=== PATIENT | male | born 1975 | race Caucasian/White ===

== ENCOUNTER 2021-03-01 10:25 | Inpatient (IN) | payer BC ==
--- NOTE | 2021-03-01 10:58 | ED ---
SOB HPI - General Chief Complaint: Shortness of Breath Stated Complaint: COVID +, SOB Time Seen by Provider: 03/01/21 10:36 Source: patient, EMS Mode of arrival: EMS Limitations: no limitations - History of Present Illness Initial Comments: Patient is a 45-year-old male presenting to the emergency department via EMS with complaints of shortness of breath. Patient has a positive for covid 3 days ago, symptoms started 6 days ago. He was having coughing, fevers, fatigue and some mild nausea. His shortness of breath has increased over the past 2 days. Denies history of asthma, no COPD, he is a nonsmoker. He takes no medications. He has no other pertinent past medical history. A chest pain at this time, no abdominal pain. Per EMS, patient was at 80% on room air. Upon arrival to our ER he was 70% on room air, quickly increased to 92% on nonrebreather. He is afebrile. - Related Data Home Medications Medication Instructions Recorded Confirmed Ibuprofen [Advil] 600 mg PO Q8HR PRN 03/01/21 03/01/21 Multivitamins, Thera [Multivitamin 1 tab PO DAILY 03/01/21 03/01/21 (formulary)] guaiFENesin [Mucinex] 1,200 mg PO Q12H PRN 03/01/21 03/01/21 Allergies Allergy/AdvReac Type Severity Reaction Status Date / Time No Known Allergies Allergy Unverified 03/01/21 11:58 Review of Systems ROS Statement: Those systems with pertinent positive or pertinent negative responses have been documented in the HPI. ROS Other: All systems not noted in ROS Statement are negative. Past Medical History Past Medical History: No Reported History History of Any Multi-Drug Resistant Organisms: None Reported Past Surgical History: No Surgical Hx Reported Past Psychological History: No Psychological Hx Reported Smoking Status: Never smoker Past Alcohol Use History: None Reported Past Drug Use History: None Reported General Exam - General Exam Comments Initial Comments: GENERAL: Patient is well-developed and well-nourished. Patient is nontoxic and in mild acute distress. HEAD: Atraumatic, normocephalic. EYES: Pupils equal round and reactive to light, extraocular movements intact, sclera anicteric, conjunctiva are normal. Eyelids were unremarkable. ENT: TMs normal, nares patent, oropharynx clear without exudates. Moist mucous membranes. NECK: Normal range of motion, supple without lymphadenopathy or JVD. LUNGS: Labored respirations. Diminished sounds bilaterally. No wheezes rales or rhonchi. HEART: Tachycardia rate and rhythm without murmurs, rubs or gallops. ABDOMEN: Soft, nontender, normoactive bowel sounds. No guarding, no rebound. No masses appreciated. : Deferred MUSCULOSKELETAL: Normal extremities with adequate strength and normal range of motion, no pitting or edema. No clubbing or cyanosis. NEUROLOGICAL: Patient is alert and oriented x 3. Motor and sensory are also intact. Cranial nerves II through XII grossly intact. Symmetrical smile. Normal speech, normal gait. PSYCH: Normal mood, normal affect. SKIN: Warm, Dry, normal turgor, no rashes or lesions noted. Limitations: no limitations Course Vital Signs 03/01/21 03/01/21 03/01/21 10:28 10:32 11:31 Temperature 98.4 F Pulse Rate 105 H 98 Respiratory 26 H 24 Rate Blood Pressure 150/83 125/65 O2 Sat by Pulse 70 L 92 L 95 Oximetry 03/01/21 12:31 Temperature Pulse Rate 98 Respiratory 24 Rate Blood Pressure 110/76 O2 Sat by Pulse 94 L Oximetry Medical Decision Making - Medical Decision Making Patient is a 45-year-old male with no pertinent past medical history, presenting via EMS with complaints of shortness of breath. Patient tested positive for Covid on Thursday, he is on day 6 of symptoms. He was at 70% on room air upon arrival to our ER, quickly increased to 92% with a nonrebreather. EKG is normal. He is afebrile. Slightly tachycardia. Labs are relatively stable, d- dimer slightly elevated at 0.69, LDH is 1100. Chest x-ray shows diffuse covid pneumonia. Patient will be admitted for covid pneumonia, hypoxia. Patient accepted by Dr. Galeano. Case discussed with Dr. Sifuentes. - Lab Data Result diagrams: 03/01/21 12:14 03/01/21 12:14 Lab Results 03/01/21 03/01/21 03/01/21 Range/Units 12:14 12:14 12:14 WBC 10.3 (3.8-10.6) k/uL RBC 5.05 (4.30-5.90) m/uL Hgb 16.3 (13.0-17.5) gm/dL Hct 45.3 (39.0-53.0) % MCV 89.7 (80.0-100.0) fL MCH 32.4 (25.0-35.0) pg MCHC 36.1 (31.0-37.0) g/dL RDW 12.8 (11.5-15.5) % Plt Count 234 (150-450) k/uL MPV 8.1 Neutrophils % 84 % Lymphocytes % 9 % Monocytes % 6 % Eosinophils % 0 % Basophils % 1 % Neutrophils # 8.7 H (1.3-7.7) k/uL Lymphocytes # 0.9 L (1.0-4.8) k/uL Monocytes # 0.6 (0-1.0) k/uL Eosinophils # 0.0 (0-0.7) k/uL Basophils # 0.1 (0-0.2) k/uL PT 10.2 (9.0-12.0) sec INR 0.9 (<1.2) APTT 22.7 (22.0-30.0) sec D-Dimer 0.69 H (<0.60) mg/L FEU Sodium 142 (137-145) mmol/L Potassium 3.8 (3.5-5.1) mmol/L Chloride 105 (98-107) mmol/L Carbon Dioxide 27 (22-30) mmol/L Anion Gap 10 mmol/L BUN 17 (9-20) mg/dL Creatinine 0.74 (0.66-1.25) mg/dL Est GFR (CKD-EPI)AfAm >90 (>60 ml/min/1.73 sqM) Est GFR (CKD-EPI)NonAf >90 (>60 ml/min/1.73 sqM) Glucose 121 H (74-99) mg/dL Plasma Lactic Acid Jimbo (0.7-2.0) mmol/L Calcium 8.6 (8.4-10.2) mg/dL Magnesium 1.9 (1.6-2.3) mg/dL Total Bilirubin 0.7 (0.2-1.3) mg/dL AST 57 (17-59) U/L ALT 47 (4-49) U/L Alkaline Phosphatase 83 (38-126) U/L Lactate Dehydrogenase 1156 H (313-618) U/L Total Protein 6.8 (6.3-8.2) g/dL Albumin 3.6 (3.5-5.0) g/dL 03/01/21 Range/Units 12:14 WBC (3.8-10.6) k/uL RBC (4.30-5.90) m/uL Hgb (13.0-17.5) gm/dL Hct (39.0-53.0) % MCV (80.0-100.0) fL MCH (25.0-35.0) pg MCHC (31.0-37.0) g/dL RDW (11.5-15.5) % Plt Count (150-450) k/uL MPV Neutrophils % % Lymphocytes % % Monocytes % % Eosinophils % % Basophils % % Neutrophils # (1.3-7.7) k/uL Lymphocytes # (1.0-4.8) k/uL Monocytes # (0-1.0) k/uL Eosinophils # (0-0.7) k/uL Basophils # (0-0.2) k/uL PT (9.0-12.0) sec INR (<1.2) APTT (22.0-30.0) sec D-Dimer (<0.60) mg/L FEU Sodium (137-145) mmol/L Potassium (3.5-5.1) mmol/L Chloride (98-107) mmol/L Carbon Dioxide (22-30) mmol/L Anion Gap mmol/L BUN (9-20) mg/dL Creatinine (0.66-1.25) mg/dL Est GFR (CKD-EPI)AfAm (>60 ml/min/1.73 sqM) Est GFR (CKD-EPI)NonAf (>60 ml/min/1.73 sqM) Glucose (74-99) mg/dL Plasma Lactic Acid Jimbo 1.1 (0.7-2.0) mmol/L Calcium (8.4-10.2) mg/dL Magnesium (1.6-2.3) mg/dL Total Bilirubin (0.2-1.3) mg/dL AST (17-59) U/L ALT (4-49) U/L Alkaline Phosphatase (38-126) U/L Lactate Dehydrogenase (313-618) U/L Total Protein (6.3-8.2) g/dL Albumin (3.5-5.0) g/dL - EKG Data EKG Comments: Normal sinus rhythm, normal ECG, no signs of acute ischemia. Ventricular rate 97, SC interval 148, QT 356. Critical Care Time Critical Care Time: Yes Total Critical Care Time: 35 (: Pneumonia, severe hypoxia, 70% in room air, currently 92% on nonrebreather. Admitted.) Disposition Clinical Impression: Pneumonia due to COVID-19 virus, Hypoxia Disposition: ADMITTED IP TO THIS HOSP Condition: Fair Decision Date: 03/01/21 Decision Time: 13:41
--- NOTE | 2021-03-01 11:52 | XR ---
EXAMINATION TYPE: XR chest 1V portable DATE OF EXAM: 03/01/2021 COMPARISON: NONE HISTORY: Shortness of breath TECHNIQUE: Single frontal view of the chest is obtained. FINDINGS: Diffuse bilateral infiltrates are seen with small bilateral effusion. Heart enlarged. No p neumothorax. Arthropathy of the shoulders. IMPRESSION: Diffuse bilateral infiltrates
[2021-03-01 12:49] LABS: ALT 47 U/L (4-49); AST 57 U/L (17-59); African American GFR (CKD) >90 (>60 ml/min/1.73 sqM); Albumin 3.6 g/dL (3.5-5.0); Alkaline Phosphatase 83 U/L (38-126); Anion Gap 10 mmol/L; Blood Urea Nitrogen 17 mg/dL (9-20); Calcium 8.6 mg/dL (8.4-10.2); Carbon Dioxide 27 mmol/L (22-30); Chloride 105 mmol/L (98-107); Glucose 121 mg/dL (74-99); LDH 1156 U/L (313-618); Magnesium 1.9 mg/dL (1.6-2.3); Non-African American GFR(CKD) >90 (>60 ml/min/1.73 sqM); Potassium 3.8 mmol/L (3.5-5.1); Sodium 142 mmol/L (137-145); Total Bilirubin 0.7 mg/dL (0.2-1.3); Total Protein 6.8 g/dL (6.3-8.2)
[2021-03-01] MEDS: DEXAMETHASONE SOD PHOSPHATE 10 MG/ML 1 ML VIAL IV SCH (12:49)
[2021-03-01 12:55] LABS: Basophils # (A) 0.1 k/uL (0-0.2); Basophils % (A) 1 %; Eosinophils % (A) 0 %; HCT 45.3 % (39.0-53.0); HGB 16.3 gm/dL (13.0-17.5); Lymphocytes # (A) 0.9 k/uL (1.0-4.8); Lymphocytes % (A) 9 %; MCH 32.4 pg (25.0-35.0); MCHC 36.1 g/dL (31.0-37.0); MCV 89.7 fL (80.0-100.0); Mean Platelet Volume 8.1; Monocytes # (A) 0.6 k/uL (0-1.0); Monocytes % (A) 6 %; Neutrophils # (A) 8.7 k/uL (1.3-7.7); Neutrophils % (A) 84 %; Platelet Count 234 k/uL (150-450); RBC 5.05 m/uL (4.30-5.90); RDW 12.8 % (11.5-15.5); WBC 10.3 k/uL (3.8-10.6)
[2021-03-01 12:58] LABS: INR 0.9 (<1.2); Partial Thromboplastin Time 22.7 sec (22.0-30.0); Prothrombin Time 10.2 sec (9.0-12.0)
[2021-03-01 13:20] LABS: D-Dimer 0.69 mg/L FEU (<0.60)
[2021-03-01] MEDS ORDERED: NALOXONE 0.4 MG/ML 1 ML VIAL IV PRN (13:41)
[2021-03-01] MEDS ORDERED: ONDANSETRON 4 MG/2 ML VIAL IVP PRN (13:41)
[2021-03-01] MEDS ORDERED: ZINC SULFATE 220 MG CAP PO SCH (16:45)
[2021-03-01] MEDS ORDERED: TOCILIZUMAB 800 MG in SODIUM CHLORIDE 0.9% 60 ML IV ONE (18:00)
--- NOTE | 2021-03-01 18:12 | P.CNPUL ---
History of Present Illness Consult date: 03/01/21 Reason for consult: dyspnea, hypoxemia History of present illness: 45-year-old male patient presenting to the emergency room because of shortness of breath. The patient has started having symptoms of less than a week ago, probably around 6 days ago and his symptoms were typical of COVID-19 related to pneumonia with fevers and fatigue and nausea and shortness of breath and cough and. He tested positive for COVID-19 around 3 days ago. He came in to the emergency for worsening shortness of breath. His comorbid conditions include obesity with a BMI 43.8. His current body weight is 138 kg. His initial pulse ox was 80% on room air oxygen. Upon arrival to our ER, his pulse ox was 70% and he was placed on 100% nonrebreather to bring his saturation at 92%. Chest x-ray shows small lung volumes and diffuse bilateral pulmonary infiltrates consistent with COVID-19 related pneumonia. He is afebrile. Hemodynamically stable. His blood work shows a white cell count of 10.3, he did have some lymphopenia, coagulation profile is normal, d-dimer is at 0.6, electrolytes are all within normal limits, LDH level is 1156, LFTs are normal. Lactic acid level is at 1.2. EKG showing a normal sinus rhythm. Review of Systems Constitutional: Reports fatigue, Reports fever, Reports poor appetite, Reports weakness Eyes: denies as per HPI, denies blurred vision, denies bulging eye, denies decreased vision, denies diplopia, denies discharge, denies dry eye, denies irritation, denies itching, denies pain, denies photophobia, denies loss of peripheral vision, denies loss of vision, denies tunnel vision/blind spots Ears: deny: decreased hearing, ear discharge, earache, tinnitus Ears, nose, mouth and throat: Reports as per HPI Breasts: absent: as per HPI, gynecomastia Cardiovascular: Reports decreased exercise tolerance, Reports dyspnea on exertion Respiratory: Reports dyspnea Gastrointestinal: Reports as per HPI Genitourinary: Reports as per HPI Musculoskeletal: Reports muscle weakness Musculoskeletal: absent: ankle pain, ankle stiffness, ankle swelling, as per HPI, elbow pain, elbow stiffness, elbow swelling, foot pain, foot stiffness, foot swelling, hand pain, hand stiffness, hand swelling, hip pain, hip stiffness, hip swelling, knee pain, knee stiffness, knee swelling, shoulder pain, shoulder stiffness, shoulder swelling, wrist pain, wrist stiffness, wrist swelling Integumentary: Reports as per HPI Neurological: Reports weakness Psychiatric: Reports as per HPI Endocrine: Reports as per HPI Hematologic/Lymphatic: Reports as per HPI Allergic/Immunologic: Reports as per HPI Past Medical History Past Medical History: No Reported History History of Any Multi-Drug Resistant Organisms: None Reported Past Surgical History: No Surgical Hx Reported Additional Past Surgical History / Comment(s): left arm ORIF for fracture and adenoidectomy Past Psychological History: No Psychological Hx Reported Smoking Status: Never smoker Past Alcohol Use History: None Reported Past Drug Use History: None Reported Medications and Allergies Home Medications Medication Instructions Recorded Confirmed Type Ibuprofen [Advil] 600 mg PO Q8HR PRN 03/01/21 03/01/21 History Multivitamins, Thera [Multivitamin 1 tab PO DAILY 03/01/21 03/01/21 History (formulary)] guaiFENesin [Mucinex] 1,200 mg PO Q12H PRN 03/01/21 03/01/21 History Allergies Allergy/AdvReac Type Severity Reaction Status Date / Time No Known Allergies Allergy Unverified 03/01/21 11:58 Physical Exam Vitals: Vital Signs Temp Pulse Resp BP Pulse Ox 03/01/21 15:30 99 24 131/69 92 L 03/01/21 14:30 95 24 127/74 92 L 03/01/21 13:30 91 24 118/65 93 L 03/01/21 12:31 98 24 110/76 94 L 03/01/21 11:31 98 24 125/65 95 03/01/21 10:32 92 L 03/01/21 10:28 98.4 F 105 H 26 H 150/83 70 L Intake and Output 03/01/21 03/01/21 03/01/21 06:59 14:59 22:59 Other: Weight 138.346 kg Morbidly obese, calm and comfortable and 100% nonrebreather facemask, BMI 43.8. Breathing is labored. He is in mild degree of respiratory distress. Head exam was generally normal. There was no scleral icterus or corneal arcus. Mucous membranes were moist. Neck was supple and without jugular venous distension, thyromegaly, or carotid bruits. Carotids were easily palpable bilaterally. There was no adenopathy. The patient is a Mallampati class IV Lungs sounds are diminished. No wheezes. Crackles in the lung bases bilaterally. Breathing is slightly labored. Cardiac exam revealed the PMI to be normally situated and sized. The rhythm was regular and no extrasystoles were noted during several minutes of auscultation. The first and second heart sounds were normal and physiologic splitting of the second heart sound was noted. There were no murmurs, rubs, clicks, or gallops. The patient is quite tachycardic at this point in time. Abdomen soft. Organs cannot be accurately palpated as the patient has morbid obesity. No direct tenderness. No rebound tenderness. No guarding. Examination of the extremities revealed easily palpable radial, femoral and pedal pulses. There was no cyanosis, clubbing or edema. Examination of the skin revealed no evidence of significant rashes, suspicious appearing nevi or other concerning lesions. Neurologically, the patient is awake and alert and the patient does not have any focal neurological deficit. Cranial nerves are essentially intact. Results - Laboratory Findings CBC and BMP: 03/01/21 12:14 03/01/21 12:14 PT/INR, D-dimer PT 10.2 sec (9.0-12.0) 03/01/21 12:14 INR 0.9 (<1.2) 03/01/21 12:14 D-Dimer 0.69 mg/L FEU (<0.60) H 03/01/21 12:14 Abnormal lab findings: Abnormal Labs 03/01/21 03/01/21 03/01/21 12:14 12:14 12:14 Neutrophils # 8.7 H Lymphocytes # 0.9 L D-Dimer 0.69 H Glucose 121 H Lactate Dehydrogenase 1156 H C-Reactive Protein 16.0 H - Diagnostic Findings Chest x-ray: image reviewed Assessment and Plan Plan: 1 acute COVID-19 related to pneumonia. The patient rapid progression of the past 6 days when he started having symptoms and currently is presenting with acute hypoxic respiratory failure and the patient developed bilateral pulmonary infiltrates consistent with COVID-19 related pneumonia. Blood work is consistent with COVID-19. LDH level is elevated. The patient has lymphopenia. D-dimer is mildly elevated at 0.69 2 acute hypoxic respiratory failure currently and 100% nonrebreather facemask 3 morbid obesity with a BMI 43.8 4 possible sleep breathing disorder/obstructive sleep apnea Plan IV fluids with normal saline at the rate of 75 mL an hour Oxygen supplementation titrate the flow to maintain saturation above 90% Decadron 6 mg IV every 24 hours Lovenox 40 mg subcu every 24 hours Not a candidate for Remdesivir as the patient has high oxygen requirements The patient could be ordered in the inflammatory phase of his COVID-19 in fection. He would benefit from Tocilizumab, he will likely benefit 800 mg IV We'll also give him the benefit of the doubt by transfusing him with a unit of convalescent plasma We'll continue to follow. Resume home medications. Monitor oxygenation. We'll continue to follow make further recommendations based on his progress
[2021-03-01] MEDS: CHOLECALCIFEROL 25 MCG (1000 IU) TABLET PO SCH (18:21)
[2021-03-01] MEDS: ENOXAPARIN 40 MG/0.4 ML SYRINGE SQ SCH (18:21)
[2021-03-01] MEDS: ASCORBIC ACID 500 MG TAB PO SCH (18:21)
[2021-03-01] MEDS: ZINC SULFATE 220 MG CAP PO SCH (18:29)
[2021-03-02 00:45] LABS: Ferritin 430.3 ng/mL (22.0-322.0)
[2021-03-02] MEDS: CHOLECALCIFEROL 25 MCG (1000 IU) TABLET PO SCH (09:00)
[2021-03-02] MEDS: ENOXAPARIN 40 MG/0.4 ML SYRINGE SQ SCH (09:00)
[2021-03-02] MEDS: ZINC SULFATE 220 MG CAP PO SCH (09:00)
[2021-03-02] MEDS: DEXAMETHASONE SOD PHOSPHATE 10 MG/ML 1 ML VIAL IV SCH (09:00)
[2021-03-02] MEDS: ASCORBIC ACID 500 MG TAB PO SCH ×2 (09:01→20:16)
[2021-03-02] MEDS: ACETAMINOPHEN TAB 325 MG TAB PO PRN (09:01)
--- NOTE | 2021-03-02 09:58 | P.PN ---
Subjective Progress Note Date: 03/02/21 45-year-old male patient presenting to the emergency room because of shortness of breath. The patient has started having symptoms of less than a week ago, probably around 6 days ago and his symptoms were typical of COVID-19 related to pneumonia with fevers and fatigue and nausea and shortness of breath and cough and. He tested positive for COVID-19 around 3 days ago. He came in to the emergency for worsening shortness of breath. His comorbid conditions include obesity with a BMI 43.8. His current body weight is 138 kg. His initial pulse ox was 80% on room air oxygen. Upon arrival to our ER, his pulse ox was 70% and he was placed on 100% nonrebreather to bring his saturation at 92%. Chest x-ray shows small lung volumes and diffuse bilateral pulmonary infiltrates consistent with COVID-19 related pneumonia. He is afebrile. Hemodynamically stable. His blood work shows a white cell count of 10.3, he did have some lymphopenia, coagulation profile is normal, d-dimer is at 0.6, electrolytes are all within normal limits, LDH level is 1156, LFTs are normal. Lactic acid level is at 1.2. EKG showing a normal sinus rhythm. On 09/03/2021, the patient is still in the emergency and the patient is being seen for a follow-up. He remains in the 100% nonrebreather facemask. He feels that his condition is still stable. His current pulse ox is 82% on 100% nonrebreather facemask, in addition to 15 L of oxygen by nasal cannula. He remains on Decadron 6 mg IV and he also received Tocilizumab 800 mg, IV. Rest of the labs are pending from today. He d-dimer at 0.69 and the patient was given Lovenox for DVT prophylaxis 40 mg subcu. He looks comfortable although his Zestoretic as high in the low 30s. He has crackles bilaterally on examination. He is afebrile. He denies having any significant worsening despite his ongoing hypoxemia. Objective - Vital Signs Vital signs: Vital Signs Temp 98.4 F 03/02/21 07:35 Pulse 75 03/02/21 09:00 Resp 24 03/02/21 09:00 BP 117/69 03/02/21 09:00 Pulse Ox 82 L 03/02/21 09:47 Intake & Output 03/01/21 03/02/21 03/02/21 18:59 06:59 18:59 Weight 138.346 kg - Exam Morbidly obese, calm and comfortable and 100% nonrebreather facemask, BMI 43.8. Breathing is labored. He is in mild degree of respiratory distress. Head exam was generally normal. There was no scleral icterus or corneal arcus. Mucous membranes were moist. Neck was supple and without jugular venous distension, thyromegaly, or carotid bruits. Carotids were easily palpable bilaterally. There was no adenopathy. The patient is a Mallampati class IV Lungs sounds are diminished. No wheezes. Crackles in the lung bases bilaterally. Breathing is slightly labored. Cardiac exam revealed the PMI to be normally situated and sized. The rhythm was regular and no extrasystoles were noted during several minutes of auscultation. The first and second heart sounds were normal and physiologic splitting of the second heart sound was noted. There were no murmurs, rubs, clicks, or gallops. The patient is quite tachycardic at this point in time. Abdomen soft. Organs cannot be accurately palpated as the patient has morbid obesity. No direct tenderness. No rebound tenderness. No guarding. Examination of the extremities revealed easily palpable radial, femoral and pedal pulses. There was no cyanosis, clubbing or edema. Examination of the skin revealed no evidence of significant rashes, suspicious appearing nevi or other concerning lesions. Neurologically, the patient is awake and alert and the patient does not have any focal neurological deficit. Cranial nerves are essentially intact. - Labs CBC & Chem 7: 03/01/21 12:14 03/01/21 12:14 Labs: Abnormal Lab Results - Last 24 Hours (Table) 03/01/21 03/01/21 03/01/21 Range/Units 12:14 12:14 12:14 Neutrophils # 8.7 H (1.3-7.7) k/uL Lymphocytes # 0.9 L (1.0-4.8) k/uL D-Dimer 0.69 H (<0.60) mg/L FEU Glucose 121 H (74-99) mg/dL Ferritin 430.3 H (22.0-322.0) ng/mL Lactate Dehydrogenase 1156 H (313-618) U/L C-Reactive Protein 16.0 H (<1.0) mg/dL Assessment and Plan Plan: 1 acute COVID-19 related to pneumonia. The patient rapid progression of the past 6 days when he started having symptoms and presented with acute hypoxic respiratory failure and the patient developed bilateral pulmonary infiltrates consistent with COVID-19 related pneumonia. Blood work is consistent with COVID-19. LDH level is elevated. The patient has lymphopenia. D-dimer is mildly elevated at 0.69 and the patient was started on Decadron and the patient was also given a dose of Tocilizumab 100 mg IV. Currently is on 100% nonrebrea ther along with 15 L nasal cannula. 2 acute hypoxic respiratory failure currently and 100% nonrebreather facemask 3 morbid obesity with a BMI 43.8 4 possible sleep breathing disorder/obstructive sleep apnea Plan IV fluids with normal saline at the rate of 75 mL an hour Oxygen supplementation titrate the flow to maintain saturation above 90% Utilize left-sided body positioning him home body positioning if possible. Decadron 6 mg IV every 24 hours Lovenox 40 mg subcu every 24 hours Not a candidate for Remdesivir as the patient has high oxygen requirements The patient could be ordered in the inflammatory phase of his COVID-19 infection. He did receive Tocilizumab, he will likely benefit 800 mg IV And he is waiting for a unit of convalescent plasma We'll continue to follow. Monitor oxygenation. We'll continue to follow make further recommendations based on his progress
[2021-03-02 11:26] LABS: ALT 51 U/L (4-49); AST 65 U/L (17-59); African American GFR (CKD) >90 (>60 ml/min/1.73 sqM); Albumin 3.7 g/dL (3.5-5.0); Alkaline Phosphatase 82 U/L (38-126); Anion Gap 10 mmol/L; Blood Urea Nitrogen 26 mg/dL (9-20); Calcium 9.2 mg/dL (8.4-10.2); Carbon Dioxide 28 mmol/L (22-30); Chloride 108 mmol/L (98-107); Glucose 124 mg/dL (74-99); LDH 1377 U/L (313-618); Non-African American GFR(CKD) >90 (>60 ml/min/1.73 sqM); Potassium 4.5 mmol/L (3.5-5.1); Sodium 146 mmol/L (137-145); Total Bilirubin 0.7 mg/dL (0.2-1.3); Total Protein 6.8 g/dL (6.3-8.2)
[2021-03-02 11:56] LABS: C Reactive Protein 14.6 mg/dL (<1.0)
--- NOTE | 2021-03-02 18:45 | P.HPIM ---
History of Present Illness H&P Date: 03/02/21 Chief Complaint: Shortness of breath History of presenting complaint: This is a pleasant 45-year-old patient of Dr. Dejesus. Patient was diagnosed with COVID 3 days ago. Symptoms started about 6 days ago. Patient had fever or chills some diarrhea. Some shortness of breath some cough. No loss of smell or taste. Decreased appetite tired rundown. Patient pulse ox on presentation was 70% and patient subsequently was put on 15 L high flow oxygen. 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 EYES: Pupils equal. Conjunctiva normal. HEENT: External appearance of nose and ears normal, oral cavity grossly normal. NECK: JVD not raised; masses not palpable. HEART: First and second heart sounds are normal; no edema. LUNGS: Respiratory rate increased, decreased breath sound coarse crackles at the bases, not able to speak in full sentences. ABDOMEN: Soft, nontender, liver spleen not palpable, no masses palpable. PSYCH: Alert and oriented x3; mood and affect anxiousl. NEUROLOGICAL: Cranial nerves grossly intact; no facial asymmetry, power and sensation grossly intact. LYMPHATICS: No lymph nodes palpable in the axilla and neck INVESTIGATIONS, reviewed in the clinical context: D-dimer 0.82 potassium 4.5 creatinine 0.79 AST 65 ALT 51 LDH 1377 CRP 14.6 Admission labs: WBC 10.3 hemoglobin 16.3 platelets 234 lymphocytes 0.9 d-dimer 0.69 potassium 3.8 creatinine 0.74 LDH 1156 CRP 16 EKG tracing personally reviewed by me-normal sinus rhythm Chest x-ray film personally reviewed by me-/portable: Bilateral infiltrates Assessment and plan: -Acute bilateral: 90 pneumonia. Symptoms started about 6 days ago. Being diagnosed 3 days ago. Patient is on vitamin C vitamin D zinc IV Decadron and subcu Lovenox. -Acute hypoxic respiratory failure secondary to COVID 19 pneumonia Currently on 15 L high flow oxygen -Morbid obesity BMI 43.8 Weight loss measures and follow with PCP for the same -Mild hepatitis likely due to COVID 19 Follow clinically Care was discussed with the patient. Have the patient sit up in a chair as possible. Incentive spirometry. Follow COVID 19 clinical markers Given the complexity and severity of patient's condition expect the patient to be in the hospital at least for 2 overnights Past Medical History Past Medical History: No Reported History History of Any Multi-Drug Resistant Organisms: None Reported Past Surgical History: No Surgical Hx Reported Additional Past Surgical History / Comment(s): left arm ORIF for fracture and adenoidectomy Past Psychological History: No Psychological Hx Reported Smoking Status: Never smoker Past Alcohol Use History: None Reported Past Drug Use History: None Reported Medications and Allergies Home Medications Medication Instructions Recorded Confirmed Type Ibuprofen [Advil] 600 mg PO Q8HR PRN 03/01/21 03/01/21 History Multivitamins, Thera [Multivitamin 1 tab PO DAILY 03/01/21 03/01/21 History (formulary)] guaiFENesin [Mucinex] 1,200 mg PO Q12H PRN 03/01/21 03/01/21 History Allergies Allergy/AdvReac Type Severity Reaction Status Date / Time No Known Allergies Allergy Unverified 03/01/21 11:58 Physical Exam Vitals: Vital Signs Temp Pulse Resp BP Pulse Ox 03/02/21 09:58 89 L 03/02/21 09:47 82 L 03/02/21 09:00 75 24 117/69 88 L 03/02/21 08:00 68 24 127/76 91 L 03/02/21 07:35 98.4 F 81 25 H 127/76 91 L 03/02/21 07:33 78 24 127/76 90 L 03/02/21 06:48 97.5 F L 82 20 120/74 88 L 03/02/21 03:16 78 26 H 127/74 89 L 03/02/21 00:03 76 22 115/79 91 L 03/01/21 22:00 98.9 F 83 28 H 131/84 90 L 03/01/21 20:00 98 26 H 124/77 92 L 03/01/21 19:00 90 24 123/76 92 L 04/16/21 18:00 95 24 133/76 93 L 03/01/21 17:00 87 24 120/73 93 L 03/01/21 16:00 89 22 126/73 90 L 03/01/21 15:30 99 24 131/69 92 L 03/01/21 14:30 95 24 127/74 92 L 03/01/21 13:30 91 24 118/65 93 L 03/01/21 12:31 98 24 110/76 94 L 03/01/21 11:31 98 24 125/65 95 03/01/21 10:32 92 L 03/01/21 10:28 98.4 F 105 H 26 H 150/83 70 L Results CBC & Chem 7: 03/01/21 12:14 03/02/21 10:30 Labs: Abnormal Lab Results - Last 24 Hours (Table) 03/01/21 03/01/21 03/01/21 Range/Units 12:14 12:14 12:14 Neutrophils # 8.7 H (1.3-7.7) k/uL Lymphocytes # 0.9 L (1.0-4.8) k/uL D-Dimer 0.69 H (<0.60) mg/L FEU Glucose 121 H (74-99) mg/dL Ferritin 430.3 H (22.0-322.0) ng/mL Lactate Dehydrogenase 1156 H (313-618) U/L C-Reactive Protein 16.0 H (<1.0) mg/dL
--- NOTE | 2021-03-03 06:40 | XR ---
EXAMINATION TYPE: XR chest 1V portable DATE OF EXAM: 03/03/2021 CLINICAL HISTORY: Difficulty breathing and covid progress study. TECHNIQUE: Single AP portable upright view of the chest is obtained. COMPARISON: Chest x-ray from 2 days earlier FINDINGS: Bilateral multifocal and confluent opacities redemonstrated. Stable mild cardiomegaly. Vis ualized osseous structures are intact. IMPRESSION: Bilateral multifocal and confluent opacities redemonstrated consistent with covid-19 infe ction, findings slightly progressed or worsened in the left upper lung otherwise no significant fuchs e from prior study.
[2021-03-03] MEDS: ENOXAPARIN 40 MG/0.4 ML SYRINGE SQ SCH (07:57)
[2021-03-03] MEDS: CHOLECALCIFEROL 25 MCG (1000 IU) TABLET PO SCH (07:57)
[2021-03-03] MEDS: ASCORBIC ACID 500 MG TAB PO SCH ×2 (07:57→21:32)
[2021-03-03] MEDS: DEXAMETHASONE SOD PHOSPHATE 10 MG/ML 1 ML VIAL IV SCH ×2 (07:57→21:32)
[2021-03-03] MEDS: ZINC SULFATE 220 MG CAP PO SCH (07:58)
[2021-03-03 09:28] LABS: ALT 67 U/L (4-49); AST 70 U/L (17-59); African American GFR (CKD) >90 (>60 ml/min/1.73 sqM); Albumin 3.9 g/dL (3.5-5.0); Alkaline Phosphatase 92 U/L (38-126); Anion Gap 12 mmol/L; Blood Urea Nitrogen 31 mg/dL (9-20); C Reactive Protein 5.2 mg/dL (<1.0); Calcium 9.4 mg/dL (8.4-10.2); Carbon Dioxide 28 mmol/L (22-30); Chloride 107 mmol/L (98-107); Glucose 113 mg/dL (74-99); LDH 1419 U/L (313-618); Non-African American GFR(CKD) >90 (>60 ml/min/1.73 sqM); Potassium 4.3 mmol/L (3.5-5.1); Sodium 147 mmol/L (137-145); Total Bilirubin 0.8 mg/dL (0.2-1.3); Total Protein 7.1 g/dL (6.3-8.2)
--- NOTE | 2021-03-03 09:50 | P.PN ---
Subjective Progress Note Date: 03/03/21 45-year-old male patient presenting to the emergency room because of shortness of breath. The patient has started having symptoms of less than a week ago, probably around 6 days ago and his symptoms were typical of COVID-19 related to pneumonia with fevers and fatigue and nausea and shortness of breath and cough and. He tested positive for COVID-19 around 3 days ago. He came in to the emergency for worsening shortness of breath. His comorbid conditions include obesity with a BMI 43.8. His current body weight is 138 kg. His initial pulse ox was 80% on room air oxygen. Upon arrival to our ER, his pulse ox was 70% and he was placed on 100% nonrebreather to bring his saturation at 92%. Chest x-ray shows small lung volumes and diffuse bilateral pulmonary infiltrates consistent with COVID-19 related pneumonia. He is afebrile. Hemodynamically stable. His blood work shows a white cell count of 10.3, he did have some lymphopenia, coagulation profile is normal, d-dimer is at 0.6, electrolytes are all within normal limits, LDH level is 1156, LFTs are normal. Lactic acid level is at 1.2. EKG showing a normal sinus rhythm. On , the patient is still in the emergency and the patient is being seen for a follow-up. He remains in the 100% nonrebreather facemask. He feels that his condition is still stable. His current pulse ox is 82% on 100% nonrebreather facemask, in addition to 15 L of oxygen by nasal cannula. He remains on Decadron 6 mg IV and he also received Tocilizumab 800 mg, IV. Rest of the labs are pending from today. He d-dimer at 0.69 and the patient was given Lovenox for DVT prophylaxis 40 mg subcu. He looks comfortable . He has crackles bilaterally on examination. He is afebrile. He denies having any significant worsening despite his ongoing hypoxemia. 03/03/2021, the patient is being seen for a follow-up. He is doing well on 15 L nasal cannula along with 100% on a beta facemasks. He does better on his left lateral side. Unable to go prone. He is afebrile. Pulse oxing between 86-90% on the above-mentioned oxygen flow. He d-dimer is at 2.06, LDH level is at 14 19 and the patient has a CRP of 5.2. He is still on Decadron 6 mg IV every 24 hours. He also received Tocilizumab milligrams IV 1 yesterday. He is still waiting on convalescent plasma.. He is, indicating previous tolerating diet. No significant worsening in his oxygenation since yesterday. No altered mentation. No chest pain. His cough is dry. Objective - Vital Signs Vital signs: Vital Signs Temp 96.5 F L 03/03/21 08:00 Pulse 79 03/03/21 08:00 Resp 20 03/03/21 08:00 BP 96/68 03/03/21 08:00 Pulse Ox 87 L 03/03/21 08:00 Intake & Output 03/02/21 03/03/21 03/03/21 18:59 06:59 18:59 Intake Total 120 720 Output Total 1425 Balance 120 -705 Weight 138.346 kg Intake: Oral 120 720 Output: Urine 1425 Other: # Voids 1 - Exam Morbidly obese, calm and comfortable and 100% nonrebreather facemask, BMI 43.8. Breathing is labored. He is in mild degree of respiratory distress. Head exam was generally normal. There was no scleral icterus or corneal arcus. Mucous membranes were moist. Neck was supple and without jugular venous distension, thyromegaly, or carotid bruits. Carotids were easily palpable bilaterally. There was no adenopathy. The patient is a Mallampati class IV Lungs sounds are diminished. No wheezes. Crackles in the lung bases bilaterally. Breathing is slightly labored. Cardiac exam revealed the PMI to be normally situated and sized. The rhythm was regular and no extrasystoles were noted during several minutes of auscultation. The first and second heart sounds were normal and physiologic splitting of the second heart sound was noted. There were no murmurs, rubs, clicks, or gallops. The patient is quite tachycardic at this point in time. Abdomen soft. Organs cannot be accurately palpated as the patient has morbid obesity. No direct tenderness. No rebound tenderness. No guarding. Examination of the extremities revealed easily palpable radial, femoral and pedal pulses. There was no cyanosis, clubbing or edema. Examination of the skin revealed no evidence of significant rashes, suspicious appearing nevi or other concerning lesions. Neurologically, the patient is awake and alert and the patient does not have any focal neurological deficit. Cranial nerves are essentially intact. - Labs CBC & Chem 7: 03/01/21 12:14 03/03/21 08:19 Labs: Abnormal Lab Results - Last 24 Hours (Table) 03/02/21 03/02/21 03/03/21 Range/Units 10:30 10:30 08:19 D-Dimer 0.82 H (<0.60) mg/L FEU Sodium 146 H 147 H (137-145) mmol/L Chloride 108 H (98-107) mmol/L BUN 26 H 31 H (9-20) mg/dL Glucose 124 H 113 H (74-99) mg/dL AST 65 H 70 H (17-59) U/L ALT 51 H 67 H (4-49) U/L Lactate Dehydrogenase 1377 H 1419 H (313-618) U/L C-Reactive Protein 14.6 H 5.2 H (<1.0) mg/dL 03/03/21 Range/Units 08:19 D-Dimer 2.06 H (<0.60) mg/L FEU Sodium (137-145) mmol/L Chloride (98-107) mmol/L BUN (9-20) mg/dL Glucose (74-99) mg/dL AST (17-59) U/L ALT (4-49) U/L Lactate Dehydrogenase (313-618) U/L C-Reactive Protein (<1.0) mg/dL Microbiology - Last 24 Hours (Table) 03/01/21 12:00 Blood Culture - Preliminary Blood No Growth after 24 hours 03/01/21 11:45 Blood Culture - Preliminary Blood No Growth after 24 hours Assessment and Plan Plan: 1 acute COVID-19 related to pneumonia. The patient rapid progression of the past 6 days when he started having symptoms and presented with acute hypoxic r espiratory failure and the patient developed bilateral pulmonary infiltrates consistent with COVID-19 related pneumonia. Blood work is consistent with COVID-19. He w as started on Decadron and the patient was also given a dose of Tocilizumab 800 mg IV 1 and he is awaiting on convalescent plasma.. Currently is on 100% nonrebreather along with 15 L nasal cannula. The inflammatory markers are being monitored. The patient's oxygenation is essentially the same and unchanged compared to yesterday. He is sleeping on his side especially on the left. He is able to maintain a pulse ox of 88% and above. 2 acute hypoxic respiratory failure currently and 100% nonrebreather facemask 3 morbid obesity with a BMI 43.8 4 possible sleep breathing disorder/obstructive sleep apnea Plan IV fluids with 1/2 normal saline at the rate of 50 mL an hour Oxygen supplementation titrate the flow to maintain saturation above 90% Utilize left-sided body positioning him home body positioning if possible. Decadron 6 mg IV and increase the dose to twice a day Lovenox 40 mg subcu every 24 hours Not a candidate for Remdesivir as the patient has high oxygen requirements The patient could be ordered in the inflammatory phase of his COVID-19 infection. He did receive Tocilizumab, he will likely benefit 800 mg IV and he is awaiting on convalescent plasma We'll continue to follow. Monitor oxygenation. Chest x-ray in inflammatory markers to be remeasured tomorrow We'll continue to follow make further recommendations based on his progress
[2021-03-03] MEDS ORDERED: SODIUM CHLORIDE 0.45% 1,000 ML IV SCH (10:00)
--- NOTE | 2021-03-03 20:25 | P.PN ---
Progress Note - Text Progress Note Date: 03/03/21 Chief Complaint: Shortness of breath History of presenting complaint: This is a pleasant 45-year-old patient of Dr. Dejesus. Patient was diagnosed with COVID 3 days ago. Symptoms started about 6 days ago. Patient had fever or chills some diarrhea. Some shortness of breath some cough. No loss of smell or taste. Decreased appetite tired rundown. Patient pulse ox on presentation was 70% and patient subsequently was put on 15 L high flow oxygen. Admitted with bilateral COVID 19 pneumonia. Acute hypoxic respiratory failure. Put on IV Decadron Lovenox, 50 L of high flow oxygen. Today: Laying in bed. Tired. Short of breath. Remains on 15 L Ventimask. Oral intake about 25% Review of systems: Was done for constitutional, cardiovascular, GI, pulmonary. relevant finding as above Active Medications Acetaminophen (Acetaminophen Tab 325 Mg Tab) 650 mg PO Q6HR PRN PRN Reason: Mild Pain or Fever > 100.5 Last Admin: 03/02/21 09:01 Dose: 650 mg Documented by: Ascorbic Acid (Ascorbic Acid 500 Mg Tab) 500 mg PO BID [facility] Last Admin: 03/03/21 07:57 Dose: 500 mg Documented by: Cholecalciferol (Cholecalciferol 25 Mcg (1000 Iu) Tablet) 125 mcg PO DAILY [facility] Last Admin: 03/03/21 07:57 Dose: 125 mcg Documented by: Dexamethasone Sodium Phosphate (Dexamethasone Sod Phosphate 10 Mg/Ml 1 Ml Vial) 6 mg IV BID [facility] Enoxaparin Sodium (Enoxaparin 40 Mg/0.4 Ml Syringe) 40 mg SQ DAILY [facility] Last Admin: 03/03/21 07:57 Dose: 40 mg Documented by: Sodium Chloride (Saline 0.45%) 1,000 mls @ 50 mls/hr IV .Q20H [facility] Last Admin: 03/03/21 15:09 Dose: 50 mls/hr Documented by: Naloxone HCl (Naloxone 0.4 Mg/Ml 1 Ml Vial) 0.2 mg IV Q2M PRN PRN Reason: Opioid Reversal Ondansetron HCl (Ondansetron 4 Mg/2 Ml Vial) 4 mg IVP Q8HR PRN PRN Reason: Nausea And Vomiting Zinc Sulfate (Zinc Sulfate 220 Mg Cap) 220 mg PO DAILY [facility] Last Admin: 04/18/21 07:58 Dose: 220 mg Documented by: Past medical history: 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 PSYCH: Alert and oriented x3; mood and affect anxious. NEUROLOGICAL: Cranial nerves grossly intact; no facial asymmetry, moving all 4 limbs Rest of the exam per pulmonary nursing INVESTIGATIONS, reviewed in the clinical context: March 03: D-dimer 2.06 potassium 4.3 creatinine 0.84 2147 LDH 1419 CRP 5.2 D-dimer 0.82 potassium 4.5 creatinine 0.79 AST 65 ALT 51 LDH 1377 CRP 14.6 Admission labs: WBC 10.3 hemoglobin 16.3 platelets 234 lymphocytes 0.9 d-dimer 0.69 potassium 3.8 creatinine 0.74 LDH 1156 CRP 16 EKG tracing personally reviewed by me-normal sinus rhythm Chest x-ray film personally reviewed by me-/portable: Bilateral infiltrates Assessment and plan: -Acute bilateral: 90 pneumonia. Symptoms started about 6 days ago. Being diagnosed 3 days ago.-Not improving Patient is on vitamin C vitamin D zinc IV Decadron and subcu Lovenox. -Acute hypoxic respiratory failure secondary to COVID 19 pneumonia-not improving Currently on 15 L high flow oxygen -Morbid obesity BMI 43.8 Weight loss measures and follow with PCP for the same -Mild hepatitis likely due to COVID 19 Follow clinically -Hypernatremia from free water deficit from decreased oral intake Add D5 saline at 75 mL an hour Discussed with the patient. Have the patient sit up in a chair. Follow with pulmonary
[2021-03-03] MEDS: DEXTROSE 5%-0.9% NACL 1,000 ML IV SCH (21:32)
[2021-03-04] MEDS ORDERED: LORazepam 2 MG/ML INJ IV STA (05:08)
--- NOTE | 2021-03-04 08:25 | XR ---
EXAMINATION TYPE: XR chest 1V portable DATE OF EXAM: 03/04/2021 COMPARISON: Chest x-ray 03/03/2021 HISTORY: Covid pneumonia, abnormal chest x-ray TECHNIQUE: Single frontal view of the chest is obtained. FINDINGS: Density in the upper lobe on the left is somewhat more confluent, bilateral airspace disea se persists. No evident pneumothorax or pleural effusion. Cardiomediastinal silhouette is stable. IMPRESSION: Findings consistent with patient's history Covid pneumonia.
[2021-03-04 08:26] LABS: ALT 74 U/L (4-49); AST 60 U/L (17-59); African American GFR (CKD) >90 (>60 ml/min/1.73 sqM); Albumin 3.4 g/dL (3.5-5.0); Alkaline Phosphatase 93 U/L (38-126); Anion Gap 7 mmol/L; Blood Urea Nitrogen 25 mg/dL (9-20); C Reactive Protein 2.6 mg/dL (<1.0); Calcium 8.9 mg/dL (8.4-10.2); Carbon Dioxide 29 mmol/L (22-30); Chloride 109 mmol/L (98-107); Glucose 112 mg/dL (74-99); LDH 1471 U/L (313-618); Non-African American GFR(CKD) >90 (>60 ml/min/1.73 sqM); Potassium 4.1 mmol/L (3.5-5.1); Sodium 145 mmol/L (137-145); Total Bilirubin 0.8 mg/dL (0.2-1.3); Total Protein 6.5 g/dL (6.3-8.2)
[2021-03-04] MEDS: ASCORBIC ACID 500 MG TAB PO SCH ×2 (08:51→20:00)
[2021-03-04] MEDS: CHOLECALCIFEROL 25 MCG (1000 IU) TABLET PO SCH (08:52)
[2021-03-04] MEDS: DEXAMETHASONE SOD PHOSPHATE 10 MG/ML 1 ML VIAL IV SCH ×2 (08:52→20:00)
[2021-03-04] MEDS: ZINC SULFATE 220 MG CAP PO SCH (08:52)
[2021-03-04] MEDS: ENOXAPARIN 40 MG/0.4 ML SYRINGE SQ SCH (08:52)
[2021-03-04] MEDS: DEXTROSE 5%-0.9% NACL 1,000 ML IV SCH ×2 (11:53→20:12)
--- NOTE | 2021-03-04 12:31 | P.PN ---
Subjective Progress Note Date: 03/04/21 Principal diagnosis: Acute hypoxemic respiratory failure. Progress note dated 03/04/2021. 45-year-old male who was admitted with a diagnosis of acute hypoxemic respiratory failure secondary to COVID 19 pneumonitis/pneumonia. When I saw the patient initially, he was on a nonrebreather, as well as 15 L high flow nasal O2. He was getting saline at 75 mL an hour. His d-dimer had increased, and so we increase his Lovenox up to 60 mg twice a day. He did receive TOCI on March 02. He got up to use the bedside commode, and his saturations dropped into the mid 70 range. I did ask respiratory to place him on BiPAP with settings of IPAP 15, EPAP 5, and 100% FiO2. We will evaluate him again in a few hours or so. Lab data today includes a d-dimer of greater than 34.10, sodium 145, potassium 4.1, chlorides 109, CO2 29, anion gap 7, BUN 25, and creatinine 0.69. LDH is 1471. C-reactive protein is 2.6. Chest x-ray from today, shows diffuse bilateral infiltrates. Objective - Vital Signs Vital signs: Vital Signs Temp 96.8 F L 03/04/21 08:45 Pulse 63 03/04/21 08:45 Resp 24 03/04/21 08:45 BP 118/66 03/04/21 08:45 Pulse Ox 85 L 03/04/21 08:45 Intake & Output 03/03/21 03/04/21 03/04/21 18:59 06:59 18:59 Intake Total 471 600 Output Total 1000 400 Balance -529 200 Intake: Intake, IV Titration 600 Amount Dextrose 5%-0.9% NaCl 1, 600 000 ml @ 75 mls/hr IV . [id number] [facility] Rx#:[id number] Oral 160 Blood Product 311 Ffp Convalescent Plasma 311 Cpd Unit [id number] Output: Urine 1000 400 Other: Voiding Method Urinal # Voids 1 - Exam Mild respiratory distress, oriented 3, currently on a nonrebreather, as well as 15 L high flow nasal O2. HEENT examination is grossly unremarkable. Neck supple. Full range of motion. No adenopathy thyromegaly or neck vein distention. Cardiovascular examination reveals regular rhythm rate. S1-S2 normal. No S3 or S4. No discernible murmur noted. Heart sounds are distant. Heart rate 63 bpm. Lungs reveal diffuse bilateral scattered rhonchi, as well as bibasilar crackles. No wheezes. Breath sounds equal bilaterally. Abdomen soft bowel sounds are heard. No masses or tenderness. Extremities are intact. No cyanosis clubbing or edema. Skin is without rash or lesion. Neurologic examination is brief but nonfocal. - Labs CBC & Chem 7: 03/01/21 12:14 03/04/21 07:37 Labs: Abnormal Lab Results - Last 24 Hours (Table) 03/04/21 03/04/21 Range/Units 07:37 07:37 D-Dimer >34.10 H (<0.60) mg/L FEU Chloride 109 H (98-107) mmol/L BUN 25 H (9-20) mg/dL Glucose 112 H (74-99) mg/dL AST 60 H (17-59) U/L ALT 74 H (4-49) U/L Lactate Dehydrogenase 1471 H (313-618) U/L C-Reactive Protein 2.6 H (<1.0) mg/dL Albumin 3.4 L (3.5-5.0) g/dL Microbiology - Last 24 Hours (Table) 03/01/21 11:45 Blood Culture - Preliminary Blood No Growth after 48 hours 03/01/21 12:00 Blood Culture - Preliminary Blood No Growth after 48 hours Assessment and Plan Assessment: Acute hypoxemic respiratory failure secondary to COVID 19 pneumonia/pneumonitis. Morbid obesity. Rule out obstructive sleep apnea syndrome. Plan: Plan dated 03/04/2021. The patient did receive TOCI on March 02. Because of the worsening oxygenation, the patient we placed on BiPAP with settings of IPAP 15, EPAP 5, and 100%. In addition, because of the increase acutely of the d-dimer, the Lovenox dose was increased to 60 mg subcu twice a day. Additional recommendations and suggestions are forthcoming. We'll have to watch the patient closely. He may need transfer to the intensive care unit if he does not improve. We will continue to follow closely. The patient will continue on the typical vitamins, Decadron, and Lovenox. Time with Patient: Less than 30
[2021-03-04] MEDS: ENOXAPARIN 60 MG/0.6 ML SYRINGE SQ SCH (20:01)
--- NOTE | 2021-03-04 21:09 | P.PN ---
Progress Note - Text Progress Note Date: 03/04/21 Chief Complaint: Shortness of breath History of presenting complaint: This is a pleasant 45-year-old patient of Dr. Dejesus. Patient was diagnosed with COVID 3 days ago. Symptoms started about 6 days ago. Patient had fever or chills some diarrhea. Some shortness of breath some cough. No loss of smell or taste. Decreased appetite tired rundown. Patient pulse ox on presentation was 70% and patient subsequently was put on 15 L high flow oxygen. Admitted with bilateral COVID 19 pneumonia. Acute hypoxic respiratory failure. Put on IV Decadron Lovenox, 15 L of high flow oxygen. Today: Laying in bed. Tired. Short of breath. 15 L Ventimask. Oral intake-25% Review of systems: Was done for constitutional, cardiovascular, GI, pulmonary. relevant finding as above Active Medications Acetaminophen (Acetaminophen Tab 325 Mg Tab) 650 mg PO Q6HR PRN PRN Reason: Mild Pain or Fever > 100.5 Last Admin: 03/02/21 09:01 Dose: 650 mg Documented by: Ascorbic Acid (Ascorbic Acid 500 Mg Tab) 500 mg PO BID [facility] Last Admin: 03/04/21 20:00 Dose: 500 mg Documented by: Cholecalciferol (Cholecalciferol 25 Mcg (1000 Iu) Tablet) 125 mcg PO DAILY [facility] Last Admin: 03/04/21 08:52 Dose: 125 mcg Documented by: Dexamethasone Sodium Phosphate (Dexamethasone Sod Phosphate 10 Mg/Ml 1 Ml Vial) 6 mg IV BID [facility] Last Admin: 03/04/21 20:00 Dose: 6 mg Documented by: Enoxaparin Sodium (Enoxaparin 60 Mg/0.6 Ml Syringe) 60 mg SQ Q12HR [facility] Last Admin: 03/04/21 20:01 Dose: 60 mg Documented by: Dextrose/Sodium Chloride (Dextrose 5%-Ns Iv Soln) 1,000 mls @ 75 mls/hr IV .[id number] [facility] Last Admin: 03/04/21 20:12 Dose: Not Given Documented by: Naloxone HCl (Naloxone 0.4 Mg/Ml 1 Ml Vial) 0.2 mg IV Q2M PRN PRN Reason: Opioid Reversal Ondansetron HCl (Ondansetron 4 Mg/2 Ml Vial) 4 mg IVP Q8HR PRN PRN Reason: Nausea And Vomiting Zinc Sulfate (Zinc Sulfate 220 Mg Cap) 220 mg PO DAILY [facility] Last Admin: 03/04/21 08:52 Dose: 220 mg Documented by: Past medical history: Unremarkable 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 No history of smoking or alcohol Family history: Reviewed, noncontributory to presentation Physical examination: VITAL SIGNS: 96.8, 63, 24, 118/66, 85% on 15 L high flow GENERAL: , laying in bed, tired short of breath., Ventimask LUNGS: Respiratory rate increased, not able to speak in full sentences. PSYCH: Alert and oriented x3; mood and affect anxious. NEUROLOGICAL: Cranial nerves grossly intact; no facial asymmetry, moving all 4 limbs Rest of the exam per pulmonary nursing INVESTIGATIONS, reviewed in the clinical context: March 04: D-dimer greater than 34 potassium 4.1 creatinine 0.69 LDH 1471 CRP 2.6 March 03: D-dimer 2.06 potassium 4.3 creatinine 0.84 2147 LDH 1419 CRP 5.2 D-dimer 0.82 potassium 4.5 creatinine 0.79 AST 65 ALT 51 LDH 1377 CRP 14.6 Admission labs: WBC 10.3 hemoglobin 16.3 platelets 234 lymphocytes 0.9 d-dimer 0.69 potassium 3.8 creatinine 0.74 LDH 1156 CRP 16 EKG tracing personally reviewed by me-normal sinus rhythm Chest x-ray film personally reviewed by me-/portable: Bilateral infiltrates Assessment and plan: -Acute bilateral: COVID 19 pneumonia. Symptoms started about 6 days ago. Being diagnosed 3 days ago.-Worsening vitamin C vitamin D zinc IV Decadron and subcu Lovenox. -Morbid obesity BMI 43.8 Weight loss measures and follow with PCP for the same -Mild hepatitis likely due to COVID 19 Follow clinically -Hypernatremia from free water deficit from decreased oral intake-corrected Add D5 saline at 75 mL an hour Discussed with the patient. Prognosis guarded. Follow with pulmonary
[2021-03-05] MEDS ORDERED: ENOXAPARIN 60 MG/0.6 ML SYRINGE SQ SCH (09:00)
[2021-03-05 09:03] LABS: African American GFR (CKD) >90 (>60 ml/min/1.73 sqM); Anion Gap 7 mmol/L; Blood Urea Nitrogen 25 mg/dL (9-20); C Reactive Protein 1.5 mg/dL (<1.0); Calcium 8.5 mg/dL (8.4-10.2); Carbon Dioxide 26 mmol/L (22-30); Chloride 112 mmol/L (98-107); Glucose 112 mg/dL (74-99); Non-African American GFR(CKD) >90 (>60 ml/min/1.73 sqM); Potassium 3.6 mmol/L (3.5-5.1); Sodium 145 mmol/L (137-145)
[2021-03-05] MEDS: DEXAMETHASONE SOD PHOSPHATE 10 MG/ML 1 ML VIAL IV SCH ×2 (09:13→19:48)
[2021-03-05] MEDS: ENOXAPARIN 60 MG/0.6 ML SYRINGE SQ SCH (09:14)
[2021-03-05] MEDS ORDERED: HEPARIN SODIUM 1,000 UN/ML (10ML VL) IV PRN (10:23)
[2021-03-05] MEDS: CHOLECALCIFEROL 25 MCG (1000 IU) TABLET PO SCH (10:46)
[2021-03-05] MEDS: ZINC SULFATE 220 MG CAP PO SCH (10:46)
[2021-03-05] MEDS: FAMOTIDINE 20 MG TAB PO SCH (10:46)
[2021-03-05] MEDS: ASCORBIC ACID 500 MG TAB PO SCH ×2 (10:46→19:48)
--- NOTE | 2021-03-05 10:57 | XR ---
EXAMINATION TYPE: XR chest 1V portable DATE OF EXAM: 03/05/2021 CLINICAL HISTORY: Difficulty breathing and covid progress study. TECHNIQUE: Single AP portable upright view of the chest is obtained. COMPARISON: Chest x-ray from one day earlier and older studies FINDINGS: Somewhat low lung volumes redemonstrated. Bilateral multifocal and confluent opacities rede monstrated worse in the left lung versus right lung. Stable mild cardiomegaly. Visualized osseous str uctures are intact. IMPRESSION: Bilateral multifocal and confluent opacities left greater than right redemonstrated consi stent with covid-19 infection, findings not significantly changed from most recent x-ray one day jarrod ier.
[2021-03-05 11:08] LABS: Basophils # (A) 0.1 k/uL (0-0.2); Basophils % (A) 0 %; Eosinophils # (A) 0.1 k/uL (0-0.7); Eosinophils % (A) 1 %; HCT 47.9 % (39.0-53.0); Lymphocytes % (A) 5 %; MCH 32.2 pg (25.0-35.0); MCHC 35.5 g/dL (31.0-37.0); MCV 90.7 fL (80.0-100.0); Mean Platelet Volume 7.6; Monocytes # (A) 0.8 k/uL (0-1.0); Monocytes % (A) 4 %; Neutrophils # (A) 16.5 k/uL (1.3-7.7); Neutrophils % (A) 89 %; Platelet Count 234 k/uL (150-450); RBC 5.28 m/uL (4.30-5.90); RDW 12.7 % (11.5-15.5); WBC 18.6 k/uL (3.8-10.6)
[2021-03-05] MEDS: HEPARIN SOD,PORK IN 0.45% NACL 25,000 UNIT in 0.45% NACL 1 250ML.BAG IV SCH ×2 (11:17→20:02)
[2021-03-05 11:29] LABS: INR 1.3 (<1.2); Prothrombin Time 13.2 sec (9.0-12.0)
[2021-03-05 11:36] LABS: Partial Thromboplastin Time 20.3 sec (22.0-30.0)
--- NOTE | 2021-03-05 12:37 | P.PN ---
Subjective From records: This is a pleasant 45-year-old patient of Dr. Dejesus. Patient was diagnosed with COVID 3 days ago. Symptoms started about 6 days ago. Patient had fever or chills some diarrhea. Some shortness of breath some cough. No loss of smell or taste. Decreased appetite tired rundown. Patient pulse ox on presentation was 70% and patient subsequently was put on 15 L high flow oxygen. Admitted with bilateral COVID 19 pneumonia. Acute hypoxic respiratory failure. Put on IV Decadron Lovenox, 15 L of high flow oxygen. Today: Laying in bed. Tired. Short of breath. 15 L Ventimask. Oral intake- 25% Subjective: 03/05/2021 Patient this morning was getting short of breath, he was saturating 84% on BiPAP with FiO2 of 100% and setting of 15/5. He felt suffocated patient has to be transferred to the ICU as expected yesterday. Also patient is not eating or drinking for more than 24 hours, we will keep monitoring now. His breathing rate is in 40s. Labs showing leukocytosis of 18.6 K. BMP is unremarkable. C-reactive protein actually coming down to 1.5 and lactate dehydrogenase increased to 2101 Chest x-ray: Bilateral Covid pneumonia, no change from recent chest x-ray Venous Doppler: Pending Patient remains on steroids, IV fluids, Lovenox 60 mg twice daily and multiple vitamins. Review of systems CONSTITUTIONAL: No fever, no malaise, no fatigue. HEENT: No recent visual problems or hearing problems. Denied any sore throat. CARDIOVASCULAR: No orthopnea, PND, no palpitations, no syncope. PULMONARY: No shortness of breath, no cough, no hemoptysis. GASTROINTESTINAL: No diarrhea, no nausea, no vomiting, no abdominal pain. Normoactive bowel sounds. NEUROLOGICAL: No headaches, no weakness, no numbness. Active Medications Generic Name Dose Route Start Last Admin Trade Name Freq PRN Reason Stop Dose Admin Acetaminophen 650 mg 03/01/21 13:41 03/02/21 09:01 Acetaminophen Tab 325 Mg Tab PO 650 mg Q6HR PRN Administration Mild Pain or Fever > 100.5 Ascorbic Acid 500 mg 03/01/21 21:00 03/05/21 10:46 Ascorbic Acid 500 Mg Tab PO Not Given BID [facility] Cholecalciferol 125 mcg 03/01/21 16:45 03/05/21 10:46 Cholecalciferol 25 Mcg (1000 Iu) Tablet PO Not Given DAILY [facility] Dexamethasone Sodium Phosphate 6 mg 03/03/21 21:00 03/05/21 09:13 Dexamethasone Sod Phosphate 10 Mg/Ml 1 Ml Vial IV 6 mg BID [facility] Administration Famotidine 40 mg 03/05/21 09:00 03/05/21 10:46 Famotidine 20 Mg Tab PO Not Given DAILY [facility] Heparin Sodium (Porcine) 0 unit 03/05/21 10:23 Heparin Sodium 1,000 Un/Ml (10ml Vl) IV PER PROTOCOL PRN Low PTT Protocol Dextrose/Sodium Chloride 1,000 mls @ 75 mls/hr 03/03/21 20:30 03/04/21 20:12 Dextrose 5%-Ns Iv Soln IV Not Given .[id number] [facility] Heparin Sodium/Sodium Chloride 250 mls @ 24.902 mls/hr 03/05/21 10:30 03/05/21 11:17 25,000 unit/ Sodium Chloride IV 18 units/kg/hr .[id number] [facility] 24.902 mls/hr Administration Protocol 18 UNITS/KG/HR Morphine Sulfate 4 mg 03/05/21 10:24 Morphine Sulfate 4 Mg/Ml Syringe IVP Q4HR PRN Pain Naloxone HCl 0.2 mg 03/01/21 13:41 Naloxone 0.4 Mg/Ml 1 Ml Vial IV Q2M PRN Opioid Reversal Ondansetron HCl 4 mg 03/01/21 13:41 Ondansetron 4 Mg/2 Ml Vial IVP Q8HR PRN Nausea And Vomiting Zinc Sulfate 220 mg 03/01/21 18:30 03/05/21 10:46 Zinc Sulfate 220 Mg Cap PO Not Given DAILY [facility] Objective - Vital Signs Vital signs: Vital Signs Temp 97.9 F 03/05/21 07:58 Pulse 68 03/05/21 11:00 Resp 42 H 03/05/21 11:00 BP 165/90 03/05/21 11:00 Pulse Ox 84 L 03/05/21 11:00 Intake & Output 03/04/21 03/05/21 03/05/21 18:59 06:59 18:59 Intake Total 1300 75 Output Total 600 400 Balance 700 -325 Intake: IV 75 Dextrose 5%-0.9% NaCl 1, 75 000 ml @ 75 mls/hr IV . [id number] [facility] Rx#:[id number] Intake, IV Titration 900 Amount Dextrose 5%-0.9% NaCl 1, 900 000 ml @ 75 mls/hr IV . [id number] [facility] Rx#:[id number] Oral 400 Output: Urine 600 400 Other: Voiding Method Urinal Urinal # Voids 2 # Bowel Movements 1 1 - Exam -GENERAL: The patient is alert and oriented x3, and respiratory distress. Obese HEENT: Pupils are round and equally reacting to light. EOMI. No scleral icterus. No conjunctival pallor. Normocephalic, atraumatic. No pharyngeal erythema. No thyromegaly. CARDIOVASCULAR: S1 and S2 present. No murmurs, rubs, or gallops. -PULMONARY: Chest is clear to auscultation, bilateral crepitation and wheezing ABDOMEN: Soft, nontender, nondistended, normoactive bowel sounds. No palpable organomegaly. MUSCULOSKELETAL: No joint swelling or deformity. EXTREMITIES: No cyanosis, clubbing, or pedal edema. NEUROLOGICAL: Gross neurological examination did not reveal any focal deficits. SKIN: No rashes. no petechiae. - Labs CBC & Chem 7: 03/05/21 10:47 03/05/21 08:29 Labs: Abnormal Lab Results - Last 24 Hours (Table) 03/05/21 03/05/21 03/05/21 Range/Units 08:29 08:29 08:29 WBC (3.8-10.6) k/uL Neutrophils # (1.3-7.7) k/uL PT (9.0-12.0) sec INR (<1.2) APTT (22.0-30.0) sec D-Dimer >34.10 H (<0.60) mg/L FEU Chloride 112 H (98-107) mmol/L BUN 25 H (9-20) mg/dL Glucose 112 H (74-99) mg/dL Lactate Dehydrogenase 2101 H (313-618) U/L C-Reactive Protein 1.5 H (<1.0) mg/dL 03/05/21 03/05/21 Range/Units 10:47 10:47 WBC 18.6 H (3.8-10.6) k/uL Neutrophils # 16.5 H (1.3-7.7) k/uL PT 13.2 H (9.0-12.0) sec INR 1.3 H (<1.2) APTT 20.3 L (22.0-30.0) sec D-Dimer (<0.60) mg/L FEU Chloride (98-107) mmol/L BUN (9-20) mg/dL Glucose (74-99) mg/dL Lactate Dehydrogenase (313-618) U/L C-Reactive Protein (<1.0) mg/dL Microbiology - Last 24 Hours (Table) 03/01/21 11:45 Blood Culture - Preliminary Blood No Growth after 72 hours 03/01/21 12:00 Blood Culture - Preliminary Blood No Growth after 72 hours Assessment and Plan Assessment: -Acute bilateral COVID 19 pneumonia. -Acute hypoxic respiratory failure, at risk of intubation and mechanical vent ilation -Morbid obesity BMI 43.8 -Mild hepatitis likely due to COVID 19 -Increased inflammatory markers Plan: This is a pleasant 45 years old male who presents with Covid pneumonia and hypoxia. Continue with steroids, IV fluids, continue with vitamin C, vitamin D and zinc. Continue with Lovenox and monitor d-dimer. Pulmonary/critical care team on the case and follow-up with a recommendation. The patient to the ICU with close monitoring, possible intubation Labs and medication were reviewed.. Continue same treatment. Continue with symptomatic treatment. Resume home medication. Monitor lytes and vitals. DVT and GI prophylaxis. Further recommendationsas per clinical course of the patient DVT prophylaxis: Subcutaneous Lovenox GI Prophylaxis: Pepcid Prognosis is guarded
--- NOTE | 2021-03-05 13:09 | P.PN ---
Subjective Progress Note Date: 03/05/21 Principal diagnosis: Acute hypoxic failure secondary to acute COVID-19 pneumonia 45-year-old male patient presenting to the emergency room because of shortness of breath. The patient has started having symptoms of less than a week ago, probably around 6 days ago and his symptoms were typical of COVID-19 related to pneumonia with fevers and fatigue and nausea and shortness of breath and cough and. He tested positive for COVID-19 around 3 days ago. He came in to the emergency for worsening shortness of breath. His comorbid conditions include obesity with a BMI 43.8. His current body weight is 138 kg. His initial pulse ox was 80% on room air oxygen. Upon arrival to our ER, his pulse ox was 70% and he was placed on 100% nonrebreather to bring his saturation at 92%. Chest x-ray shows small lung volumes and diffuse bilateral pulmonary infiltrates consistent with COVID-19 related pneumonia. He is afebrile. Hemodynamically stable. His blood work shows a white cell count of 10.3, he did have some lymphopenia, coagulation profile is normal, d-dimer is at 0.6, electrolytes are all within normal limits, LDH level is 1156, LFTs are normal. Lactic acid level is at 1.2. EKG showing a normal sinus rhythm. On , the patient is still in the emergency and the patient is being seen for a follow-up. He remains in the 100% nonrebreather facemask. He feels that his condition is still stable. His current pulse ox is 82% on 100% nonrebreather facemask, in addition to 15 L of oxygen by nasal cannula. He remains on Decadron 6 mg IV and he also received Tocilizumab 800 mg, IV. Rest of the labs are pending from today. He d-dimer at 0.69 and the patient was given Lovenox for DVT prophylaxis 40 mg subcu. He looks comfortable . He has crackles bilaterally on examination. He is afebrile. He denies having any significant worsening despite his ongoing hypoxemia. 03/03/2021, the patient is being seen for a follow-up. He is doing well on 15 L nasal cannula along with 100% on a beta facemasks. He does better on his left lateral side. Unable to go prone. He is afebrile. Pulse oxing between 86-90% on the above-mentioned oxygen flow. He d-dimer is at 2.06, LDH level is at 14 19 and the patient has a CRP of 5.2. He is still on Decadron 6 mg IV every 24 hours. He also received Tocilizumab milligrams IV 1 yesterday. He is still waiting on convalescent plasma.. He is, indicating previous tolerating diet. No significant worsening in his oxygenation since yesterday. No altered mentation. No chest pain. His cough is dry. 45-year-old male who was admitted with a diagnosis of acute hypoxemic respiratory failure secondary to COVID 19 pneumonitis/pneumonia. When I saw the patient initially, he was on a nonrebreather, as well as 15 L high flow nasal O2. He was getting saline at 75 mL an hour. His d-dimer had increased, and so we increase his Lovenox up to 60 mg twice a day. He did receive TOCI on March 02. He got up to use the bedside commode, and his saturations dropped into the mid 70 range. I did ask respiratory to place him on BiPAP with settings of IPAP 15, EPAP 5, and 100% FiO2. We will evaluate him again in a few hours or so. Lab data today includes a d-dimer of greater than 34.10, sodium 145, potassium 4.1, chlorides 109, CO2 29, anion gap 7, BUN 25, and creatinine 0.69. LDH is 1471. C-reactive protein is 2.6. Chest x-ray from today, shows diffuse bilateral infiltrates. Patient was reevaluated today on 03/05/2021, patient was transferred to the ICU this morning, apparently his pulmonary status has deteriorated, patient is developing more shortness of breath on BiPAP, he is developing worsening oxygen saturation is, hence arrangements were made for the patient be transferred to ICU. I placed him on IPAP of 16 and EPAP of 6, chest x-ray showed diffuse patchy infiltrates consistent with COVID-19 pneumonia. CBC count is 18.6 hemoglobin is 7 his d-dimer is over 34. Electrolytes are normal except for slightly elevated sodium of 145. Renal profile is normal. LDH is on the rise, it is up to 2100, C-reactive protein is better down to 1.5. Patient is marginal, and I have a strong feeling that if he deteriorates any further, patient will need to be intubated and placed on mechanical ventilation. But since the patient is tolerating the present BiPAP settings, and does not seem to be in severe respiratory distress, I would rather wait for the time being. In the meantime, patient received Decadron, and the vitamin cocktail, COVID-19 cocktail, and considering his d-dimer is elevated, I will start the patient on full dose of heparin, I will recommend a venous Doppler, may consider a CT angiogram of the chest. Patient did receive actemra on 03/01/2021. He remains on Decadron at 6 mg IV push twice a day. He was on Lovenox and today I transitioned Lovenox to full dose heparin mostly because of the concern about the significant increase in d-dimer, again will check for a venous Doppler, and consider CT angiogram of the chest. Objective - Vital Signs Vital signs: Vital Signs Temp 97.9 F 03/05/21 07:58 Pulse 68 03/05/21 11:00 Resp 42 H 03/05/21 11:00 BP 165/90 03/05/21 11:00 Pulse Ox 84 L 03/05/21 11:00 Intake & Output 03/04/21 03/05/21 03/05/21 18:59 06:59 18:59 Intake Total 1300 75 Output Total 600 400 Balance 700 -325 Intake: IV 75 Dextrose 5%-0.9% NaCl 1, 75 000 ml @ 75 mls/hr IV . [id number] [facility] Rx#:[id number] Intake, IV Titration 900 Amount Dextrose 5%-0.9% NaCl 1, 900 000 ml @ 75 mls/hr IV . [id number] [facility] Rx#:[id number] Oral 400 Output: Urine 600 400 Other: Voiding Method Urinal Urinal # Voids 2 # Bowel Movements 1 1 - Exam Physical Exam: Revealed 45-year-old white male, obese, on BiPAP, 01/05, 100% FiO2, in [id number] respiratory distress. Head: Atraumatic, normocephalic. HEENT:[Neck is supple.] [No neck masses.] [No thyromegaly.] [No JVD.]. , EOMI, nonicteric. Chest: [Symmetrical chest expansion, crackles at the bases, no rhonchi and no wheezes.] Cardiac Exam: [Normal S1 and S2, no S3 gallop, no murmur.] Abdomen: [Obese, Soft, nontender, no megaly, no rebound, no guarding, normal bowel sounds.] Extremities: [No clubbing, no edema, no cyanosis.] Neurological Exam: [No focal neurologic deficit.] Alert and oriented 3. Psychiatric: Normal mood, affect and normal mental status examination. Skin: No rashes. Lymphatics: No cervical adenopathy. Musculoskeletal: No limitation in range of motion, no deformities. - Labs CBC & Chem 7: 03/05/21 10:47 03/05/21 08:29 Labs: Abnormal Lab Results - Last 24 Hours (Table) 03/05/21 03/05/21 03/05/21 Range/Units 08:29 08:29 08:29 WBC (3.8-10.6) k/uL Neutrophils # (1.3-7.7) k/uL PT (9.0-12.0) sec INR (<1.2) APTT (22.0-30.0) sec D-Dimer >34.10 H (<0.60) mg/L FEU Chloride 112 H (98-107) mmol/L BUN 25 H (9-20) mg/dL Glucose 112 H (74-99) mg/dL Lactate Dehydrogenase 2101 H (313-618) U/L C-Reactive Protein 1.5 H (<1.0) mg/dL 03/05/21 03/05/21 Range/Units 10:47 10:47 WBC 18.6 H (3.8-10.6) k/uL Neutrophils # 16.5 H (1.3-7.7) k/uL PT 13.2 H (9.0-12.0) sec INR 1.3 H (<1.2) APTT 20.3 L (22.0-30.0) sec D-Dimer (<0.60) mg/L FEU Chloride (98-107) mmol/L BUN (9-20) mg/dL Glucose (74-99) mg/dL Lactate Dehydrogenase (313-618) U/L C-Reactive Protein (<1.0) mg/dL Microbiology - Last 24 Hours (Table) 03/01/21 11:45 Blood Culture - Preliminary Blood No Growth after 72 hours 03/01/21 12:00 Blood Culture - Preliminary Blood No Growth after 72 hours Assessment and Plan Assessment: Impression: Acute hypoxic respiratory failure secondary to COVID-19 pneumonia, patient received toci, out of window for REM. Morbid obesity BMI of 43.8. Possible obstructive sleep apnea syndrome. Elevated inflammatory markers secondary to above. Elevated d-dimer, possibility of DVT and pulmonary embolism is very likely hence will fully heparinized the patient until venous Doppler and may be CT angiogram of the chest could be performed. Recommendation: Continue BiPAP and titrate accordingly. Try different positions/pronating intermittently. Continue Decadron 6 mg IV push twice a day. Continue heparin. Continue the COVID-19 cocktail. Patient did receive toci,, R the window for REM. Patient received 1 unit of convalescent plasma Will monitor the patient closely in the ICU, if patient demonstrates further deterioration in his clinical status, may have to intubate and mechanically ventilated. Venous Doppler was ordered. May consider CT angiogram of the chest also. Critical care time is over 30 minutes Time with Patient: Greater than 30
--- NOTE | 2021-03-05 13:14 | US ---
EXAMINATION TYPE: US venous doppler duplex LE DATE OF EXAM: 03/05/2021 11:10 AM COMPARISON: NONE CLINICAL HISTORY: r/o dvt. SOB, Covid infection SIDE PERFORMED: Bilateral TECHNIQUE: The lower extremity deep venous system is examined utilizing real time linear array sonog aliyah with graded compression, doppler sonography and color-flow sonography. VESSELS IMAGED: Common Femoral Vein Deep Femoral Vein Greater Saphenous Vein * Femoral Vein Popliteal Vein Small Saphenous Vein * Proximal Calf Veins (* superficial vessels) There is normal flow, compressibility, vascular waveforms Right Leg: Negative for DVT Left Leg: Negative for DVT IMPRESSION: No evident deep venous thrombosis at or above the knees.
[2021-03-05] MEDS ORDERED: ARTIFICIAL TEARS-HYPROMELLOSE DROPS 15 ML BTL BOTH EYES PRN (15:12)
[2021-03-05] MEDS: DEXTROSE 5%-0.9% NACL 1,000 ML IV SCH ×2 (16:41→20:02)
[2021-03-05] MEDS: LORazepam 2 MG/ML INJ IV PRN (21:49)
[2021-03-06 04:05] LABS: Basophils # (A) 0.1 k/uL (0-0.2); Basophils % (A) 0 %; Eosinophils # (A) 0.2 k/uL (0-0.7); Eosinophils % (A) 1 %; HCT 45.6 % (39.0-53.0); HGB 15.7 gm/dL (13.0-17.5); Lymphocytes # (A) 1.1 k/uL (1.0-4.8); Lymphocytes % (A) 5 %; MCH 31.4 pg (25.0-35.0); MCHC 34.5 g/dL (31.0-37.0); Mean Platelet Volume 7.8; Monocytes # (A) 0.5 k/uL (0-1.0); Monocytes % (A) 2 %; Neutrophils # (A) 19.9 k/uL (1.3-7.7); Neutrophils % (A) 91 %; Platelet Count 227 k/uL (150-450); RBC 5.01 m/uL (4.30-5.90); RDW 12.8 % (11.5-15.5); WBC 21.8 k/uL (3.8-10.6)
[2021-03-06 04:28] LABS: D-Dimer 30.67 mg/L FEU (<0.60); Partial Thromboplastin Time 25.5 sec (22.0-30.0)
[2021-03-06 04:48] LABS: ALT 48 U/L (4-49); AST 56 U/L (17-59); African American GFR (CKD) >90 (>60 ml/min/1.73 sqM); Albumin 3.4 g/dL (3.5-5.0); Alkaline Phosphatase 156 U/L (38-126); Anion Gap 6 mmol/L; Blood Urea Nitrogen 20 mg/dL (9-20); C Reactive Protein 1.2 mg/dL (<1.0); Calcium 8.5 mg/dL (8.4-10.2); Carbon Dioxide 27 mmol/L (22-30); Chloride 112 mmol/L (98-107); Creatine Kinase 153 U/L (55-170); Glucose 129 mg/dL (74-99); Non-African American GFR(CKD) >90 (>60 ml/min/1.73 sqM); Potassium 3.7 mmol/L (3.5-5.1); Sodium 145 mmol/L (137-145); Total Bilirubin 0.8 mg/dL (0.2-1.3); Total Protein 6.5 g/dL (6.3-8.2)
[2021-03-06 04:59] LABS: LDH 2416 U/L (313-618)
[2021-03-06] MEDS: HEPARIN SOD,PORK IN 0.45% NACL 25,000 UNIT in 0.45% NACL 1 250ML.BAG IV SCH ×2 (06:19→15:41)
[2021-03-06] MEDS ORDERED: POTASSIUM CHLORIDE ER 20 MEQ TAB.ER PO SCH (07:00)
[2021-03-06] MEDS: CHOLECALCIFEROL 25 MCG (1000 IU) TABLET PO SCH ×2 (07:56→11:09)
[2021-03-06] MEDS: ZINC SULFATE 220 MG CAP PO SCH ×2 (07:57→11:10)
[2021-03-06] MEDS: FAMOTIDINE 20 MG TAB PO SCH ×2 (07:57→11:09)
[2021-03-06] MEDS: ASCORBIC ACID 500 MG TAB PO SCH ×3 (07:57→20:46)
[2021-03-06] MEDS: LORazepam 2 MG/ML INJ IV PRN ×2 (08:03→15:56)
[2021-03-06] MEDS: DEXAMETHASONE SOD PHOSPHATE 10 MG/ML 1 ML VIAL IV SCH ×2 (08:04→21:16)
--- NOTE | 2021-03-06 09:34 | XR ---
EXAMINATION TYPE: XR chest 1V portable DATE OF EXAM: 03/06/2021 COMPARISON: Chest x-ray 03/05/2021 HISTORY: Covid pneumonia TECHNIQUE: Single frontal view of the chest is obtained. FINDINGS: Bilateral airspace disease is again seen, there is some improvement in aeration in the lef t upper lobe. No evident pneumothorax or pleural effusion. Cardiac mediastinal silhouette is stable a ccounting for differences in technique. There are overlying leads. IMPRESSION: Findings consistent with patient's history of pneumonia, perhaps some slight improvement in aeration as described
[2021-03-06 10:07] LABS: Ferritin 679.1 ng/mL (22.0-322.0)
[2021-03-06] MEDS: MORPHINE SULFATE 4 MG/ML SYRINGE IVP PRN (12:08)
--- NOTE | 2021-03-06 12:24 | P.PN ---
Subjective Progress Note Date: 03/06/21 Principal diagnosis: Acute hypoxic failure secondary to acute COVID-19 pneumonia 45-year-old male patient presenting to the emergency room because of shortness of breath. The patient has started having symptoms of less than a week ago, probably around 6 days ago and his symptoms were typical of COVID-19 related to pneumonia with fevers and fatigue and nausea and shortness of breath and cough and. He tested positive for COVID-19 around 3 days ago. He came in to the emergency for worsening shortness of breath. His comorbid conditions include obesity with a BMI 43.8. His current body weight is 138 kg. His initial pulse ox was 80% on room air oxygen. Upon arrival to our ER, his pulse ox was 70% and he was placed on 100% nonrebreather to bring his saturation at 92%. Chest x-ray shows small lung volumes and diffuse bilateral pulmonary infiltrates consistent with COVID-19 related pneumonia. He is afebrile. Hemodynamically stable. His blood work shows a white cell count of 10.3, he did have some lymphopenia, coagulation profile is normal, d-dimer is at 0.6, electrolytes are all within normal limits, LDH level is 1156, LFTs are normal. Lactic acid level is at 1.2. EKG showing a normal sinus rhythm. On , the patient is still in the emergency and the patient is being seen for a follow-up. He remains in the 100% nonrebreather facemask. He feels that his condition is still stable. His current pulse ox is 82% on 100% nonrebreather facemask, in addition to 15 L of oxygen by nasal cannula. He remains on Decadron 6 mg IV and he also received Tocilizumab 800 mg, IV. Rest of the labs are pending from today. He d-dimer at 0.69 and the patient was given Lovenox for DVT prophylaxis 40 mg subcu. He looks comfortable . He has crackles bilaterally on examination. He is afebrile. He denies having any significant worsening despite his ongoing hypoxemia. 03/03/2021, the patient is being seen for a follow-up. He is doing well on 15 L nasal cannula along with 100% on a beta facemasks. He does better on his left lateral side. Unable to go prone. He is afebrile. Pulse oxing between 86-90% on the above-mentioned oxygen flow. He d-dimer is at 2.06, LDH level is at 14 19 and the patient has a CRP of 5.2. He is still on Decadron 6 mg IV every 24 hours. He also received Tocilizumab milligrams IV 1 yesterday. He is still waiting on convalescent plasma.. He is, indicating previous tolerating diet. No significant worsening in his oxygenation since yesterday. No altered mentation. No chest pain. His cough is dry. 45-year-old male who was admitted with a diagnosis of acute hypoxemic respiratory failure secondary to COVID 19 pneumonitis/pneumonia. When I saw the patient initially, he was on a nonrebreather, as well as 15 L high flow nasal O2. He was getting saline at 75 mL an hour. His d-dimer had increased, and so we increase his Lovenox up to 60 mg twice a day. He did receive TOCI on March 02. He got up to use the bedside commode, and his saturations dropped into the mid 70 range. I did ask respiratory to place him on BiPAP with settings of IPAP 15, EPAP 5, and 100% FiO2. We will evaluate him again in a few hours or so. Lab data today includes a d-dimer of greater than 34.10, sodium 145, potassium 4.1, chlorides 109, CO2 29, anion gap 7, BUN 25, and creatinine 0.69. LDH is 1471. C-reactive protein is 2.6. Chest x-ray from today, shows diffuse bilateral infiltrates. Patient was reevaluated today on 03/05/2021, patient was transferred to the ICU this morning, apparently his pulmonary status has deteriorated, patient is developing more shortness of breath on BiPAP, he is developing worsening oxygen saturation is, hence arrangements were made for the patient be transferred to ICU. I placed him on IPAP of 16 and EPAP of 6, chest x-ray showed diffuse patchy infiltrates consistent with COVID-19 pneumonia. CBC count is 18.6 hemoglobin is 7 his d-dimer is over 34. Electrolytes are normal except for slightly elevated sodium of 145. Renal profile is normal. LDH is on the rise, it is up to 2100, C-reactive protein is better down to 1.5. Patient is marginal, and I have a strong feeling that if he deteriorates any further, patient will need to be intubated and placed on mechanical ventilation. But since the patient is tolerating the present BiPAP settings, and does not seem to be in severe respiratory distress, I would rather wait for the time being. In the meantime, patient received Decadron, and the vitamin cocktail, COVID-19 cocktail, and considering his d-dimer is elevated, I will start the patient on full dose of heparin, I will recommend a venous Doppler, may consider a CT angiogram of the chest. Patient did receive actemra on 03/01/2021. He remains on Decadron at 6 mg IV push twice a day. He was on Lovenox and today I transitioned Lovenox to full dose heparin mostly because of the concern about the significant increase in d-dimer, again will check for a venous Doppler, and consider CT angiogram of the chest. Patient was reevaluated today on 03/06/2021, patient remains in the ICU, he is on BiPAP, and his overall pulmonary status is marginal at best. Remains short of breath, he is tolerating BiPAP quite well, and O2 saturation is in the high 80s. He is on IPAP of 16 EPAP of 6, 100% FiO2. Patient is on heparin, and we decided to place him on heparin because his d-dimer is significantly elevated, I am suspecting possible thromboembolic disease, and the patient is not stable enough to send him down for a CT angiogram of the chest. Venous Doppler was negative for DVT. Patient remains on the COVID-19 cocktail, he is also on bronchodilators including albuterol and Symbicort. Remains on Decadron 6 mg twice a day. And the patient didn't receive toci.WBC count is 21.8 hemoglobin is 15.7. D-dimer is 31.67. PTT ranging between 20 up to 49. Basic with a malignant profile is normal except for sodium of 145. Renal profile is normal. Chest x-ray continues to show bilateral patchy infiltrates, possible slight improvement in aeration compared to previous x-rays on admission. Objective - Vital Signs Vital signs: Vital Signs Temp 98.5 F 03/06/21 12:00 Pulse 106 H 03/06/21 12:00 Resp 24 03/06/21 12:00 BP 143/66 03/06/21 12:00 Pulse Ox 87 L 03/06/21 12:00 Intake & Output 03/05/21 03/06/21 03/06/21 18:59 06:59 18:59 Intake Total 600 1847.893 450 Output Total 1125 700 350 Balance -525 1147.893 100 Weight 133.1 kg Intake: IV 600 900 450 Dextrose 5%-0.9% NaCl 1, 600 900 450 000 ml @ 75 mls/hr IV . [id number] [facility] Rx#:[id number] Intake, IV Titration 467.893 Amount Heparin Sod,Pork in 0.45% 467.893 NaCl 25,000 unit In 0.45 % NaCl 1 250ml.bag @ 18 UNITS/KG/HR 24.902 mls/hr IV .Q10H3M [facility] Rx#: [id number] Oral 480 Output: Urine 1125 700 350 Other: Voiding Method Urinal Urinal - Exam Physical Exam: Revealed 45-year-old white male, obese, on BiPAP, 16/6, 100% FiO2, in [id number] respiratory distress. Head: Atraumatic, normocephalic. HEENT:[Neck is supple.] [No neck masses.] [No thyromegaly.] [No JVD.]. , EOMI, nonicteric. Chest: [Symmetrical chest expansion, crackles at the bases, no rhonchi and no wheezes.] Cardiac Exam: [Normal S1 and S2, no S3 gallop, no murmur.] Abdomen: [Obese, Soft, nontender, no megaly, no rebound, no guarding, normal bowel sounds.] Extremities: [No clubbing, no edema, no cyanosis.] Neurological Exam: [No focal neurologic deficit.] Alert and oriented 3. Psychiatric: Normal mood, affect and normal mental status examination. Skin: No rashes. Lymphatics: No cervical adenopathy. Musculoskeletal: No limitation in range of motion, no deformities. - Labs CBC & Chem 7: 03/06/21 03:42 03/06/21 03:42 Labs: Abnormal Lab Results - Last 24 Hours (Table) 03/05/21 03/06/21 03/06/21 Range/Units 16:58 03:42 03:42 WBC 21.8 H (3.8-10.6) k/uL Neutrophils # 19.9 H (1.3-7.7) k/uL APTT 49.4 H (22.0-30.0) sec D-Dimer (<0.60) mg/L FEU Chloride 112 H (98-107) mmol/L Creatinine 0.63 L (0.66-1.25) mg/dL Glucose 129 H (74-99) mg/dL Ferritin 679.1 H (22.0-322.0) ng/mL Alkaline Phosphatase 156 H (38-126) U/L Lactate Dehydrogenase 2416 H (313-618) U/L C-Reactive Protein 1.2 H (<1.0) mg/dL Albumin 3.4 L (3.5-5.0) g/dL 03/06/21 Range/Units 03:42 WBC (3.8-10.6) k/uL Neutrophils # (1.3-7.7) k/uL APTT (22.0-30.0) sec D-Dimer 30.67 H (<0.60) mg/L FEU Chloride (98-107) mmol/L Creatinine (0.66-1.25) mg/dL Glucose (74-99) mg/dL Ferritin (22.0-322.0) ng/mL Alkaline Phosphatase (38-126) U/L Lactate Dehydrogenase (313-618) U/L C-Reactive Protein (<1.0) mg/dL Albumin (3.5-5.0) g/dL Microbiology - Last 24 Hours (Table) 03/01/21 11:45 Blood Culture - Preliminary Blood No Growth after 96 hours 03/01/21 12:00 Blood Culture - Preliminary Blood No Growth after 96 hours Assessment and Plan Assessment: Impression: Acute hypoxic respiratory failure secondary to COVID-19 pneumonia, patient received toci, out of window for REM. Morbid obesity BMI of 43.8. Possible obstructive sleep apnea syndrome. Elevated inflammatory markers secondary to above. Elevated d-dimer, possibility of DVT and pulmonary embolism is very likely hence will fully heparinized the patient until venous Doppler and may be CT angiogram of the chest could be performed. Recommendation: Continue BiPAP and titrate accordingly. Try different positions/pronating intermittently. Continue Decadron 6 mg IV push twice a day. Continue heparin. Continue the COVID-19 cocktail. Patient did receive toci,, out of the window for REM. Patient received 1 unit of convalescent plasma Will monitor the patient closely in the ICU, may require intubation and mechanical ventilation, however he is clinically not ready for intubation yet. Venous Doppler was negative for DVT. May still consider CT angiogram of the chest and the patient stabilizes a bit more.. Patient is critically ill. Critical care time is over 30 minutes Time with Patient: Greater than 30
[2021-03-06] MEDS: ALBUTEROL HFA INHALER INHALATION SCH ×3 (13:24→21:15)
[2021-03-06] MEDS: DEXTROSE 5%-0.9% NACL 1,000 ML IV SCH (15:30)
[2021-03-06] MEDS: SYMBICORT 160-4.5 MCG INHALER INHALATION SCH (21:15)
[2021-03-06] MEDS ORDERED: DEXMEDETOMIDINE/0.9% NACL(PMX) 400 MCG in EMPTY BAG 1 BAG IV SCH (21:15)
--- NOTE | 2021-03-06 21:25 | P.PN ---
Subjective From records: This is a pleasant 45-year-old patient of Dr. Dejesus. Patient was diagnosed with COVID 3 days ago. Symptoms started about 6 days ago. Patient had fever or chills some diarrhea. Some shortness of breath some cough. No loss of smell or taste. Decreased appetite tired rundown. Patient pulse ox on presentation was 70% and patient subsequently was put on 15 L high flow oxygen. Admitted with bilateral COVID 19 pneumonia. Acute hypoxic respiratory failure. Put on IV Decadron Lovenox, 15 L of high flow oxygen. Today: Laying in bed. Tired. Short of breath. 15 L Ventimask. Oral intake- 25% Subjective: 03/05/2021 Patient this morning was getting short of breath, he was saturating 84% on BiPAP with FiO2 of 100% and setting of 15/5. He felt suffocated patient has to be transferred to the ICU as expected yesterday. Also patient is not eating or drinking for more than 24 hours, we will keep monitoring now. His breathing rate is in 40s. Labs showing leukocytosis of 18.6 K. BMP is unremarkable. C-reactive protein actually coming down to 1.5 and lactate dehydrogenase increased to 2101 Chest x-ray: Bilateral Covid pneumonia, no change from recent chest x-ray Venous Doppler: Pending Patient remains on steroids, IV fluids, Lovenox 60 mg twice daily and multiple vitamins. 03/06/2021 patient remains on BiPAP monitored closely in the ICU, his sitting is 16/6 and FiO2 of 100% with an oxygen saturation is 83-89. His breathing rate goes to 30s at times. With pulmonary/critical care team monitoring him closely. Afebrile, not showing leukocytosis of 20 1K, LDH and C-reactive protein are fluctuating up and down widely. Patient was on Lovenox 60 mg twice daily but switched yesterday to heparin drip because of significantly elevated d-dimer and worsening pulmonary condition. Chest x-ray showing bilateral infiltrate, correlate for pneumonia, edema, ARDS. Patient still on dexamethasone 6 mg twice daily, D5 normal saline at 75, heparin drip, and multiple vitamins Review of systems CONSTITUTIONAL: No fever, no malaise, no fatigue. HEENT: No recent visual problems or hearing problems. Denied any sore throat. CARDIOVASCULAR: No orthopnea, PND, no palpitations, no syncope. PULMONARY: No chest wall tenderness, no hemoptysis. GASTROINTESTINAL: No diarrhea, no nausea, no vomiting, no abdominal pain. Normoactive bowel sounds. NEUROLOGICAL: No headaches, no weakness, no numbness. Active Medications Generic Name Dose Route Start Last Admin Trade Name Freq PRN Reason Stop Dose Admin Acetaminophen 650 mg 03/01/21 13:41 03/02/21 09:01 Acetaminophen Tab 325 Mg Tab PO 650 mg Q6HR PRN Administration Mild Pain or Fever > 100.5 Albuterol Sulfate 2 puff 03/06/21 12:00 03/06/21 21:15 Albuterol Hfa Inhaler INHALATION 2 puff RT-QID [facility] Administration Artificial Tears 2 drops 03/05/21 15:12 03/05/21 16:29 Artificial Tears-Hypromellose Drops 15 Ml Btl BOTH EYES 2 drops QID PRN Administration Dry Eye(s) Ascorbic Acid 500 mg 03/01/21 21:00 03/06/21 20:46 Ascorbic Acid 500 Mg Tab PO Not Given BID [facility] Budesonide/Formoterol Fumarate 2 puff 03/06/21 20:00 03/06/21 21:15 Symbicort 160-4.5 Mcg Inhaler INHALATION 2 puff RT-BID [facility] Administration Cholecalciferol 125 mcg 03/01/21 16:45 03/06/21 11:09 Cholecalciferol 25 Mcg (1000 Iu) Tablet PO Not Given DAILY [facility] Dexamethasone Sodium Phosphate 6 mg 03/03/21 21:00 03/06/21 21:16 Dexamethasone Sod Phosphate 10 Mg/Ml 1 Ml Vial IV 6 mg BID [facility] Administration Famotidine 40 mg 03/05/21 09:00 03/06/21 11:09 Famotidine 20 Mg Tab PO Not Given DAILY [facility] Heparin Sodium (Porcine) 0 unit 03/05/21 10:23 03/06/21 06:18 Heparin Sodium 1,000 Un/Ml (10ml Vl) IV 4,000 unit PER PROTOCOL PRN Administration Low PTT Protocol Dextrose/Sodium Chloride 1,000 mls @ 75 mls/hr 03/03/21 20:30 03/06/21 15:30 Dextrose 5%-Ns Iv Soln IV 75 mls/hr .[id number] [facility] Administration Heparin Sodium/Sodium Chloride 250 mls @ 24.902 mls/hr 03/05/21 10:30 03/06/21 15:41 25,000 unit/ Sodium Chloride IV 20 units/kg/hr .Q10H3M [facility] 27.669 mls/hr Administration Protocol 18 UNITS/KG/HR Dexmedetomidine HCl 400 mcg/ 100 mls @ 0 mls/hr 03/06/21 21:15 IV Solution IV 03/07/21 21:02 .Q0M [facility] Protocol Titrate Lorazepam 0.5 mg 03/05/21 20:18 03/06/21 15:56 Lorazepam 2 Mg/Ml Inj IV 0.5 mg TID PRN Administration Anxiety Morphine Sulfate 4 mg 03/05/21 10:24 03/06/21 12:08 Morphine Sulfate 4 Mg/Ml Syringe IVP 4 mg Q4HR PRN Administration Pain Naloxone HCl 0.2 mg 03/01/21 13:41 Naloxone 0.4 Mg/Ml 1 Ml Vial IV Q2M PRN Opioid Reversal Ondansetron HCl 4 mg 03/01/21 13:41 Ondansetron 4 Mg/2 Ml Vial IVP Q8HR PRN Nausea And Vomiting Zinc Sulfate 220 mg 03/01/21 18:30 03/06/21 11:10 Zinc Sulfate 220 Mg Cap PO Not Given DAILY [facility] Objective - Vital Signs Vital signs: Vital Signs Temp 98.5 F 03/06/21 12:00 Pulse 106 H 03/06/21 12:00 Resp 24 03/06/21 12:00 BP 143/66 03/06/21 12:00 Pulse Ox 87 L 03/06/21 12:00 Intake & Output 03/05/21 03/06/21 03/06/21 18:59 06:59 18:59 Intake Total 600 1847.893 450 Output Total 1125 700 350 Balance -525 1147.893 100 Weight 133.1 kg Intake: IV 600 900 450 Dextrose 5%-0.9% NaCl 1, 600 900 450 000 ml @ 75 mls/hr IV . [id number] [facility] Rx#:[id number] Intake, IV Titration 467.893 Amount Heparin Sod,Pork in 0.45% 467.893 NaCl 25,000 unit In 0.45 % NaCl 1 250ml.bag @ 18 UNITS/KG/HR 24.902 mls/hr IV .Q10H3M [facility] Rx#: [id number] Oral 480 Output: Urine 1125 700 350 Other: Voiding Method Urinal Urinal - Labs CBC & Chem 7: 03/06/21 03:42 03/06/21 03:42 Labs: Abnormal Lab Results - Last 24 Hours (Table) 03/05/21 03/06/21 03/06/21 Range/Units 16:58 03:42 03:42 WBC 21.8 H (3.8-10.6) k/uL Neutrophils # 19.9 H (1.3-7.7) k/uL APTT 49.4 H (22.0-30.0) sec D-Dimer (<0.60) mg/L FEU Chloride 112 H (98-107) mmol/L Creatinine 0.63 L (0.66-1.25) mg/dL Glucose 129 H (74-99) mg/dL Ferritin 679.1 H (22.0-322.0) ng/mL Alkaline Phosphatase 156 H (38-126) U/L Lactate Dehydrogenase 2416 H (313-618) U/L C-Reactive Protein 1.2 H (<1.0) mg/dL Albumin 3.4 L (3.5-5.0) g/dL 03/06/21 03/06/21 Range/Units 03:42 12:06 WBC (3.8-10.6) k/uL Neutrophils # (1.3-7.7) k/uL APTT 87.0 H (22.0-30.0) sec D-Dimer 30.67 H (<0.60) mg/L FEU Chloride (98-107) mmol/L Creatinine (0.66-1.25) mg/dL Glucose (74-99) mg/dL Ferritin (22.0-322.0) ng/mL Alkaline Phosphatase (38-126) U/L Lactate Dehydrogenase (313-618) U/L C-Reactive Protein (<1.0) mg/dL Albumin (3.5-5.0) g/dL Microbiology - Last 24 Hours (Table) 03/01/21 11:45 Blood Culture - Preliminary Blood No Growth after 96 hours 03/01/21 12:00 Blood Culture - Preliminary Blood No Growth after 96 hours Assessment and Plan Assessment: -Acute bilateral COVID 19 pneumonia. -Acute hypoxic respiratory failure, at risk of intubation and mechanical ventilation -Increased inflammatory markers -Increased d-dimer with negative for DVT and patient is stable to undergo CTA of the chest to rule out PE -Morbid obesity BMI 43.8 -Mild hepatitis likely due to COVID 19 -Increased inflammatory markers Plan: This is a pleasant 45 years old male who presents with Covid pneumonia and hypoxia. Continue with steroids, IV fluids, continue with vitamin C, vitamin D and zinc. Continue with heparin drip and monitor d-dimer. Pulmonary/critical care team on the case and follow-up with a recommendation. The patient to the ICU with close monitoring, possible intubation if he got worse, currently on BiPAP Labs and medication were reviewed.. Continue same treatment. Continue with s ymptomatic treatment. Resume home medication. Monitor lytes and vitals. DVT and GI prophylaxis. Further recommendationsas per clinical course of the patient DVT prophylaxis: Heparin drip GI Prophylaxis: Pepcid Prognosis is guarded
[2021-03-06] MEDS ORDERED: propofoL 100 ML IV ONE (22:40)
[2021-03-06] MEDS ORDERED: CISATRACURIUM 2 MG/ML 5 ML VIAL IV ONE (22:58)
--- NOTE | 2021-03-06 23:27 | XR ---
EXAMINATION TYPE: XR chest 1V portable DATE OF EXAM: 03/06/2021 COMPARISON: 03/05/2021 HISTORY: Check tube placement TECHNIQUE: Single view FINDINGS: Endotracheal tube is 12 mm from the leidy. There is moderate pulmonary interstitial and ai rspace edema. There is nasogastric tube in the stomach. Heart size is fairly normal. IMPRESSION: Pulmonary edema is slightly worse than exam yesterday. More density seen on the right si de. Endotracheal tube is low and should BE pulled back 2 cm.
[2021-03-06] MEDS: CISATRACURIUM 200 MG in SODIUM CHLORIDE 0.9% 180 ML IV SCH (23:50)
[2021-03-07 00:12] LABS: ABG Base Excess 1.6 mmol/L; ABG HCO3 30 mmol/L (21-25); ABG Oxygen Saturation 72.9 % (94-97); ABG TCO2 33 mmol/L (19-24); Allen Test Performed? Yes
[2021-03-07 00:17] LABS: ABG PCO2 81 mmHg (35-45); ABG PH 7.18 (7.35-7.45); ABG PO2 49 mmHg (83-108)
[2021-03-07] MEDS: fentaNYL (PF). 1,000 MCG in SODIUM CHLORIDE 0.9% 80 ML IV SCH ×2 (00:21→11:45)
[2021-03-07] MEDS: HEPARIN SOD,PORK IN 0.45% NACL 25,000 UNIT in 0.45% NACL 1 250ML.BAG IV SCH ×2 (00:55→11:41)
[2021-03-07] MEDS: DEXTROSE 5%-0.9% NACL 1,000 ML IV SCH (00:55)
[2021-03-07] MEDS: DEXTROSE 5% IN WATER 1,000 ML with SODIUM BICARB (1 MEQ/ML) 150 ML IV SCH ×3 (01:43→18:47)
[2021-03-07 04:07] LABS: HGB 16.3 gm/dL (13.0-17.5); MCHC 33.2 g/dL (31.0-37.0); MCV 93.3 fL (80.0-100.0); Mean Platelet Volume 7.7; Platelet Count 244 k/uL (150-450); RBC 5.25 m/uL (4.30-5.90); RDW 13.2 % (11.5-15.5); WBC 35.9 k/uL (3.8-10.6)
[2021-03-07 04:29] LABS: D-Dimer 22.71 mg/L FEU (<0.60); Partial Thromboplastin Time 83.3 sec (22.0-30.0)
[2021-03-07 04:48] LABS: ALT 44 U/L (4-49); AST 57 U/L (17-59); African American GFR (CKD) >90 (>60 ml/min/1.73 sqM); Albumin 3.5 g/dL (3.5-5.0); Alkaline Phosphatase 206 U/L (38-126); Anion Gap 5 mmol/L; Blood Urea Nitrogen 24 mg/dL (9-20); C Reactive Protein 1.7 mg/dL (<1.0); Calcium 8.4 mg/dL (8.4-10.2); Carbon Dioxide 32 mmol/L (22-30); Chloride 108 mmol/L (98-107); Glucose 233 mg/dL (74-99); Non-African American GFR(CKD) >90 (>60 ml/min/1.73 sqM); Potassium 3.9 mmol/L (3.5-5.1); Sodium 145 mmol/L (137-145); Total Bilirubin 0.8 mg/dL (0.2-1.3); Total Protein 6.5 g/dL (6.3-8.2)
[2021-03-07 05:17] LABS: LDH 2994 U/L (313-618)
[2021-03-07] MEDS ORDERED: Potassium Replacement Protocol 1 EACH MISC MISCELLANE PRN (05:25)
[2021-03-07] MEDS ORDERED: POTASSIUM BICARBONATE/CIT AC 20 MEQ TABLET.EFF NG-TUBE SCH (06:00)
[2021-03-07 06:14] LABS: ABG Base Excess 2.9 mmol/L; ABG HCO3 30 mmol/L (21-25); ABG Oxygen Saturation 90.9 % (94-97); ABG PCO2 69 mmHg (35-45); ABG PH 7.25 (7.35-7.45); ABG PO2 66 mmHg (83-108); ABG TCO2 32 mmol/L (19-24); Allen Test Performed? Yes
[2021-03-07] MEDS: ALBUTEROL HFA INHALER INHALATION SCH ×4 (07:41→19:19)
[2021-03-07] MEDS: SYMBICORT 160-4.5 MCG INHALER INHALATION SCH ×2 (07:42→19:19)
[2021-03-07] MEDS: NOREPINEPHRINE 4 MG in SODIUM CHLORIDE 0.9% 250 ML IV SCH ×2 (08:13→18:20)
--- NOTE | 2021-03-07 08:17 | XR ---
EXAMINATION TYPE: XR chest 1V portable DATE OF EXAM: 03/07/2021 COMPARISON: Chest x-ray 03/06/2021 HISTORY: Intubated TECHNIQUE: Single frontal view of the chest is obtained. FINDINGS: Endotracheal tube, orogastric tube, bilateral airspace disease is similar to prior exam, e ndotracheal tube has withdrawn slightly but is overlying the tracheal air column. No evident pneumoth orax or pleural effusion. Cardiac mediastinal silhouette shows a similar appearance. IMPRESSION: Correlate for pneumonia, edema, ARDS
[2021-03-07] MEDS ORDERED: SODIUM CHLORIDE 0.9% 1,000 ML IV ONE ×2 (08:34→11:57)
[2021-03-07] MEDS: FAMOTIDINE 20 MG TAB PO SCH (08:40)
[2021-03-07] MEDS: CHOLECALCIFEROL 25 MCG (1000 IU) TABLET PO SCH (08:40)
[2021-03-07] MEDS: ASCORBIC ACID 500 MG TAB PO SCH ×2 (08:40→21:06)
[2021-03-07] MEDS: ZINC SULFATE 220 MG CAP PO SCH (08:41)
[2021-03-07] MEDS: CHLORHEXIDINE GLUCONATE 15 ML CUP MUCOUS MEM SCH ×2 (08:41→21:05)
[2021-03-07] MEDS: DEXAMETHASONE SOD PHOSPHATE 10 MG/ML 1 ML VIAL IV SCH ×2 (08:42→21:06)
[2021-03-07] MEDS: PIPERACILLIN-TAZOBACTAM 3.375 GM in SODIUM CHLORIDE 0.9% 100 ML IVPB SCH ×3 (10:03→23:38)
[2021-03-07] MEDS ORDERED: LIDOCAINE 1% INJ 10MG/ML (20 ML MDV) SQ ONE (10:49)
[2021-03-07 11:47] LABS: Glucose,Whole Blood 152 mg/dL (75-99)
[2021-03-07] MEDS: INSULIN ASPART (NovoLOG) 100 UNIT/ML VIAL SQ SCH ×3 (11:56→23:38)
[2021-03-07] MEDS: SODIUM CHLORIDE 0.9% 1,000 ML IV SCH ×2 (12:00→23:38)
--- NOTE | 2021-03-07 12:11 | P.PN ---
Subjective Progress Note Date: 03/07/21 Principal diagnosis: Acute hypoxic failure secondary to acute COVID-19 pneumonia 45-year-old male patient presenting to the emergency room because of shortness of breath. The patient has started having symptoms of less than a week ago, probably around 6 days ago and his symptoms were typical of COVID-19 related to pneumonia with fevers and fatigue and nausea and shortness of breath and cough and. He tested positive for COVID-19 around 3 days ago. He came in to the emergency for worsening shortness of breath. His comorbid conditions include obesity with a BMI 43.8. His current body weight is 138 kg. His initial pulse ox was 80% on room air oxygen. Upon arrival to our ER, his pulse ox was 70% and he was placed on 100% nonrebreather to bring his saturation at 92%. Chest x-ray shows small lung volumes and diffuse bilateral pulmonary infiltrates consistent with COVID-19 related pneumonia. He is afebrile. Hemodynamically stable. His blood work shows a white cell count of 10.3, he did have some lymphopenia, coagulation profile is normal, d-dimer is at 0.6, electrolytes are all within normal limits, LDH level is 1156, LFTs are normal. Lactic acid level is at 1.2. EKG showing a normal sinus rhythm. On , the patient is still in the emergency and the patient is being seen for a follow-up. He remains in the 100% nonrebreather facemask. He feels that his condition is still stable. His current pulse ox is 82% on 100% nonrebreather facemask, in addition to 15 L of oxygen by nasal cannula. He remains on Decadron 6 mg IV and he also received Tocilizumab 800 mg, IV. Rest of the labs are pending from today. He d-dimer at 0.69 and the patient was given Lovenox for DVT prophylaxis 40 mg subcu. He looks comfortable . He has crackles bilaterally on examination. He is afebrile. He denies having any significant worsening despite his ongoing hypoxemia. 03/03/2021, the patient is being seen for a follow-up. He is doing well on 15 L nasal cannula along with 100% on a beta facemasks. He does better on his left lateral side. Unable to go prone. He is afebrile. Pulse oxing between 86-90% on the above-mentioned oxygen flow. He d-dimer is at 2.06, LDH level is at 14 19 and the patient has a CRP of 5.2. He is still on Decadron 6 mg IV every 24 hours. He also received Tocilizumab milligrams IV 1 yesterday. He is still waiting on convalescent plasma.. He is, indicating previous tolerating diet. No significant worsening in his oxygenation since yesterday. No altered mentation. No chest pain. His cough is dry. 45-year-old male who was admitted with a diagnosis of acute hypoxemic respiratory failure secondary to COVID 19 pneumonitis/pneumonia. When I saw the patient initially, he was on a nonrebreather, as well as 15 L high flow nasal O2. He was getting saline at 75 mL an hour. His d-dimer had increased, and so we increase his Lovenox up to 60 mg twice a day. He did receive TOCI on March 02. He got up to use the bedside commode, and his saturations dropped into the mid 70 range. I did ask respiratory to place him on BiPAP with settings of IPAP 15, EPAP 5, and 100% FiO2. We will evaluate him again in a few hours or so. Lab data today includes a d-dimer of greater than 34.10, sodium 145, potassium 4.1, chlorides 109, CO2 29, anion gap 7, BUN 25, and creatinine 0.69. LDH is 1471. C-reactive protein is 2.6. Chest x-ray from today, shows diffuse bilateral infiltrates. Patient was reevaluated today on 03/05/2021, patient was transferred to the ICU this morning, apparently his pulmonary status has deteriorated, patient is developing more shortness of breath on BiPAP, he is developing worsening oxygen saturation is, hence arrangements were made for the patient be transferred to ICU. I placed him on IPAP of 16 and EPAP of 6, chest x-ray showed diffuse patchy infiltrates consistent with COVID-19 pneumonia. CBC count is 18.6 hemoglobin is 7 his d-dimer is over 34. Electrolytes are normal except for slightly elevated sodium of 145. Renal profile is normal. LDH is on the rise, it is up to 2100, C-reactive protein is better down to 1.5. Patient is marginal, and I have a strong feeling that if he deteriorates any further, patient will need to be intubated and placed on mechanical ventilation. But since the patient is tolerating the present BiPAP settings, and does not seem to be in severe respiratory distress, I would rather wait for the time being. In the meantime, patient received Decadron, and the vitamin cocktail, COVID-19 cocktail, and considering his d-dimer is elevated, I will start the patient on full dose of heparin, I will recommend a venous Doppler, may consider a CT angiogram of the chest. Patient did receive actemra on 03/01/2021. He remains on Decadron at 6 mg IV push twice a day. He was on Lovenox and today I transitioned Lovenox to full dose heparin mostly because of the concern about the significant increase in d-dimer, again will check for a venous Doppler, and consider CT angiogram of the chest. Patient was reevaluated today on 03/06/2021, patient remains in the ICU, he is on BiPAP, and his overall pulmonary status is marginal at best. Remains short of breath, he is tolerating BiPAP quite well, and O2 saturation is in the high 80s. He is on IPAP of 16 EPAP of 6, 100% FiO2. Patient is on heparin, and we decided to place him on heparin because his d-dimer is significantly elevated, I am suspecting possible thromboembolic disease, and the patient is not stable enough to send him down for a CT angiogram of the chest. Venous Doppler was negative for DVT. Patient remains on the COVID-19 cocktail, he is also on bronchodilators including albuterol and Symbicort. Remains on Decadron 6 mg twice a day. And the patient did receive toci.WBC count is 21.8 hemoglobin is 15.7. D-dimer is 31.67. PTT ranging between 20 up to 49. Basic with a malignant profile is normal except for sodium of 145. Renal profile is normal. Chest x-ray continues to show bilateral patchy infiltrates, possible slight improvement in aeration compared to previous x-rays on admission. Patient was reevaluated today on 03/07/2021, yesterday, the patient's clinical status deteriorated, he didn't require intubation and mechanical ventilation. He is now on assist control rate of 38, FiO2 is 100%, tidal volume is 450, and PEEP of 18. ABG showed a pO2 of 66 pCO2 of 69 pH of 7.25. Patient is on D5 0.9 at 75 mL/h, is also on bicarb drip at 100 mL/h, propofol at 30 mcg/kg/m, Nimbex, fentanyl at 0.5, and norepinephrine at 0.05. D-dimer is down to 22, there is sudden increase in his WBC count up to 30,000. Patient will be started on tube feeds today, and he will need to have rivero cultures. He will also need a PICC line placement. Chest x-ray continues to show bilateral interstitial infiltrates, consistent with COVID-19 pneumonitis. And ARDS. Inflammatory markers are on the rise, LDH is 2994, C-reactive protein is 1.7. Patient remains on heparin for elevated d-dimer, he had a negative Doppler, but I felt the patient should be fully anticoagulated because he is unstable to go down for CT angiogram of the chest. Considering the sudden increase in his WBC count, I went ahead and empirically started the patient on Zosyn, will recommend cultures and Procrit started level on this patient. Objective - Vital Signs Vital signs: Vital Signs Temp 98.1 F 03/07/21 08:00 Pulse 98 03/07/21 10:00 Resp 38 H 03/07/21 10:00 BP 99/65 03/07/21 10:00 Pulse Ox 91 L 03/07/21 10:00 Intake & Output 03/06/21 03/07/21 03/07/21 18:59 06:59 18:59 Intake Total 7372.955 2449.120 2201.869 Output Total 750 845 110 Balance 467.513 7652.120 2091.869 Weight 129.4 kg 129.4 kg Intake: IV 900 1415 1712 Dextrose 5% in Water 1, 500 400 000 ml @ 100 mls/hr IV . [id number] MOISES with Sodium Bicarb (1 Meq/ml) 150 ml Rx#:[id number] Dextrose 5%-0.9% NaCl 1, 900 900 300 000 ml @ 75 mls/hr IV . [id number] MOISES Rx#:[id number] Sodium Chloride 0.9% 1, 1000 000 ml @ 999 mls/hr IV . Q1H1M ONE Rx#:[id number] pressure bag 15 12 Intake, IV Titration 250.000 552.120 289.869 Amount Cisatracurium 200 mg In 43.124 Sodium Chloride 0.9% 180 ml @ 1 MCG/KG/MIN 7.986 mls/hr IV .Q24H MOISES Rx#: [id number] Heparin Sod,Pork in 0.45% 250.000 349.608 124.095 NaCl 25,000 unit In 0.45 % NaCl 1 250ml.bag @ 18 UNITS/KG/HR 24.902 mls/hr IV .Q10H3M MOISES Rx#: [id number] fentaNYL (PF). 1,000 mcg 16.305 65.774 In Sodium Chloride 0.9% 80 ml @ Per Protocol IV . Q0M MOISES Rx#:[id number] propofoL 1,000 mg In 143.083 100 Empty Bag 1 bag @ Titrate IV .Q0M MOISES Rx#: [id number] Oral 200 Output: Gastric Drainage 250 Urine 750 595 110 Other: Voiding Method Indwelling Catheter Indwelling Catheter ABP, PAP, CO, CI - Last Documented Arterial Blood Pressure 121/67 - Exam Physical Exam: Revealed 45-year-old white male, obese, intubated and mechanically ventilated. Sedated and paralyzed. Head: Atraumatic, normocephalic. Orogastric tube and endotracheal tube are intact. HEENT:[Neck is supple.] [No neck masses.] [No thyromegaly.] [No JVD.]. , EOMI, nonicteric. Chest: [Symmetrical chest expansion, crackles at the bases, no wheezes. Cardiac Exam: [Normal S1 and S2, no S3 gallop, no murmur.] Abdomen: [Obese, Soft, nontender, no megaly, no rebound, no guarding, normal bowel sounds.] Extremities: [No clubbing, no edema, no cyanosis.] Neurological Exam: [Could not assess, paralyzed and sedated. Psychiatric: Not assessed, sedated and paralyzed. Skin: No rashes. Lymphatics: No cervical adenopathy. Musculoskeletal: No deformities. - Labs CBC & Chem 7: 03/07/21 03:50 03/07/21 03:50 Labs: Abnormal Lab Results - Last 24 Hours (Table) 03/05/21 03/06/21 03/06/21 Range/Units 23:55 12:06 19:55 WBC (3.8-10.6) k/uL APTT 87.0 H 65.5 H (22.0-30.0) sec D-Dimer (<0.60) mg/L FEU ABG pH 7.18 L* (7.35-7.45) ABG pCO2 81 H* (35-45) mmHg ABG pO2 49 L* (83-108) mmHg ABG HCO3 30 H (21-25) mmol/L ABG Total CO2 33 H (19-24) mmol/L ABG O2 Saturation 72.9 L (94-97) % Chloride (98-107) mmol/L Carbon Dioxide (22-30) mmol/L BUN (9-20) mg/dL Glucose (74-99) mg/dL POC Glucose (mg/dL) (75-99) mg/dL Alkaline Phosphatase (38-126) U/L Lactate Dehydrogenase (313-618) U/L C-Reactive Protein (<1.0) mg/dL 03/07/21 03/07/21 03/07/21 Range/Units 03:50 03:50 03:50 WBC 35.9 H (3.8-10.6) k/uL APTT 83.3 H (22.0-30.0) sec D-Dimer 22.71 H (<0.60) mg/L FEU ABG pH (7.35-7.45) ABG pCO2 (35-45) mmHg ABG pO2 (83-108) mmHg ABG HCO3 (21-25) mmol/L ABG Total CO2 (19-24) mmol/L ABG O2 Saturation (94-97) % Chloride 108 H (98-107) mmol/L Carbon Dioxide 32 H (22-30) mmol/L BUN 24 H (9-20) mg/dL Glucose 233 H (74-99) mg/dL POC Glucose (mg/dL) (75-99) mg/dL Alkaline Phosphatase 206 H (38-126) U/L Lactate Dehydrogenase 2994 H (313-618) U/L C-Reactive Protein 1.7 H (<1.0) mg/dL 03/07/21 03/07/21 Range/Units 06:05 11:45 WBC (3.8-10.6) k/uL APTT (22.0-30.0) sec D-Dimer (<0.60) mg/L FEU ABG pH 7.25 L (7.35-7.45) ABG pCO2 69 H (35-45) mmHg ABG pO2 66 L (83-108) mmHg ABG HCO3 30 H (21-25) mmol/L ABG Total CO2 32 H (19-24) mmol/L ABG O2 Saturation 90.9 L (94-97) % Chloride (98-107) mmol/L Carbon Dioxide (22-30) mmol/L BUN (9-20) mg/dL Glucose (74-99) mg/dL POC Glucose (mg/dL) 152 H (75-99) mg/dL Alkaline Phosphatase (38-126) U/L Lactate Dehydrogenase (313-618) U/L C-Reactive Protein (<1.0) mg/dL Microbiology - Last 24 Hours (Table) 03/06/21 23:40 Sputum Culture - Preliminary Sputum 03/01/21 12:00 Blood Culture - Preliminary Blood No Growth after 120 hours 03/01/21 11:45 Blood Culture - Preliminary Blood No Growth after 120 hours Assessment and Plan Assessment: Impression: Acute hypoxic respiratory failure secondary to COVID-19 pneumonia, patient received toci, out of window for REM. Required intubation and mechanical ventilation late last night on 03/06/2021 Morbid obesity BMI of 43.8. Possible obstructive sleep apnea syndrome. Elevated inflammatory markers secondary to above. Elevated d-dimer, possible pulmonary embolism hence we'll continue the patient on full heparin course, fully anticoagulated. Not stable enough to go down for CT angiogram of the chest. Leukocytosis, hence will empirically cover with antibiotics, and panculture. Recommendation: Continue ventilatory support. Nutritional support. Continue Decadron. Continue heparin. Continue Zosyn empirically. Continue the COVID-19 cocktail. Patient did receive TOCI he was out of the window for REM. Consider pronating. Continue Decadron 6 mg IV push twice a day. We will arrange for a PICC line for this patient. Will also recommended an arterial line to be placed. Prognosis is extremely guarded. Patient is critically ill, and critical care time is over 30 minutes Time with Patient: Greater than 30
--- NOTE | 2021-03-07 12:12 | IR ---
EXAMINATION TYPE: IR cvc insert >=5 years DATE OF EXAM: 03/07/2021 COMPARISON: NONE HISTORY: Covid pneumonia, needs long-term intravenous access for therapy FINDINGS: Maximal barrier technique was utilized. Hand hygiene obtained with soap and water and alco hol-based hand rub. The skin overlying the left basilic vein was localized with ultrasound and noted to be compressible and patent by ultrasound. An ultrasound image was obtained [facility]. Sterile technique utilized with the ultrasound machine. The skin overlying was prepped an d draped and Lidocaine used for local anesthesia. A skin aliya was made with a scalpel. Access was g ained to the vein under direct ultrasound guidance with a 21-gauge needle and a 0.018 inch wire was a dvanced. Access site was dilated with a peel-away sheath and the catheter tailored to length. Karina ter advanced centrally and a post procedure chest x-ray verified placement with the tip in the left j ugular vein, repositioning was performed with an 0. Inch wire and a post procedure chest x-ray verifi ed with tip at the superior vena cava. Catheter was fixed to the skin and a sterile dressing placed. Hemostasis achieved and the catheter was aspirated and flushed with sterile saline. The patient re mained in stable condition. IMPRESSION: STATUS POST ULTRASOUND GUIDED PICC LINE PLACEMENT, READY FOR USE. THIS PROCEDURE WAS PER FORMED BY THE UNDERSIGNED.
--- NOTE | 2021-03-07 13:10 | XR ---
EXAMINATION TYPE: XR chest 1V confirm line [facility] DATE OF EXAM: 03/07/2021 COMPARISON: Same dated earlier time HISTORY: PICC line placement TECHNIQUE: Single frontal view of the chest is obtained. FINDINGS: PICC line from the left shows the distal tip coursing into the region of the neck IMPRESSION: PICC line as described
--- NOTE | 2021-03-07 13:12 | XR ---
EXAMINATION TYPE: XR chest 1V confirm line [facility] DATE OF EXAM: 03/07/2021 COMPARISON: Previous chest x-rays and same dated earlier time HISTORY: Status post PICC line reposition TECHNIQUE: Single frontal view of the chest is obtained. FINDINGS: There is been interval repositioning of the PICC line, distal tip is overlying superior ve na cava, no other interval change IMPRESSION: PICC line positioning as described, PICC line ready for use. No evident complication sta tus post PICC line placement
[2021-03-07 14:21] LABS: Amorphous Sediment,Urine Occasional /hpf; Appearance,Urine Turbid (Clear); Bilirubin,Urine Negative (Negative); Blood,Urine Moderate (Negative); Color,Urine Light Orange; Glucose,Urine (UA) Negative (Negative); Ketones,Urine Negative (Negative); Leukocyte Esterase,Urine Negative (Negative); Mucus,Urine Few /hpf; Nitrite,Urine Negative (Negative); Protein,Urine 1+ (Negative); RBC,Urine 21 /hpf (0-5); Squamous Epithelial Cell,Urine 4 /hpf (0-4)
[2021-03-07 17:02] LABS: Glucose,Whole Blood 140 mg/dL (75-99)
[2021-03-07 19:14] LABS: Basophils # (A) 0.1 k/uL (0-0.2); Basophils % (A) 0 %; Eosinophils # (A) 0.1 k/uL (0-0.7); Eosinophils % (A) 0 %; HCT 47.7 % (39.0-53.0); Lymphocytes # (A) 0.8 k/uL (1.0-4.8); Lymphocytes % (A) 3 %; MCH 30.3 pg (25.0-35.0); MCHC 31.5 g/dL (31.0-37.0); MCV 96.2 fL (80.0-100.0); Mean Platelet Volume 8.9; Monocytes # (A) 0.6 k/uL (0-1.0); Monocytes % (A) 2 %; Neutrophils # (A) 27.3 k/uL (1.3-7.7); Neutrophils % (A) 94 %; Platelet Count 276 k/uL (150-450); RBC 4.95 m/uL (4.30-5.90); RDW 14.1 % (11.5-15.5); WBC 29.1 k/uL (3.8-10.6)
[2021-03-07 19:32] LABS: Calcium 7.9 mg/dL (8.4-10.2); Potassium 3.9 mmol/L (3.5-5.1)
--- NOTE | 2021-03-07 21:48 | P.PN ---
Subjective From records: This is a pleasant 45-year-old patient of Dr. Dejesus. Patient was diagnosed with COVID 3 days ago. Symptoms started about 6 days ago. Patient had fever or chills some diarrhea. Some shortness of breath some cough. No loss of smell or taste. Decreased appetite tired rundown. Patient pulse ox on presentation was 70% and patient subsequently was put on 15 L high flow oxygen. Admitted with bilateral COVID 19 pneumonia. Acute hypoxic respiratory failure. Put on IV Decadron Lovenox, 15 L of high flow oxygen. Today: Laying in bed. Tired. Short of breath. 15 L Ventimask. Oral intake- 25% Subjective: 03/05/2021 Patient this morning was getting short of breath, he was saturating 84% on BiPAP with FiO2 of 100% and setting of 15/5. He felt suffocated patient has to be transferred to the ICU as expected yesterday. Also patient is not eating or drinking for more than 24 hours, we will keep monitoring now. His breathing rate is in 40s. Labs showing leukocytosis of 18.6 K. BMP is unremarkable. C-reactive protein actually coming down to 1.5 and lactate dehydrogenase increased to 2101 Chest x-ray: Bilateral Covid pneumonia, no change from recent chest x-ray Venous Doppler: Pending Patient remains on steroids, IV fluids, Lovenox 60 mg twice daily and multiple vitamins. 03/06/2021 patient remains on BiPAP monitored closely in the ICU, his sitting is 16/6 and FiO2 of 100% with an oxygen saturation is 83-89. His breathing rate goes to 30s at times. With pulmonary/critical care team monitoring him closely. Afebrile, not showing leukocytosis of 20 1K, LDH and C-reactive protein are fluctuating up and down widely. Patient was on Lovenox 60 mg twice daily but switched yesterday to heparin drip because of significantly elevated d-dimer and worsening pulmonary condition. Chest x-ray showing bilateral infiltrate, correlate for pneumonia, edema, ARDS. Patient still on dexamethasone 6 mg twice daily, D5 normal saline at 75, heparin drip, and multiple vitamins 03/07/2021 Patient today remains in the ICU. His clinical congenital condition deteriorated significantly, he got intubated because of respiratory failure and he has to be placed on a well fitted for hemodynamic support. His systolic blood pressure was in the80s. Also his urine output was low about 10-30 mL/h. His PEEP is 18, FiO2 of 100%, his breathing rate of 38. Labs showing significant troponin WBC count to 30 5K, d-dimer is significantly elevated at 99 although he is on heparin drip. Inflammatory markers LDH is slightly up from 2400 up to 2900, C-reactive protein still mildly elevated at 1.7. Creatinine increased to 1.4 and patient developed renal failure. Discharge dexamethasone and multiple vitamins patient of fluid was switched to bicarbonate drip, heparin drip, started on Zosyn besides the levophed as above Review of systems:n/a Active Medications Generic Name Dose Route Start Last Admin Trade Name Freq PRN Reason Stop Dose Admin Acetaminophen 650 mg 03/01/21 13:41 03/02/21 09:01 Acetaminophen Tab 325 Mg Tab PO 650 mg Q6HR PRN Administration Mild Pain or Fever > 100.5 Albuterol Sulfate 2 puff 03/06/21 12:00 03/07/21 19:19 Albuterol Hfa Inhaler INHALATION 2 puff RT-QID MOISES Administration Artificial Tears 2 drops 03/05/21 15:12 03/05/21 16:29 Artificial Tears-Hypromellose Drops 15 Ml Btl BOTH EYES 2 drops QID PRN Administration Dry Eye(s) Ascorbic Acid 500 mg 03/01/21 21:00 03/07/21 21:06 Ascorbic Acid 500 Mg Tab PO 500 mg BID MOISES Administration Budesonide/Formoterol Fumarate 2 puff 03/06/21 20:00 03/07/21 19:19 Symbicort 160-4.5 Mcg Inhaler INHALATION 2 puff RT-BID MOISES Administration Chlorhexidine Gluconate 15 ml 03/07/21 09:00 03/07/21 21:05 Chlorhexidine Gluconate 15 Ml Cup MUCOUS MEM 15 ml BID MOISES Administration Cholecalciferol 125 mcg 03/01/21 16:45 03/07/21 08:40 Cholecalciferol 25 Mcg (1000 Iu) Tablet PO 125 mcg DAILY MOISES Administration Dexamethasone Sodium Phosphate 6 mg 03/03/21 21:00 03/07/21 21:06 Dexamethasone Sod Phosphate 10 Mg/Ml 1 Ml Vial IV 6 mg BID MOISES Administration Famotidine 40 mg 03/05/21 09:00 03/07/21 08:40 Famotidine 20 Mg Tab PO 40 mg DAILY MOISES Administration Heparin Sodium (Porcine) 0 unit 03/05/21 10:23 03/06/21 06:18 Heparin Sodium 1,000 Un/Ml (10ml Vl) IV 4,000 unit PER PROTOCOL PRN Administration Low PTT Protocol Heparin Sodium/Sodium Chloride 250 mls @ 24.902 mls/hr 03/05/21 10:30 03/07/21 18:24 25,000 unit/ Sodium Chloride IV 15 units/kg/hr .Q10H3M MOISES 20.752 mls/hr Titration Protocol 18 UNITS/KG/HR Cisatracurium Besylate 200 mg/ 200 mls @ 7.986 mls/hr 03/06/21 23:15 03/07/21 17:31 Sodium Chloride IV 1.25 mcg/kg/min .Q24H MOISES 9.983 mls/hr Titration Protocol 1 MCG/KG/MIN Propofol 1,000 mg/ IV Solution 100 mls @ 0 mls/hr 03/06/21 23:45 03/07/21 18:24 IV 30 mcg/kg/min .Q0M MOISES 23.292 mls/hr Administration Protocol Titrate Fentanyl Citrate 1,000 mcg/ 100 mls @ 0 mls/hr 03/07/21 00:15 03/07/21 21:37 Sodium Chloride IV 1 mcg/kg/hr .Q0M MOISES 13.31 mls/hr Titration Protocol Per Protocol Sodium Bicarbonate 150 ml/ 1,150 mls @ 100 mls/hr 03/07/21 01:15 03/07/21 18:47 Dextrose/Water IV 100 mls/hr .[id number] MOISES Administration Norepinephrine Bitartrate 4 mg 254 mls @ 24.651 mls/hr 03/07/21 08:00 03/07/21 18:20 / Sodium Chloride IV 0.05 mcg/kg/min .[id number] MOISES 24.651 mls/hr Administration Protocol 0.05 MCG/KG/MIN Piperacillin Sod/Tazobactam 100 mls @ 25 mls/hr 03/07/21 09:30 03/07/21 16:43 Sod 3.375 gm/ Sodium Chloride IVPB 25 mls/hr Q8HR MOISES Administration Sodium Chloride 1,000 mls @ 75 mls/hr 03/07/21 10:30 03/07/21 12:00 Saline 0.9% IV 75 mls/hr .[id number] MOISES Administration Insulin Aspart 0 unit 03/07/21 12:00 03/07/21 17:32 Insulin Aspart (Novolog) 100 Unit/Ml Vial SQ 1 unit Q6HR MOISES Administration Protocol Miscellaneous Information 1 each 03/07/21 05:25 Potassium Replacement Protocol 1 Each Misc MISCELLANE DAILY PRN Per Protocol Protocol Morphine Sulfate 4 mg 03/05/21 10:24 03/06/21 12:08 Morphine Sulfate 4 Mg/Ml Syringe IVP 4 mg Q4HR PRN Administration Pain Naloxone HCl 0.2 mg 03/01/21 13:41 Naloxone 0.4 Mg/Ml 1 Ml Vial IV Q2M PRN Opioid Reversal Ondansetron HCl 4 mg 03/01/21 13:41 Ondansetron 4 Mg/2 Ml Vial IVP Q8HR PRN Nausea And Vomiting Sodium Chloride 10 ml 03/07/21 11:53 Sodium Chloride 0.9% Flush 10 Ml Syringe IV Q4HR PRN PICC Line Sodium Chloride 10 ml 03/14/21 09:00 Sodium Chloride 0.9% Flush 10 Ml Syringe IV WEEKLY MOISES Sodium Chloride 20 ml 03/07/21 11:53 Sodium Chloride 0.9% Flush 10 Ml Syringe IV Q4HR PRN PICC Line Zinc Sulfate 220 mg 03/01/21 18:30 03/07/21 08:41 Zinc Sulfate 220 Mg Cap PO 220 mg DAILY MOISES Administration Objective - Vital Signs Vital signs: Vital Signs Temp 98.1 F 03/07/21 08:00 Pulse 98 03/07/21 10:00 Resp 38 H 03/07/21 10:00 BP 99/65 03/07/21 10:00 Pulse Ox 91 L 03/07/21 10:00 Intake & Output 03/06/21 03/07/21 03/07/21 18:59 06:59 18:59 Intake Total 9189.132 4847.120 2201.869 Output Total 750 845 110 Balance 231.134 6591.120 2091.869 Weight 129.4 kg 129.4 kg Intake: IV 900 1415 1712 Dextrose 5% in Water 1, 500 400 000 ml @ 100 mls/hr IV . [id number] MOISES with Sodium Bicarb (1 Meq/ml) 150 ml Rx#:[id number] Dextrose 5%-0.9% NaCl 1, 900 900 300 000 ml @ 75 mls/hr IV . [id number] [facility] Rx#:[id number] Sodium Chloride 0.9% 1, 1000 000 ml @ 999 mls/hr IV . Q1H1M [facility] Rx#:[id number] pressure bag 15 12 Intake, IV Titration 250.000 552.120 289.869 Amount Cisatracurium 200 mg In 43.124 Sodium Chloride 0.9% 180 ml @ 1 MCG/KG/MIN 7.986 mls/hr IV .Q24H [facility] Rx#: [id number] Heparin Sod,Pork in 0.45% 250.000 349.608 124.095 NaCl 25,000 unit In 0.45 % NaCl 1 250ml.bag @ 18 UNITS/KG/HR 24.902 mls/hr IV .Q10H3M [facility] Rx#: [id number] fentaNYL (PF). 1,000 mcg 16.305 65.774 In Sodium Chloride 0.9% 80 ml @ Per Protocol IV . Q0M [facility] Rx#:[id number] propofoL 1,000 mg In 143.083 100 Empty Bag 1 bag @ Titrate IV .Q0M [facility] Rx#: [id number] Oral 200 Output: Gastric Drainage 250 Urine 750 595 110 Other: Voiding Method Indwelling Catheter Indwelling Catheter ABP, PAP, CO, CI - Last Documented Arterial Blood Pressure 121/67 - Exam -GENERAL: The patient is intubated and sedated HEENT: Pupils are round and equally reacting to light. EOMI. No scleral icterus. No conjunctival pallor. Normocephalic, atraumatic. No pharyngeal erythema. No thyromegaly. CARDIOVASCULAR: S1 and S2 present. No murmurs, rubs, or gallops. -PULMONARY: Chest is clear to auscultation, bilateral crepitation and wheezing ABDOMEN: Soft, nontender, nondistended, normoactive bowel sounds. No palpable organomegaly. MUSCULOSKELETAL: No joint swelling or deformity. EXTREMITIES: No cyanosis, clubbing, or pedal edema. NEUROLOGICAL: Gross neurological examination did not reveal any focal deficits. SKIN: No rashes. no petechiae. - Labs CBC & Chem 7: 03/07/21 16:30 03/07/21 16:30 Labs: Abnormal Lab Results - Last 24 Hours (Table) 03/05/21 03/06/21 03/06/21 Range/Units 23:55 12:06 19:55 WBC (3.8-10.6) k/uL APTT 87.0 H 65.5 H (22.0-30.0) sec D-Dimer (<0.60) mg/L FEU ABG pH 7.18 L* (7.35-7.45) ABG pCO2 81 H* (35-45) mmHg ABG pO2 49 L* (83-108) mmHg ABG HCO3 30 H (21-25) mmol/L ABG Total CO2 33 H (19-24) mmol/L ABG O2 Saturation 72.9 L (94-97) % Chloride (98-107) mmol/L Carbon Dioxide (22-30) mmol/L BUN (9-20) mg/dL Glucose (74-99) mg/dL POC Glucose (mg/dL) (75-99) mg/dL Alkaline Phosphatase (38-126) U/L Lactate Dehydrogenase (313-618) U/L C-Reactive Protein (<1.0) mg/dL 03/07/21 03/07/21 03/07/21 Range/Units 03:50 03:50 03:50 WBC 35.9 H (3.8-10.6) k/uL APTT 83.3 H (22.0-30.0) sec D-Dimer 22.71 H (<0.60) mg/L FEU ABG pH (7.35-7.45) ABG pCO2 (35-45) mmHg ABG pO2 (83-108) mmHg ABG HCO3 (21-25) mmol/L ABG Total CO2 (19-24) mmol/L ABG O2 Saturation (94-97) % Chloride 108 H (98-107) mmol/L Carbon Dioxide 32 H (22-30) mmol/L BUN 24 H (9-20) mg/dL Glucose 233 H (74-99) mg/dL POC Glucose (mg/dL) (75-99) mg/dL Alkaline Phosphatase 206 H (38-126) U/L Lactate Dehydrogenase 2994 H (313-618) U/L C-Reactive Protein 1.7 H (<1.0) mg/dL 03/07/21 03/07/21 Range/Units 06:05 11:45 WBC (3.8-10.6) k/uL APTT (22.0-30.0) sec D-Dimer (<0.60) mg/L FEU ABG pH 7.25 L (7.35-7.45) ABG pCO2 69 H (35-45) mmHg ABG pO2 66 L (83-108) mmHg ABG HCO3 30 H (21-25) mmol/L ABG Total CO2 32 H (19-24) mmol/L ABG O2 Saturation 90.9 L (94-97) % Chloride (98-107) mmol/L Carbon Dioxide (22-30) mmol/L BUN (9-20) mg/dL Glucose (74-99) mg/dL POC Glucose (mg/dL) 152 H (75-99) mg/dL Alkaline Phosphatase (38-126) U/L Lactate Dehydrogenase (313-618) U/L C-Reactive Protein (<1.0) mg/dL Microbiology - Last 24 Hours (Table) 03/06/21 23:40 Sputum Culture - Preliminary Sputum 03/01/21 12:00 Blood Culture - Preliminary Blood No Growth after 120 hours 03/01/21 11:45 Blood Culture - Preliminary Blood No Growth after 120 hours Assessment and Plan Assessment: -Acute bilateral COVID 19 pneumonia. -Septic shock -Acute hypoxic respiratory failure needing mechanical ventilation -Acute renal failure with anuria -Increased inflammatory markers -Increased d-dimer with negative legs DVT and patient is unstable to undergo CTA of the chest to rule out PE -Morbid obesity BMI 43.8 -Mild hepatitis likely due to COVID 19 -Increased inflammatory markers Plan: This is a pleasant 45 years old male who presents with Covid pneumonia and hypoxia. Continue with steroids, IV fluids, continue with vitamin C, vitamin D and zinc. Continue with heparin drip and monitor d-dimer. Pulmonary/critical care team on the case and follow-up with a recommendation, vent management as per critical care team Continue with bipolar drip, follow-up urine output and creatinine level. Continue with Zosyn Continue with levophed as needed as per ICU team Labs and medication were reviewed.. Continue same treatment. Continue with symptomatic treatment. Resume home medication. Monitor lytes and vitals. DVT and GI prophylaxis. Further recommendationsas per clinical course of the chantal dao DVT prophylaxis: Heparin drip GI Prophylaxis: Pepcid Prognosis is extremely guarded with multiorgan failure
[2021-03-07 23:33] LABS: Glucose,Whole Blood 162 mg/dL (75-99)
[2021-03-07] MEDS: CISATRACURIUM 200 MG in SODIUM CHLORIDE 0.9% 180 ML IV SCH (23:37)
[2021-03-08] MEDS: HEPARIN SOD,PORK IN 0.45% NACL 25,000 UNIT in 0.45% NACL 1 250ML.BAG IV SCH ×2 (00:31→10:00)
[2021-03-08] MEDS: fentaNYL (PF). 1,000 MCG in SODIUM CHLORIDE 0.9% 80 ML IV SCH ×3 (01:30→18:42)
[2021-03-08] MEDS: NOREPINEPHRINE 4 MG in SODIUM CHLORIDE 0.9% 250 ML IV SCH ×2 (04:38→18:33)
[2021-03-08 05:22] LABS: Glucose,Whole Blood 166 mg/dL (75-99)
[2021-03-08] MEDS: INSULIN ASPART (NovoLOG) 100 UNIT/ML VIAL SQ SCH ×3 (05:30→18:51)
[2021-03-08 05:35] LABS: ABG HCO3 33 mmol/L (21-25); ABG Oxygen Saturation 94.9 % (94-97); ABG PCO2 57 mmHg (35-45); ABG PH 7.37 (7.35-7.45); ABG PO2 70 mmHg (83-108); ABG TCO2 35 mmol/L (19-24); Allen Test Performed? Yes
[2021-03-08 05:40] LABS: HCT 38.8 % (39.0-53.0); HGB 13.4 gm/dL (13.0-17.5); MCH 32.5 pg (25.0-35.0); MCHC 34.7 g/dL (31.0-37.0); MCV 93.7 fL (80.0-100.0); Mean Platelet Volume 8.2; Platelet Count 239 k/uL (150-450); RBC 4.14 m/uL (4.30-5.90); RDW 13.7 % (11.5-15.5); WBC 20.1 k/uL (3.8-10.6)
[2021-03-08 05:51] LABS: Albumin 2.8 g/dL (3.5-5.0); C Reactive Protein 1.7 mg/dL (<1.0); Potassium 3.7 mmol/L (3.5-5.1); Total Bilirubin 0.6 mg/dL (0.2-1.3); Total Protein 5.4 g/dL (6.3-8.2)
[2021-03-08 06:02] LABS: D-Dimer 4.08 mg/L FEU (<0.60); Partial Thromboplastin Time 63.9 sec (22.0-30.0)
[2021-03-08] MEDS ORDERED: POTASSIUM BICARBONATE/CIT AC 20 MEQ TABLET.EFF NG-TUBE SCH (07:00)
[2021-03-08] MEDS: ALBUTEROL HFA INHALER INHALATION SCH ×4 (08:06→19:11)
[2021-03-08] MEDS: SYMBICORT 160-4.5 MCG INHALER INHALATION SCH ×2 (08:06→19:12)
[2021-03-08] MEDS: CHLORHEXIDINE GLUCONATE 15 ML CUP MUCOUS MEM SCH ×2 (08:09→20:17)
[2021-03-08] MEDS: FAMOTIDINE 20 MG TAB PO SCH (08:10)
[2021-03-08] MEDS: DEXAMETHASONE SOD PHOSPHATE 10 MG/ML 1 ML VIAL IV SCH ×2 (08:10→20:17)
[2021-03-08] MEDS: ASCORBIC ACID 500 MG TAB PO SCH ×2 (08:10→20:17)
[2021-03-08] MEDS: ZINC SULFATE 220 MG CAP PO SCH (08:10)
[2021-03-08] MEDS: CHOLECALCIFEROL 25 MCG (1000 IU) TABLET PO SCH (08:10)
[2021-03-08] MEDS: PIPERACILLIN-TAZOBACTAM 3.375 GM in SODIUM CHLORIDE 0.9% 100 ML IVPB SCH ×2 (08:10→18:51)
--- NOTE | 2021-03-08 09:06 | XR ---
EXAMINATION TYPE: XR chest 1V portable DATE OF EXAM: 03/08/2021 COMPARISON: Chest x-ray 03/07/2021 HISTORY: Intubated TECHNIQUE: Single frontal view of the chest is obtained. FINDINGS: Endotracheal tube, orogastric tube, left-sided PICC line are overlying appropriate positio ns. Bilateral airspace disease is similar to prior exam. There is no evident pneumothorax or pleural effusion. Cardiac mediastinal silhouette is unchanged. IMPRESSION: Correlate for pneumonia, edema, ARDS
[2021-03-08 12:21] LABS: Glucose,Whole Blood 154 mg/dL (75-99)
[2021-03-08] MEDS: DEXTROSE 5% IN WATER 1,000 ML with SODIUM BICARB (1 MEQ/ML) 150 ML IV SCH (13:06)
--- NOTE | 2021-03-08 13:15 | P.PN ---
Subjective Progress Note Date: 03/08/21 Principal diagnosis: Acute hypoxic failure secondary to acute COVID-19 pneumonia 45-year-old male patient presenting to the emergency room because of shortness of breath. The patient has started having symptoms of less than a week ago, probably around 6 days ago and his symptoms were typical of COVID-19 related to pneumonia with fevers and fatigue and nausea and shortness of breath and cough and. He tested positive for COVID-19 around 3 days ago. He came in to the emergency for worsening shortness of breath. His comorbid conditions include obesity with a BMI 43.8. His current body weight is 138 kg. His initial pulse ox was 80% on room air oxygen. Upon arrival to our ER, his pulse ox was 70% and he was placed on 100% nonrebreather to bring his saturation at 92%. Chest x-ray shows small lung volumes and diffuse bilateral pulmonary infiltrates consistent with COVID-19 related pneumonia. He is afebrile. Hemodynamically stable. His blood work shows a white cell count of 10.3, he did have some lymphopenia, coagulation profile is normal, d-dimer is at 0.6, electrolytes are all within normal limits, LDH level is 1156, LFTs are normal. Lactic acid level is at 1.2. EKG showing a normal sinus rhythm. On , the patient is still in the emergency and the patient is being seen for a follow-up. He remains in the 100% nonrebreather facemask. He feels that his condition is still stable. His current pulse ox is 82% on 100% nonrebreather facemask, in addition to 15 L of oxygen by nasal cannula. He remains on Decadron 6 mg IV and he also received Tocilizumab 800 mg, IV. Rest of the labs are pending from today. He d-dimer at 0.69 and the patient was given Lovenox for DVT prophylaxis 40 mg subcu. He looks comfortable . He has crackles bilaterally on examination. He is afebrile. He denies having any significant worsening despite his ongoing hypoxemia. 03/03/2021, the patient is being seen for a follow-up. He is doing well on 15 L nasal cannula along with 100% on a beta facemasks. He does better on his left lateral side. Unable to go prone. He is afebrile. Pulse oxing between 86-90% on the above-mentioned oxygen flow. He d-dimer is at 2.06, LDH level is at 14 19 and the patient has a CRP of 5.2. He is still on Decadron 6 mg IV every 24 hours. He also received Tocilizumab milligrams IV 1 yesterday. He is still waiting on convalescent plasma.. He is, indicating previous tolerating diet. No significant worsening in his oxygenation since yesterday. No altered mentation. No chest pain. His cough is dry. 45-year-old male who was admitted with a diagnosis of acute hypoxemic respiratory failure secondary to COVID 19 pneumonitis/pneumonia. When I saw the patient initially, he was on a nonrebreather, as well as 15 L high flow nasal O2. He was getting saline at 75 mL an hour. His d-dimer had increased, and so we increase his Lovenox up to 60 mg twice a day. He did receive TOCI on March 02. He got up to use the bedside commode, and his saturations dropped into the mid 70 range. I did ask respiratory to place him on BiPAP with settings of IPAP 15, EPAP 5, and 100% FiO2. We will evaluate him again in a few hours or so. Lab data today includes a d-dimer of greater than 34.10, sodium 145, potassium 4.1, chlorides 109, CO2 29, anion gap 7, BUN 25, and creatinine 0.69. LDH is 1471. C-reactive protein is 2.6. Chest x-ray from today, shows diffuse bilateral infiltrates. Patient was reevaluated today on 03/05/2021, patient was transferred to the ICU this morning, apparently his pulmonary status has deteriorated, patient is developing more shortness of breath on BiPAP, he is developing worsening oxygen saturation is, hence arrangements were made for the patient be transferred to ICU. I placed him on IPAP of 16 and EPAP of 6, chest x-ray showed diffuse patchy infiltrates consistent with COVID-19 pneumonia. CBC count is 18.6 hemoglobin is 7 his d-dimer is over 34. Electrolytes are normal except for slightly elevated sodium of 145. Renal profile is normal. LDH is on the rise, it is up to 2100, C-reactive protein is better down to 1.5. Patient is marginal, and I have a strong feeling that if he deteriorates any further, patient will need to be intubated and placed on mechanical ventilation. But since the patient is tolerating the present BiPAP settings, and does not seem to be in severe respiratory distress, I would rather wait for the time being. In the meantime, patient received Decadron, and the vitamin cocktail, COVID-19 cocktail, and considering his d-dimer is elevated, I will start the patient on full dose of heparin, I will recommend a venous Doppler, may consider a CT angiogram of the chest. Patient did receive actemra on 03/01/2021. He remains on Decadron at 6 mg IV push twice a day. He was on Lovenox and today I transitioned Lovenox to full dose heparin mostly because of the concern about the significant increase in d-dimer, again will check for a venous Doppler, and consider CT angiogram of the chest. Patient was reevaluated today on 03/06/2021, patient remains in the ICU, he is on BiPAP, and his overall pulmonary status is marginal at best. Remains short of breath, he is tolerating BiPAP quite well, and O2 saturation is in the high 80s. He is on IPAP of 16 EPAP of 6, 100% FiO2. Patient is on heparin, and we decided to place him on heparin because his d-dimer is significantly elevated, I am suspecting possible thromboembolic disease, and the patient is not stable enough to send him down for a CT angiogram of the chest. Venous Doppler was negative for DVT. Patient remains on the COVID-19 cocktail, he is also on bronchodilators including albuterol and Symbicort. Remains on Decadron 6 mg twice a day. And the patient did receive toci.WBC count is 21.8 hemoglobin is 15.7. D-dimer is 31.67. PTT ranging between 20 up to 49. Basic with a malignant profile is normal except for sodium of 145. Renal profile is normal. Chest x-ray continues to show bilateral patchy infiltrates, possible slight improvement in aeration compared to previous x-rays on admission. Patient was reevaluated today on 03/07/2021, yesterday, the patient's clinical status deteriorated, he didn't require intubation and mechanical ventilation. He is now on assist control rate of 38, FiO2 is 100%, tidal volume is 450, and PEEP of 18. ABG showed a pO2 of 66 pCO2 of 69 pH of 7.25. Patient is on D5 0.9 at 75 mL/h, is also on bicarb drip at 100 mL/h, propofol at 30 mcg/kg/m, Nimbex, fentanyl at 0.5, and norepinephrine at 0.05. D-dimer is down to 22, there is sudden increase in his WBC count up to 30,000. Patient will be started on tube feeds today, and he will need to have rivero cultures. He will also need a PICC line placement. Chest x-ray continues to show bilateral interstitial infiltrates, consistent with COVID-19 pneumonitis. And ARDS. Inflammatory markers are on the rise, LDH is 2994, C-reactive protein is 1.7. Patient remains on heparin for elevated d-dimer, he had a negative Doppler, but I felt the patient should be fully anticoagulated because he is unstable to go down for CT angiogram of the chest. Considering the sudden increase in his WBC count, I went ahead and empirically started the patient on Zosyn, will recommend cultures and Procrit started level on this patient. Patient was reevaluated today on 03/08/2021, patient remains intubated and mechanically ventilated. He is on assist control rate of 38 tidal volume 450 FiO2 85% and PEEP of 18. ABG showed a pO2 of 70 pCO2 of 57 pH of 7.37. FiO2 was decreased down to 70%. Patient developed some nasal bleeding yesterday, hence his heparin was discontinued, and he is now on Lovenox 30 mg subcu daily. Patient remains on propofol at 30 norepinephrine and 0.06 mcg/kg/m, he is on sodium bicarb at 100 mL/h, Nimbex, fentanyl at 1 mcg/kg/h. Propofol at 50 mcg/kg/m. His d-dimer is down to 4, hence his Lovenox is now at 30 mg subcu daily, and he is again off heparin. FiO2 was decreased today to 70%. Chest x- ray continues to show bilateral patchy infiltrates consistent with COVID-19 pneumonia. WBC count is 20.1 hemoglobin is 13.4. Electrolytes are normal b icarb is 35. BUN is 38 creatinine 1.70. Hence more fluids will be given for his worsening renal failure, and the dose of Lovenox will be lower. LDH is 1716. C-reactive protein is 1.7. Objective - Vital Signs Vital signs: Vital Signs Temp 98.8 F 03/08/21 12:00 Pulse 69 03/08/21 12:00 Resp 37 H 03/08/21 12:00 BP 117/62 03/08/21 06:00 Pulse Ox 92 L 03/08/21 12:00 Intake & Output 03/07/21 03/08/21 03/08/21 18:59 06:59 18:59 Intake Total 4910.206 3113.427 989 Output Total 295 310 75 Balance 4615.206 2803.427 914 Weight 129.4 kg 133.2 kg 133.2 kg Intake: IV 3436 2061 968 Dextrose 5% in Water 1, 1100 1200 500 000 ml @ 100 mls/hr IV . [id number] [facility] with Sodium Bicarb (1 Meq/ml) 150 ml Rx#:[id number] Dextrose 5%-0.9% NaCl 1, 300 000 ml @ 75 mls/hr IV . [id number] [facility] Rx#:[id number] Sodium Chloride 0.9% 1, 825 450 000 ml @ 75 mls/hr IV . [id number] [facility] Rx#:[id number] Sodium Chloride 0.9% 1, 2000 000 ml @ 999 mls/hr IV . Q1H1M [facility] Rx#:[id number] pressure bag 36 36 18 Intake, IV Titration 1274.206 731.427 Amount Cisatracurium 200 mg In 115.531 Sodium Chloride 0.9% 180 ml @ 1 MCG/KG/MIN 7.986 mls/hr IV .Q24H [facility] Rx#: [id number] Heparin Sod,Pork in 0.45% 268.515 105.58 NaCl 25,000 unit In 0.45 % NaCl 1 250ml.bag @ 18 UNITS/KG/HR 24.902 mls/hr IV .Q10H3M [facility] Rx#: [id number] Norepinephrine 4 mg In 249.386 157.679 Sodium Chloride 0.9% 250 ml @ 0.05 MCG/KG/MIN 24. 651 mls/hr IV .[id number] [facility] Rx#:[id number] Piperacillin-Tazobactam 3 100 .375 gm In Sodium Chloride 0.9% 100 ml @ 25 mls/hr IVPB Q8HR [facility] Rx# :[id number] Sodium Chloride 0.9% 1, 375 75 000 ml @ 75 mls/hr IV . [id number] [facility] Rx#:[id number] fentaNYL (PF). 1,000 mcg 65.774 100.000 In Sodium Chloride 0.9% 80 ml @ Per Protocol IV . Q0M [facility] Rx#:[id number] propofoL 1,000 mg In 200 193.168 Empty Bag 1 bag @ Titrate IV .Q0M [facility] Rx#: [id number] Oral 200 Tube Feeding 231 21 Other 90 Output: Urine 295 310 75 Other: Voiding Method Indwelling Catheter Indwelling Catheter Indwelling Catheter ABP, PAP, CO, CI - Last Documented Arterial Blood Pressure 139/67 - Exam Physical Exam: Revealed 45-year-old white male, obese, intubated and mechanically ventilated. Sedated and paralyzed. Head: Atraumatic, normocephalic. Orogastric tube and endotracheal tube are intact. HEENT:[Neck is supple.] [No neck masses.] [No thyromegaly.] [No JVD.]. , EOMI, nonicteric. clotted blood noted in the nasal mucosa. Chest: [Symmetrical chest expansion, crackles at the bases, no wheezes. Cardiac Exam: [Normal S1 and S2, no S3 gallop, no murmur.] Abdomen: [Obese, Soft, nontender, no megaly, no rebound, no guarding, normal bowel sounds.] Extremities: [No clubbing, no edema, no cyanosis.] Neurological Exam: [Could not assess, paralyzed and sedated. Psychiatric: Not assessed, sedated and paralyzed. Skin: No rashes. Lymphatics: No cervical adenopathy. Musculoskeletal: No deformities. - Labs CBC & Chem 7: 03/08/21 05:00 03/08/21 05:00 Labs: Abnormal Lab Results - Last 24 Hours (Table) 03/07/21 03/07/21 03/07/21 Range/Units 03:50 13:53 16:14 WBC (3.8-10.6) k/uL RBC (4.30-5.90) m/uL Hct (39.0-53.0) % Neutrophils # (1.3-7.7) k/uL Lymphocytes # (1.0-4.8) k/uL APTT 99.2 H (22.0-30.0) sec D-Dimer (<0.60) mg/L FEU ABG pCO2 (35-45) mmHg ABG pO2 (83-108) mmHg ABG HCO3 (21-25) mmol/L ABG Total CO2 (19-24) mmol/L Sodium (137-145) mmol/L Chloride (98-107) mmol/L Carbon Dioxide (22-30) mmol/L BUN (9-20) mg/dL Creatinine (0.66-1.25) mg/dL Glucose (74-99) mg/dL POC Glucose (mg/dL) (75-99) mg/dL Calcium (8.4-10.2) mg/dL AST (17-59) U/L Lactate Dehydrogenase (313-618) U/L C-Reactive Protein (<1.0) mg/dL Total Protein (6.3-8.2) g/dL Albumin (3.5-5.0) g/dL Procalcitonin 0.32 H (0.02-0.09) ng/mL Urine Protein 1+ H (Negative) Urine Blood Moderate H (Negative) Urine RBC 21 H (0-5) /hpf Amorphous Sediment Occasional H (None) /hpf Urine Mucus Few H (None) /hpf 03/07/21 03/07/21 03/07/21 Range/Units 16:30 16:30 17:00 WBC 29.1 H (3.8-10.6) k/uL RBC (4.30-5.90) m/uL Hct (39.0-53.0) % Neutrophils # 27.3 H (1.3-7.7) k/uL Lymphocytes # 0.8 L (1.0-4.8) k/uL APTT (22.0-30.0) sec D-Dimer (<0.60) mg/L FEU ABG pCO2 (35-45) mmHg ABG pO2 (83-108) mmHg ABG HCO3 (21-25) mmol/L ABG Total CO2 (19-24) mmol/L Sodium 147 H (137-145) mmol/L Chloride 109 H (98-107) mmol/L Carbon Dioxide 31 H (22-30) mmol/L BUN 30 H (9-20) mg/dL Creatinine 1.44 H (0.66-1.25) mg/dL Glucose 154 H (74-99) mg/dL POC Glucose (mg/dL) 140 H (75-99) mg/dL Calcium 7.9 L (8.4-10.2) mg/dL AST (17-59) U/L Lactate Dehydrogenase (313-618) U/L C-Reactive Protein (<1.0) mg/dL Total Protein (6.3-8.2) g/dL Albumin (3.5-5.0) g/dL Procalcitonin (0.02-0.09) ng/mL Urine Protein (Negative) Urine Blood (Negative) Urine RBC (0-5) /hpf Amorphous Sediment (None) /hpf Urine Mucus (None) /hpf 03/07/21 03/07/21 03/08/21 Range/Units 23:30 23:30 05:00 WBC (3.8-10.6) k/uL RBC (4.30-5.90) m/uL Hct (39.0-53.0) % Neutrophils # (1.3-7.7) k/uL Lymphocytes # (1.0-4.8) k/uL APTT 61.4 H (22.0-30.0) sec D-Dimer (<0.60) mg/L FEU ABG pCO2 (35-45) mmHg ABG pO2 (83-108) mmHg ABG HCO3 (21-25) mmol/L ABG Total CO2 (19-24) mmol/L Sodium (137-145) mmol/L Chloride 108 H (98-107) mmol/L Carbon Dioxide 35 H (22-30) mmol/L BUN 38 H (9-20) mg/dL Creatinine 1.70 H (0.66-1.25) mg/dL Glucose 171 H (74-99) mg/dL POC Glucose (mg/dL) 162 H (75-99) mg/dL Calcium 8.0 L (8.4-10.2) mg/dL AST 61 H (17-59) U/L Lactate Dehydrogenase 1716 H (313-618) U/L C-Reactive Protein 1.7 H (<1.0) mg/dL Total Protein 5.4 L (6.3-8.2) g/dL Albumin 2.8 L (3.5-5.0) g/dL Procalcitonin (0.02-0.09) ng/mL Urine Protein (Negative) Urine Blood (Negative) Urine RBC (0-5) /hpf Amorphous Sediment (None) /hpf Urine Mucus (None) /hpf 03/08/21 03/08/21 03/08/21 Range/Units 05:00 05:00 05:20 WBC 20.1 H (3.8-10.6) k/uL RBC 4.14 L (4.30-5.90) m/uL Hct 38.8 L (39.0-53.0) % Neutrophils # (1.3-7.7) k/uL Lymphocytes # (1.0-4.8) k/uL APTT 63.9 H (22.0-30.0) sec D-Dimer 4.08 H (<0.60) mg/L FEU ABG pCO2 (35-45) mmHg ABG pO2 (83-108) mmHg ABG HCO3 (21-25) mmol/L ABG Total CO2 (19-24) mmol/L Sodium (137-145) mmol/L Chloride (98-107) mmol/L Carbon Dioxide (22-30) mmol/L BUN (9-20) mg/dL Creatinine (0.66-1.25) mg/dL Glucose (74-99) mg/dL POC Glucose (mg/dL) 166 H (75-99) mg/dL Calcium (8.4-10.2) mg/dL AST (17-59) U/L Lactate Dehydrogenase (313-618) U/L C-Reactive Protein (<1.0) mg/dL Total Protein (6.3-8.2) g/dL Albumin (3.5-5.0) g/dL Procalcitonin (0.02-0.09) ng/mL Urine Protein (Negative) Urine Blood (Negative) Urine RBC (0-5) /hpf Amorphous Sediment (None) /hpf Urine Mucus (None) /hpf 03/08/21 03/08/21 Range/Units 05:31 12:10 WBC (3.8-10.6) k/uL RBC (4.30-5.90) m/uL Hct (39.0-53.0) % Neutrophils # (1.3-7.7) k/uL Lymphocytes # (1.0-4.8) k/uL APTT (22.0-30.0) sec D-Dimer (<0.60) mg/L FEU ABG pCO2 57 H (35-45) mmHg ABG pO2 70 L (83-108) mmHg ABG HCO3 33 H (21-25) mmol/L ABG Total CO2 35 H (19-24) mmol/L Sodium (137-145) mmol/L Chloride (98-107) mmol/L Carbon Dioxide (22-30) mmol/L BUN (9-20) mg/dL Creatinine (0.66-1.25) mg/dL Glucose (74-99) mg/dL POC Glucose (mg/dL) 154 H (75-99) mg/dL Calcium (8.4-10.2) mg/dL AST (17-59) U/L Lactate Dehydrogenase (313-618) U/L C-Reactive Protein (<1.0) mg/dL Total Protein (6.3-8.2) g/dL Albumin (3.5-5.0) g/dL Procalcitonin (0.02-0.09) ng/mL Urine Protein (Negative) Urine Blood (Negative) Urine RBC (0-5) /hpf Amorphous Sediment (None) /hpf Urine Mucus (None) /hpf Microbiology - Last 24 Hours (Table) 03/07/21 09:54 Blood Culture - Preliminary Blood No Growth after 24 hours 03/07/21 10:00 Blood Culture - Preliminary Blood No Growth after 24 hours 03/06/21 23:40 Gram Stain - Preliminary Sputum Sputum Culture - Preliminary 03/01/21 12:00 Blood Culture - Final Blood No Growth after 144 hours 03/01/21 11:45 Blood Culture - Final Blood No Growth after 144 hours Assessment and Plan Assessment: Impression: Acute hypoxic respiratory failure secondary to COVID-19 pneumonia, patient received toci, out of window for REM. Required intubation and mechanical ventilation on 03/06/2021 Morbid obesity BMI of 43.8. Possible obstructive sleep apnea syndrome. Elevated inflammatory markers secondary to above. Elevated d-dimer, initially treated empirically with heparin, however considering his nasal bleeding heparin was discontinued and he is now on Lovenox 30 mg subcu daily. Leukocytosis, negative sputum and blood cultures noted. Recommendation: Continue ventilatory support. Continue enteral/Nutritional support. Continue Decadron. Continue Lovenox at 30 mg subcu daily. Continue Zosyn empirically. Continue the COVID-19 cocktail. Patient did receive TOCI he was out of the window for REM. Continue Decadron 6 mg IV push twice a day. Patient is not ready for any weaning however I was able to cut down his FiO2 and bit, down to 70%. PEEP remained the same. Prognosis is extremely guarded. Patient is critically ill, and critical care time is over 30 minutes Time with Patient: Greater than 30
[2021-03-08] MEDS: SODIUM CHLORIDE 0.9% 1,000 ML IV SCH ×2 (16:29→21:51)
[2021-03-08 16:33] LABS: Basophils # (A) 0.1 k/uL (0-0.2); Basophils % (A) 0 %; Eosinophils # (A) 0.3 k/uL (0-0.7); Eosinophils % (A) 1 %; HCT 41.1 % (39.0-53.0); Lymphocytes # (A) 0.7 k/uL (1.0-4.8); Lymphocytes % (A) 3 %; MCH 31.8 pg (25.0-35.0); MCV 93.6 fL (80.0-100.0); Mean Platelet Volume 8.4; Monocytes # (A) 0.5 k/uL (0-1.0); Monocytes % (A) 2 %; Neutrophils # (A) 18.7 k/uL (1.3-7.7); Neutrophils % (A) 92 %; Platelet Count 257 k/uL (150-450); RBC 4.39 m/uL (4.30-5.90); RDW 13.7 % (11.5-15.5); WBC 20.3 k/uL (3.8-10.6)
[2021-03-08 18:39] LABS: Glucose,Whole Blood 148 mg/dL (75-99)
[2021-03-08] MEDS: CISATRACURIUM 200 MG in SODIUM CHLORIDE 0.9% 180 ML IV SCH (19:45)
[2021-03-09 00:08] LABS: Glucose,Whole Blood 159 mg/dL (75-99)
[2021-03-09] MEDS: DEXTROSE 5% IN WATER 1,000 ML with SODIUM BICARB (1 MEQ/ML) 150 ML IV SCH ×3 (00:11→21:22)
[2021-03-09] MEDS: PIPERACILLIN-TAZOBACTAM 3.375 GM in SODIUM CHLORIDE 0.9% 100 ML IVPB SCH ×4 (00:18→23:43)
[2021-03-09] MEDS: INSULIN ASPART (NovoLOG) 100 UNIT/ML VIAL SQ SCH ×5 (00:18→23:42)
[2021-03-09] MEDS: NOREPINEPHRINE 4 MG in SODIUM CHLORIDE 0.9% 250 ML IV SCH ×3 (00:35→21:22)
[2021-03-09] MEDS: fentaNYL (PF). 1,000 MCG in SODIUM CHLORIDE 0.9% 80 ML IV SCH ×2 (04:18→21:21)
[2021-03-09 04:27] LABS: HGB 13.8 gm/dL (13.0-17.5); MCH 32.1 pg (25.0-35.0); MCHC 33.7 g/dL (31.0-37.0); Mean Platelet Volume 8.7; Platelet Count 178 k/uL (150-450); RBC 4.31 m/uL (4.30-5.90); RDW 13.7 % (11.5-15.5); WBC 18.5 k/uL (3.8-10.6)
[2021-03-09 04:41] LABS: Albumin 3.1 g/dL (3.5-5.0); C Reactive Protein 1.6 mg/dL (<1.0); Calcium 8.5 mg/dL (8.4-10.2); Potassium 4.4 mmol/L (3.5-5.1); Total Bilirubin 0.8 mg/dL (0.2-1.3); Total Protein 5.7 g/dL (6.3-8.2)
[2021-03-09 05:53] LABS: ABG Base Excess 6.9 mmol/L; ABG HCO3 33 mmol/L (21-25); ABG Oxygen Saturation 93.5 % (94-97); ABG PCO2 67 mmHg (35-45); ABG PO2 71 mmHg (83-108); ABG TCO2 35 mmol/L (19-24); Allen Test Performed? Yes
[2021-03-09 06:02] LABS: Glucose,Whole Blood 159 mg/dL (75-99)
--- NOTE | 2021-03-09 07:10 | XR ---
EXAMINATION TYPE: XR chest 1V portable DATE OF EXAM: 03/09/2021 COMPARISON: Chest x-ray 03/08/2021 HISTORY: Intubated TECHNIQUE: Single frontal view of the chest is obtained. FINDINGS: Endotracheal tube, orogastric tube, left-sided PICC line are overlying appropriate positio ns. Bilateral airspace disease persists. There is no evident pneumothorax or pleural effusion. Cardia c mediastinal silhouette is stable. IMPRESSION: Correlate for pneumonia, edema, ARDS, findings similar to prior exam.
[2021-03-09] MEDS: ALBUTEROL HFA INHALER INHALATION SCH ×4 (07:45→20:12)
[2021-03-09] MEDS: SYMBICORT 160-4.5 MCG INHALER INHALATION SCH ×2 (07:45→20:13)
[2021-03-09] MEDS: DEXAMETHASONE SOD PHOSPHATE 10 MG/ML 1 ML VIAL IV SCH ×2 (08:39→21:21)
[2021-03-09] MEDS: ASCORBIC ACID 500 MG TAB PO SCH ×2 (08:39→21:20)
[2021-03-09] MEDS: CHOLECALCIFEROL 25 MCG (1000 IU) TABLET PO SCH (08:39)
[2021-03-09] MEDS: ZINC SULFATE 220 MG CAP PO SCH (08:39)
[2021-03-09] MEDS: FAMOTIDINE 20 MG TAB PO SCH (08:39)
[2021-03-09] MEDS: CHLORHEXIDINE GLUCONATE 15 ML CUP MUCOUS MEM SCH ×2 (08:39→21:20)
[2021-03-09] MEDS ORDERED: ENOXAPARIN 30 MG/0.3 ML SYRINGE SQ SCH (09:00)
[2021-03-09] MEDS ORDERED: ENOXAPARIN 40 MG/0.4 ML SYRINGE SQ ONE (10:00)
[2021-03-09] MEDS ORDERED: VANCOMYCIN IV PER PHARMACY 1 EACH MISC MISCELLANE PRN (10:41)
--- NOTE | 2021-03-09 10:41 | P.PN ---
Subjective Progress Note Date: 03/09/21 Principal diagnosis: Acute hypoxic failure secondary to acute COVID-19 pneumonia 45-year-old male patient presenting to the emergency room because of shortness of breath. The patient has started having symptoms of less than a week ago, probably around 6 days ago and his symptoms were typical of COVID-19 related to pneumonia with fevers and fatigue and nausea and shortness of breath and cough and. He tested positive for COVID-19 around 3 days ago. He came in to the emergency for worsening shortness of breath. His comorbid conditions include obesity with a BMI 43.8. His current body weight is 138 kg. His initial pulse ox was 80% on room air oxygen. Upon arrival to our ER, his pulse ox was 70% and he was placed on 100% nonrebreather to bring his saturation at 92%. Chest x-ray shows small lung volumes and diffuse bilateral pulmonary infiltrates consistent with COVID-19 related pneumonia. He is afebrile. Hemodynamically stable. His blood work shows a white cell count of 10.3, he did have some lymphopenia, coagulation profile is normal, d-dimer is at 0.6, electrolytes are all within normal limits, LDH level is 1156, LFTs are normal. Lactic acid level is at 1.2. EKG showing a normal sinus rhythm. On , the patient is still in the emergency and the patient is being seen for a follow-up. He remains in the 100% nonrebreather facemask. He feels that his condition is still stable. His current pulse ox is 82% on 100% nonrebreather facemask, in addition to 15 L of oxygen by nasal cannula. He remains on Decadron 6 mg IV and he also received Tocilizumab 800 mg, IV. Rest of the labs are pending from today. He d-dimer at 0.69 and the patient was given Lovenox for DVT prophylaxis 40 mg subcu. He looks comfortable . He has crackles bilaterally on examination. He is afebrile. He denies having any significant worsening despite his ongoing hypoxemia. 03/03/2021, the patient is being seen for a follow-up. He is doing well on 15 L nasal cannula along with 100% on a beta facemasks. He does better on his left lateral side. Unable to go prone. He is afebrile. Pulse oxing between 86-90% on the above-mentioned oxygen flow. He d-dimer is at 2.06, LDH level is at 14 19 and the patient has a CRP of 5.2. He is still on Decadron 6 mg IV every 24 hours. He also received Tocilizumab milligrams IV 1 yesterday. He is still waiting on convalescent plasma.. He is, indicating previous tolerating diet. No significant worsening in his oxygenation since yesterday. No altered mentation. No chest pain. His cough is dry. 45-year-old male who was admitted with a diagnosis of acute hypoxemic respiratory failure secondary to COVID 19 pneumonitis/pneumonia. When I saw the patient initially, he was on a nonrebreather, as well as 15 L high flow nasal O2. He was getting saline at 75 mL an hour. His d-dimer had increased, and so we increase his Lovenox up to 60 mg twice a day. He did receive TOCI on March 02. He got up to use the bedside commode, and his saturations dropped into the mid 70 range. I did ask respiratory to place him on BiPAP with settings of IPAP 15, EPAP 5, and 100% FiO2. We will evaluate him again in a few hours or so. Lab data today includes a d-dimer of greater than 34.10, sodium 145, potassium 4.1, chlorides 109, CO2 29, anion gap 7, BUN 25, and creatinine 0.69. LDH is 1471. C-reactive protein is 2.6. Chest x-ray from today, shows diffuse bilateral infiltrates. Patient was reevaluated today on 03/05/2021, patient was transferred to the ICU this morning, apparently his pulmonary status has deteriorated, patient is developing more shortness of breath on BiPAP, he is developing worsening oxygen saturation is, hence arrangements were made for the patient be transferred to ICU. I placed him on IPAP of 16 and EPAP of 6, chest x-ray showed diffuse patchy infiltrates consistent with COVID-19 pneumonia. CBC count is 18.6 hemoglobin is 7 his d-dimer is over 34. Electrolytes are normal except for slightly elevated sodium of 145. Renal profile is normal. LDH is on the rise, it is up to 2100, C-reactive protein is better down to 1.5. Patient is marginal, and I have a strong feeling that if he deteriorates any further, patient will need to be intubated and placed on mechanical ventilation. But since the patient is tolerating the present BiPAP settings, and does not seem to be in severe respiratory distress, I would rather wait for the time being. In the meantime, patient received Decadron, and the vitamin cocktail, COVID-19 cocktail, and considering his d-dimer is elevated, I will start the patient on full dose of heparin, I will recommend a venous Doppler, may consider a CT angiogram of the chest. Patient did receive actemra on 03/01/2021. He remains on Decadron at 6 mg IV push twice a day. He was on Lovenox and today I transitioned Lovenox to full dose heparin mostly because of the concern about the significant increase in d-dimer, again will check for a venous Doppler, and consider CT angiogram of the chest. Patient was reevaluated today on 03/06/2021, patient remains in the ICU, he is on BiPAP, and his overall pulmonary status is marginal at best. Remains short of breath, he is tolerating BiPAP quite well, and O2 saturation is in the high 80s. He is on IPAP of 16 EPAP of 6, 100% FiO2. Patient is on heparin, and we decided to place him on heparin because his d-dimer is significantly elevated, I am suspecting possible thromboembolic disease, and the patient is not stable enough to send him down for a CT angiogram of the chest. Venous Doppler was negative for DVT. Patient remains on the COVID-19 cocktail, he is also on bronchodilators including albuterol and Symbicort. Remains on Decadron 6 mg twice a day. And the patient did receive toci.WBC count is 21.8 hemoglobin is 15.7. D-dimer is 31.67. PTT ranging between 20 up to 49. Basic with a malignant profile is normal except for sodium of 145. Renal profile is normal. Chest x-ray continues to show bilateral patchy infiltrates, possible slight improvement in aeration compared to previous x-rays on admission. Patient was reevaluated today on 03/07/2021, yesterday, the patient's clinical status deteriorated, he didn't require intubation and mechanical ventilation. He is now on assist control rate of 38, FiO2 is 100%, tidal volume is 450, and PEEP of 18. ABG showed a pO2 of 66 pCO2 of 69 pH of 7.25. Patient is on D5 0.9 at 75 mL/h, is also on bicarb drip at 100 mL/h, propofol at 30 mcg/kg/m, Nimbex, fentanyl at 0.5, and norepinephrine at 0.05. D-dimer is down to 22, there is sudden increase in his WBC count up to 30,000. Patient will be started on tube feeds today, and he will need to have rivero cultures. He will also need a PICC line placement. Chest x-ray continues to show bilateral interstitial infiltrates, consistent with COVID-19 pneumonitis. And ARDS. Inflammatory markers are on the rise, LDH is 2994, C-reactive protein is 1.7. Patient remains on heparin for elevated d-dimer, he had a negative Doppler, but I felt the patient should be fully anticoagulated because he is unstable to go down for CT angiogram of the chest. Considering the sudden increase in his WBC count, I went ahead and empirically started the patient on Zosyn, will recommend cultures and Procrit started level on this patient. Patient was reevaluated today on 03/08/2021, patient remains intubated and mechanically ventilated. He is on assist control rate of 38 tidal volume 450 FiO2 85% and PEEP of 18. ABG showed a pO2 of 70 pCO2 of 57 pH of 7.37. FiO2 was decreased down to 70%. Patient developed some nasal bleeding yesterday, hence his heparin was discontinued, and he is now on Lovenox 30 mg subcu daily. Patient remains on propofol at 30 norepinephrine and 0.06 mcg/kg/m, he is on sodium bicarb at 100 mL/h, Nimbex, fentanyl at 1 mcg/kg/h. Propofol at 50 mcg/kg/m. His d-dimer is down to 4, hence his Lovenox is now at 30 mg subcu daily, and he is again off heparin. FiO2 was decreased today to 70%. Chest x- ray continues to show bilateral patchy infiltrates consistent with COVID-19 pneumonia. WBC count is 20.1 hemoglobin is 13.4. Electrolytes are normal b icarb is 35. BUN is 38 creatinine 1.70. Hence more fluids will be given for his worsening renal failure, and the dose of Lovenox will be lower. LDH is 1716. C-reactive protein is 1.7. Reevaluated today on 03/09/2021, patient remains in the ICU, intubated and mechanically ventilated. He is on assist control rate of 38 tidal volume 450 FiO2 80% and PEEP of 18. I did cut down the FiO2 to 70%. ABG showed a pO2 of 71 pCO2 67 pH of 7.30. Patient remains on Nimbex at 1.25 bicarb at 50 ML per ho ur 0.9 normal saline at 1 25/h propofol at 30 fentanyl 1. I switched his 0.9 today to D5W since his sodium was noted to be elevated. We increased his Lovenox to 70 mg subcu twice a day since the patient is having significantly elevated d-dimer. Patient remains on tube feeding vital HP at 41. Mild per hour. Remains on free water flushes for his elevated sodium overall the patient is about the same, chest x-ray showed persistent bilateral infiltrates. Consistent with COVID-19 pneumonia. A d-dimer today was noted above 34. Sodium is 147. Bicarb is 34. Liver enzymes are borderline elevated. LDH is down to 1985 and C-reactive protein is 4.6. Objective - Vital Signs Vital signs: Vital Signs Temp 97.9 F 03/09/21 08:00 Pulse 92 03/09/21 10:00 Resp 38 H 03/09/21 10:00 BP 142/78 03/09/21 10:00 Pulse Ox 89 L 03/09/21 10:00 Intake & Output 03/08/21 03/09/21 03/09/21 18:59 06:59 18:59 Intake Total 2102.832 3061.522 575 Output Total 290 420 75 Balance 5003.869 4202.522 500 Weight 133.2 kg 135.2 kg Intake: IV 1786 2186 487 Dextrose 5% in Water 1, 850 600 100 000 ml @ 50 mls/hr IV . Q23H [facility] with Sodium Bicarb (1 Meq/ml) 150 ml Rx#:[id number] Piperacillin-Tazobactam 3 100 .375 gm In Sodium Chloride 0.9% 100 ml @ 25 mls/hr IVPB Q8HR [facility] Rx# :[id number] Sodium Chloride 0.9% 1, 900 1450 375 000 ml @ 75 mls/hr IV . [id number] [facility] Rx#:[id number] pressure bag 36 36 12 Intake, IV Titration 295.832 381.522 Amount fentaNYL (PF). 1,000 mcg 195.832 100 In Sodium Chloride 0.9% 80 ml @ Per Protocol IV . Q0M [facility] Rx#:[id number] propofoL 1,000 mg In 100 281.522 Empty Bag 1 bag @ Titrate IV .Q0M [facility] Rx#: [id number] Tube Feeding 21 404 88 Other 90 Output: Urine 290 420 75 Other: Voiding Method Indwelling Catheter Indwelling Catheter Indwelling Catheter ABP, PAP, CO, CI - Last Documented Arterial Blood Pressure 143/62 - Exam Physical Exam: Revealed 45-year-old white male, obese, intubated and mechanically ventilated. Sedated and paralyzed. Head: Atraumatic, normocephalic. Orogastric tube and endotracheal tube are intact. HEENT:[Neck is supple.] [No neck masses.] [No thyromegaly.] [No JVD.]. , EOMI, nonicteric. clotted blood noted in the nasal mucosa. Chest: [Symmetrical chest expansion, crackles at the bases, no wheezes. Cardiac Exam: [Normal S1 and S2, no S3 gallop, no murmur.] Abdomen: [Obese, Soft, nontender, no megaly, no rebound, no guarding, normal bowel sounds.] Extremities: [No clubbing, no edema, no cyanosis.] Neurological Exam: [Could not assess, paralyzed and sedated. Psychiatric: Not assessed, sedated and paralyzed. Skin: No rashes. Lymphatics: No cervical adenopathy. Musculoskeletal: No deformities. - Labs CBC & Chem 7: 03/09/21 04:17 03/09/21 04:17 Labs: Abnormal Lab Results - Last 24 Hours (Table) 03/08/21 03/08/21 03/08/21 Range/Units 12:10 16:29 18:37 WBC 20.3 H (3.8-10.6) k/uL Neutrophils # 18.7 H (1.3-7.7) k/uL Lymphocytes # 0.7 L (1.0-4.8) k/uL D-Dimer (<0.60) mg/L FEU ABG pH (7.35-7.45) ABG pCO2 (35-45) mmHg ABG pO2 (83-108) mmHg ABG HCO3 (21-25) mmol/L ABG Total CO2 (19-24) mmol/L ABG O2 Saturation (94-97) % Sodium (137-145) mmol/L Chloride (98-107) mmol/L Carbon Dioxide (22-30) mmol/L BUN (9-20) mg/dL Creatinine (0.66-1.25) mg/dL Glucose (74-99) mg/dL POC Glucose (mg/dL) 154 H 148 H (75-99) mg/dL AST (17-59) U/L ALT (4-49) U/L Lactate Dehydrogenase (313-618) U/L C-Reactive Protein (<1.0) mg/dL Total Protein (6.3-8.2) g/dL Albumin (3.5-5.0) g/dL 03/09/21 03/09/21 03/09/21 Range/Units 00:07 04:17 04:17 WBC 18.5 H (3.8-10.6) k/uL Neutrophils # (1.3-7.7) k/uL Lymphocytes # (1.0-4.8) k/uL D-Dimer >34.10 H (<0.60) mg/L FEU ABG pH (7.35-7.45) ABG pCO2 (35-45) mmHg ABG pO2 (83-108) mmHg ABG HCO3 (21-25) mmol/L ABG Total CO2 (19-24) mmol/L ABG O2 Saturation (94-97) % Sodium (137-145) mmol/L Chloride (98-107) mmol/L Carbon Dioxide (22-30) mmol/L BUN (9-20) mg/dL Creatinine (0.66-1.25) mg/dL Glucose (74-99) mg/dL POC Glucose (mg/dL) 159 H (75-99) mg/dL AST (17-59) U/L ALT (4-49) U/L Lactate Dehydrogenase (313-618) U/L C-Reactive Protein (<1.0) mg/dL Total Protein (6.3-8.2) g/dL Albumin (3.5-5.0) g/dL 03/09/21 03/09/21 03/09/21 Range/Units 04:17 05:45 06:00 WBC (3.8-10.6) k/uL Neutrophils # (1.3-7.7) k/uL Lymphocytes # (1.0-4.8) k/uL D-Dimer (<0.60) mg/L FEU ABG pH 7.30 L (7.35-7.45) ABG pCO2 67 H (35-45) mmHg ABG pO2 71 L (83-108) mmHg ABG HCO3 33 H (21-25) mmol/L ABG Total CO2 35 H (19-24) mmol/L ABG O2 Saturation 93.5 L (94-97) % Sodium 147 H (137-145) mmol/L Chloride 108 H (98-107) mmol/L Carbon Dioxide 34 H (22-30) mmol/L BUN 50 H (9-20) mg/dL Creatinine 1.73 H (0.66-1.25) mg/dL Glucose 173 H (74-99) mg/dL POC Glucose (mg/dL) 159 H (75-99) mg/dL AST 86 H (17-59) U/L ALT 52 H (4-49) U/L Lactate Dehydrogenase 1985 H (313-618) U/L C-Reactive Protein 1.6 H (<1.0) mg/dL Total Protein 5.7 L (6.3-8.2) g/dL Albumin 3.1 L (3.5-5.0) g/dL Microbiology - Last 24 Hours (Table) 03/06/21 23:40 Gram Stain - Preliminary Sputum Sputum Culture - Preliminary Presumptive Staph aureus 03/07/21 09:54 Blood Culture - Preliminary Blood No Growth after 24 hours 03/07/21 10:00 Blood Culture - Preliminary Blood No Growth after 24 hours Assessment and Plan Assessment: Impression: Acute hypoxic respiratory failure secondary to COVID-19 pneumonia, patient received toci, out of window for REM. Required intubation and mechanical ventilation on 03/06/2021 Morbid obesity BMI of 43.8. Possible obstructive sleep apnea syndrome. Elevated inflammatory markers secondary to above. Elevated d-dimer, initially treated empirically with heparin, however considering his nasal bleeding heparin was discontinued patient is now on Lovenox 70 mg subcu twice a day. Leukocytosis, negative sputum and blood cultures noted. Recommendation: Continue ventilatory support. Continue enteral/Nutritional support. Continue Decadron. Continue Lovenox 70 mg twice a day. Continue Zosyn empirically. However the sputum is showing presumptive staph, may start the patient on vancomycin empirically for now. Continue the COVID-19 cocktail. Patient did receive TOCI he was out of the window for REM. Continue Decadron 6 mg IV push twice a day. Patient is not ready for any weaning especially since he is on high PEEP and high FiO2. Prognosis is extremely guarded. Patient is critically ill, and critical care time is over 30 minutes Time with Patient: Greater than 30
[2021-03-09] MEDS ORDERED: VANCOMYCIN 2,500 MG in SODIUM CHLORIDE 0.9% 500 ML 500 ML IVPB ONE (12:00)
[2021-03-09] MEDS: DEXTROSE 5% IN WATER 1,000 ML IV SCH ×2 (12:14→20:28)
[2021-03-09 12:31] LABS: Glucose,Whole Blood 208 mg/dL (75-99)
[2021-03-09 17:52] LABS: Glucose,Whole Blood 166 mg/dL (75-99)
[2021-03-09] MEDS: ENOXAPARIN 80 MG/0.8 ML SYRINGE SQ SCH (22:00)
--- NOTE | 2021-03-09 22:13 | P.PN ---
Subjective Progress Note Date: 03/09/21 Principal diagnosis: Acute hypoxic failure secondary to acute COVID-19 pneumonia Mr. Mcclure is a 45 year old male with the PMH of M obesity admitted for COVDI Pneumonia. Intiallly, patient was on nonrebreather he had around continue to desaturate. Patient was eventually intubated on 03/07/2021. On 03/09/2021 -patient was seen and examined at the bedside. He is in the ICU intubated and mechanically ventilated. No acute events reported by nursing staff overnight. He is sedated on propofol and fentanyl. Also on Nimbex and bicarb drips. He had a chest x-ray done this morning which showed persistent bilateral infiltrates, consistent with COVID-19 pneumonia. His inflammatory markers continue to be high. ABG done this morning showed pH of 7.3, PO2 of 71 and PCO2 of 67. Labs from this morning white count of 18.5, hemoglobin 13.8, p latelets 178. Sodium 147, potassium 4.4, chloride 108, bicarb 34, BUN 50, creatinine 1.73, albumin 3.1. Active Medications Acetaminophen (Acetaminophen Tab 325 Mg Tab) 650 mg PO Q6HR PRN PRN Reason: Mild Pain or Fever > 100.5 Last Admin: 03/02/21 09:01 Dose: 650 mg Documented by: Albuterol Sulfate (Albuterol Hfa Inhaler) 2 puff INHALATION RT-QID [facility] Last Admin: 03/09/21 20:12 Dose: 2 puff Documented by: Artificial Tears (Artificial Tears-Hypromellose Drops 15 Ml Btl) 2 drops BOTH EYES QID PRN PRN Reason: Dry Eye(s) Last Admin: 03/05/21 16:29 Dose: 2 drops Documented by: Ascorbic Acid (Ascorbic Acid 500 Mg Tab) 500 mg PO BID [facility] Last Admin: 03/09/21 21:20 Dose: 500 mg Documented by: Budesonide/Formoterol Fumarate (Symbicort 160-4.5 Mcg Inhaler) 2 puff INHALATION RT-BID [facility] Last Admin: 03/09/21 20:13 Dose: 2 puff Documented by: Chlorhexidine Gluconate (Chlorhexidine Gluconate 15 Ml Cup) 15 ml MUCOUS MEM BID [facility] Last Admin: 03/09/21 21:20 Dose: 15 ml Documented by: Cholecalciferol (Cholecalciferol 25 Mcg (1000 Iu) Tablet) 125 mcg PO DAILY [facility] Last Admin: 03/09/21 08:39 Dose: 125 mcg Documented by: Dexamethasone Sodium Phosphate (Dexamethasone Sod Phosphate 10 Mg/Ml 1 Ml Vial) 6 mg IV BID [facility] Last Admin: 03/09/21 21:21 Dose: 6 mg Documented by: Enoxaparin Sodium (Enoxaparin 80 Mg/0.8 Ml Syringe) 70 mg SQ Q12HR [facility] Last Admin: 03/09/21 22:00 Dose: 70 mg Documented by: Famotidine (Famotidine 20 Mg Tab) 40 mg PO DAILY [facility] Last Admin: 03/09/21 08:39 Dose: 40 mg Documented by: Cisatracurium Besylate 200 mg/ (Sodium Chloride) 200 mls @ 7.986 mls/hr IV .Q24H [facility]; Protocol Last Admin: 03/08/21 19:45 Dose: 1.25 mcg/kg/min, 9.983 mls/hr Documented by: Propofol 1,000 mg/ IV Solution 100 mls @ 0 mls/hr IV .Q0M [facility]; Protocol Last Admin: 03/09/21 21:21 Dose: 30 mcg/kg/min, 23.292 mls/hr Documented by: Fentanyl Citrate 1,000 mcg/ (Sodium Chloride) 100 mls @ 0 mls/hr IV .Q0M [facility]; Protocol Last Admin: 03/09/21 21:21 Dose: 1 mcg/kg/hr, 13.31 mls/hr Documented by: Sodium Bicarbonate 150 ml/ (Dextrose/Water) 1,150 mls @ 50 mls/hr IV .Q23H [facility] Last Admin: 03/09/21 21:22 Dose: 50 mls/hr Documented by: Norepinephrine Bitartrate 4 mg (/ Sodium Chloride) 254 mls @ 24.651 mls/hr IV .[id number] [facility]; Protocol Last Admin: 03/09/21 21:22 Dose: Not Given Documented by: Piperacillin Sod/Tazobactam (Sod 3.375 gm/ Sodium Chloride) 100 mls @ 25 mls/hr IVPB Q8HR [facility] Last Admin: 03/09/21 16:45 Dose: 25 mls/hr Documented by: Dextrose/Water (Dextrose 5%-Water Iv Soln) 1,000 mls @ 100 mls/hr IV .Q10H [facility] Last Admin: 03/09/21 20:28 Dose: 100 mls/hr Documented by: Vancomycin HCl 2,500 mg/ (Sodium Chloride) 500 mls @ 167 mls/hr IVPB Q24HR [facility] Insulin Aspart (Insulin Aspart (Novolog) 100 Unit/Ml Vial) 0 unit SQ Q6HR [facility]; Protocol Last Admin: 03/09/21 20:11 Dose: Not Given Documented by: Miscellaneous Information (Potassium Replacement Protocol 1 Each Misc) 1 each M ISCELLANE DAILY PRN; Protocol PRN Reason: Per Protocol Morphine Sulfate (Morphine Sulfate 4 Mg/Ml Syringe) 4 mg IVP Q4HR PRN PRN Reason: Pain Last Admin: 03/06/21 12:08 Dose: 4 mg Documented by: Naloxone HCl (Naloxone 0.4 Mg/Ml 1 Ml Vial) 0.2 mg IV Q2M PRN PRN Reason: Opioid Reversal Ondansetron HCl (Ondansetron 4 Mg/2 Ml Vial) 4 mg IVP Q8HR PRN PRN Reason: Nausea And Vomiting Sodium Chloride (Sodium Chloride 0.9% Flush 10 Ml Syringe) 10 ml IV Q4HR PRN PRN Reason: PICC Line Sodium Chloride (Sodium Chloride 0.9% Flush 10 Ml Syringe) 10 ml IV WEEKLY [facility] Sodium Chloride (Sodium Chloride 0.9% Flush 10 Ml Syringe) 20 ml IV Q4HR PRN PRN Reason: PICC Line Zinc Sulfate (Zinc Sulfate 220 Mg Cap) 220 mg PO DAILY [facility] Last Admin: 03/09/21 08:39 Dose: 220 mg Documented by: Objective - Vital Signs Vital signs: Vital Signs Temp 97.9 F 03/09/21 08:00 Pulse 92 03/09/21 10:00 Resp 38 H 03/09/21 10:00 BP 142/78 03/09/21 10:00 Pulse Ox 89 L 03/09/21 10:00 Intake & Output 03/08/21 03/09/21 03/09/21 18:59 06:59 18:59 Intake Total 2102.832 3061.522 575 Output Total 290 420 75 Balance 2318.732 0348.522 500 Weight 133.2 kg 135.2 kg Intake: IV 1786 2186 487 Dextrose 5% in Water 1, 850 600 100 000 ml @ 50 mls/hr IV . Q23H [facility] with Sodium Bicarb (1 Meq/ml) 150 ml Rx#:[id number] Piperacillin-Tazobactam 3 100 .375 gm In Sodium Chloride 0.9% 100 ml @ 25 mls/hr IVPB Q8HR [facility] Rx# :[id number] Sodium Chloride 0.9% 1, 900 1450 375 000 ml @ 75 mls/hr IV . [id number] [facility] Rx#:[id number] pressure bag 36 36 12 Intake, IV Titration 295.832 381.522 Amount fentaNYL (PF). 1,000 mcg 195.832 100 In Sodium Chloride 0.9% 80 ml @ Per Protocol IV . Q0M [facility] Rx#:[id number] propofoL 1,000 mg In 100 281.522 Empty Bag 1 bag @ Titrate IV .Q0M [facility] Rx#: [id number] Tube Feeding 21 404 88 Other 90 Output: Urine 290 420 75 Other: Voiding Method Indwelling Catheter Indwelling Catheter Indwelling Catheter ABP, PAP, CO, CI - Last Documented Arterial Blood Pressure 143/62 - Exam -GENERAL: The patient is intubated and sedated HEENT: Pupils are round and equally reacting to light. EOMI. No scleral icterus. No conjunctival pallor. Orogastric tube in place. CARDIOVASCULAR: S1 and S2 present. No murmurs, rubs, or gallops. -PULMONARY: Chest is clear to auscultation, bilateral crepitation and wheezing ABDOMEN: Soft, nontender, nondistended, normoactive bowel sounds. MUSCULOSKELETAL: No joint swelling or deformity. EXTREMITIES: No cyanosis, clubbing, or pedal edema. NEUROLOGICAL: intubated and sedated. SKIN: No rashes. no petechiae. - Labs CBC & Chem 7: 03/10/21 04:00 03/10/21 04:00 Labs: Abnormal Lab Results - Last 24 Hours (Table) 03/08/21 03/08/21 03/09/21 Range/Units 16:29 18:37 00:07 WBC 20.3 H (3.8-10.6) k/uL Neutrophils # 18.7 H (1.3-7.7) k/uL Lymphocytes # 0.7 L (1.0-4.8) k/uL D-Dimer (<0.60) mg/L FEU ABG pH (7.35-7.45) ABG pCO2 (35-45) mmHg ABG pO2 (83-108) mmHg ABG HCO3 (21-25) mmol/L ABG Total CO2 (19-24) mmol/L ABG O2 Saturation (94-97) % Sodium (137-145) mmol/L Chloride (98-107) mmol/L Carbon Dioxide (22-30) mmol/L BUN (9-20) mg/dL Creatinine (0.66-1.25) mg/dL Glucose (74-99) mg/dL POC Glucose (mg/dL) 148 H 159 H (75-99) mg/dL AST (17-59) U/L ALT (4-49) U/L Lactate Dehydrogenase (313-618) U/L C-Reactive Protein (<1.0) mg/dL Total Protein (6.3-8.2) g/dL Albumin (3.5-5.0) g/dL 03/09/21 03/09/21 03/09/21 Range/Units 04:17 04:17 04:17 WBC 18.5 H (3.8-10.6) k/uL Neutrophils # (1.3-7.7) k/uL Lymphocytes # (1.0-4.8) k/uL D-Dimer >34.10 H (<0.60) mg/L FEU ABG pH (7.35-7.45) ABG pCO2 (35-45) mmHg ABG pO2 (83-108) mmHg ABG HCO3 (21-25) mmol/L ABG Total CO2 (19-24) mmol/L ABG O2 Saturation (94-97) % Sodium 147 H (137-145) mmol/L Chloride 108 H (98-107) mmol/L Carbon Dioxide 34 H (22-30) mmol/L BUN 50 H (9-20) mg/dL Creatinine 1.73 H (0.66-1.25) mg/dL Glucose 173 H (74-99) mg/dL POC Glucose (mg/dL) (75-99) mg/dL AST 86 H (17-59) U/L ALT 52 H (4-49) U/L Lactate Dehydrogenase 1985 H (313-618) U/L C-Reactive Protein 1.6 H (<1.0) mg/dL Total Protein 5.7 L (6.3-8.2) g/dL Albumin 3.1 L (3.5-5.0) g/dL 03/09/21 03/09/21 03/09/21 Range/Units 05:45 06:00 12:29 WBC (3.8-10.6) k/uL Neutrophils # (1.3-7.7) k/uL Lymphocytes # (1.0-4.8) k/uL D-Dimer (<0.60) mg/L FEU ABG pH 7.30 L (7.35-7.45) ABG pCO2 67 H (35-45) mmHg ABG pO2 71 L (83-108) mmHg ABG HCO3 33 H (21-25) mmol/L ABG Total CO2 35 H (19-24) mmol/L ABG O2 Saturation 93.5 L (94-97) % Sodium (137-145) mmol/L Chloride (98-107) mmol/L Carbon Dioxide (22-30) mmol/L BUN (9-20) mg/dL Creatinine (0.66-1.25) mg/dL Glucose (74-99) mg/dL POC Glucose (mg/dL) 159 H 208 H (75-99) mg/dL AST (17-59) U/L ALT (4-49) U/L Lactate Dehydrogenase (313-618) U/L C-Reactive Protein (<1.0) mg/dL Total Protein (6.3-8.2) g/dL Albumin (3.5-5.0) g/dL Microbiology - Last 24 Hours (Table) 03/07/21 09:54 Blood Culture - Preliminary Blood No Growth after 48 hours 03/07/21 10:00 Blood Culture - Preliminary Blood No Growth after 48 hours 03/06/21 23:40 Gram Stain - Preliminary Sputum Sputum Culture - Preliminary Presumptive Staph aureus Assessment and Plan Assessment: ASSESSMENT -Acute hypoxic respiratory failure needing mechanical ventilation -Acute bilateral COVID 19 pneumonia. -Septic shock -Acute renal failure -Increased inflammatory markers -Increased d-dimer with negative legs DVT and patient is unstable to undergo CTA of the chest to rule out PE -Morbid obesity BMI 43.8 -Mild hepatitis likely due to COVID 19 -Increased inflammatory markers Plan: This is a pleasant 45 years old male who presents with Covid pneumonia and hypoxia. Continue with steroids, IV fluids, continue with vitamin C, vitamin D and zinc. Pulmonary/critical care team on the case and follow-up with a recommendation, vent management as per critical care team. Continue with bicarb chris drip, follow-up urine output and creatinine level.Continue with Zosyn and Vancomycin was added today. Continue Lovenox 70 mg twice a day. Labs and medication were reviewed.Continue same treatment. Monitor lytes and vitals. DVT and GI prophylaxis. Further recommendationsas per clinical course of the patient. Prognosis is extremely guarded with multiorgan failure
[2021-03-09 23:37] LABS: Glucose,Whole Blood 164 mg/dL (75-99)
[2021-03-09] MEDS: CISATRACURIUM 200 MG in SODIUM CHLORIDE 0.9% 180 ML IV SCH (23:45)
[2021-03-10 04:38] LABS: Albumin 2.9 g/dL (3.5-5.0); C Reactive Protein 1.1 mg/dL (<1.0); Calcium 8.3 mg/dL (8.4-10.2); Potassium 4.3 mmol/L (3.5-5.1); Total Bilirubin 0.6 mg/dL (0.2-1.3); Total Protein 5.4 g/dL (6.3-8.2)
[2021-03-10 04:44] LABS: HCT 38.4 % (39.0-53.0); HGB 12.2 gm/dL (13.0-17.5); MCH 30.6 pg (25.0-35.0); MCHC 31.8 g/dL (31.0-37.0); Mean Platelet Volume 9.4; Platelet Count 150 k/uL (150-450); RDW 14.2 % (11.5-15.5); WBC 18.5 k/uL (3.8-10.6)
[2021-03-10 05:52] LABS: ABG Base Excess 8.8 mmol/L; ABG HCO3 35 mmol/L (21-25); ABG Oxygen Saturation 93.5 % (94-97); ABG PCO2 63 mmHg (35-45); ABG PH 7.35 (7.35-7.45); ABG PO2 69 mmHg (83-108); ABG TCO2 36 mmol/L (19-24); Allen Test Performed? Yes
[2021-03-10 06:02] LABS: Glucose,Whole Blood 173 mg/dL (75-99)
[2021-03-10] MEDS: fentaNYL (PF). 1,000 MCG in SODIUM CHLORIDE 0.9% 80 ML IV SCH ×2 (06:04→18:37)
[2021-03-10] MEDS: INSULIN ASPART (NovoLOG) 100 UNIT/ML VIAL SQ SCH ×4 (06:04→23:24)
[2021-03-10] MEDS: DEXTROSE 5% IN WATER 1,000 ML IV SCH ×3 (06:06→23:27)
--- NOTE | 2021-03-10 07:26 | XR ---
EXAMINATION TYPE: XR chest 1V portable DATE OF EXAM: 03/10/2021 COMPARISON: Chest x-ray 03/09/2021 HISTORY: Intubated TECHNIQUE: Single frontal view of the chest is obtained. FINDINGS: Endotracheal tube, orogastric tube, left-sided PICC line are overlying appropriate positio ns. Bilateral airspace disease is again seen. No sizable effusion or evident pneumothorax. Cardiac me diastinal silhouette is stable. IMPRESSION: Correlate for pneumonia, congestive heart failure, ARDS
[2021-03-10] MEDS: ALBUTEROL HFA INHALER INHALATION SCH ×4 (07:40→20:47)
[2021-03-10] MEDS: SYMBICORT 160-4.5 MCG INHALER INHALATION SCH ×2 (07:40→20:47)
[2021-03-10] MEDS ORDERED: VANCOMYCIN 2,500 MG in SODIUM CHLORIDE 0.9% 500 ML 500 ML IVPB SCH (09:00)
[2021-03-10] MEDS: ASCORBIC ACID 500 MG TAB PO SCH ×2 (09:52→20:16)
[2021-03-10] MEDS: FAMOTIDINE 20 MG TAB PO SCH (09:52)
[2021-03-10] MEDS: PIPERACILLIN-TAZOBACTAM 3.375 GM in SODIUM CHLORIDE 0.9% 100 ML IVPB SCH ×3 (09:52→23:13)
[2021-03-10] MEDS: CHOLECALCIFEROL 25 MCG (1000 IU) TABLET PO SCH (09:52)
[2021-03-10] MEDS: CHLORHEXIDINE GLUCONATE 15 ML CUP MUCOUS MEM SCH ×2 (09:52→20:15)
[2021-03-10] MEDS: ZINC SULFATE 220 MG CAP PO SCH (09:52)
[2021-03-10] MEDS: DEXAMETHASONE SOD PHOSPHATE 10 MG/ML 1 ML VIAL IV SCH ×2 (09:53→20:15)
[2021-03-10] MEDS: ENOXAPARIN 80 MG/0.8 ML SYRINGE SQ SCH ×2 (10:03→20:15)
[2021-03-10] MEDS: NOREPINEPHRINE 4 MG in SODIUM CHLORIDE 0.9% 250 ML IV SCH ×2 (10:04→18:31)
[2021-03-10 11:52] LABS: Glucose,Whole Blood 167 mg/dL (75-99)
--- NOTE | 2021-03-10 12:12 | P.PN ---
Subjective Progress Note Date: 03/10/21 Principal diagnosis: Acute hypoxic failure secondary to acute COVID-19 pneumonia 45-year-old male patient presenting to the emergency room because of shortness of breath. The patient has started having symptoms of less than a week ago, probably around 6 days ago and his symptoms were typical of COVID-19 related to pneumonia with fevers and fatigue and nausea and shortness of breath and cough and. He tested positive for COVID-19 around 3 days ago. He came in to the emergency for worsening shortness of breath. His comorbid conditions include obesity with a BMI 43.8. His current body weight is 138 kg. His initial pulse ox was 80% on room air oxygen. Upon arrival to our ER, his pulse ox was 70% and he was placed on 100% nonrebreather to bring his saturation at 92%. Chest x-ray shows small lung volumes and diffuse bilateral pulmonary infiltrates consistent with COVID-19 related pneumonia. He is afebrile. Hemodynamically stable. His blood work shows a white cell count of 10.3, he did have some lymphopenia, coagulation profile is normal, d-dimer is at 0.6, electrolytes are all within normal limits, LDH level is 1156, LFTs are normal. Lactic acid level is at 1.2. EKG showing a normal sinus rhythm. On , the patient is still in the emergency and the patient is being seen for a follow-up. He remains in the 100% nonrebreather facemask. He feels that his condition is still stable. His current pulse ox is 82% on 100% nonrebreather facemask, in addition to 15 L of oxygen by nasal cannula. He remains on Decadron 6 mg IV and he also received Tocilizumab 800 mg, IV. Rest of the labs are pending from today. He d-dimer at 0.69 and the patient was given Lovenox for DVT prophylaxis 40 mg subcu. He looks comfortable . He has crackles bilaterally on examination. He is afebrile. He denies having any significant worsening despite his ongoing hypoxemia. 03/03/2021, the patient is being seen for a follow-up. He is doing well on 15 L nasal cannula along with 100% on a beta facemasks. He does better on his left lateral side. Unable to go prone. He is afebrile. Pulse oxing between 86-90% on the above-mentioned oxygen flow. He d-dimer is at 2.06, LDH level is at 14 19 and the patient has a CRP of 5.2. He is still on Decadron 6 mg IV every 24 hours. He also received Tocilizumab milligrams IV 1 yesterday. He is still waiting on convalescent plasma.. He is, indicating previous tolerating diet. No significant worsening in his oxygenation since yesterday. No altered mentation. No chest pain. His cough is dry. 45-year-old male who was admitted with a diagnosis of acute hypoxemic respiratory failure secondary to COVID 19 pneumonitis/pneumonia. When I saw the patient initially, he was on a nonrebreather, as well as 15 L high flow nasal O2. He was getting saline at 75 mL an hour. His d-dimer had increased, and so we increase his Lovenox up to 60 mg twice a day. He did receive TOCI on March 02. He got up to use the bedside commode, and his saturations dropped into the mid 70 range. I did ask respiratory to place him on BiPAP with settings of IPAP 15, EPAP 5, and 100% FiO2. We will evaluate him again in a few hours or so. Lab data today includes a d-dimer of greater than 34.10, sodium 145, potassium 4.1, chlorides 109, CO2 29, anion gap 7, BUN 25, and creatinine 0.69. LDH is 1471. C-reactive protein is 2.6. Chest x-ray from today, shows diffuse bilateral infiltrates. Patient was reevaluated today on 03/05/2021, patient was transferred to the ICU this morning, apparently his pulmonary status has deteriorated, patient is developing more shortness of breath on BiPAP, he is developing worsening oxygen saturation is, hence arrangements were made for the patient be transferred to ICU. I placed him on IPAP of 16 and EPAP of 6, chest x-ray showed diffuse patchy infiltrates consistent with COVID-19 pneumonia. CBC count is 18.6 hemoglobin is 7 his d-dimer is over 34. Electrolytes are normal except for slightly elevated sodium of 145. Renal profile is normal. LDH is on the rise, it is up to 2100, C-reactive protein is better down to 1.5. Patient is marginal, and I have a strong feeling that if he deteriorates any further, patient will need to be intubated and placed on mechanical ventilation. But since the patient is tolerating the present BiPAP settings, and does not seem to be in severe respiratory distress, I would rather wait for the time being. In the meantime, patient received Decadron, and the vitamin cocktail, COVID-19 cocktail, and considering his d-dimer is elevated, I will start the patient on full dose of heparin, I will recommend a venous Doppler, may consider a CT angiogram of the chest. Patient did receive actemra on 03/01/2021. He remains on Decadron at 6 mg IV push twice a day. He was on Lovenox and today I transitioned Lovenox to full dose heparin mostly because of the concern about the significant increase in d-dimer, again will check for a venous Doppler, and consider CT angiogram of the chest. Patient was reevaluated today on 03/06/2021, patient remains in the ICU, he is on BiPAP, and his overall pulmonary status is marginal at best. Remains short of breath, he is tolerating BiPAP quite well, and O2 saturation is in the high 80s. He is on IPAP of 16 EPAP of 6, 100% FiO2. Patient is on heparin, and we decided to place him on heparin because his d-dimer is significantly elevated, I am suspecting possible thromboembolic disease, and the patient is not stable enough to send him down for a CT angiogram of the chest. Venous Doppler was negative for DVT. Patient remains on the COVID-19 cocktail, he is also on bronchodilators including albuterol and Symbicort. Remains on Decadron 6 mg twice a day. And the patient did receive toci.WBC count is 21.8 hemoglobin is 15.7. D-dimer is 31.67. PTT ranging between 20 up to 49. Basic with a malignant profile is normal except for sodium of 145. Renal profile is normal. Chest x-ray continues to show bilateral patchy infiltrates, possible slight improvement in aeration compared to previous x-rays on admission. Patient was reevaluated today on 03/07/2021, yesterday, the patient's clinical status deteriorated, he didn't require intubation and mechanical ventilation. He is now on assist control rate of 38, FiO2 is 100%, tidal volume is 450, and PEEP of 18. ABG showed a pO2 of 66 pCO2 of 69 pH of 7.25. Patient is on D5 0.9 at 75 mL/h, is also on bicarb drip at 100 mL/h, propofol at 30 mcg/kg/m, Nimbex, fentanyl at 0.5, and norepinephrine at 0.05. D-dimer is down to 22, there is sudden increase in his WBC count up to 30,000. Patient will be started on tube feeds today, and he will need to have rivero cultures. He will also need a PICC line placement. Chest x-ray continues to show bilateral interstitial infiltrates, consistent with COVID-19 pneumonitis. And ARDS. Inflammatory markers are on the rise, LDH is 2994, C-reactive protein is 1.7. Patient remains on heparin for elevated d-dimer, he had a negative Doppler, but I felt the patient should be fully anticoagulated because he is unstable to go down for CT angiogram of the chest. Considering the sudden increase in his WBC count, I went ahead and empirically started the patient on Zosyn, will recommend cultures and Procrit started level on this patient. Patient was reevaluated today on 03/08/2021, patient remains intubated and mechanically ventilated. He is on assist control rate of 38 tidal volume 450 FiO2 85% and PEEP of 18. ABG showed a pO2 of 70 pCO2 of 57 pH of 7.37. FiO2 was decreased down to 70%. Patient developed some nasal bleeding yesterday, hence his heparin was discontinued, and he is now on Lovenox 30 mg subcu daily. Patient remains on propofol at 30 norepinephrine and 0.06 mcg/kg/m, he is on sodium bicarb at 100 mL/h, Nimbex, fentanyl at 1 mcg/kg/h. Propofol at 50 mcg/kg/m. His d-dimer is down to 4, hence his Lovenox is now at 30 mg subcu daily, and he is again off heparin. FiO2 was decreased today to 70%. Chest x- ray continues to show bilateral patchy infiltrates consistent with COVID-19 pneumonia. WBC count is 20.1 hemoglobin is 13.4. Electrolytes are normal b icarb is 35. BUN is 38 creatinine 1.70. Hence more fluids will be given for his worsening renal failure, and the dose of Lovenox will be lower. LDH is 1716. C-reactive protein is 1.7. Reevaluated today on 03/09/2021, patient remains in the ICU, intubated and mechanically ventilated. He is on assist control rate of 38 tidal volume 450 FiO2 80% and PEEP of 18. I did cut down the FiO2 to 70%. ABG showed a pO2 of 71 pCO2 67 pH of 7.30. Patient remains on Nimbex at 1.25 bicarb at 50 ML per ho ur 0.9 normal saline at 1 25/h propofol at 30 fentanyl 1. I switched his 0.9 today to D5W since his sodium was noted to be elevated. We increased his Lovenox to 70 mg subcu twice a day since the patient is having significantly elevated d-dimer. Patient remains on tube feeding vital HP at 41. Mild per hour. Remains on free water flushes for his elevated sodium overall the patient is about the same, chest x-ray showed persistent bilateral infiltrates. Consistent with COVID-19 pneumonia. A d-dimer today was noted above 34. Sodium is 147. Bicarb is 34. Liver enzymes are borderline elevated. LDH is down to 1985 and C-reactive protein is 4.6. Patient was reevaluated today on 03/10/2021, remains in the ICU, intubated and mechanically ventilated. Patient is sedated and paralyzed. He is on assist control rate of 38 tidal volume is 450 FiO2 is 70% and I cut it down to 65% PEEP is 18. Patient remains on fentanyl at 1 mcg/kg/h he is also on Nimbex 1.25 mcg/kg/m, bicarb drip at 50 mL per hour and propofol at 30 mcg/kg/m. Peak airway pressure is 38 plateau pressure is 34. Patient remains on vital HP 53 mL per hour. ABG today showed a pO2 of 69 pCO2 of 63 pH of 7.35. Chest x-ray continues to show stable bilateral infiltrates, right side seems to be improving. In comparison to his initial chest x-ray upon his initial presentation just before he was intubated. D-dimer remains elevated at 29.3. Patient remains on relatively high dose of Lovenox. His electrolytes are normal BUN is 61 creatinine 1.68. LDH is 1795. Liver enzymes are borderline elevated. WBC count is 18.5 hemoglobin is 12.2. Objective - Vital Signs Vital signs: Vital Signs Temp 99.1 F 04/25/21 04:00 Pulse 84 03/10/21 07:00 Resp 34 H 03/10/21 07:00 BP 142/78 03/10/21 07:00 Pulse Ox 91 L 03/10/21 07:00 Intake & Output 03/09/21 03/10/21 03/10/21 18:59 06:59 18:59 Intake Total 2668 3291 206 Output Total 425 445 35 Balance 2243 2846 171 Weight 141.77 kg Intake: IV 2136 1861 153 Dextrose 5% in Water 1, 1100 100 000 ml @ 100 mls/hr IV . Q10H [facility] Rx#:[id number] Dextrose 5% in Water 1, 600 600 50 000 ml @ 50 mls/hr IV . Q23H [facility] with Sodium Bicarb (1 Meq/ml) 150 ml Rx#:[id number] Sodium Chloride 0.9% 1, 1500 125 000 ml @ 75 mls/hr IV . [id number] [facility] [place] Rx#:[id number] pressure bag 36 36 3 Intake, IV Titration 400 300 Amount Cisatracurium 200 mg In 200 Sodium Chloride 0.9% 180 ml @ 1 MCG/KG/MIN 7.986 mls/hr IV .Q24H [facility] Rx#: [id number] fentaNYL (PF). 1,000 mcg 100 100 In Sodium Chloride 0.9% 80 ml @ Per Protocol IV . Q0M [facility] Rx#:[id number] propofoL 1,000 mg In 100 200 Empty Bag 1 bag @ Titrate IV .Q0M [facility] [place] Rx#: [id number] Tube Feeding 132 530 53 Other 600 Output: Urine 425 445 35 Other: Voiding Method Indwelling Catheter Indwelling Catheter ABP, PAP, CO, CI - Last Documented Arterial Blood Pressure 150/62 - Exam Physical Exam: Revealed 45-year-old white male, obese, intubated and mechanically ventilated. Sedated and paralyzed. Head: Atraumatic, normocephalic. Orogastric tube and endotracheal tube are intact. HEENT:[Neck is supple.] [No neck masses.] [No thyromegaly.] [No JVD.]. , EOMI, nonicteric. clotted blood noted in the nasal mucosa. Chest: [Symmetrical chest expansion, crackles at the bases, no wheezes. Cardiac Exam: [Normal S1 and S2, no S3 gallop, no murmur.] Abdomen: [Obese, Soft, nontender, no megaly, no rebound, no guarding, normal bowel sounds.] Extremities: [No clubbing, no edema, no cyanosis.] Neurological Exam: [Could not assess, paralyzed and sedated. Psychiatric: Not assessed, sedated and paralyzed. Skin: No rashes. Lymphatics: No cervical adenopathy. Musculoskeletal: No deformities. - Labs CBC & Chem 7: 03/10/21 04:00 03/10/21 04:00 Labs: Abnormal Lab Results - Last 24 Hours (Table) 03/09/21 03/09/21 03/09/21 Range/Units 12:29 17:50 23:34 WBC (3.8-10.6) k/uL RBC (4.30-5.90) m/uL Hgb (13.0-17.5) gm/dL Hct (39.0-53.0) % D-Dimer (<0.60) mg/L FEU ABG pCO2 (35-45) mmHg ABG pO2 (83-108) mmHg ABG HCO3 (21-25) mmol/L ABG Total CO2 (19-24) mmol/L ABG O2 Saturation (94-97) % Carbon Dioxide (22-30) mmol/L BUN (9-20) mg/dL Creatinine (0.66-1.25) mg/dL Glucose (74-99) mg/dL POC Glucose (mg/dL) 208 H 166 H 164 H (75-99) mg/dL Calcium (8.4-10.2) mg/dL AST (17-59) U/L Lactate Dehydrogenase (313-618) U/L C-Reactive Protein (<1.0) mg/dL Total Protein (6.3-8.2) g/dL Albumin (3.5-5.0) g/dL 03/10/21 03/10/21 03/10/21 Range/Units 04:00 04:00 04:00 WBC 18.5 H (3.8-10.6) k/uL RBC 4.00 L (4.30-5.90) m/uL Hgb 12.2 L (13.0-17.5) gm/dL Hct 38.4 L (39.0-53.0) % D-Dimer 29.31 H (<0.60) mg/L FEU ABG pCO2 (35-45) mmHg ABG pO2 (83-108) mmHg ABG HCO3 (21-25) mmol/L ABG Total CO2 (19-24) mmol/L ABG O2 Saturation (94-97) % Carbon Dioxide 35 H (22-30) mmol/L BUN 61 H (9-20) mg/dL Creatinine 1.68 H (0.66-1.25) mg/dL Glucose 190 H (74-99) mg/dL POC Glucose (mg/dL) (75-99) mg/dL Calcium 8.3 L (8.4-10.2) mg/dL AST 66 H (17-59) U/L Lactate Dehydrogenase 1795 H (313-618) U/L C-Reactive Protein 1.1 H (<1.0) mg/dL Total Protein 5.4 L (6.3-8.2) g/dL Albumin 2.9 L (3.5-5.0) g/dL 03/10/21 03/10/21 03/10/21 Range/Units 05:46 06:00 11:51 WBC (3.8-10.6) k/uL RBC (4.30-5.90) m/uL Hgb (13.0-17.5) gm/dL Hct (39.0-53.0) % D-Dimer (<0.60) mg/L FEU ABG pCO2 63 H (35-45) mmHg ABG pO2 69 L (83-108) mmHg ABG HCO3 35 H (21-25) mmol/L ABG Total CO2 36 H (19-24) mmol/L ABG O2 Saturation 93.5 L (94-97) % Carbon Dioxide (22-30) mmol/L BUN (9-20) mg/dL Creatinine (0.66-1.25) mg/dL Glucose (74-99) mg/dL POC Glucose (mg/dL) 173 H 167 H (75-99) mg/dL Calcium (8.4-10.2) mg/dL AST (17-59) U/L Lactate Dehydrogenase (313-618) U/L C-Reactive Protein (<1.0) mg/dL Total Protein (6.3-8.2) g/dL Albumin (3.5-5.0) g/dL Microbiology - Last 24 Hours (Table) 03/06/21 23:40 Gram Stain - Final Sputum Sputum Culture - Final Staphylococcus aureus 03/07/21 09:54 Blood Culture - Preliminary Blood No Growth after 48 hours 03/07/21 10:00 Blood Culture - Preliminary Blood No Growth after 48 hours Assessment and Plan Assessment: Impression: Acute hypoxic respiratory failure secondary to COVID-19 pneumonia, patient received toci, out of window for REM. Required intubation and mechanical ventilation on 03/06/2021 Morbid obesity BMI of 43.8. Possible obstructive sleep apnea syndrome. Elevated inflammatory markers secondary to above. Elevated d-dimer, initially treated empirically with heparin, however considering his nasal bleeding heparin was discontinued patient is now on Lovenox 70 mg subcu twice a day. Leukocytosis, sputum is showing MSSA. Being covered. Recommendation: Continue ventilatory support. No changes were made in his vent settings today. Except cutting down her FiO2 from 70% to 65%, PEEP remains at 18. Continue enteral/Nutritional support. Continue Decadron. Continue Lovenox 70 mg twice a day. Patient continues to have significantly elevated d-dimer. He is not stable enough for a CT angiogram of the chest. Continue Zosyn , discontinue vancomycin. Continue the COVID-19 cocktail. Patient did receive TOCI he was out of the window for REM. Continue Decadron 6 mg IV push twice a day. Patient is not ready for any weaning especially since he is on high PEEP and high FiO2. Prognosis is extremely guarded. Patient is critically ill, and critical care time is over 30 minutes Time with Patient: Greater than 30
[2021-03-10 17:14] LABS: Glucose,Whole Blood 185 mg/dL (75-99)
[2021-03-10 22:11] LABS: ABG Base Excess 9.6 mmol/L; ABG HCO3 35 mmol/L (21-25); ABG Oxygen Saturation 86.5 % (94-97); ABG PCO2 62 mmHg (35-45); ABG PH 7.36 (7.35-7.45); ABG TCO2 37 mmol/L (19-24); Allen Test Performed? Yes
[2021-03-10 22:13] LABS: ABG PO2 52 mmHg (83-108)
[2021-03-10] MEDS ORDERED: FUROSEMIDE 10 MG/ML 4 ML VIAL IV STA (22:18)
--- NOTE | 2021-03-10 22:18 | XR ---
EXAMINATION TYPE: XR chest 1V portable DATE OF EXAM: 03/10/2021 COMPARISON: Today HISTORY: Respiratory failure TECHNIQUE: Single view FINDINGS: There is pulmonary interstitial and airspace edema. There is nasogastric tube in the stomac h. Endotracheal tube is 5.5 cm from the leidy. There is left central venous catheter with tip in the superior vena cava. There is blunting of costophrenic angles. IMPRESSION: There is pulmonary edema without change compared to exam this morning. Pleural effusions unchanged.
--- NOTE | 2021-03-10 22:46 | P.PN ---
Subjective Progress Note Date: 03/10/21 Principal diagnosis: Acute hypoxic failure secondary to acute COVID-19 pneumonia Mr. Mcclure is a 45 year old male with the PMH of M obesity admitted for COVDI Pneumonia. Intiallly, patient was on nonrebreather he had around continue to desaturate. Patient was eventually intubated on 03/07/2021. On 03/09/2021 -patient was seen and examined at the bedside. He is in the ICU intubated and mechanically ventilated. No acute events reported by nursing staff overnight. He is sedated on propofol and fentanyl. Also on Nimbex and bicarb drips. He had a chest x-ray done this morning which showed persistent bilateral infiltrates, consistent with COVID-19 pneumonia. His inflammatory markers continue to be high. ABG done this morning showed pH of 7.3, PO2 of 71 and PCO2 of 67. Labs from this morning white count of 18.5, hemoglobin 13.8, p latelets 178. Sodium 147, potassium 4.4, chloride 108, bicarb 34, BUN 50, creatinine 1.73, albumin 3.1. On 03/10/2021 patient was seen and examined in the ICU. He is intubated and mechanically ventilated. He is on fentanyl and Nimbex and bicarb drips. ABGs done this morning showing pH 7.36, PO2 62, P CO2 52. Patient had a chest x-ray done this morning showing pneumonia, CHF versus ARDS. On reviewing his vitals temperature 97.7 heart rate 80, blood pressure 144 x 81. On reviewing the labs white count of 18.5, hemoglobin 12 point sodium 141, potassium 4.3, chloride 1 03, bicarb 35, BUN 16, creatinine 1.68. Active Medications Acetaminophen (Acetaminophen Tab 325 Mg Tab) 650 mg PO Q6HR PRN PRN Reason: Mild Pain or Fever > 100.5 Last Admin: 03/02/21 09:01 Dose: 650 mg Documented by: Albuterol Sulfate (Albuterol Hfa Inhaler) 2 puff INHALATION RT-QID [facility] Last Admin: 03/10/21 20:47 Dose: 2 puff Documented by: Artificial Tears (Artificial Tears-Hypromellose Drops 15 Ml Btl) 2 drops BOTH EYES QID PRN PRN Reason: Dry Eye(s) Last Admin: 03/05/21 16:29 Dose: 2 drops Documented by: Ascorbic Acid (Ascorbic Acid 500 Mg Tab) 500 mg PO BID [facility] Last Admin: 03/10/21 20:16 Dose: 500 mg Documented by: Budesonide/Formoterol Fumarate (Symbicort 160-4.5 Mcg Inhaler) 2 puff INHALATION RT-BID [facility] Last Admin: 03/10/21 20:47 Dose: 2 puff Documented by: Chlorhexidine Gluconate (Chlorhexidine Gluconate 15 Ml Cup) 15 ml MUCOUS MEM BID [facility] Last Admin: 03/10/21 20:15 Dose: 15 ml Documented by: Cholecalciferol (Cholecalciferol 25 Mcg (1000 Iu) Tablet) 125 mcg PO DAILY [facility] Last Admin: 03/10/21 09:52 Dose: 125 mcg Documented by: Dexamethasone Sodium Phosphate (Dexamethasone Sod Phosphate 10 Mg/Ml 1 Ml Vial) 6 mg IV BID [facility] Last Admin: 03/10/21 20:15 Dose: 6 mg Documented by: Enoxaparin Sodium (Enoxaparin 80 Mg/0.8 Ml Syringe) 70 mg SQ Q12HR [facility] Last Admin: 03/10/21 20:15 Dose: 70 mg Documented by: Famotidine (Famotidine 20 Mg Tab) 40 mg PO DAILY [facility] Last Admin: 03/10/21 09:52 Dose: 40 mg Documented by: Cisatracurium Besylate 200 mg/ (Sodium Chloride) 200 mls @ 7.986 mls/hr IV .Q24 H [facility]; Protocol Last Titration: 03/10/21 21:53 Dose: Infused Documented by: Propofol 1,000 mg/ IV Solution 100 mls @ 0 mls/hr IV .Q0M [facility]; Protocol Last Admin: 03/10/21 12:27 Dose: 30 mcg/kg/min, 23.292 mls/hr Documented by: Fentanyl Citrate 1,000 mcg/ (Sodium Chloride) 100 mls @ 0 mls/hr IV .Q0M [facility]; Protocol Last Admin: 03/10/21 18:37 Dose: 1 mcg/kg/hr, 13.31 mls/hr Documented by: Sodium Bicarbonate 150 ml/ (Dextrose/Water) 1,150 mls @ 50 mls/hr IV .Q23H [facility] Last Admin: 03/09/21 21:22 Dose: 50 mls/hr Documented by: Norepinephrine Bitartrate 4 mg (/ Sodium Chloride) 254 mls @ 24.651 mls/hr IV .[id number] [facility]; Protocol Last Admin: 03/10/21 18:31 Dose: Not Given Documented by: Piperacillin Sod/Tazobactam (Sod 3.375 gm/ Sodium Chloride) 100 mls @ 25 mls/hr IVPB Q8HR [facility] Last Admin: 03/10/21 18:30 Dose: 25 mls/hr Documented by: Dextrose/Water (Dextrose 5%-Water Iv Soln) 1,000 mls @ 100 mls/hr IV .Q10H [facility] Last Admin: 03/10/21 18:30 Dose: 100 mls/hr Documented by: Insulin Aspart (Insulin Aspart (Novolog) 100 Unit/Ml Vial) 0 unit SQ Q6HR [facility]; Protocol Last Admin: 03/10/21 18:30 Dose: 4 unit Documented by: Miscellaneous Information (Potassium Replacement Protocol 1 Each Misc) 1 each MISCELLANE DAILY PRN; Protocol PRN Reason: Per Protocol Morphine Sulfate (Morphine Sulfate 4 Mg/Ml Syringe) 4 mg IVP Q4HR PRN PRN Reason: Pain Last Admin: 03/06/21 12:08 Dose: 4 mg Documented by: Naloxone HCl (Naloxone 0.4 Mg/Ml 1 Ml Vial) 0.2 mg IV Q2M PRN PRN Reason: Opioid Reversal Ondansetron HCl (Ondansetron 4 Mg/2 Ml Vial) 4 mg IVP Q8HR PRN PRN Reason: Nausea And Vomiting Sodium Chloride (Sodium Chloride 0.9% Flush 10 Ml Syringe) 10 ml IV Q4HR PRN PRN Reason: PICC Line Sodium Chloride (Sodium Chloride 0.9% Flush 10 Ml Syringe) 10 ml IV WEEKLY [facility] Sodium Chloride (Sodium Chloride 0.9% Flush 10 Ml Syringe) 20 ml IV Q4HR PRN PRN Reason: PICC Line Zinc Sulfate (Zinc Sulfate 220 Mg Cap) 220 mg PO DAILY [facility] Last Admin: 03/10/21 09:52 Dose: 220 mg Documented by: Objective - Vital Signs Vital signs: Vital Signs Temp 97.6 F 03/10/21 12:00 Pulse 81 03/10/21 13:00 Resp 38 H 03/10/21 13:00 BP 130/75 03/10/21 12:00 Pulse Ox 88 L 03/10/21 13:00 Intake & Output 03/09/21 03/10/21 03/10/21 18:59 06:59 18:59 Intake Total 2668 3291 306 Output Total 425 445 35 Balance 2243 2846 271 Weight 141.77 kg Intake: IV 2136 1861 153 Dextrose 5% in Water 1, 1100 100 000 ml @ 100 mls/hr IV . Q10H [facility] Rx#:[id number] Dextrose 5% in Water 1, 600 600 50 000 ml @ 50 mls/hr IV . Q23H [facility] with Sodium Bicarb (1 Meq/ml) 150 ml Rx#:[id number] Sodium Chloride 0.9% 1, 1500 125 000 ml @ 75 mls/hr IV . [id number] [facility] Rx#:[id number] pressure bag 36 36 3 Intake, IV Titration 400 300 100 Amount Cisatracurium 200 mg In 200 Sodium Chloride 0.9% 180 ml @ 1 MCG/KG/MIN 7.986 mls/hr IV .Q24H [facility] Rx#: [id number] fentaNYL (PF). 1,000 mcg 100 100 In Sodium Chloride 0.9% 80 ml @ Per Protocol IV . Q0M [facility] Rx#:[id number] propofoL 1,000 mg In 100 200 100 Empty Bag 1 bag @ Titrate IV .Q0M [facility] Rx#: [id number] Tube Feeding 132 530 53 Other 600 Output: Urine 425 445 35 Other: Voiding Method Indwelling Catheter Indwelling Catheter ABP, PAP, CO, CI - Last Documented Arterial Blood Pressure 160/83 - Exam -GENERAL: The patient is intubated and sedated and mechanically ventilated HEENT: Pupils are round and equally reacting to light. EOMI. No scleral icterus. No conjunctival pallor. Orogastric tube in place. CARDIOVASCULAR: S1 and S2 present. No murmurs, rubs, or gallops. -PULMONARY: bilateral ronchi and crepitation at the bases ABDOMEN: Soft, nontender, nondistended, normoactive bowel sounds. MUSCULOSKELETAL: No joint swelling or deformity. EXTREMITIES: No cyanosis, clubbing, mild pedal edema. NEUROLOGICAL: intubated and sedated. SKIN: No rashes. no petechiae. - Labs CBC & Chem 7: 03/11/21 05:00 03/11/21 05:00 Labs: Abnormal Lab Results - Last 24 Hours (Table) 03/09/21 03/09/21 03/10/21 Range/Units 17:50 23:34 04:00 WBC 18.5 H (3.8-10.6) k/uL RBC 4.00 L (4.30-5.90) m/uL Hgb 12.2 L (13.0-17.5) gm/dL Hct 38.4 L (39.0-53.0) % D-Dimer (<0.60) mg/L FEU ABG pCO2 (35-45) mmHg ABG pO2 (83-108) mmHg ABG HCO3 (21-25) mmol/L ABG Total CO2 (19-24) mmol/L ABG O2 Saturation (94-97) % Carbon Dioxide (22-30) mmol/L BUN (9-20) mg/dL Creatinine (0.66-1.25) mg/dL Glucose (74-99) mg/dL POC Glucose (mg/dL) 166 H 164 H (75-99) mg/dL Calcium (8.4-10.2) mg/dL AST (17-59) U/L Lactate Dehydrogenase (313-618) U/L C-Reactive Protein (<1.0) mg/dL Total Protein (6.3-8.2) g/dL Albumin (3.5-5.0) g/dL 03/10/21 03/10/21 03/10/21 Range/Units 04:00 04:00 05:46 WBC (3.8-10.6) k/uL RBC (4.30-5.90) m/uL Hgb (13.0-17.5) gm/dL Hct (39.0-53.0) % D-Dimer 29.31 H (<0.60) mg/L FEU ABG pCO2 63 H (35-45) mmHg ABG pO2 69 L (83-108) mmHg ABG HCO3 35 H (21-25) mmol/L ABG Total CO2 36 H (19-24) mmol/L ABG O2 Saturation 93.5 L (94-97) % Carbon Dioxide 35 H (22-30) mmol/L BUN 61 H (9-20) mg/dL Creatinine 1.68 H (0.66-1.25) mg/dL Glucose 190 H (74-99) mg/dL POC Glucose (mg/dL) (75-99) mg/dL Calcium 8.3 L (8.4-10.2) mg/dL AST 66 H (17-59) U/L Lactate Dehydrogenase 1795 H (313-618) U/L C-Reactive Protein 1.1 H (<1.0) mg/dL Total Protein 5.4 L (6.3-8.2) g/dL Albumin 2.9 L (3.5-5.0) g/dL 03/10/21 03/10/21 Range/Units 06:00 11:51 WBC (3.8-10.6) k/uL RBC (4.30-5.90) m/uL Hgb (13.0-17.5) gm/dL Hct (39.0-53.0) % D-Dimer (<0.60) mg/L FEU ABG pCO2 (35-45) mmHg ABG pO2 (83-108) mmHg ABG HCO3 (21-25) mmol/L ABG Total CO2 (19-24) mmol/L ABG O2 Saturation (94-97) % Carbon Dioxide (22-30) mmol/L BUN (9-20) mg/dL Creatinine (0.66-1.25) mg/dL Glucose (74-99) mg/dL POC Glucose (mg/dL) 173 H 167 H (75-99) mg/dL Calcium (8.4-10.2) mg/dL AST (17-59) U/L Lactate Dehydrogenase (313-618) U/L C-Reactive Protein (<1.0) mg/dL Total Protein (6.3-8.2) g/dL Albumin (3.5-5.0) g/dL Microbiology - Last 24 Hours (Table) 03/07/21 09:54 Blood Culture - Preliminary Blood No Growth after 72 hours 03/07/21 10:00 Blood Culture - Preliminary Blood No Growth after 72 hours 03/06/21 23:40 Gram Stain - Final Sputum Sputum Culture - Final Staphylococcus aureus Assessment and Plan Assessment: ASSESSMENT -Acute hypoxic respiratory failure needing mechanical ventilation -Acute bilateral COVID 19 pneumonia. -Septic shock -Acute renal failure -Increased inflammatory markers -Increased d-dimer with negative legs DVT and patient is unstable to undergo CTA of the chest to rule out PE -Morbid obesity BMI 43.8 -Mild hepatitis likely due to COVID 19 -Increased inflammatory markers Plan: This is a pleasant 45 years old male who presents with Covid pneumonia and hypoxia. Continue with steroids, IV fluids, continue with vitamin C, vitamin D and zinc. Patient was having nasal bleeding so his heparin drip was discontinued and he is put on Lovenox 70 mg twice daily. Pulmonary/critical care team on the case and follow-up with a recommendation, vent management as per critical care team. Continue with bicarbonate drip, follow-up urine output and creatinine level. Patient sputum grew staph aureus, MSSA, vancomycin has been discontinued and he is just on Zosyn. Labs and medication were reviewed.Continue same treatment. Monitor lytes and vitals. DVT and GI prophylaxis. Further recommendationsas per clinical course of the patient. Prognosis is extremely guarded with multiorgan failure.
[2021-03-10] MEDS: DEXTROSE 5% IN WATER 1,000 ML with SODIUM BICARB (1 MEQ/ML) 150 ML IV SCH (22:50)
[2021-03-10] MEDS: CISATRACURIUM 200 MG in SODIUM CHLORIDE 0.9% 180 ML IV SCH (22:50)
[2021-03-10 23:34] LABS: Glucose,Whole Blood 179 mg/dL (75-99)
[2021-03-11] MEDS: NOREPINEPHRINE 4 MG in SODIUM CHLORIDE 0.9% 250 ML IV SCH ×2 (01:38→10:39)
[2021-03-11] MEDS: fentaNYL (PF). 1,000 MCG in SODIUM CHLORIDE 0.9% 80 ML IV SCH ×3 (03:16→16:26)
[2021-03-11] MEDS ORDERED: VANCOMYCIN 2,500 MG in SODIUM CHLORIDE 0.9% 500 ML 500 ML IVPB SCH (04:00)
[2021-03-11 05:14] LABS: Glucose,Whole Blood 186 mg/dL (75-99)
[2021-03-11 05:14] LABS: Basophils # (A) 0.1 k/uL (0-0.2); Basophils % (A) 1 %; Eosinophils # (A) 0.2 k/uL (0-0.7); Eosinophils % (A) 1 %; HCT 37.5 % (39.0-53.0); HGB 12.4 gm/dL (13.0-17.5); Lymphocytes # (A) 0.6 k/uL (1.0-4.8); Lymphocytes % (A) 3 %; MCH 31.5 pg (25.0-35.0); MCHC 33.1 g/dL (31.0-37.0); Mean Platelet Volume 9.6; Monocytes # (A) 0.8 k/uL (0-1.0); Monocytes % (A) 4 %; Neutrophils # (A) 18.6 k/uL (1.3-7.7); Neutrophils % (A) 91 %; Platelet Count 174 k/uL (150-450); RBC 3.95 m/uL (4.30-5.90); RDW 13.5 % (11.5-15.5); WBC 20.5 k/uL (3.8-10.6)
[2021-03-11] MEDS: INSULIN ASPART (NovoLOG) 100 UNIT/ML VIAL SQ SCH ×4 (05:28→23:58)
[2021-03-11 05:36] LABS: ABG Base Excess 9.8 mmol/L; ABG HCO3 36 mmol/L (21-25); ABG Oxygen Saturation 93.8 % (94-97); ABG PCO2 66 mmHg (35-45); ABG PH 7.34 (7.35-7.45); ABG PO2 70 mmHg (83-108); ABG TCO2 38 mmol/L (19-24); Allen Test Performed? Yes
[2021-03-11 05:48] LABS: Albumin 2.9 g/dL (3.5-5.0); C Reactive Protein 0.8 mg/dL (<1.0); Calcium 8.3 mg/dL (8.4-10.2); Potassium 4.1 mmol/L (3.5-5.1); Total Bilirubin 0.6 mg/dL (0.2-1.3); Total Protein 5.4 g/dL (6.3-8.2)
[2021-03-11] MEDS: SYMBICORT 160-4.5 MCG INHALER INHALATION SCH ×2 (07:29→19:24)
[2021-03-11] MEDS: ALBUTEROL HFA INHALER INHALATION SCH ×4 (07:29→19:23)
[2021-03-11] MEDS: ASCORBIC ACID 500 MG TAB PO SCH ×2 (08:16→20:02)
[2021-03-11] MEDS: CHLORHEXIDINE GLUCONATE 15 ML CUP MUCOUS MEM SCH ×2 (08:16→20:01)
[2021-03-11] MEDS: PIPERACILLIN-TAZOBACTAM 3.375 GM in SODIUM CHLORIDE 0.9% 100 ML IVPB SCH ×3 (08:16→23:58)
[2021-03-11] MEDS: CHOLECALCIFEROL 25 MCG (1000 IU) TABLET PO SCH (08:16)
[2021-03-11] MEDS: ZINC SULFATE 220 MG CAP PO SCH (08:17)
[2021-03-11] MEDS: DEXAMETHASONE SOD PHOSPHATE 10 MG/ML 1 ML VIAL IV SCH ×2 (08:17→20:02)
[2021-03-11] MEDS: FAMOTIDINE 20 MG TAB PO SCH (08:17)
[2021-03-11] MEDS: ENOXAPARIN 80 MG/0.8 ML SYRINGE SQ SCH ×2 (08:17→20:01)
[2021-03-11] MEDS: CISATRACURIUM 200 MG in SODIUM CHLORIDE 0.9% 180 ML IV SCH (08:18)
[2021-03-11] MEDS: DEXTROSE 5% IN WATER 1,000 ML IV SCH (09:01)
--- NOTE | 2021-03-11 09:05 | XR ---
EXAMINATION TYPE: XR chest 1V portable DATE OF EXAM: 03/11/2021 COMPARISON: Prior chest x-ray 03/10/2021 HISTORY: Intubated TECHNIQUE: Single frontal view of the chest is obtained. FINDINGS: Endotracheal tube, orogastric tube, left-sided PICC line are overlying appropriate positio ns. Bilateral airspace disease persists, the left and right hemidiaphragm are obscured. There is no e vident pneumothorax. Patient is rotated. Cardiac mediastinal silhouette is stable. IMPRESSION: Findings are essentially stable. Correlate for pneumonia, congestive heart failure, ARDS
--- NOTE | 2021-03-11 11:34 | P.PN ---
Subjective Progress Note Date: 03/11/21 Principal diagnosis: Acute hypoxemic respiratory failure. Progress note dated 03/04/2021. 45-year-old male who was admitted with a diagnosis of acute hypoxemic respiratory failure secondary to COVID 19 pneumonitis/pneumonia. When I saw the patient initially, he was on a nonrebreather, as well as 15 L high flow nasal O2. He was getting saline at 75 mL an hour. His d-dimer had increased, and so we increase his Lovenox up to 60 mg twice a day. He did receive TOCI on March 02. He got up to use the bedside commode, and his saturations dropped into the mid 70 range. I did ask respiratory to place him on BiPAP with settings of IPAP 15, EPAP 5, and 100% FiO2. We will evaluate him again in a few hours or so. Lab data today includes a d-dimer of greater than 34.10, sodium 145, potassium 4.1, chlorides 109, CO2 29, anion gap 7, BUN 25, and creatinine 0.69. LDH is 1471. C-reactive protein is 2.6. Chest x-ray from today, shows diffuse bilateral infiltrates. Progress note dated 03/11/2021. 45-year-old male, that I saw last on March 04. We see the note above. Unfortunately, the patient developed worsening respiratory failure, requiring intubation on March 06, secondary to worsening hypoxemia and COVID 19 pneumonia. The patient was initially admitted on March 01. The patient is seen in the intensive care unit today in room 256. He remains on the ventilator, volume assist control mode, rate 38, tidal volume 450, FiO2 85%, PEEP of 18. Blood gases show a PaO2 of 70, PaCO2 of 66, and a pH is 7.34. The patient's currently on Nimbex at 2 mcg/kg/m, fall at 30 mcg/kg/m, fentanyl at 1 mcg/kg/h, and D5 W, with 3 A of sodium bicarbonate 50 mL an hour. The patient's also getting vital high protein at 53 mL an hour, which is goal. Finally, the patient's also on D5W at 100 mL an hour. White count 20.5, hemoglobin 12.4, hematocrit 37.5, and platelet count 174,000. D-dimer is 14.81. Sodium 142, potassium 4.1, chlorides 100, CO2 37, anion gap 5, BUN 64, and creatinine 1.51. LDH is 1732 and C- reactive protein is 0.8. Chest x-ray is essentially unchanged, and consistent with acute respiratory distress syndrome, and diffuse bilateral infiltrates. Objective - Vital Signs Vital signs: Vital Signs Temp 98.2 F 03/11/21 04:00 Pulse 75 03/11/21 07:00 Resp 38 H 03/11/21 07:00 BP 137/72 03/11/21 07:00 Pulse Ox 91 L 03/11/21 07:00 Intake & Output 03/10/21 03/11/21 03/11/21 18:59 06:59 18:59 Intake Total 1621 3358.603 556.450 Output Total 795 1160 60 Balance 826 2198.603 496.450 Weight 146.1 kg Intake: IV 1268 1830 153 Dextrose 5% in Water 1, 1200 1200 100 000 ml @ 100 mls/hr IV . Q10H [facility] Rx#:[id number] Dextrose 5% in Water 1, 50 500 50 000 ml @ 50 mls/hr IV . Q23H [facility] with Sodium Bicarb (1 Meq/ml) 150 ml Rx#:[id number] Piperacillin-Tazobactam 3 100 .375 gm In Sodium Chloride 0.9% 100 ml @ 25 mls/hr IVPB Q8HR [facility] Rx# :[id number] pressure bag 18 30 3 Intake, IV Titration 300 398.603 350.450 Amount Cisatracurium 200 mg In 200 155.727 Sodium Chloride 0.9% 180 ml @ 1 MCG/KG/MIN 7.986 mls/hr IV .Q24H [facility] Rx#: [id number] fentaNYL (PF). 1,000 mcg 100 100 76.533 In Sodium Chloride 0.9% 80 ml @ Per Protocol IV . Q0M [facility] Rx#:[id number] propofoL 1,000 mg In 200 98.603 118.190 Empty Bag 1 bag @ Titrate IV .Q0M [facility] Rx#: [id number] Tube Feeding 53 530 53 Other 600 Output: Urine 795 1160 60 Other: Voiding Method Indwelling Catheter Indwelling Catheter ABP, PAP, CO, CI - Last Documented Arterial Blood Pressure 107/61 - Exam Currently sedated and paralyzed, with an orally placed endotracheal tube and NG tube. Saturations are 91%. HEENT examination is grossly unremarkable. Neck supple. Full range of motion. No adenopathy thyromegaly or neck vein distention. Cardiovascular examination reveals regular rhythm rate. S1-S2 normal. No S3 or S4. No discernible murmur noted. Heart sounds are distant. Heart rate 75 bpm. Lungs reveal diffuse bilateral coarse rhonchi and bilateral crackles. No wheezes. Breath sounds equal bilaterally. Abdomen soft bowel sounds are heard. No masses or tenderness. Extremities are intact. No cyanosis clubbing or edema. Skin is without rash or lesion. Neurologic examination cannot be properly assessed, as the patient is sedated and paralyzed. - Labs CBC & Chem 7: 03/11/21 05:00 03/11/21 05:00 Labs: Abnormal Lab Results - Last 24 Hours (Table) 03/10/21 03/10/21 03/10/21 Range/Units 11:51 17:13 22:05 WBC (3.8-10.6) k/uL RBC (4.30-5.90) m/uL Hgb (13.0-17.5) gm/dL Hct (39.0-53.0) % Neutrophils # (1.3-7.7) k/uL Lymphocytes # (1.0-4.8) k/uL D-Dimer (<0.60) mg/L FEU ABG pH (7.35-7.45) ABG pCO2 62 H (35-45) mmHg ABG pO2 52 L* (83-108) mmHg ABG HCO3 35 H (21-25) mmol/L ABG Total CO2 37 H (19-24) mmol/L ABG O2 Saturation 86.5 L (94-97) % Carbon Dioxide (22-30) mmol/L BUN (9-20) mg/dL Creatinine (0.66-1.25) mg/dL Glucose (74-99) mg/dL POC Glucose (mg/dL) 167 H 185 H (75-99) mg/dL Calcium (8.4-10.2) mg/dL ALT (4-49) U/L Lactate Dehydrogenase (313-618) U/L Total Protein (6.3-8.2) g/dL Albumin (3.5-5.0) g/dL 03/10/21 03/11/21 03/11/21 Range/Units 23:22 05:00 05:00 WBC 20.5 H (3.8-10.6) k/uL RBC 3.95 L (4.30-5.90) m/uL Hgb 12.4 L (13.0-17.5) gm/dL Hct 37.5 L (39.0-53.0) % Neutrophils # 18.6 H (1.3-7.7) k/uL Lymphocytes # 0.6 L (1.0-4.8) k/uL D-Dimer (<0.60) mg/L FEU ABG pH (7.35-7.45) ABG pCO2 (35-45) mmHg ABG pO2 (83-108) mmHg ABG HCO3 (21-25) mmol/L ABG Total CO2 (19-24) mmol/L ABG O2 Saturation (94-97) % Carbon Dioxide 37 H (22-30) mmol/L BUN 64 H (9-20) mg/dL Creatinine 1.51 H (0.66-1.25) mg/dL Glucose 190 H (74-99) mg/dL POC Glucose (mg/dL) 179 H (75-99) mg/dL Calcium 8.3 L (8.4-10.2) mg/dL ALT 70 H (4-49) U/L Lactate Dehydrogenase 1732 H (313-618) U/L Total Protein 5.4 L (6.3-8.2) g/dL Albumin 2.9 L (3.5-5.0) g/dL 03/11/21 03/11/21 03/11/21 Range/Units 05:00 05:02 05:30 WBC (3.8-10.6) k/uL RBC (4.30-5.90) m/uL Hgb (13.0-17.5) gm/dL Hct (39.0-53.0) % Neutrophils # (1.3-7.7) k/uL Lymphocytes # (1.0-4.8) k/uL D-Dimer 14.81 H (<0.60) mg/L FEU ABG pH 7.34 L (7.35-7.45) ABG pCO2 66 H (35-45) mmHg ABG pO2 70 L (83-108) mmHg ABG HCO3 36 H (21-25) mmol/L ABG Total CO2 38 H (19-24) mmol/L ABG O2 Saturation 93.8 L (94-97) % Carbon Dioxide (22-30) mmol/L BUN (9-20) mg/dL Creatinine (0.66-1.25) mg/dL Glucose (74-99) mg/dL POC Glucose (mg/dL) 186 H (75-99) mg/dL Calcium (8.4-10.2) mg/dL ALT (4-49) U/L Lactate Dehydrogenase (313-618) U/L Total Protein (6.3-8.2) g/dL Albumin (3.5-5.0) g/dL Microbiology - Last 24 Hours (Table) 03/07/21 09:54 Blood Culture - Preliminary Blood No Growth after 72 hours 03/07/21 10:00 Blood Culture - Preliminary Blood No Growth after 72 hours 03/06/21 23:40 Gram Stain - Final Sputum Sputum Culture - Final Staphylococcus aureus Assessment and Plan Assessment: Acute hypoxemic respiratory failure secondary to COVID 19 pneumonia/pneumonitis, with worsening oxygenation, which required intubation and mechanical ventilation on March 06. Morbid obesity, with a BMI of 43.8. Rule out obstructive sleep apnea syndrome. Elevated inflammatory markers secondary to coronavirus infection. Methicillin sensitive staph aureus tracheobronchitis as bronchopneumonia, currently on Zosyn. Prerenal azotemia. Plan: Plan dated 03/04/2021. The patient did receive TOCI on March 02. Because of the worsening oxygenation, the patient we placed on BiPAP with settings of IPAP 15, EPAP 5, and 100%. In addition, because of the increase acutely of the d-dimer, the Lovenox dose was increased to 60 mg subcu twice a day. Additional recommendations and suggestions are forthcoming. We'll have to watch the patient closely. He may need transfer to the intensive care unit if he does not improve. We will continue to follow closely. The patient will continue on the typical vitamins, Decadron, and Lovenox. Plan dated 03/11/2021. Currently, the patient is not making much progress. He remains on FiO2 of 85% PEEP of 18. We will attempt a daily interruption of sedation although, he will not be able to tolerate a spontaneous breathing trial at this point. Additional recommendations and suggestions are forthcoming. The patient did receive TOCI on March 02. Additional recommendations and suggestions are forthcoming. Prognosis is guarded. We'll continue to follow make recommendations where appropriate. Time with Patient: Greater than 30
[2021-03-11 11:46] LABS: Glucose,Whole Blood 171 mg/dL (75-99)
[2021-03-11 18:03] LABS: Glucose,Whole Blood 189 mg/dL (75-99)
[2021-03-11] MEDS ORDERED: LABETALOL 100 MG TAB PO ONE (21:00)
[2021-03-11 21:10] LABS: ABG Base Excess 9.6 mmol/L; ABG HCO3 36 mmol/L (21-25); ABG Oxygen Saturation 83.5 % (94-97); ABG PH 7.31 (7.35-7.45); ABG TCO2 38 mmol/L (19-24); Allen Test Performed? Yes
[2021-03-11 21:12] LABS: ABG PCO2 72 mmHg (35-45); ABG PO2 51 mmHg (83-108)
[2021-03-11] MEDS: DEXTROSE 5% IN WATER 1,000 ML with SODIUM BICARB (1 MEQ/ML) 150 ML IV SCH (22:41)
[2021-03-11 23:52] LABS: Glucose,Whole Blood 176 mg/dL (75-99)
--- NOTE | 2021-03-11 23:55 | P.PN ---
Subjective Progress Note Date: 03/11/21 Principal diagnosis: Acute hypoxic failure secondary to acute COVID-19 pneumonia Mr. Mcclure is a 45 year old male with the PMH of M obesity admitted for COVDI Pneumonia. Intiallly, patient was on nonrebreather he had around continue to desaturate. Patient was eventually intubated on 03/07/2021. On 03/09/2021 -patient was seen and examined at the bedside. He is in the ICU intubated and mechanically ventilated. No acute events reported by nursing staff overnight. He is sedated on propofol and fentanyl. Also on Nimbex and bicarb drips. He had a chest x-ray done this morning which showed persistent bilateral infiltrates, consistent with COVID-19 pneumonia. His inflammatory markers continue to be high. ABG done this morning showed pH of 7.3, PO2 of 71 and PCO2 of 67. Labs from this morning white count of 18.5, hemoglobin 13.8, p latelets 178. Sodium 147, potassium 4.4, chloride 108, bicarb 34, BUN 50, creatinine 1.73, albumin 3.1. On 03/10/2021 patient was seen and examined in the ICU. He is intubated and mechanically ventilated. He is on fentanyl and Nimbex and bicarb drips. ABGs done this morning showing pH 7.36, PO2 62, P CO2 52. Patient had a chest x-ray done this morning showing pneumonia, CHF versus ARDS. On reviewing his vitals temperature 97.7 heart rate 80, blood pressure 144 x 81. On reviewing the labs white count of 18.5, hemoglobin 12 point sodium 141, potassium 4.3, chloride 1 03, bicarb 35, BUN 16, creatinine 1.68. On 03/11/2021 patient was seen and examined at the ICU. He is intubated and mechanically ventilated. No acute events reported by nursing staff. Patient had ABG done this morning showing pH of 7.31, PCO2 72, PO2 51 on 85% FiO2 on mechanical ventilation. Reviewing the vitals temperature of 97.8, heart rate 92, blood pressure 173 x 87. Reviewing the labs white count of 20.5, hemoglobin 12.4 platelets 174. Sodium 142, potassium 4.1, chloride 100, bicarb 37, BUN 64, creatinine 1.51. Patient medications have been reviewed he is on Tylenol, Ventolin, artificial tears, vitamin C, Symbicort, Peridex, vitamin D3, dexamethasone, Lovenox, Pepcid, morphine, aspart, Zofran, Zosyn, propofol, zinc. Objective - Vital Signs Vital signs: Vital Signs Temp 98.2 F 03/11/21 04:00 Pulse 75 03/11/21 07:00 Resp 38 H 03/11/21 07:00 BP 137/72 03/11/21 07:00 Pulse Ox 91 L 03/11/21 07:00 Intake & Output 03/10/21 03/11/21 03/11/21 18:59 06:59 18:59 Intake Total 1621 3358.603 556.450 Output Total 795 1160 60 Balance 826 2198.603 496.450 Weight 146.1 kg Intake: IV 1268 1830 153 Dextrose 5% in Water 1, 1200 1200 100 000 ml @ 100 mls/hr IV . Q10H [facility] Rx#:[id number] Dextrose 5% in Water 1, 50 500 50 000 ml @ 50 mls/hr IV . Q23H [facility] with Sodium Bicarb (1 Meq/ml) 150 ml Rx#:[id number] Piperacillin-Tazobactam 3 100 .375 gm In Sodium Chloride 0.9% 100 ml @ 25 mls/hr IVPB Q8HR [facility] Rx# :[id number] pressure bag 18 30 3 Intake, IV Titration 300 398.603 350.450 Amount Cisatracurium 200 mg In 200 155.727 Sodium Chloride 0.9% 180 ml @ 1 MCG/KG/MIN 7.986 mls/hr IV .Q24H [facility] Rx#: [id number] fentaNYL (PF). 1,000 mcg 100 100 76.533 In Sodium Chloride 0.9% 80 ml @ Per Protocol IV . Q0M [facility] Rx#:[id number] propofoL 1,000 mg In 200 98.603 118.190 Empty Bag 1 bag @ Titrate IV .Q0M [facility] Rx#: [id number] Tube Feeding 53 530 53 Other 600 Output: Urine 795 1160 60 Other: Voiding Method Indwelling Catheter Indwelling Catheter ABP, PAP, CO, CI - Last Documented Arterial Blood Pressure 107/61 - Exam -GENERAL: The patient is intubated and sedated and mechanically ventilated HEENT: Pupils are round and equally reacting to light. EOMI. No scleral icterus. No conjunctival pallor. Orogastric tube in place. CARDIOVASCULAR: S1 and S2 present. -PULMONARY: bilateral ronchi and crepitation at the bases ABDOMEN: Soft, nontender, nondistended, normoactive bowel sounds. MUSCULOSKELETAL: No joint swelling or deformity. EXTREMITIES: No cyanosis, clubbing, mild pedal edema. NEUROLOGICAL: intubated and sedated. SKIN: No rashes. no petechiae. - Labs CBC & Chem 7: 03/11/21 05:00 03/11/21 05:00 Labs: Abnormal Lab Results - Last 24 Hours (Table) 03/10/21 03/10/21 03/10/21 Range/Units 11:51 17:13 22:05 WBC (3.8-10.6) k/uL RBC (4.30-5.90) m/uL Hgb (13.0-17.5) gm/dL Hct (39.0-53.0) % Neutrophils # (1.3-7.7) k/uL Lymphocytes # (1.0-4.8) k/uL D-Dimer (<0.60) mg/L FEU ABG pH (7.35-7.45) ABG pCO2 62 H (35-45) mmHg ABG pO2 52 L* (83-108) mmHg ABG HCO3 35 H (21-25) mmol/L ABG Total CO2 37 H (19-24) mmol/L ABG O2 Saturation 86.5 L (94-97) % Carbon Dioxide (22-30) mmol/L BUN (9-20) mg/dL Creatinine (0.66-1.25) mg/dL Glucose (74-99) mg/dL POC Glucose (mg/dL) 167 H 185 H (75-99) mg/dL Calcium (8.4-10.2) mg/dL ALT (4-49) U/L Lactate Dehydrogenase (313-618) U/L Total Protein (6.3-8.2) g/dL Albumin (3.5-5.0) g/dL 03/10/21 03/11/21 03/11/21 Range/Units 23:22 05:00 05:00 WBC 20.5 H (3.8-10.6) k/uL RBC 3.95 L (4.30-5.90) m/uL Hgb 12.4 L (13.0-17.5) gm/dL Hct 37.5 L (39.0-53.0) % Neutrophils # 18.6 H (1.3-7.7) k/uL Lymphocytes # 0.6 L (1.0-4.8) k/uL D-Dimer (<0.60) mg/L FEU ABG pH (7.35-7.45) ABG pCO2 (35-45) mmHg ABG pO2 (83-108) mmHg ABG HCO3 (21-25) mmol/L ABG Total CO2 (19-24) mmol/L ABG O2 Saturation (94-97) % Carbon Dioxide 37 H (22-30) mmol/L BUN 64 H (9-20) mg/dL Creatinine 1.51 H (0.66-1.25) mg/dL Glucose 190 H (74-99) mg/dL POC Glucose (mg/dL) 179 H (75-99) mg/dL Calcium 8.3 L (8.4-10.2) mg/dL ALT 70 H (4-49) U/L Lactate Dehydrogenase 1732 H (313-618) U/L Total Protein 5.4 L (6.3-8.2) g/dL Albumin 2.9 L (3.5-5.0) g/dL 03/11/21 03/11/21 03/11/21 Range/Units 05:00 05:02 05:30 WBC (3.8-10.6) k/uL RBC (4.30-5.90) m/uL Hgb (13.0-17.5) gm/dL Hct (39.0-53.0) % Neutrophils # (1.3-7.7) k/uL Lymphocytes # (1.0-4.8) k/uL D-Dimer 14.81 H (<0.60) mg/L FEU ABG pH 7.34 L (7.35-7.45) ABG pCO2 66 H (35-45) mmHg ABG pO2 70 L (83-108) mmHg ABG HCO3 36 H (21-25) mmol/L ABG Total CO2 38 H (19-24) mmol/L ABG O2 Saturation 93.8 L (94-97) % Carbon Dioxide (22-30) mmol/L BUN (9-20) mg/dL Creatinine (0.66-1.25) mg/dL Glucose (74-99) mg/dL POC Glucose (mg/dL) 186 H (75-99) mg/dL Calcium (8.4-10.2) mg/dL ALT (4-49) U/L Lactate Dehydrogenase (313-618) U/L Total Protein (6.3-8.2) g/dL Albumin (3.5-5.0) g/dL 03/11/21 Range/Units 11:43 WBC (3.8-10.6) k/uL RBC (4.30-5.90) m/uL Hgb (13.0-17.5) gm/dL Hct (39.0-53.0) % Neutrophils # (1.3-7.7) k/uL Lymphocytes # (1.0-4.8) k/uL D-Dimer (<0.60) mg/L FEU ABG pH (7.35-7.45) ABG pCO2 (35-45) mmHg ABG pO2 (83-108) mmHg ABG HCO3 (21-25) mmol/L ABG Total CO2 (19-24) mmol/L ABG O2 Saturation (94-97) % Carbon Dioxide (22-30) mmol/L BUN (9-20) mg/dL Creatinine (0.66-1.25) mg/dL Glucose (74-99) mg/dL POC Glucose (mg/dL) 171 H (75-99) mg/dL Calcium (8.4-10.2) mg/dL ALT (4-49) U/L Lactate Dehydrogenase (313-618) U/L Total Protein (6.3-8.2) g/dL Albumin (3.5-5.0) g/dL Microbiology - Last 24 Hours (Table) 03/07/21 09:54 Blood Culture - Preliminary Blood No Growth after 72 hours 03/07/21 10:00 Blood Culture - Preliminary Blood No Growth after 72 hours 03/06/21 23:40 Gram Stain - Final Sputum Sputum Culture - Final Staphylococcus aureus Assessment and Plan Assessment: ASSESSMENT -Acute hypoxic respiratory failure needing mechanical ventilation -Acute bilateral COVID 19 pneumonia. -Septic shock -Acute renal failure -Increased inflammatory markers -Increased d-dimer with negative legs DVT and patient is unstable to undergo CTA of the chest to rule out PE -Morbid obesity BMI 43.8 -Mild hepatitis likely due to COVID 19 -Increased inflammatory markers Plan: This is a pleasant 45 years old male who presents with Covid pneumonia and hypoxia. Continue with steroids, IV fluids, continue with vitamin C, vitamin D and zinc. Patient was having nasal bleeding so his heparin drip was discontinued and he is put on Lovenox 70 mg twice daily. Pulmonary/critical care team on the case and follow-up with a recommendation, vent management - sedation holiday and daily weaning trails as per critical care team. Continue with bicarbonate drip, follow-up urine output and creatinine level. Patient sputum grew staph aureus, MSSA, vancomycin has been discontinued and he is just on Zosyn. Labs and medication were reviewed.Continue same treatment. Monitor lytes and vitals. DVT and GI prophylaxis. Further recommendationsas per clinical course of the patient. Prognosis is extremely guarded with multiorgan failure.
[2021-03-12] MEDS: CISATRACURIUM 200 MG in SODIUM CHLORIDE 0.9% 180 ML IV SCH ×2 (00:16→16:47)
[2021-03-12] MEDS: DEXTROSE 5% IN WATER 1,000 ML IV SCH ×2 (00:21→08:12)
[2021-03-12] MEDS: NOREPINEPHRINE 4 MG in SODIUM CHLORIDE 0.9% 250 ML IV SCH (00:53)
[2021-03-12] MEDS: fentaNYL (PF). 1,000 MCG in SODIUM CHLORIDE 0.9% 80 ML IV SCH ×3 (01:18→16:46)
[2021-03-12 05:13] LABS: Basophils # (A) 0.1 k/uL (0-0.2); Basophils % (A) 0 %; Eosinophils # (A) 0.1 k/uL (0-0.7); Eosinophils % (A) 0 %; HCT 39.7 % (39.0-53.0); HGB 13.3 gm/dL (13.0-17.5); Lymphocytes # (A) 0.6 k/uL (1.0-4.8); Lymphocytes % (A) 3 %; MCH 31.9 pg (25.0-35.0); MCHC 33.5 g/dL (31.0-37.0); MCV 95.2 fL (80.0-100.0); Mean Platelet Volume 9.1; Monocytes % (A) 5 %; Neutrophils % (A) 91 %; Platelet Count 195 k/uL (150-450); RBC 4.17 m/uL (4.30-5.90); RDW 13.6 % (11.5-15.5)
[2021-03-12 05:27] LABS: Allen Test Performed? Yes
[2021-03-12 05:29] LABS: ABG HCO3 37 mmol/L (21-25); ABG PCO2 71 mmHg (35-45); ABG PH 7.33 (7.35-7.45); ABG PO2 71 mmHg (83-108); ABG TCO2 39 mmol/L (19-24)
[2021-03-12 05:40] LABS: C Reactive Protein 0.8 mg/dL (<1.0); Calcium 8.4 mg/dL (8.4-10.2); Potassium 4.5 mmol/L (3.5-5.1)
[2021-03-12] MEDS: INSULIN ASPART (NovoLOG) 100 UNIT/ML VIAL SQ SCH ×3 (05:50→17:57)
--- NOTE | 2021-03-12 06:55 | XR ---
EXAMINATION TYPE: XR chest 1V portable DATE OF EXAM: 03/12/2021 COMPARISON: 03/11/2021 HISTORY: Shortness of breath TECHNIQUE: Single frontal view of the chest is obtained. FINDINGS: ET and NG tube stable. Diffuse pleural-parenchymal changes are stable. PICC line noted. He art is enlarged. No pneumothorax. IMPRESSION: Bilateral diffuse pleural-parenchymal changes are stable correlate for diffuse pneumonia versus pulmonary edema.
[2021-03-12] MEDS: ALBUTEROL HFA INHALER INHALATION SCH ×4 (07:43→20:44)
[2021-03-12] MEDS: SYMBICORT 160-4.5 MCG INHALER INHALATION SCH ×2 (07:44→20:44)
[2021-03-12 08:17] LABS: Glucose,Whole Blood 180 mg/dL (75-99)
[2021-03-12] MEDS: PIPERACILLIN-TAZOBACTAM 3.375 GM in SODIUM CHLORIDE 0.9% 100 ML IVPB SCH ×3 (08:17→23:48)
[2021-03-12] MEDS: FUROSEMIDE 10 MG/ML 4 ML VIAL IV SCH ×2 (08:17→16:22)
[2021-03-12] MEDS: FAMOTIDINE 20 MG TAB PO SCH (08:18)
[2021-03-12] MEDS: ZINC SULFATE 220 MG CAP PO SCH (08:18)
[2021-03-12] MEDS: DEXAMETHASONE SOD PHOSPHATE 10 MG/ML 1 ML VIAL IV SCH ×2 (08:18→20:10)
[2021-03-12] MEDS: ASCORBIC ACID 500 MG TAB PO SCH ×2 (08:18→20:10)
[2021-03-12] MEDS: CHOLECALCIFEROL 25 MCG (1000 IU) TABLET PO SCH (08:18)
[2021-03-12] MEDS: CHLORHEXIDINE GLUCONATE 15 ML CUP MUCOUS MEM SCH ×2 (08:18→20:10)
[2021-03-12] MEDS: ENOXAPARIN 80 MG/0.8 ML SYRINGE SQ SCH ×2 (08:19→20:12)
--- NOTE | 2021-03-12 10:33 | P.PN ---
Subjective Progress Note Date: 03/12/21 Principal diagnosis: Acute hypoxemic respiratory failure. Progress note dated 03/04/2021. 45-year-old male who was admitted with a diagnosis of acute hypoxemic respiratory failure secondary to COVID 19 pneumonitis/pneumonia. When I saw the patient initially, he was on a nonrebreather, as well as 15 L high flow nasal O2. He was getting saline at 75 mL an hour. His d-dimer had increased, and so we increase his Lovenox up to 60 mg twice a day. He did receive TOCI on March 02. He got up to use the bedside commode, and his saturations dropped into the mid 70 range. I did ask respiratory to place him on BiPAP with settings of IPAP 15, EPAP 5, and 100% FiO2. We will evaluate him again in a few hours or so. Lab data today includes a d-dimer of greater than 34.10, sodium 145, potassium 4.1, chlorides 109, CO2 29, anion gap 7, BUN 25, and creatinine 0.69. LDH is 1471. C-reactive protein is 2.6. Chest x-ray from today, shows diffuse bilateral infiltrates. Progress note dated 03/11/2021. 45-year-old male, that I saw last on March 04. We see the note above. Unfortunately, the patient developed worsening respiratory failure, requiring intubation on March 06, secondary to worsening hypoxemia and COVID 19 pneumonia. The patient was initially admitted on March 01. The patient is seen in the intensive care unit today in room 256. He remains on the ventilator, volume assist control mode, rate 38, tidal volume 450, FiO2 85%, PEEP of 18. Blood gases show a PaO2 of 70, PaCO2 of 66, and a pH is 7.34. The patient's currently on Nimbex at 2 mcg/kg/m, fall at 30 mcg/kg/m, fentanyl at 1 mcg/kg/h, and D5 W, with 3 A of sodium bicarbonate 50 mL an hour. The patient's also getting vital high protein at 53 mL an hour, which is goal. Finally, the patient's also on D5W at 100 mL an hour. White count 20.5, hemoglobin 12.4, hematocrit 37.5, and platelet count 174,000. D-dimer is 14.81. Sodium 142, potassium 4.1, chlorides 100, CO2 37, anion gap 5, BUN 64, and creatinine 1.51. LDH is 1732 and C- reactive protein is 0.8. Chest x-ray is essentially unchanged, and consistent with acute respiratory distress syndrome, and diffuse bilateral infiltrates. Progress note dated 03/12/2021. 45-year-old male, who is again seen, in room 256. The patient required intubation for acute respiratory failure on March 06. The patient was admitted with a diagnosis of acute hypoxemic respiratory failure secondary to COVID 19 pneumonia. Currently, the patient remains on the volume assist control mode, rate 38, tidal volume 450, FiO2 100%, and PEEP of 20. The patients blood gas shows a PaO2 of 71, pCO2 of 71, and pH is 7.32. The patient's currently on Nimb ex at 1.25 mcg/kg/m, propofol at 40 mics per kilogram per minute, and fentanyl 1 mcg/kg/h. He is on D5W with 3 ampules of sodium bicarbonate at 50 mL an hour, and D5 W1 100 mL an hour. The patient's also getting vital high protein at 53 mL an hour, which is goal. The patient's weight ahead on fluids, and will get Lasix 40 mg IVP, every 8 hours. White count 22, hemoglobin 13.3, hematocrit 39.7, platelet count 195,000. D-dimer is 8.03. Sodium 135, potassium 4.5, chlorides 98, CO2 34, anion gap 3, BUN 68, creatinine 1.42. LDH is 2169. C- reactive protein is 0.8. Chest x-ray shows stable diffuse bilateral infiltrates. Objective - Vital Signs Vital signs: Vital Signs Temp 97.7 F 03/12/21 08:00 Pulse 77 03/12/21 09:00 Resp 38 H 03/12/21 09:00 BP 209/103 03/12/21 09:00 Pulse Ox 93 L 03/12/21 09:00 Intake & Output 03/11/21 03/12/21 03/12/21 18:59 06:59 18:59 Intake Total 3395.015 3429.889 751.948 Output Total 830 910 205 Balance 2565.015 2519.889 546.948 Weight 146.1 kg 147.644 kg Intake: IV 2032 1800 400 Dextrose 5% in Water 1, 1200 1200 200 000 ml @ 100 mls/hr IV . Q10H [facility] Rx#:[id number] Dextrose 5% in Water 1, 600 600 100 000 ml @ 50 mls/hr IV . Q23H [facility] with Sodium Bicarb (1 Meq/ml) 150 ml Rx#:[id number] Piperacillin-Tazobactam 3 200 100 .375 gm In Sodium Chloride 0.9% 100 ml @ 25 mls/hr IVPB Q8HR [facility] Rx# :[id number] pressure bag 33 Intake, IV Titration 626.015 563.889 92.948 Amount Cisatracurium 200 mg In 155.727 263.889 Sodium Chloride 0.9% 180 ml @ 1 MCG/KG/MIN 7.986 mls/hr IV .Q24H [facility] Rx#: [id number] fentaNYL (PF). 1,000 mcg 175.249 100 92.948 In Sodium Chloride 0.9% 80 ml @ Per Protocol IV . Q0M [facility] Rx#:[id number] propofoL 1,000 mg In 295.039 200.000 Empty Bag 1 bag @ Titrate IV .Q0M [facility] Rx#: [id number] Oral 100 100 Tube Feeding 636 636 159 Other 430 Output: Urine 830 910 205 Other: Voiding Method Indwelling Catheter Indwelling Catheter Indwelling Catheter ABP, PAP, CO, CI - Last Documented Arterial Blood Pressure 147/74 - Exam Currently sedated and paralyzed, with an orally placed endotracheal tube and NG tube. Saturations are 93%. HEENT examination is grossly unremarkable. Neck supple. Full range of motion. No adenopathy thyromegaly or neck vein distention. Cardiovascular examination reveals regular rhythm rate. S1-S2 normal. No S3 or S4. No discernible murmur noted. Heart sounds are distant. Heart rate 77 bpm. Lungs reveal diffuse bilateral coarse rhonchi and bilateral crackles. No wheezes. Breath sounds equal bilaterally. Breath sounds are unchanged. Abdomen soft bowel sounds are heard. No masses or tenderness. Extremities are intact. No cyanosis clubbing or edema. Skin is without rash or lesion. Neurologic examination cannot be properly assessed, as the patient is sedated and paralyzed. - Labs CBC & Chem 7: 03/12/21 03:30 03/12/21 03:30 Labs: Abnormal Lab Results - Last 24 Hours (Table) 03/11/21 03/11/21 03/11/21 Range/Units 04:08 11:43 18:02 WBC (3.8-10.6) k/uL RBC (4.30-5.90) m/uL Neutrophils # (1.3-7.7) k/uL Lymphocytes # (1.0-4.8) k/uL D-Dimer (<0.60) mg/L FEU ABG pH 7.31 L (7.35-7.45) ABG pCO2 72 H* (35-45) mmHg ABG pO2 51 L* (83-108) mmHg ABG HCO3 36 H (21-25) mmol/L ABG Total CO2 38 H (19-24) mmol/L ABG O2 Saturation 83.5 L (94-97) % Sodium (137-145) mmol/L Carbon Dioxide (22-30) mmol/L BUN (9-20) mg/dL Creatinine (0.66-1.25) mg/dL Glucose (74-99) mg/dL POC Glucose (mg/dL) 171 H 189 H (75-99) mg/dL Lactate Dehydrogenase (313-618) U/L 03/11/21 03/12/21 03/12/21 Range/Units 23:50 03:30 03:30 WBC 22.0 H (3.8-10.6) k/uL RBC 4.17 L (4.30-5.90) m/uL Neutrophils # 20.0 H (1.3-7.7) k/uL Lymphocytes # 0.6 L (1.0-4.8) k/uL D-Dimer 8.03 H (<0.60) mg/L FEU ABG pH (7.35-7.45) ABG pCO2 (35-45) mmHg ABG pO2 (83-108) mmHg ABG HCO3 (21-25) mmol/L ABG Total CO2 (19-24) mmol/L ABG O2 Saturation (94-97) % Sodium (137-145) mmol/L Carbon Dioxide (22-30) mmol/L BUN (9-20) mg/dL Creatinine (0.66-1.25) mg/dL Glucose (74-99) mg/dL POC Glucose (mg/dL) 176 H (75-99) mg/dL Lactate Dehydrogenase (313-618) U/L 03/12/21 03/12/21 03/12/21 Range/Units 03:30 04:30 05:30 WBC (3.8-10.6) k/uL RBC (4.30-5.90) m/uL Neutrophils # (1.3-7.7) k/uL Lymphocytes # (1.0-4.8) k/uL D-Dimer (<0.60) mg/L FEU ABG pH 7.33 L (7.35-7.45) ABG pCO2 71 H* (35-45) mmHg ABG pO2 71 L (83-108) mmHg ABG HCO3 37 H (21-25) mmol/L ABG Total CO2 39 H (19-24) mmol/L ABG O2 Saturation (94-97) % Sodium 135 L (137-145) mmol/L Carbon Dioxide 34 H (22-30) mmol/L BUN 68 H (9-20) mg/dL Creatinine 1.42 H (0.66-1.25) mg/dL Glucose 189 H (74-99) mg/dL POC Glucose (mg/dL) 180 H (75-99) mg/dL Lactate Dehydrogenase 2169 H (313-618) U/L Microbiology - Last 24 Hours (Table) 03/07/21 09:54 Blood Culture - Preliminary Blood No Growth after 96 hours 03/07/21 10:00 Blood Culture - Preliminary Blood No Growth after 96 hours Assessment and Plan Assessment: Acute hypoxemic respiratory failure secondary to COVID 19 pneumonia/pneumonitis, with worsening oxygenation, which required intubation and mechanical ventilation on March 06, 2021. Morbid obesity, with a BMI of 43.8. Rule out obstructive sleep apnea syndrome. Elevated inflammatory markers secondary to coronavirus infection. Methicillin sensitive staph aureus tracheobronchitis/bronchopneumonia, currently on Zosyn. Prerenal azotemia. Plan: Plan dated 03/04/2021. The patient did receive TOCI on March 02. Because of the worsening oxygenation, the patient we placed on BiPAP with settings of IPAP 15, EPAP 5, and 100%. In addition, because of the increase acutely of the d-dimer, the Lovenox dose was increased to 60 mg subcu twice a day. Additional recommendations and suggestions are forthcoming. We'll have to watch the patient closely. He may need transfer to the intensive care unit if he does not improve. We will continue to follow closely. The patient will continue on the typical vitamins, Decadron, and Lovenox. Plan dated 03/11/2021. Currently, the patient is not making much progress. He remains on FiO2 of 85% PEEP of 18. We will attempt a daily interruption of sedation although, he will not be able to tolerate a spontaneous breathing trial at this point. Additional recommendations and suggestions are forthcoming. The patient did receive TOCI on March 02. Additional recommendations and suggestions are forthcoming. Prognosis is guarded. We'll continue to follow make recommendations where appropriate. Plan dated 03/12/2021. The patient's D5 W IV with 3 ampules of sodium bicarbonate, running at 50 mL an hour, will be discontinued. In addition, the patient's D5W IV, running at 100 mL an hour will also be discontinued. The patient will remain on Nimbex, propofol, and fentanyl. Looking at the patient's I's and O's, the patient is way ahead on fluids, and we will initiate Lasix at 40 mg IV push every 8 hours. Additional recommendations and suggestions are forthcoming. Prognosis is guarded. It appears that he's up by about 14-15 kg in weight. We will continue to follow and make recommendations where necessary. Time with Patient: Greater than 30
[2021-03-12 11:40] LABS: Glucose,Whole Blood 160 mg/dL (75-99)
--- NOTE | 2021-03-12 16:23 | P.PN ---
Subjective Acute hypoxic failure secondary to acute COVID-19 pneumonia Mr. Mcclure is a 45 year old male with the PMH of M obesity admitted for COVDI Pneumonia. Intiallly, patient was on nonrebreather he had around continue to desaturate. Patient was eventually intubated on 03/07/2021. On 03/09/2021 -patient was seen and examined at the bedside. He is in the ICU intubated and mechanically ventilated. No acute events reported by nursing staff overnight. He is sedated on propofol and fentanyl. Also on Nimbex and bicarb drips. He had a chest x-ray done this morning which showed persistent bilateral infiltrates, consistent with COVID-19 pneumonia. His inflammatory markers continue to be high. ABG done this morning showed pH of 7.3, PO2 of 71 and PCO2 of 67. Labs from this morning white count of 18.5, hemoglobin 13.8, platelets 178. Sodium 147, potassium 4.4, chloride 108, bicarb 34, BUN 50, creatinine 1.73, albumin 3.1. On 03/10/2021 patient was seen and examined in the ICU. He is intubated and mechanically ventilated. He is on fentanyl and Nimbex and bicarb drips. ABGs done this morning showing pH 7.36, PO2 62, P CO2 52. Patient had a chest x-ray done this morning showing pneumonia, CHF versus ARDS. On reviewing his vitals temperature 97.7 heart rate 80, blood pressure 144 x 81. On reviewing the labs white count of 18.5, hemoglobin 12 point sodium 141, potassium 4.3, chloride 103, bicarb 35, BUN 16, creatinine 1.68. On 03/11/2021 patient was seen and examined at the ICU. He is intubated and mechanically ventilated. No acute events reported by nursing staff. Patient had ABG done this morning showing pH of 7.31, PCO2 72, PO2 51 on 85% FiO2 on mechanical ventilation. Reviewing the vitals temperature of 97.8, heart rate 92, blood pressure 173 x 87. Reviewing the labs white count of 20.5, hemoglobin 12.4 platelets 174. Sodium 142, potassium 4.1, chloride 100, bicarb 37, BUN 64, creatinine 1.51. 03/12/2021 Patient remains on ventilatory support on the volume control/assist-control ventilation set up respiratory 38 at a volume of 450 FiO2 for 100% PEEP of 20 blood gases are fairly doing well. Patient is presently on propofol as well as Nimbex along with fentanyl. Patient's IV fluids were discontinued. Review of systems: Unable to obtain due to his clinical condition All inpatient medications were reviewed and appropriate changes in these medications as dictated in the interval history and assessment and plan. Objective - Vital Signs Vital signs: Vital Signs Temp 97.7 F 03/12/21 08:00 Pulse 77 03/12/21 13:00 Resp 38 H 03/12/21 13:00 BP 148/79 03/12/21 13:00 Pulse Ox 92 L 03/12/21 13:00 Intake & Output 03/11/21 03/12/21 03/12/21 18:59 06:59 18:59 Intake Total 3395.015 3429.889 1183.948 Output Total 133 094 9986 Balance 2565.015 2519.889 -121.052 Weight 146.1 kg 147.644 kg 147.644 kg Intake: IV 2033 1800 420 .9 KVO 20 Dextrose 5% in Water 1, 1200 1200 200 000 ml @ 100 mls/hr IV . Q10H [facility] Rx#:[id number] Dextrose 5% in Water 1, 600 600 100 000 ml @ 50 mls/hr IV . Q23H [facility] with Sodium Bicarb (1 Meq/ml) 150 ml Rx#:[id number] Piperacillin-Tazobactam 3 200 100 .375 gm In Sodium Chloride 0.9% 100 ml @ 25 mls/hr IVPB Q8HR [facility] Rx# :[id number] pressure bag 33 Intake, IV Titration 626.015 563.889 292.948 Amount Cisatracurium 200 mg In 155.727 263.889 Sodium Chloride 0.9% 180 ml @ 1 MCG/KG/MIN 7.986 mls/hr IV .Q24H [facility] Rx#: [id number] fentaNYL (PF). 1,000 mcg 175.249 100 92.948 In Sodium Chloride 0.9% 80 ml @ Per Protocol IV . Q0M [facility] Rx#:[id number] propofoL 1,000 mg In 295.039 200.000 200 Empty Bag 1 bag @ Titrate IV .Q0M [facility] Rx#: [id number] Oral 100 100 Tube Feeding 636 636 371 Other 430 Output: Urine 339 653 6695 Other: Voiding Method Indwelling Catheter Indwelling Catheter Indwelling Catheter ABP, PAP, CO, CI - Last Documented Arterial Blood Pressure 147/74 - Exam GENERAL: The patient is intubated and sedated and mechanically ventilated HEENT: Pupils are round and equally reacting to light. EOMI. No scleral icterus. No conjunctival pallor. Orogastric tube in place. CARDIOVASCULAR: S1 and S2 present. -PULMONARY: bilateral ronchi and crepitation at the bases ABDOMEN: Soft, nontender, nondistended, normoactive bowel sounds. MUSCULOSKELETAL: No joint swelling or deformity. EXTREMITIES: No cyanosis, clubbing, mild pedal edema. NEUROLOGICAL: intubated and sedated. SKIN: No rashes. no petechiae. Note: Because of [place] [address] isolation, some of the history and physical exam findings are indirect and obtained from nursing staff, and other physician examinations to avoid unnecessary contact with the patient. - Labs CBC & Chem 7: 03/12/21 03:30 03/12/21 03:30 Labs: Abnormal Lab Results - Last 24 Hours (Table) 03/11/21 03/11/21 03/11/21 Range/Units 04:08 18:02 23:50 WBC (3.8-10.6) k/uL RBC (4.30-5.90) m/uL Neutrophils # (1.3-7.7) k/uL Lymphocytes # (1.0-4.8) k/uL D-Dimer (<0.60) mg/L FEU ABG pH 7.31 L (7.35-7.45) ABG pCO2 72 H* (35-45) mmHg ABG pO2 51 L* (83-108) mmHg ABG HCO3 36 H (21-25) mmol/L ABG Total CO2 38 H (19-24) mmol/L ABG O2 Saturation 83.5 L (94-97) % Sodium (137-145) mmol/L Carbon Dioxide (22-30) mmol/L BUN (9-20) mg/dL Creatinine (0.66-1.25) mg/dL Glucose (74-99) mg/dL POC Glucose (mg/dL) 189 H 176 H (75-99) mg/dL Lactate Dehydrogenase (313-618) U/L 03/12/21 03/12/21 03/12/21 Range/Units 03:30 03:30 03:30 WBC 22.0 H (3.8-10.6) k/uL RBC 4.17 L (4.30-5.90) m/uL Neutrophils # 20.0 H (1.3-7.7) k/uL Lymphocytes # 0.6 L (1.0-4.8) k/uL D-Dimer 8.03 H (<0.60) mg/L FEU ABG pH (7.35-7.45) ABG pCO2 (35-45) mmHg ABG pO2 (83-108) mmHg ABG HCO3 (21-25) mmol/L ABG Total CO2 (19-24) mmol/L ABG O2 Saturation (94-97) % Sodium 135 L (137-145) mmol/L Carbon Dioxide 34 H (22-30) mmol/L BUN 68 H (9-20) mg/dL Creatinine 1.42 H (0.66-1.25) mg/dL Glucose 189 H (74-99) mg/dL POC Glucose (mg/dL) (75-99) mg/dL Lactate Dehydrogenase 2169 H (313-618) U/L 03/12/21 03/12/21 03/12/21 Range/Units 04:30 05:30 11:38 WBC (3.8-10.6) k/uL RBC (4.30-5.90) m/uL Neutrophils # (1.3-7.7) k/uL Lymphocytes # (1.0-4.8) k/uL D-Dimer (<0.60) mg/L FEU ABG pH 7.33 L (7.35-7.45) ABG pCO2 71 H* (35-45) mmHg ABG pO2 71 L (83-108) mmHg ABG HCO3 37 H (21-25) mmol/L ABG Total CO2 39 H (19-24) mmol/L ABG O2 Saturation (94-97) % Sodium (137-145) mmol/L Carbon Dioxide (22-30) mmol/L BUN (9-20) mg/dL Creatinine (0.66-1.25) mg/dL Glucose (74-99) mg/dL POC Glucose (mg/dL) 180 H 160 H (75-99) mg/dL Lactate Dehydrogenase (313-618) U/L Microbiology - Last 24 Hours (Table) 03/07/21 09:54 Blood Culture - Preliminary Blood No Growth after 120 hours 03/07/21 10:00 Blood Culture - Preliminary Blood No Growth after 120 hours Assessment and Plan Plan: ASSESSMENT -Acute hypoxic respiratory failure needing mechanical ventilation -Acute bilateral COVID 19 pneumonia. -Possible secondary bacterial pneumonia secondary to MSSA -Septic shock: Patient is presently not on pressors -Shock liver -Acute renal failure -Increased inflammatory markers -Increased d-dimer with negative legs DVT and patient is unstable to undergo CTA of the chest to rule out PE -Morbid obesity BMI 43.8 -Mild hepatitis likely due to COVID 19 -Increased inflammatory markers Plan: This is a 45 years old male who presents with Covid pneumonia and hypoxia. Continue with steroids, IV fluids, continue with vitamin C, vitamin D and zinc. Patient is presently on on Lovenox 70 mg twice daily because of highly elevated d-dimer. Patient sputum grew staph aureus, MSSA, and is presently on Zosyn. Labs and medication were reviewed.Monitor lytes and vitals. DVT and GI prophylaxis. Further recommendationsas per clinical course of the patient. Prognosis is extremely guarded with multiorgan dysfunction.
[2021-03-12 17:55] LABS: Glucose,Whole Blood 152 mg/dL (75-99)
[2021-03-13] MEDS: INSULIN ASPART (NovoLOG) 100 UNIT/ML VIAL SQ SCH ×4 (00:23→18:20)
[2021-03-13] MEDS: FUROSEMIDE 10 MG/ML 4 ML VIAL IV SCH ×3 (00:23→16:06)
[2021-03-13 00:33] LABS: Glucose,Whole Blood 143 mg/dL (75-99)
[2021-03-13] MEDS: fentaNYL (PF). 1,000 MCG in SODIUM CHLORIDE 0.9% 80 ML IV SCH ×4 (01:18→18:18)
[2021-03-13 04:33] LABS: HCT 34.8 % (39.0-53.0); HGB 11.8 gm/dL (13.0-17.5); MCH 32.1 pg (25.0-35.0); MCV 94.6 fL (80.0-100.0); Mean Platelet Volume 9.3; Platelet Count 198 k/uL (150-450); RBC 3.68 m/uL (4.30-5.90); RDW 13.7 % (11.5-15.5); WBC 20.9 k/uL (3.8-10.6)
[2021-03-13 04:51] LABS: C Reactive Protein 1.1 mg/dL (<1.0); Calcium 8.2 mg/dL (8.4-10.2); Potassium 4.5 mmol/L (3.5-5.1)
[2021-03-13 05:40] LABS: ABG Base Excess 13.5 mmol/L; ABG HCO3 39 mmol/L (21-25); ABG Oxygen Saturation 97.4 % (94-97); ABG PCO2 66 mmHg (35-45); ABG PH 7.38 (7.35-7.45); ABG PO2 98 mmHg (83-108); ABG TCO2 41 mmol/L (19-24)
[2021-03-13 05:42] LABS: Allen Test Performed? YES
[2021-03-13 06:07] LABS: Glucose,Whole Blood 150 mg/dL (75-99)
[2021-03-13] MEDS: CISATRACURIUM 200 MG in SODIUM CHLORIDE 0.9% 180 ML IV SCH ×2 (06:14→20:20)
[2021-03-13] MEDS: PIPERACILLIN-TAZOBACTAM 3.375 GM in SODIUM CHLORIDE 0.9% 100 ML IVPB SCH ×2 (08:04→16:05)
[2021-03-13] MEDS: ZINC SULFATE 220 MG CAP PO SCH (08:05)
[2021-03-13] MEDS: CHOLECALCIFEROL 25 MCG (1000 IU) TABLET PO SCH (08:05)
[2021-03-13] MEDS: FAMOTIDINE 20 MG TAB PO SCH (08:05)
[2021-03-13] MEDS: DEXAMETHASONE SOD PHOSPHATE 10 MG/ML 1 ML VIAL IV SCH ×2 (08:05→21:15)
[2021-03-13] MEDS: ASCORBIC ACID 500 MG TAB PO SCH ×2 (08:06→21:14)
[2021-03-13] MEDS: ENOXAPARIN 80 MG/0.8 ML SYRINGE SQ SCH ×2 (08:06→21:15)
[2021-03-13] MEDS: CHLORHEXIDINE GLUCONATE 15 ML CUP MUCOUS MEM SCH ×2 (08:06→21:15)
--- NOTE | 2021-03-13 08:48 | XR ---
EXAMINATION TYPE: XR chest 1V portable DATE OF EXAM: 03/13/2021 COMPARISON: 03/12/2021 HISTORY: Tube placement TECHNIQUE: Single frontal view of the chest is obtained. FINDINGS: ET and NG tube noted is a left-sided PICC line. Diffuse interstitial pattern with bilatera l infiltrate and small interval reduction in amount of pleural effusion. Heart is stable in size. IMPRESSION: 1. Diffuse interstitial pattern is stable numerous bilateral infiltrate and small effusion with mild improvement on the right.
[2021-03-13] MEDS: ALBUTEROL HFA INHALER INHALATION SCH ×4 (09:33→20:00)
[2021-03-13] MEDS: SYMBICORT 160-4.5 MCG INHALER INHALATION SCH ×2 (09:33→20:00)
--- NOTE | 2021-03-13 09:52 | P.PN ---
Subjective Progress Note Date: 03/13/21 Principal diagnosis: Acute hypoxemic respiratory failure. Progress note dated 03/04/2021. 45-year-old male who was admitted with a diagnosis of acute hypoxemic respiratory failure secondary to COVID 19 pneumonitis/pneumonia. When I saw the patient initially, he was on a nonrebreather, as well as 15 L high flow nasal O2. He was getting saline at 75 mL an hour. His d-dimer had increased, and so we increase his Lovenox up to 60 mg twice a day. He did receive TOCI on March 02. He got up to use the bedside commode, and his saturations dropped into the mid 70 range. I did ask respiratory to place him on BiPAP with settings of IPAP 15, EPAP 5, and 100% FiO2. We will evaluate him again in a few hours or so. Lab data today includes a d-dimer of greater than 34.10, sodium 145, potassium 4.1, chlorides 109, CO2 29, anion gap 7, BUN 25, and creatinine 0.69. LDH is 1471. C-reactive protein is 2.6. Chest x-ray from today, shows diffuse bilateral infiltrates. Progress note dated 03/11/2021. 45-year-old male, that I saw last on March 04. We see the note above. Unfortunately, the patient developed worsening respiratory failure, requiring intubation on March 06, secondary to worsening hypoxemia and COVID 19 pneumonia. The patient was initially admitted on March 01. The patient is seen in the intensive care unit today in room 256. He remains on the ventilator, volume assist control mode, rate 38, tidal volume 450, FiO2 85%, PEEP of 18. Blood gases show a PaO2 of 70, PaCO2 of 66, and a pH is 7.34. The patient's currently on Nimbex at 2 mcg/kg/m, fall at 30 mcg/kg/m, fentanyl at 1 mcg/kg/h, and D5 W, with 3 A of sodium bicarbonate 50 mL an hour. The patient's also getting vital high protein at 53 mL an hour, which is goal. Finally, the patient's also on D5W at 100 mL an hour. White count 20.5, hemoglobin 12.4, hematocrit 37.5, and platelet count 174,000. D-dimer is 14.81. Sodium 142, potassium 4.1, chlorides 100, CO2 37, anion gap 5, BUN 64, and creatinine 1.51. LDH is 1732 and C- reactive protein is 0.8. Chest x-ray is essentially unchanged, and consistent with acute respiratory distress syndrome, and diffuse bilateral infiltrates. Progress note dated 03/12/2021. 45-year-old male, who is again seen, in room 256. The patient required intubation for acute respiratory failure on March 06. The patient was admitted with a diagnosis of acute hypoxemic respiratory failure secondary to COVID 19 pneumonia. Currently, the patient remains on the volume assist control mode, rate 38, tidal volume 450, FiO2 100%, and PEEP of 20. The patients blood gas shows a PaO2 of 71, pCO2 of 71, and pH is 7.32. The patient's currently on Nimb ex at 1.25 mcg/kg/m, propofol at 40 mics per kilogram per minute, and fentanyl 1 mcg/kg/h. He is on D5W with 3 ampules of sodium bicarbonate at 50 mL an hour, and D5 W1 100 mL an hour. The patient's also getting vital high protein at 53 mL an hour, which is goal. The patient's weight ahead on fluids, and will get Lasix 40 mg IVP, every 8 hours. White count 22, hemoglobin 13.3, hematocrit 39.7, platelet count 195,000. D-dimer is 8.03. Sodium 135, potassium 4.5, chlorides 98, CO2 34, anion gap 3, BUN 68, creatinine 1.42. LDH is 2169. C- reactive protein is 0.8. Chest x-ray shows stable diffuse bilateral infiltrates. Progress note dated 03/13/2021. 45-year-old male, again seen in room 256. The patient was intubated for acute respiratory failure on March 06. He really has made no significant headway towards weaning and extubation. Currently, he's on the volume assist control mode, rate 38, tidal volume 450, FiO2 100%, and PEEP of 20. The patient's blood gases show pO2 of 98, pCO2 66, pH 7.38. We will drop the FiO2 from 100-90%. Currently, the patient's on Nimbex at 2 mcg/kg/m, we'll follow at 40 mcg/kg/m, fentanyl at 1.5 mcg/kg/h, and vital high protein at 47 mL an hour, which is goal. Chest x-ray continues to show extensive bilateral infiltrates. White count 20.9, hemoglobin 11.8, hematocrit 34.8, platelet count 191,000. D-dimer is 5.15. Sodium 137, potassium 4.5, chlorides 96, CO2 36, anion gap 5, BUN 75, and creatinine 1.53. LDH is 1660. C-reactive protein 1.1. Objective - Vital Signs Vital signs: Vital Signs Temp 97.7 F 03/13/21 04:00 Pulse 82 03/13/21 07:00 Resp 38 H 03/13/21 07:00 BP 103/62 03/13/21 07:00 Pulse Ox 95 03/13/21 07:00 Intake & Output 03/12/21 03/13/21 03/13/21 18:59 06:59 18:59 Intake Total 3759.871 7009.000 Output Total 2040 1465 Balance -146.244 519.000 Weight 147.644 kg 149.3 kg Intake: IV 570 120 .9 KVO 70 120 Dextrose 5% in Water 1, 200 000 ml @ 100 mls/hr IV . Q10H [facility] Rx#:[id number] Dextrose 5% in Water 1, 100 000 ml @ 50 mls/hr IV . Q23H [facility] with Sodium Bicarb (1 Meq/ml) 150 ml Rx#:[id number] Piperacillin-Tazobactam 3 200 .375 gm In Sodium Chloride 0.9% 100 ml @ 25 mls/hr IVPB Q8HR [facility] Rx# :[id number] Intake, IV Titration 605.756 700.000 Amount Cisatracurium 200 mg In 112.808 200.000 Sodium Chloride 0.9% 180 ml @ 1 MCG/KG/MIN 7.986 mls/hr IV .Q24H [facility] Rx#: [id number] fentaNYL (PF). 1,000 mcg 192.948 200 In Sodium Chloride 0.9% 80 ml @ Per Protocol IV . Q0M [facility] Rx#:[id number] propofoL 1,000 mg In 300 300 Empty Bag 1 bag @ Titrate IV .Q0M [facility] Rx#: [id number] Oral 100 Tube Feeding 618 564 Other 600 Output: Urine 2040 1465 Other: Voiding Method Indwelling Catheter Indwelling Catheter ABP, PAP, CO, CI - Last Documented Arterial Blood Pressure 147/74 - Exam Currently sedated and paralyzed, with an orally placed endotracheal tube and NG tube. Saturations are 95%. HEENT examination is grossly unremarkable. Neck supple. Full range of motion. No adenopathy thyromegaly or neck vein distention. Cardiovascular examination reveals regular rhythm rate. S1-S2 normal. No S3 or S4. No discernible murmur noted. Heart sounds are distant. Heart rate 82 bpm. Lungs reveal bilateral coarse rhonchi and crackles. Breath sounds equal bilaterally but diminished throughout. No wheezes. Abdomen soft bowel sounds are heard. No masses or tenderness. Extremities are intact. No cyanosis clubbing or edema. Skin is without rash or lesion. Neurologic examination cannot be properly assessed, as the patient is sedated and paralyzed. - Labs CBC & Chem 7: 03/13/21 03:58 03/13/21 03:58 Labs: Abnormal Lab Results - Last 24 Hours (Table) 03/12/21 03/12/21 03/13/21 Range/Units 11:38 17:43 00:20 WBC (3.8-10.6) k/uL RBC (4.30-5.90) m/uL Hgb (13.0-17.5) gm/dL Hct (39.0-53.0) % D-Dimer (<0.60) mg/L FEU ABG pCO2 (35-45) mmHg ABG HCO3 (21-25) mmol/L ABG Total CO2 (19-24) mmol/L ABG O2 Saturation (94-97) % Chloride (98-107) mmol/L Carbon Dioxide (22-30) mmol/L BUN (9-20) mg/dL Creatinine (0.66-1.25) mg/dL Glucose (74-99) mg/dL POC Glucose (mg/dL) 160 H 152 H 143 H (75-99) mg/dL Calcium (8.4-10.2) mg/dL Lactate Dehydrogenase (313-618) U/L C-Reactive Protein (<1.0) mg/dL 03/13/21 03/13/21 03/13/21 Range/Units 03:58 03:58 03:58 WBC 20.9 H (3.8-10.6) k/uL RBC 3.68 L (4.30-5.90) m/uL Hgb 11.8 L (13.0-17.5) gm/dL Hct 34.8 L (39.0-53.0) % D-Dimer 5.15 H (<0.60) mg/L FEU ABG pCO2 (35-45) mmHg ABG HCO3 (21-25) mmol/L ABG Total CO2 (19-24) mmol/L ABG O2 Saturation (94-97) % Chloride 96 L (98-107) mmol/L Carbon Dioxide 36 H (22-30) mmol/L BUN 75 H (9-20) mg/dL Creatinine 1.53 H (0.66-1.25) mg/dL Glucose 155 H (74-99) mg/dL POC Glucose (mg/dL) (75-99) mg/dL Calcium 8.2 L (8.4-10.2) mg/dL Lactate Dehydrogenase 1660 H (313-618) U/L C-Reactive Protein 1.1 H (<1.0) mg/dL 03/13/21 03/13/21 Range/Units 05:28 05:55 WBC (3.8-10.6) k/uL RBC (4.30-5.90) m/uL Hgb (13.0-17.5) gm/dL Hct (39.0-53.0) % D-Dimer (<0.60) mg/L FEU ABG pCO2 66 H (35-45) mmHg ABG HCO3 39 H (21-25) mmol/L ABG Total CO2 41 H (19-24) mmol/L ABG O2 Saturation 97.4 H (94-97) % Chloride (98-107) mmol/L Carbon Dioxide (22-30) mmol/L BUN (9-20) mg/dL Creatinine (0.66-1.25) mg/dL Glucose (74-99) mg/dL POC Glucose (mg/dL) 150 H (75-99) mg/dL Calcium (8.4-10.2) mg/dL Lactate Dehydrogenase (313-618) U/L C-Reactive Protein (<1.0) mg/dL Microbiology - Last 24 Hours (Table) 03/07/21 09:54 Blood Culture - Preliminary Blood No Growth after 120 hours 03/07/21 10:00 Blood Culture - Preliminary Blood No Growth after 120 hours Assessment and Plan Assessment: Acute hypoxemic respiratory failure secondary to COVID 19 pneumonia/pneumonitis, with worsening oxygenation, which required intubation and mechanical ventilation on March 06, 2021. Failure to progress on mechanical ventilation, with anticipation of tracheostomy/PEG tube placement. Morbid obesity, with a BMI of 43.8. Rule out obstructive sleep apnea syndrome. Elevated inflammatory markers secondary to coronavirus infection. Methicillin sensitive staph aureus tracheobronchitis/bronchopneumonia, currently on Zosyn. Prerenal azotemia. Plan: Plan dated 03/04/2021. The patient did receive TOCI on March 02. Because of the worsening oxygenation, the patient we placed on BiPAP with settings of IPAP 15, EPAP 5, and 100%. In addition, because of the increase acutely of the d-dimer, the Lovenox dose was increased to 60 mg subcu twice a day. Additional recommendations and suggestions are forthcoming. We'll have to watch the patient closely. He may need transfer to the intensive care unit if he does not improve. We will continue to follow closely. The patient will continue on the typical vitamins, Decadron, and Lovenox. Plan dated 03/11/2021. Currently, the patient is not making much progress. He remains on FiO2 of 85% PEEP of 18. We will attempt a daily interruption of sedation although, he will not be able to tolerate a spontaneous breathing trial at this point. Additional recommendations and suggestions are forthcoming. The patient did receive TOCI on March 02. Additional recommendations and suggestions are forthcoming. Prognosis is guarded. We'll continue to follow make recommendations where appropriate. Plan dated 03/12/2021. The patient's D5 W IV with 3 ampules of sodium bicarbonate, running at 50 mL an hour, will be discontinued. In addition, the patient's D5W IV, running at 100 mL an hour will also be discontinued. The patient will remain on Nimbex, propofol, and fentanyl. Looking at the patient's I's and O's, the patient is way ahead on fluids, and we will initiate Lasix at 40 mg IV push every 8 hours. Additional recommendations and suggestions are forthcoming. Prognosis is guarded. It appears that he's up by about 14-15 kg in weight. We will continue to follow and make recommendations where necessary. Plan dated 03/13/2021. Currently, the patient's doing about the same as he was yesterday. We might be able to add to the FiO2 down a bit. I forcefully, and my opinion, the patient will end up requiring tracheostomy tube insertion and PEG tube placement. The patient remains on Nimbex, propofol, fentanyl. He is receiving nutrition at goal. Blood gases show a PaO2 of 98, pCO2 66, and a pH of 7.38. Additional recommendations and suggestions are forthcoming. All medications are reviewed. Time with Patient: Greater than 30
--- NOTE | 2021-03-13 11:47 | P.GSCN ---
History of Present Illness Consult date: 03/13/21 History of present illness: CHIEF COMPLAINT: COVID-19 pneumonia HISTORY OF PRESENT ILLNESS: This is a 45-year-old male with no significant past medical history. He had fever shortness of breath and cough. He was diagnosed with COVID-19. He was admitted to the hospital on 03/02/2021. His oxygen saturation continued to decline and he required to be intubated on 03/06/2021. Patient is currently in the ICU and on mechanical ventilation and sedated. He is requiring a high-level PEEP at 20. Surgical service has been consulted for tracheostomy and PEG tube placement. PAST MEDICAL HISTORY: See list. PAST SURGICAL HISTORY: See list. MEDICATIONS: See list. ALLERGIES: See list. SOCIAL HISTORY: No illicit drug use. REVIEW OF SYSTEMS: Unable to obtain patient is intubated and sedated PHYSICAL EXAM: VITAL SIGNS: Reviewed GENERAL: Well-developed in no acute distress. HEENT: No sclera icterus. Extraocular movements grossly intact. Moist buccal mucosa. Head is atraumatic, normocephalic. No nasal drainage. ABDOMEN: Soft. Nondistended. Nontender NEUROLOGIC: Intubated and sedated LABORATORY DATA: WBC 20.9 hemoglobin 11.8 platelets 198 creatinine 1.53 IMAGING: ASSESSMENT: 1. Acute hypoxic respiratory failure secondary to COVID-19 pneumonia with prolonged mechanical ventilation 2. Moderate protein calorie malnutrition PLAN: -Patient scheduled for tracheostomy and PEG tube placement today, 03/13/[address] Rico -Placed to feedings on hold Thank you for this consultation Physician Outreach Assistant note has been reviewed by physician. Signing provider agrees with the documented findings, assessment, and plan of care. Past Medical History Past Medical History: No Reported History History of Any Multi-Drug Resistant Organisms: None Reported Past Surgical History: No Surgical Hx Reported Additional Past Surgical History / Comment(s): left arm ORIF for fracture and adenoidectomy Past Psychological History: No Psychological Hx Reported Smoking Status: Never smoker Past Alcohol Use History: None Reported Past Drug Use History: None Reported Medications and Allergies Home Medications Medication Instructions Recorded Confirmed Type Ibuprofen [Advil] 600 mg PO Q8HR PRN 03/01/21 03/01/21 History Multivitamins, Thera [Multivitamin 1 tab PO DAILY 03/01/21 03/01/21 History (formulary)] guaiFENesin [Mucinex] 1,200 mg PO Q12H PRN 03/01/21 03/01/21 History Allergies Allergy/AdvReac Type Severity Reaction Status Date / Time No Known Allergies Allergy Unverified 03/01/21 11:58 Surgical - Exam Vital Signs Temp Pulse Resp BP Pulse Ox 98.4 F 105 H 26 H 150/83 70 L 03/01/21 10:28 03/01/21 10:28 03/01/21 10:28 03/01/21 10:28 03/01/21 10:28 Results - Labs 03/13/21 03:58 03/13/21 03:58 Abnormal Lab Results - Last 24 Hours (Table) 03/12/21 03/13/21 03/13/21 Range/Units 17:43 00:20 03:58 WBC 20.9 H (3.8-10.6) k/uL RBC 3.68 L (4.30-5.90) m/uL Hgb 11.8 L (13.0-17.5) gm/dL Hct 34.8 L (39.0-53.0) % D-Dimer (<0.60) mg/L FEU ABG pCO2 (35-45) mmHg ABG HCO3 (21-25) mmol/L ABG Total CO2 (19-24) mmol/L ABG O2 Saturation (94-97) % Chloride (98-107) mmol/L Carbon Dioxide (22-30) mmol/L BUN (9-20) mg/dL Creatinine (0.66-1.25) mg/dL Glucose (74-99) mg/dL POC Glucose (mg/dL) 152 H 143 H (75-99) mg/dL Calcium (8.4-10.2) mg/dL Lactate Dehydrogenase (313-618) U/L C-Reactive Protein (<1.0) mg/dL 03/13/21 03/13/21 03/13/21 Range/Units 03:58 03:58 05:28 WBC (3.8-10.6) k/uL RBC (4.30-5.90) m/uL Hgb (13.0-17.5) gm/dL Hct (39.0-53.0) % D-Dimer 5.15 H (<0.60) mg/L FEU ABG pCO2 66 H (35-45) mmHg ABG HCO3 39 H (21-25) mmol/L ABG Total CO2 41 H (19-24) mmol/L ABG O2 Saturation 97.4 H (94-97) % Chloride 96 L (98-107) mmol/L Carbon Dioxide 36 H (22-30) mmol/L BUN 75 H (9-20) mg/dL Creatinine 1.53 H (0.66-1.25) mg/dL Glucose 155 H (74-99) mg/dL POC Glucose (mg/dL) (75-99) mg/dL Calcium 8.2 L (8.4-10.2) mg/dL Lactate Dehydrogenase 1660 H (313-618) U/L C-Reactive Protein 1.1 H (<1.0) mg/dL 03/13/21 Range/Units 05:55 WBC (3.8-10.6) k/uL RBC (4.30-5.90) m/uL Hgb (13.0-17.5) gm/dL Hct (39.0-53.0) % D-Dimer (<0.60) mg/L FEU ABG pCO2 (35-45) mmHg ABG HCO3 (21-25) mmol/L ABG Total CO2 (19-24) mmol/L ABG O2 Saturation (94-97) % Chloride (98-107) mmol/L Carbon Dioxide (22-30) mmol/L BUN (9-20) mg/dL Creatinine (0.66-1.25) mg/dL Glucose (74-99) mg/dL POC Glucose (mg/dL) 150 H (75-99) mg/dL Calcium (8.4-10.2) mg/dL Lactate Dehydrogenase (313-618) U/L C-Reactive Protein (<1.0) mg/dL Microbiology - Last 24 Hours (Table) 03/07/21 09:54 Blood Culture - Preliminary Blood No Growth after 120 hours 03/07/21 10:00 Blood Culture - Preliminary Blood No Growth after 120 hours Diabetes panel 03/13/21 Range/Units 03:58 Sodium 137 (137-145) mmol/L Potassium 4.5 (3.5-5.1) mmol/L Chloride 96 L (98-107) mmol/L Carbon Dioxide 36 H (22-30) mmol/L BUN 75 H (9-20) mg/dL Creatinine 1.53 H (0.66-1.25) mg/dL Glucose 155 H (74-99) mg/dL Calcium 8.2 L (8.4-10.2) mg/dL Calcium panel 03/13/21 Range/Units 03:58 Calcium 8.2 L (8.4-10.2) mg/dL Pituitary panel 03/13/21 Range/Units 03:58 Sodium 137 (137-145) mmol/L Potassium 4.5 (3.5-5.1) mmol/L Chloride 96 L (98-107) mmol/L Carbon Dioxide 36 H (22-30) mmol/L BUN 75 H (9-20) mg/dL Creatinine 1.53 H (0.66-1.25) mg/dL Glucose 155 H (74-99) mg/dL Calcium 8.2 L (8.4-10.2) mg/dL Adrenal panel 03/13/21 Range/Units 03:58 Sodium 137 (137-145) mmol/L Potassium 4.5 (3.5-5.1) mmol/L Chloride 96 L (98-107) mmol/L Carbon Dioxide 36 H (22-30) mmol/L BUN 75 H (9-20) mg/dL Creatinine 1.53 H (0.66-1.25) mg/dL Glucose 155 H (74-99) mg/dL Calcium 8.2 L (8.4-10.2) mg/dL
[2021-03-13 12:04] LABS: Glucose,Whole Blood 178 mg/dL (75-99)
[2021-03-13] MEDS ORDERED: MIDAZOLAM 2 MG/2 ML VIAL ONE (15:02)
--- NOTE | 2021-03-13 16:03 | P.OP ---
Date of Procedure: 03/13/21 Anesthesia: GETA Pathology: none sent Condition: stable Disposition: ICU Description of Procedure: The patient's placed on the operative table in the supine position. He received general anesthesia. His neck was prepped and draped in sterile fashion. A standard [place] incision was made. And then using ultrasound and subcu tissues were divided. The strap muscles were divided in the midline. The Freire traction placed a wound. The thyroid gland was visualized. The trachea was then visualized. The OPTIONS ADVISOR placed the endotracheal tube into the right mainstem bronchus. The tracheotomy performed and second tracheal rings. The endotracheal tube was brought back under direct vision the #7 Prolene adjustable cough tracheotomy tube was placed into the trachea. The balloon was inflated. End tidal CO2 was confirmed. The patient developed. The retraction withdrawn. The skin was closed interrupted 3-0 nylon suture. Next the gastroscope oropharynx is esophagus and stomach. The stomach was insu fflated air. Suitable light reflux was seen. The stay sutures were then placed under direct visualization into the stomach. 4 stay sutures were placed. Next a skin incision was made 11 blade. The needles placed and stomach under direct visualization. And then the wire was placed into the stomach. The dilator sheath placed over top the wire. And then the AMNA tube was placed through the dilator sheath into the stomach. The dilator sheath was removed. And then the wound was inspected for the AMNA tube with 5 mL of saline. The bolster was positioned appropriately position. Patient top she will was sent to ICU in stable condition.
[2021-03-13 18:17] LABS: Glucose,Whole Blood 132 mg/dL (75-99)
--- NOTE | 2021-03-13 18:54 | P.PN ---
Progress Note - Text Progress Note Date: 03/13/21 Chief Complaint: Shortness of breath History of presenting complaint: This is a pleasant 45-year-old patient of Dr. Dejesus. Patient was diagnosed with COVID 3 days ago. Symptoms started about 6 days ago. Patient had fever or chills some diarrhea. Some shortness of breath some cough. No loss of smell or taste. Decreased appetite tired rundown. Patient pulse ox on presentation was 70% and patient subsequently was put on 15 L high flow oxygen. Admitted with bilateral COVID 19 pneumonia. Acute hypoxic respiratory failure. Put on IV Decadron Lovenox, 15 L of high flow oxygen. Pulmonary status deteriorated. Transferred to the ICU. Intubated March 07. Today: ICU: On the ventilator with FiO2 100 and a PEEP of 20. Drips include Nimbex, propofol, fentanyl. 2 feeding has been held. Pending tracheostomy and a PEG tube placement later this afternoon Review of systems: Patient intubated Active Medications Acetaminophen (Acetaminophen Tab 325 Mg Tab) 650 mg PO Q6HR PRN PRN Reason: Mild Pain or Fever > 100.5 Last Admin: 03/02/21 09:01 Dose: 650 mg Documented by: Albuterol Sulfate (Albuterol Hfa Inhaler) 2 puff INHALATION RT-QID [facility] Last Admin: 03/13/21 16:36 Dose: 2 puff Documented by: Artificial Tears (Artificial Tears-Hypromellose Drops 15 Ml Btl) 2 drops BOTH EYES QID PRN PRN Reason: Dry Eye(s) Last Admin: 03/05/21 16:29 Dose: 2 drops Documented by: Ascorbic Acid (Ascorbic Acid 500 Mg Tab) 500 mg PO BID [facility] Last Admin: 03/13/21 08:06 Dose: 500 mg Documented by: Budesonide/Formoterol Fumarate (Symbicort 160-4.5 Mcg Inhaler) 2 puff INHALATION RT-BID [facility] Last Admin: 03/13/21 09:33 Dose: 2 puff Documented by: Chlorhexidine Gluconate (Chlorhexidine Gluconate 15 Ml Cup) 15 ml MUCOUS MEM BID [facility] Last Admin: 03/13/21 08:06 Dose: 15 ml Documented by: Cholecalciferol (Cholecalciferol 25 Mcg (1000 Iu) Tablet) 125 mcg PO DAILY [facility] Last Admin: 03/13/21 08:05 Dose: 125 mcg Documented by: Dexamethasone Sodium Phosphate (Dexamethasone Sod Phosphate 10 Mg/Ml 1 Ml Vial) 6 mg IV BID [facility] Last Admin: 03/13/21 08:05 Dose: 6 mg Documented by: Enoxaparin Sodium (Enoxaparin 80 Mg/0.8 Ml Syringe) 70 mg SQ Q12HR [facility] Last Admin: 03/13/21 08:06 Dose: 70 mg Documented by: Famotidine (Famotidine 20 Mg Tab) 40 mg PO DAILY [facility] Last Admin: 03/13/21 08:05 Dose: 40 mg Documented by: Furosemide (Furosemide 10 Mg/Ml 4 Ml Vial) 40 mg IV Q8HR [facility] Last Admin: 03/13/21 16:06 Dose: 40 mg Documented by: Cisatracurium Besylate 200 mg/ (Sodium Chloride) 200 mls @ 7.986 mls/hr IV .Q24H [facility]; Protocol Last Admin: 03/13/21 06:14 Dose: 2 mcg/kg/min, 15.972 mls/hr Documented by: Propofol 1,000 mg/ IV Solution 100 mls @ 0 mls/hr IV .Q0M [facility]; Protocol Last Admin: 03/13/21 18:19 Dose: 40 mcg/kg/min, 79.008 mls/hr Documented by: Fentanyl Citrate 1,000 mcg/ (Sodium Chloride) 100 mls @ 0 mls/hr IV .Q0M [facility]; Protocol Last Admin: 03/13/21 18:18 Dose: 1.5 mcg/kg/hr, 19.965 mls/hr Documented by: Piperacillin Sod/Tazobactam (Sod 3.375 gm/ Sodium Chloride) 100 mls @ 25 mls/hr IVPB Q8HR [facility] Last Admin: 03/13/21 16:05 Dose: 25 mls/hr Documented by: Insulin Aspart (Insulin Aspart (Novolog) 100 Unit/Ml Vial) 0 unit SQ Q6HR [facility]; Protocol Last Admin: 03/13/21 18:20 Dose: Not Given Documented by: Miscellaneous Information (Potassium Replacement Protocol 1 Each Misc) 1 each MISCELLANE DAILY PRN; Protocol PRN Reason: Per Protocol Morphine Sulfate (Morphine Sulfate 4 Mg/Ml Syringe) 4 mg IVP Q4HR PRN PRN Reason: Pain Last Admin: 03/06/21 12:08 Dose: 4 mg Documented by: Naloxone HCl (Naloxone 0.4 Mg/Ml 1 Ml Vial) 0.2 mg IV Q2M PRN PRN Reason: Opioid Reversal Ondansetron HCl (Ondansetron 4 Mg/2 Ml Vial) 4 mg IVP Q8HR PRN PRN Reason: Nausea And Vomiting Sodium Chloride (Sodium Chloride 0.9% Flush 10 Ml Syringe) 10 ml IV Q4HR PRN PRN Reason: PICC Line Sodium Chloride (Sodium Chloride 0.9% Flush 10 Ml Syringe) 10 ml IV WEEKLY [facility] Sodium Chloride (Sodium Chloride 0.9% Flush 10 Ml Syringe) 20 ml IV Q4HR PRN PRN Reason: PICC Line Zinc Sulfate (Zinc Sulfate 220 Mg Cap) 220 mg PO DAILY [facility] Last Admin: 03/13/21 08:05 Dose: 220 mg Documented by: Past medical history: Unremarkable 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 No history of smoking or alcohol Family history: Reviewed, noncontributory to presentation Physical examination: VITAL SIGNS: 97.8, 70, 38, 149 with 76, 90% on the ventilator GENERAL: , laying in bed, intubated LUNGS: Respiratory rate increased, PSYCH: Patient sedated NEUROLOGICAL: Cranial nerves grossly intact; no facial asymmetry, Rest of the exam per pulmonary nursing INVESTIGATIONS, reviewed in the clinical context: March 13: WBC 20.9 hemoglobin 11.8 platelets 198 potassium 4.5 creatinine 1.53 CRP 1.1 LDH 1660 d-dimer 5.15 March 04: D-dimer greater than 34 potassium 4.1 creatinine 0.69 LDH 1471 CRP 2.6 March 03: D-dimer 2.06 potassium 4.3 creatinine 0.84 2147 LDH 1419 CRP 5.2 D-dimer 0.82 potassium 4.5 creatinine 0.79 AST 65 ALT 51 LDH 1377 CRP 14.6 Admission labs: WBC 10.3 hemoglobin 16.3 platelets 234 lymphocytes 0.9 d-dimer 0.69 potassium 3.8 creatinine 0.74 LDH 1156 CRP 16 EKG tracing personally reviewed by me-normal sinus rhythm Chest x-ray film personally reviewed by me-/portable: Bilateral infiltrates Assessment and plan: -Acute bilateral: COVID 19 pneumonia. Symptoms started about 6 days prior to admission.-Not improving vitamin C vitamin D zinc IV Decadron and subcu Lovenox. -MSSA tracheal bronchitis/bronchopneumonia On Zosyn -Acute hypoxic respiratory failure from COVID 19 pneumonia-slow to respond Initially on high flow oxygen. Intubated March 07 -Morbid obesity BMI 43.8 Weight loss measures and follow with PCP for the same -Mild hepatitis likely due to COVID 19 Follow clinically -Hypernatremia from free water deficit from decreased oral intake-corrected IV fluids Pending tracheostomy and PEG tube placement by Dr. Rico this afternoon. Continue other medications. I did try to reach patient's but went into her voicemail
[2021-03-13 23:58] LABS: Glucose,Whole Blood 142 mg/dL (75-99)
[2021-03-14] MEDS: fentaNYL (PF). 1,000 MCG in SODIUM CHLORIDE 0.9% 80 ML IV SCH ×8 (00:06→23:41)
[2021-03-14] MEDS: INSULIN ASPART (NovoLOG) 100 UNIT/ML VIAL SQ SCH ×4 (00:23→18:24)
[2021-03-14] MEDS: FUROSEMIDE 10 MG/ML 4 ML VIAL IV SCH ×2 (00:23→09:11)
[2021-03-14] MEDS: PIPERACILLIN-TAZOBACTAM 3.375 GM in SODIUM CHLORIDE 0.9% 100 ML IVPB SCH ×2 (00:23→09:11)
[2021-03-14 05:24] LABS: ABG HCO3 39 mmol/L (21-25); ABG Oxygen Saturation 92.9 % (94-97); ABG PCO2 65 mmHg (35-45); ABG PH 7.39 (7.35-7.45); ABG PO2 68 mmHg (83-108); ABG TCO2 41 mmol/L (19-24); Allen Test Performed? Yes
[2021-03-14 05:53] LABS: Basophils % (A) 0 %; Eosinophils % (A) 0 %; HCT 36.9 % (39.0-53.0); HGB 11.9 gm/dL (13.0-17.5); Lymphocytes # (A) 0.5 k/uL (1.0-4.8); Lymphocytes % (A) 2 %; MCH 30.6 pg (25.0-35.0); MCHC 32.2 g/dL (31.0-37.0); MCV 95.1 fL (80.0-100.0); Mean Platelet Volume 9.3; Monocytes # (A) 0.9 k/uL (0-1.0); Monocytes % (A) 4 %; Neutrophils # (A) 21.2 k/uL (1.3-7.7); Neutrophils % (A) 93 %; Platelet Count 255 k/uL (150-450); RBC 3.89 m/uL (4.30-5.90); RDW 14.3 % (11.5-15.5); WBC 22.8 k/uL (3.8-10.6)
[2021-03-14 06:17] LABS: D-Dimer 5.09 mg/L FEU (<0.60)
[2021-03-14 06:20] LABS: Glucose,Whole Blood 132 mg/dL (75-99)
[2021-03-14 06:23] LABS: Potassium 4.4 mmol/L (3.5-5.1)
[2021-03-14 06:26] LABS: Albumin 2.9 g/dL (3.5-5.0); C Reactive Protein 2.7 mg/dL (<1.0); Calcium 8.6 mg/dL (8.4-10.2); Total Bilirubin 0.6 mg/dL (0.2-1.3); Total Protein 5.4 g/dL (6.3-8.2)
[2021-03-14] MEDS: SYMBICORT 160-4.5 MCG INHALER INHALATION SCH ×2 (07:50→19:41)
[2021-03-14] MEDS: ALBUTEROL HFA INHALER INHALATION SCH ×4 (07:50→19:41)
--- NOTE | 2021-03-14 08:51 | XR ---
EXAMINATION TYPE: XR chest 1V portable DATE OF EXAM: 03/14/2021 COMPARISON: Chest x-ray 03/13/2021 HISTORY: Tracheostomy tube placement TECHNIQUE: Single frontal view of the chest is obtained. FINDINGS: There is been interval removal of endotracheal tube, orogastric tube, placement of a trach eostomy tube with the tube overlying the tracheal air column. Left-sided PICC line is again noted, di stal tip over the superior vena cava. There is no evident pneumothorax or pleural effusion. Bilateral airspace disease persists. IMPRESSION: Interval tracheostomy tube placement. Correlate for pneumonia, edema, ARDS.
[2021-03-14] MEDS: ASCORBIC ACID 500 MG TAB PO SCH ×2 (09:03→21:09)
[2021-03-14] MEDS: DEXAMETHASONE SOD PHOSPHATE 10 MG/ML 1 ML VIAL IV SCH ×2 (09:10→21:09)
[2021-03-14] MEDS: CHLORHEXIDINE GLUCONATE 15 ML CUP MUCOUS MEM SCH ×2 (09:11→21:09)
[2021-03-14] MEDS: ENOXAPARIN 80 MG/0.8 ML SYRINGE SQ SCH ×2 (09:13→21:10)
[2021-03-14 09:30] LABS: Ferritin 563.3 ng/mL (22.0-322.0)
[2021-03-14] MEDS: CISATRACURIUM 200 MG in SODIUM CHLORIDE 0.9% 180 ML IV SCH ×2 (10:02→22:03)
--- NOTE | 2021-03-14 10:53 | P.PN ---
Subjective Progress Note Date: 03/14/21 Principal diagnosis: Acute hypoxemic respiratory failure. Progress note dated 03/04/2021. 45-year-old male who was admitted with a diagnosis of acute hypoxemic respiratory failure secondary to COVID 19 pneumonitis/pneumonia. When I saw the patient initially, he was on a nonrebreather, as well as 15 L high flow nasal O2. He was getting saline at 75 mL an hour. His d-dimer had increased, and so we increase his Lovenox up to 60 mg twice a day. He did receive TOCI on March 02. He got up to use the bedside commode, and his saturations dropped into the mid 70 range. I did ask respiratory to place him on BiPAP with settings of IPAP 15, EPAP 5, and 100% FiO2. We will evaluate him again in a few hours or so. Lab data today includes a d-dimer of greater than 34.10, sodium 145, potassium 4.1, chlorides 109, CO2 29, anion gap 7, BUN 25, and creatinine 0.69. LDH is 1471. C-reactive protein is 2.6. Chest x-ray from today, shows diffuse bilateral infiltrates. Progress note dated 03/11/2021. 45-year-old male, that I saw last on March 04. We see the note above. Unfortunately, the patient developed worsening respiratory failure, requiring intubation on March 06, secondary to worsening hypoxemia and COVID 19 pneumonia. The patient was initially admitted on March 01. The patient is seen in the intensive care unit today in room 256. He remains on the ventilator, volume assist control mode, rate 38, tidal volume 450, FiO2 85%, PEEP of 18. Blood gases show a PaO2 of 70, PaCO2 of 66, and a pH is 7.34. The patient's currently on Nimbex at 2 mcg/kg/m, fall at 30 mcg/kg/m, fentanyl at 1 mcg/kg/h, and D5 W, with 3 A of sodium bicarbonate 50 mL an hour. The patient's also getting vital high protein at 53 mL an hour, which is goal. Finally, the patient's also on D5W at 100 mL an hour. White count 20.5, hemoglobin 12.4, hematocrit 37.5, and platelet count 174,000. D-dimer is 14.81. Sodium 142, potassium 4.1, chlorides 100, CO2 37, anion gap 5, BUN 64, and creatinine 1.51. LDH is 1732 and C- reactive protein is 0.8. Chest x-ray is essentially unchanged, and consistent with acute respiratory distress syndrome, and diffuse bilateral infiltrates. Progress note dated 03/12/2021. 45-year-old male, who is again seen, in room 256. The patient required intubation for acute respiratory failure on March 06. The patient was admitted with a diagnosis of acute hypoxemic respiratory failure secondary to COVID 19 pneumonia. Currently, the patient remains on the volume assist control mode, rate 38, tidal volume 450, FiO2 100%, and PEEP of 20. The patients blood gas shows a PaO2 of 71, pCO2 of 71, and pH is 7.32. The patient's currently on Nimb ex at 1.25 mcg/kg/m, propofol at 40 mics per kilogram per minute, and fentanyl 1 mcg/kg/h. He is on D5W with 3 ampules of sodium bicarbonate at 50 mL an hour, and D5 W1 100 mL an hour. The patient's also getting vital high protein at 53 mL an hour, which is goal. The patient's weight ahead on fluids, and will get Lasix 40 mg IVP, every 8 hours. White count 22, hemoglobin 13.3, hematocrit 39.7, platelet count 195,000. D-dimer is 8.03. Sodium 135, potassium 4.5, chlorides 98, CO2 34, anion gap 3, BUN 68, creatinine 1.42. LDH is 2169. C- reactive protein is 0.8. Chest x-ray shows stable diffuse bilateral infiltrates. Progress note dated 03/13/2021. 45-year-old male, again seen in room 256. The patient was intubated for acute respiratory failure on March 06. He really has made no significant headway towards weaning and extubation. Currently, he's on the volume assist control mode, rate 38, tidal volume 450, FiO2 100%, and PEEP of 20. The patient's blood gases show pO2 of 98, pCO2 66, pH 7.38. We will drop the FiO2 from 100-90%. Currently, the patient's on Nimbex at 2 mcg/kg/m, we'll follow at 40 mcg/kg/m, fentanyl at 1.5 mcg/kg/h, and vital high protein at 47 mL an hour, which is goal. Chest x-ray continues to show extensive bilateral infiltrates. White count 20.9, hemoglobin 11.8, hematocrit 34.8, platelet count 191,000. D-dimer is 5.15. Sodium 137, potassium 4.5, chlorides 96, CO2 36, anion gap 5, BUN 75, and creatinine 1.53. LDH is 1660. C-reactive protein 1.1. Progress note dated 03/14/2021. 45-year-old male, seen again in room 256. The patient was intubated for respiratory failure on March 06. The patient has been in the hospital now for 13 days. The patient underwent a tracheostomy and PEG tube placement on March 13. Currently, he is on the volume assist control mode, rate 38, tidal volume 450, FiO2 90%, and PEEP of 20. Blood gases show a PaO2 of 68, P CO2 of 65, and pH is 7.39. The patient remains on propofol at 50 g kilogram per minute, fentanyl at 2.5 mcg/kg/h, and Nimbex at 2 mcg/kg/m. The patient's also getting saline at 10 mL an hour. At the 24-hour ruthann, the patient will resume tube feeds. Chest x-ray shows bilateral infiltrates, which are stable, and removal of the endotracheal tube, and insertion of a tracheostomy tube. White count 22.8, hemoglobin 11.9, hematocrit 36.9, platelet count 255,000. D-dimer 5.09. Sodium 141, potassium 4.4, chlorides 97, CO2 37, anion gap 7, BUN 83, creatinine 1.73. C-reactive protein 2.7. Microbiology is positive for methicillin sensitive staph aureus, from a sputum, on March 06. Objective - Vital Signs Vital signs: Vital Signs Temp 98.6 F 03/14/21 08:00 Pulse 77 03/14/21 10:00 Resp 38 H 03/14/21 10:00 BP 112/70 03/14/21 10:00 Pulse Ox 93 L 03/14/21 10:00 Intake & Output 03/13/21 03/14/21 03/14/21 18:59 06:59 18:59 Intake Total 1308 870.000 370 Output Total 1974 2039 375 Balance -667 -1170.000 -5 Weight 146.2 kg Intake: IV 120 270 70 .9 KVO 120 70 20 Piperacillin-Tazobactam 3 200 50 .375 gm In Sodium Chloride 0.9% 100 ml @ 25 mls/hr IVPB Q8HR [facility] Rx# :[id number] Intake, IV Titration 800 600.000 300 Amount Cisatracurium 200 mg In 200 200 Sodium Chloride 0.9% 180 ml @ 1 MCG/KG/MIN 7.986 mls/hr IV .Q24H [facility] Rx#: [id number] Piperacillin-Tazobactam 3 100 .375 gm In Sodium Chloride 0.9% 100 ml @ 25 mls/hr IVPB Q8HR [facility] Rx# :[id number] fentaNYL (PF). 1,000 mcg 200 200.000 100 In Sodium Chloride 0.9% 80 ml @ Per Protocol IV . Q0M [facility] Rx#:[id number] propofoL 1,000 mg In 300 400 Empty Bag 1 bag @ Titrate IV .Q0M [facility] Rx#: [id number] Tube Feeding 188 Other 200 Output: Urine 1975 0 375 Other: Voiding Method Indwelling Catheter Indwelling Catheter ABP, PAP, CO, CI - Last Documented Arterial Blood Pressure 147/74 - Exam Currently sedated and paralyzed, with a midline tracheostomy tube. Saturations are 93%. HEENT examination is grossly unremarkable. Neck supple. Full range of motion. No adenopathy thyromegaly or neck vein distention. Cardiovascular examination reveals regular rhythm rate. S1-S2 normal. No S3 or S4. No discernible murmur noted. Heart sounds are distant. Heart rate 77 bpm. Lungs reveal bilateral coarse rhonchi and crackles. Breath sounds equal bilaterally but diminished throughout. No wheezes. Abdomen soft bowel sounds are heard. No masses or tenderness. PEG tube noted. Extremities are intact. No cyanosis clubbing or edema. Skin is without rash or lesion. Neurologic examination cannot be properly assessed, as the patient is sedated and paralyzed. - Labs CBC & Chem 7: 03/14/21 05:02 03/14/21 05:02 Labs: Abnormal Lab Results - Last 24 Hours (Table) 03/13/21 03/13/21 03/13/21 Range/Units 12:02 18:16 23:56 WBC (3.8-10.6) k/uL RBC (4.30-5.90) m/uL Hgb (13.0-17.5) gm/dL Hct (39.0-53.0) % Neutrophils # (1.3-7.7) k/uL Lymphocytes # (1.0-4.8) k/uL D-Dimer (<0.60) mg/L FEU ABG pCO2 (35-45) mmHg ABG pO2 (83-108) mmHg ABG HCO3 (21-25) mmol/L ABG Total CO2 (19-24) mmol/L ABG O2 Saturation (94-97) % Chloride (98-107) mmol/L Carbon Dioxide (22-30) mmol/L BUN (9-20) mg/dL Creatinine (0.66-1.25) mg/dL Glucose (74-99) mg/dL POC Glucose (mg/dL) 178 H 132 H 142 H (75-99) mg/dL Ferritin (22.0-322.0) ng/mL ALT (4-49) U/L C-Reactive Protein (<1.0) mg/dL Total Protein (6.3-8.2) g/dL Albumin (3.5-5.0) g/dL 03/14/21 03/14/21 03/14/21 Range/Units 05:02 05:02 05:02 WBC 22.8 H (3.8-10.6) k/uL RBC 3.89 L (4.30-5.90) m/uL Hgb 11.9 L (13.0-17.5) gm/dL Hct 36.9 L (39.0-53.0) % Neutrophils # 21.2 H (1.3-7.7) k/uL Lymphocytes # 0.5 L (1.0-4.8) k/uL D-Dimer 5.09 H (<0.60) mg/L FEU ABG pCO2 (35-45) mmHg ABG pO2 (83-108) mmHg ABG HCO3 (21-25) mmol/L ABG Total CO2 (19-24) mmol/L ABG O2 Saturation (94-97) % Chloride 97 L (98-107) mmol/L Carbon Dioxide 37 H (22-30) mmol/L BUN 83 H (9-20) mg/dL Creatinine 1.73 H (0.66-1.25) mg/dL Glucose 143 H (74-99) mg/dL POC Glucose (mg/dL) (75-99) mg/dL Ferritin 563.3 H (22.0-322.0) ng/mL ALT 101 H (4-49) U/L C-Reactive Protein 2.7 H (<1.0) mg/dL Total Protein 5.4 L (6.3-8.2) g/dL Albumin 2.9 L (3.5-5.0) g/dL 03/14/21 03/14/21 Range/Units 05:21 06:19 WBC (3.8-10.6) k/uL RBC (4.30-5.90) m/uL Hgb (13.0-17.5) gm/dL Hct (39.0-53.0) % Neutrophils # (1.3-7.7) k/uL Lymphocytes # (1.0-4.8) k/uL D-Dimer (<0.60) mg/L FEU ABG pCO2 65 H (35-45) mmHg ABG pO2 68 L (83-108) mmHg ABG HCO3 39 H (21-25) mmol/L ABG Total CO2 41 H (19-24) mmol/L ABG O2 Saturation 92.9 L (94-97) % Chloride (98-107) mmol/L Carbon Dioxide (22-30) mmol/L BUN (9-20) mg/dL Creatinine (0.66-1.25) mg/dL Glucose (74-99) mg/dL POC Glucose (mg/dL) 132 H (75-99) mg/dL Ferritin (22.0-322.0) ng/mL ALT (4-49) U/L C-Reactive Protein (<1.0) mg/dL Total Protein (6.3-8.2) g/dL Albumin (3.5-5.0) g/dL Microbiology - Last 24 Hours (Table) 03/07/21 09:54 Blood Culture - Final Blood No Growth after 144 hours 03/07/21 10:00 Blood Culture - Final Blood No Growth after 144 hours Assessment and Plan Assessment: Acute hypoxemic respiratory failure secondary to COVID 19 pneumonia/pneumonitis, with worsening oxygenation, which required intubation and mechanical ventilation on March 06, 2021. Status post tracheostomy, and PEG tube insertion, on March 13, for failure to wean from mechanical ventilation. Morbid obesity, with a BMI of 43.8. Rule out obstructive sleep apnea syndrome. Elevated inflammatory markers secondary to coronavirus infection. Methicillin sensitive staph aureus tracheobronchitis/bronchopneumonia, treated with Zosyn, and discontinued on March 14. Prerenal azotemia. Plan: Plan dated 03/04/2021. The patient did receive TOCI on March 02. Because of the worsening oxygenation, the patient we placed on BiPAP with settings of IPAP 15, EPAP 5, and 100%. In addition, because of the increase acutely of the d-dimer, the Lovenox dose was increased to 60 mg subcu twice a day. Additional recommendations and suggestions are forthcoming. We'll have to watch the patient closely. He may need transfer to the intensive care unit if he does not improve. We will continue to follow closely. The patient will continue on the typical vitamins, Decadron, and Lovenox. Plan dated 03/11/2021. Currently, the patient is not making much progress. He remains on FiO2 of 85% PEEP of 18. We will attempt a daily interruption of sedation although, he will not be able to tolerate a spontaneous breathing trial at this point. Additional recommendations and suggestions are forthcoming. The patient did receive TOCI on March 02. Additional recommendations and suggestions are forthcoming. Prognosis is guarded. We'll continue to follow make recommendations where appropriate. Plan dated 03/12/2021. The patient's D5 W IV with 3 ampules of sodium bicarbonate, running at 50 mL an hour, will be discontinued. In addition, the patient's D5W IV, running at 100 mL an hour will also be discontinued. The patient will remain on Nimbex, propofol, and fentanyl. Looking at the patient's I's and O's, the patient is way ahead on fluids, and we will initiate Lasix at 40 mg IV push every 8 hours. Additional recommendations and suggestions are forthcoming. Prognosis is guarded. It appears that he's up by about 14-15 kg in weight. We will continue to follow and make recommendations where necessary. Plan dated 03/13/2021. Currently, the patient's doing about the same as he was yesterday. We might be able to add to the FiO2 down a bit. I forcefully, and my opinion, the patient will end up requiring tracheostomy tube insertion and PEG tube placement. The patient remains on Nimbex, propofol, fentanyl. He is receiving nutrition at goal. Blood gases show a PaO2 of 98, pCO2 66, and a pH of 7.38. Additional recommendations and suggestions are forthcoming. All medications are reviewed. Plan dated 03/14/2021. The patient underwent tracheostomy, PEG tube placement on March 13. The patient remains on propofol, fentanyl, and Nimbex. Tube feedings will be resumed today. The patient was treated for 9 days with Zosyn for oxacillin sensitive staph aureus. That will be discontinued today. Additional recommendations and suggestions are forthcoming. Prognosis is guarded. Follow the patient and make recommendations where appropriate. The patient remains on all appropriate medications. Diagnosis is guarded. Time with Patient: Greater than 30
[2021-03-14] MEDS: CHOLECALCIFEROL 25 MCG (1000 IU) TABLET PO SCH (11:34)
[2021-03-14] MEDS: FAMOTIDINE 20 MG TAB PO SCH (11:34)
[2021-03-14] MEDS: ZINC SULFATE 220 MG CAP PO SCH (11:34)
[2021-03-14 12:00] LABS: Glucose,Whole Blood 140 mg/dL (75-99)
--- NOTE | 2021-03-14 14:49 | P.PN ---
Subjective Progress Note Date: 03/14/21 CHIEF COMPLAINT: COVID-19 pneumonia HISTORY OF PRESENT ILLNESS: Patient is in the ICU intubated and sedated. Patient is status post tracheostomy and PEG tube placement. Patient will be started on tube feeds today. There is a tiny leak noted from patient's trach. Afebrile. WBC 22.8 PHYSICAL EXAM: VITAL SIGNS: Reviewed. GENERAL: Well-developed in no acute distress. HEENT: Head is atraumatic, normocephalic. Trach site clean dry and intact ABDOMEN: Soft. Nondistended. Nontender. PEG tube site clean dry and intact NEUROLOGIC: Alert and oriented. Cranial nerves II through XII grossly intact. ASSESSMENT: 1. Acute hypoxic respiratory failure secondary to COVID-19 pneumonia with prolonged mechanical ventilation status post tracheostomy placement 2. Moderate protein calorie malnutrition status post PEG tube placement PLAN: -Consult dietitian to start tube feedings -Continue to monitor small leak from tracheostomy -Continue ICU management -Continue supportive care Physician Supervisor [employer] note has been reviewed by physician. Signing provider agrees with the documented findings, assessment, and plan of care. Objective - Vital Signs Vital signs: Vital Signs Temp 98.2 F 03/14/21 12:00 Pulse 72 03/14/21 13:00 Resp 38 H 03/14/21 13:00 BP 125/73 03/14/21 13:00 Pulse Ox 91 L 03/14/21 13:00 Intake & Output 03/13/21 03/14/21 03/14/21 18:59 06:59 18:59 Intake Total 1308 870.000 828.161 Output Total 1974 2039 1120 Balance -667 -1170.000 -291.839 Weight 146.2 kg Intake: IV 120 270 130 .9 KVO 120 70 30 Piperacillin-Tazobactam 3 200 100 .375 gm In Sodium Chloride 0.9% 100 ml @ 25 mls/hr IVPB Q8HR [facility] Rx# :[id number] Intake, IV Titration 800 600.000 698.161 Amount Cisatracurium 200 mg In 200 200 Sodium Chloride 0.9% 180 ml @ 1 MCG/KG/MIN 7.986 mls/hr IV .Q24H [facility] Rx#: [id number] Piperacillin-Tazobactam 3 100 .375 gm In Sodium Chloride 0.9% 100 ml @ 25 mls/hr IVPB Q8HR [facility] Rx# :[id number] fentaNYL (PF). 1,000 mcg 200 200.000 298.161 In Sodium Chloride 0.9% 80 ml @ Per Protocol IV . Q0M [facility] Rx#:[id number] propofoL 1,000 mg In 300 400 200 Empty Bag 1 bag @ Titrate IV .Q0M [facility] Rx#: [id number] Tube Feeding 188 Other 200 Output: Urine 1975 2040 1120 Other: Voiding Method Indwelling Catheter Indwelling Catheter Indwelling Catheter ABP, PAP, CO, CI - Last Documented Arterial Blood Pressure 147/74 - Labs CBC & Chem 7: 03/14/21 05:02 03/14/21 05:02 Labs: Abnormal Lab Results - Last 24 Hours (Table) 03/13/21 03/13/21 03/14/21 Range/Units 18:16 23:56 05:02 WBC 22.8 H (3.8-10.6) k/uL RBC 3.89 L (4.30-5.90) m/uL Hgb 11.9 L (13.0-17.5) gm/dL Hct 36.9 L (39.0-53.0) % Neutrophils # 21.2 H (1.3-7.7) k/uL Lymphocytes # 0.5 L (1.0-4.8) k/uL D-Dimer (<0.60) mg/L FEU ABG pCO2 (35-45) mmHg ABG pO2 (83-108) mmHg ABG HCO3 (21-25) mmol/L ABG Total CO2 (19-24) mmol/L ABG O2 Saturation (94-97) % Chloride (98-107) mmol/L Carbon Dioxide (22-30) mmol/L BUN (9-20) mg/dL Creatinine (0.66-1.25) mg/dL Glucose (74-99) mg/dL POC Glucose (mg/dL) 132 H 142 H (75-99) mg/dL Ferritin (22.0-322.0) ng/mL ALT (4-49) U/L C-Reactive Protein (<1.0) mg/dL Total Protein (6.3-8.2) g/dL Albumin (3.5-5.0) g/dL 03/14/21 03/14/21 03/14/21 Range/Units 05:02 05:02 05:21 WBC (3.8-10.6) k/uL RBC (4.30-5.90) m/uL Hgb (13.0-17.5) gm/dL Hct (39.0-53.0) % Neutrophils # (1.3-7.7) k/uL Lymphocytes # (1.0-4.8) k/uL D-Dimer 5.09 H (<0.60) mg/L FEU ABG pCO2 65 H (35-45) mmHg ABG pO2 68 L (83-108) mmHg ABG HCO3 39 H (21-25) mmol/L ABG Total CO2 41 H (19-24) mmol/L ABG O2 Saturation 92.9 L (94-97) % Chloride 97 L (98-107) mmol/L Carbon Dioxide 37 H (22-30) mmol/L BUN 83 H (9-20) mg/dL Creatinine 1.73 H (0.66-1.25) mg/dL Glucose 143 H (74-99) mg/dL POC Glucose (mg/dL) (75-99) mg/dL Ferritin 563.3 H (22.0-322.0) ng/mL ALT 101 H (4-49) U/L C-Reactive Protein 2.7 H (<1.0) mg/dL Total Protein 5.4 L (6.3-8.2) g/dL Albumin 2.9 L (3.5-5.0) g/dL 03/14/21 03/14/21 Range/Units 06:19 11:58 WBC (3.8-10.6) k/uL RBC (4.30-5.90) m/uL Hgb (13.0-17.5) gm/dL Hct (39.0-53.0) % Neutrophils # (1.3-7.7) k/uL Lymphocytes # (1.0-4.8) k/uL D-Dimer (<0.60) mg/L FEU ABG pCO2 (35-45) mmHg ABG pO2 (83-108) mmHg ABG HCO3 (21-25) mmol/L ABG Total CO2 (19-24) mmol/L ABG O2 Saturation (94-97) % Chloride (98-107) mmol/L Carbon Dioxide (22-30) mmol/L BUN (9-20) mg/dL Creatinine (0.66-1.25) mg/dL Glucose (74-99) mg/dL POC Glucose (mg/dL) 132 H 140 H (75-99) mg/dL Ferritin (22.0-322.0) ng/mL ALT (4-49) U/L C-Reactive Protein (<1.0) mg/dL Total Protein (6.3-8.2) g/dL Albumin (3.5-5.0) g/dL Microbiology - Last 24 Hours (Table) 03/07/21 09:54 Blood Culture - Final Blood No Growth after 144 hours 03/07/21 10:00 Blood Culture - Final Blood No Growth after 144 hours
[2021-03-14 18:03] LABS: Glucose,Whole Blood 136 mg/dL (75-99)
--- NOTE | 2021-03-14 18:50 | P.PN ---
Progress Note - Text Progress Note Date: 03/14/21 Chief Complaint: Shortness of breath History of presenting complaint: This is a pleasant 45-year-old patient of Dr. Dejesus. Patient was diagnosed with COVID 3 days ago. Symptoms started about 6 days ago. Patient had fever or chills some diarrhea. Some shortness of breath some cough. No loss of smell or taste. Decreased appetite tired rundown. Patient pulse ox on presentation was 70% and patient subsequently was put on 15 L high flow oxygen. Admitted with bilateral COVID 19 pneumonia. Acute hypoxic respiratory failure. Put on IV Decadron Lovenox, 15 L of high flow oxygen. Pulmonary status deteriorated. Transferred to the ICU. Intubated March 07. Tracheostomy and PEG tube placed on March 13. Today: ICU: Ventilator: FiO2 of 90% and a PEEP of 20. Drips include Nimbex, propofol, fentanyl. 2 feeding at 47 mL an hour. Review of systems: Patient intubated Active Medications Acetaminophen (Acetaminophen Tab 325 Mg Tab) 650 mg PO Q6HR PRN PRN Reason: Mild Pain or Fever > 100.5 Last Admin: 03/02/21 09:01 Dose: 650 mg Documented by: Albuterol Sulfate (Albuterol Hfa Inhaler) 2 puff INHALATION RT-QID [facility] Last Admin: 03/14/21 15:42 Dose: 2 puff Documented by: Artificial Tears (Artificial Tears-Hypromellose Drops 15 Ml Btl) 2 drops BOTH EYES QID PRN PRN Reason: Dry Eye(s) Last Admin: 03/05/21 16:29 Dose: 2 drops Documented by: Ascorbic Acid (Ascorbic Acid 500 Mg Tab) 500 mg PO BID [facility] Last Admin: 03/14/21 09:03 Dose: Not Given Documented by: Budesonide/Formoterol Fumarate (Symbicort 160-4.5 Mcg Inhaler) 2 puff INHALATION RT-BID [facility] Last Admin: 03/14/21 07:50 Dose: 2 puff Documented by: Chlorhexidine Gluconate (Chlorhexidine Gluconate 15 Ml Cup) 15 ml MUCOUS MEM BID [facility] Last Admin: 03/14/21 09:11 Dose: 15 ml Documented by: Cholecalciferol (Cholecalciferol 25 Mcg (1000 Iu) Tablet) 125 mcg PO DAILY [facility] Last Admin: 03/14/21 11:34 Dose: 125 mcg Documented by: Dexamethasone Sodium Phosphate (Dexamethasone Sod Phosphate 10 Mg/Ml 1 Ml Vial) 6 mg IV BID [facility] Last Admin: 03/14/21 09:10 Dose: 6 mg Documented by: Enoxaparin Sodium (Enoxaparin 80 Mg/0.8 Ml Syringe) 70 mg SQ Q12HR [facility] Last Admin: 03/14/21 09:13 Dose: 70 mg Documented by: Famotidine (Famotidine 20 Mg Tab) 40 mg PO DAILY [facility] Last Admin: 03/14/21 11:34 Dose: 40 mg Documented by: Furosemide (Furosemide 10 Mg/Ml 4 Ml Vial) 40 mg IV DAILY [facility] Last Admin: 03/14/21 09:11 Dose: 40 mg Documented by: Cisatracurium Besylate 200 mg/ (Sodium Chloride) 200 mls @ 7.986 mls/hr IV .Q24H [facility]; Protocol Last Admin: 03/14/21 10:02 Dose: 2 mcg/kg/min, 15.972 mls/hr Documented by: Propofol 1,000 mg/ IV Solution 100 mls @ 0 mls/hr IV .Q0M [facility]; Protocol Last Admin: 03/14/21 17:34 Dose: 50 mcg/kg/min, 44.79 mls/hr Documented by: Fentanyl Citrate 1,000 mcg/ (Sodium Chloride) 100 mls @ 0 mls/hr IV .Q0M [facility]; Protocol Last Admin: 03/14/21 17:58 Dose: 2.5 mcg/kg/hr, 33.275 mls/hr Documented by: Insulin Aspart (Insulin Aspart (Novolog) 100 Unit/Ml Vial) 0 unit SQ Q6HR [facility]; Protocol Last Admin: 03/14/21 18:24 Dose: 1 unit Documented by: Miscellaneous Information (Potassium Replacement Protocol 1 Each Misc) 1 each MISCELLANE DAILY PRN; Protocol PRN Reason: Per Protocol Morphine Sulfate (Morphine Sulfate 4 Mg/Ml Syringe) 4 mg IVP Q4HR PRN PRN Reason: Pain Last Admin: 03/06/21 12:08 Dose: 4 mg Documented by: Naloxone HCl (Naloxone 0.4 Mg/Ml 1 Ml Vial) 0.2 mg IV Q2M PRN PRN Reason: Opioid Reversal Ondansetron HCl (Ondansetron 4 Mg/2 Ml Vial) 4 mg IVP Q8HR PRN PRN Reason: Nausea And Vomiting Sodium Chloride (Sodium Chloride 0.9% Flush 10 Ml Syringe) 10 ml IV Q4HR PRN PRN Reason: PICC Line Sodium Chloride (Sodium Chloride 0.9% Flush 10 Ml Syringe) 10 ml IV WEEKLY [facility] Last Admin: 03/14/21 09:12 Dose: 10 ml Documented by: Sodium Chloride (Sodium Chloride 0.9% Flush 10 Ml Syringe) 20 ml IV Q4HR PRN PRN Reason: PICC Line Zinc Sulfate (Zinc Sulfate 220 Mg Cap) 220 mg PO DAILY [facility] Last Admin: 03/14/21 11:34 Dose: 220 mg Documented by: Past medical history: Unremarkable 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 No history of smoking or alcohol Family history: Reviewed, noncontributory to presentation Physical examination: VITAL SIGNS: 98.4, 75, 38, 119/70, 93% on the ventilator GENERAL: , laying in bed, intubated LUNGS: Respiratory rate increased, PSYCH: Patient sedated NEUROLOGICAL: Cranial nerves grossly intact; no facial asymmetry, Rest of the exam per pulmonary nursing INVESTIGATIONS, reviewed in the clinical context: March 14: WBC 22.8 hemoglobin 11.9 platelets 255 d-dimer 5.09 potassium 4.4 creatinine 1.73 CRP 2.7 March 13: WBC 20.9 hemoglobin 11.8 platelets 198 potassium 4.5 creatinine 1.53 CRP 1.1 LDH 1660 d-dimer 5.15 March 04: D-dimer greater than 34 potassium 4.1 creatinine 0.69 LDH 1471 CRP 2.6 March 03: D-dimer 2.06 potassium 4.3 creatinine 0.84 2147 LDH 1419 CRP 5.2 D-dimer 0.82 potassium 4.5 creatinine 0.79 AST 65 ALT 51 LDH 1377 CRP 14.6 Admission labs: WBC 10.3 hemoglobin 16.3 platelets 234 lymphocytes 0.9 d-dimer 0.69 potassium 3.8 creatinine 0.74 LDH 1156 CRP 16 EKG tracing personally reviewed by me-normal sinus rhythm Chest x-ray film personally reviewed by me-/portable: Bilateral infiltrates Assessment and plan: -Acute bilateral: COVID 19 pneumonia. Symptoms started about 6 days prior to admission.-Not improving vitamin C vitamin D zinc IV Decadron and subcu Lovenox. -MSSA tracheal bronchitis/bronchopneumonia On Zosyn-discontinued March 14 -Acute hypoxic respiratory failure from COVID 19 pneumonia-slow to respond Initially on high flow oxygen. Intubated March 07. On 90% FiO2 -Morbid obesity BMI 43.8 Weight loss measures and follow with PCP for the same -Mild hepatitis likely due to COVID 19 Follow clinically -Hypernatremia from free water deficit from decreased oral intake-corrected IV fluids I did call patient's earlier today and then managed to reach him later this afternoon. Given an update of patient's clinical status. Did emphasize the patient remains critically ill. She does understand the prognosis guarded.
[2021-03-14 23:53] LABS: Glucose,Whole Blood 168 mg/dL (75-99)
[2021-03-15] MEDS: INSULIN ASPART (NovoLOG) 100 UNIT/ML VIAL SQ SCH ×5 (00:12→23:28)
[2021-03-15] MEDS: fentaNYL (PF). 1,000 MCG in SODIUM CHLORIDE 0.9% 80 ML IV SCH ×7 (02:57→23:30)
[2021-03-15 05:44] LABS: Basophils # (A) 0.1 k/uL (0-0.2); Basophils % (A) 0 %; Eosinophils # (A) 0.1 k/uL (0-0.7); Eosinophils % (A) 0 %; HCT 36.2 % (39.0-53.0); HGB 11.9 gm/dL (13.0-17.5); Lymphocytes # (A) 0.4 k/uL (1.0-4.8); Lymphocytes % (A) 2 %; MCH 31.5 pg (25.0-35.0); MCHC 32.9 g/dL (31.0-37.0); MCV 95.7 fL (80.0-100.0); Mean Platelet Volume 9.2; Monocytes # (A) 0.9 k/uL (0-1.0); Monocytes % (A) 4 %; Neutrophils # (A) 19.1 k/uL (1.3-7.7); Neutrophils % (A) 93 %; Platelet Count 263 k/uL (150-450); RBC 3.78 m/uL (4.30-5.90); WBC 20.6 k/uL (3.8-10.6)
[2021-03-15 05:54] LABS: ABG Base Excess 13.3 mmol/L; ABG HCO3 39 mmol/L (21-25); ABG Oxygen Saturation 93.9 % (94-97); ABG PH 7.34 (7.35-7.45); ABG PO2 75 mmHg (83-108); ABG TCO2 41 mmol/L (19-24); Allen Test Performed? Yes
[2021-03-15 05:58] LABS: ABG PCO2 74 mmHg (35-45)
[2021-03-15 06:00] LABS: Glucose,Whole Blood 149 mg/dL (75-99)
[2021-03-15 06:05] LABS: Albumin 3.2 g/dL (3.5-5.0); C Reactive Protein 6.2 mg/dL (<1.0); Calcium 8.9 mg/dL (8.4-10.2); Potassium 4.2 mmol/L (3.5-5.1); Total Bilirubin 0.7 mg/dL (0.2-1.3); Total Protein 5.8 g/dL (6.3-8.2)
[2021-03-15 06:19] LABS: D-Dimer 3.55 mg/L FEU (<0.60)
[2021-03-15] MEDS: ALBUTEROL HFA INHALER INHALATION SCH ×4 (07:47→23:32)
[2021-03-15] MEDS: SYMBICORT 160-4.5 MCG INHALER INHALATION SCH ×2 (07:52→23:32)
[2021-03-15] MEDS: FAMOTIDINE 20 MG TAB PO SCH (08:40)
[2021-03-15] MEDS: CHOLECALCIFEROL 25 MCG (1000 IU) TABLET PO SCH (08:40)
[2021-03-15] MEDS: ASCORBIC ACID 500 MG TAB PO SCH ×2 (08:40→20:42)
[2021-03-15] MEDS: ZINC SULFATE 220 MG CAP PO SCH (08:40)
[2021-03-15] MEDS: DEXAMETHASONE SOD PHOSPHATE 10 MG/ML 1 ML VIAL IV SCH ×2 (08:40→20:42)
[2021-03-15] MEDS: FUROSEMIDE 10 MG/ML 4 ML VIAL IV SCH (08:41)
[2021-03-15] MEDS: ENOXAPARIN 80 MG/0.8 ML SYRINGE SQ SCH ×2 (08:41→20:43)
[2021-03-15] MEDS: CHLORHEXIDINE GLUCONATE 15 ML CUP MUCOUS MEM SCH ×2 (08:41→20:42)
[2021-03-15] MEDS: CISATRACURIUM 200 MG in SODIUM CHLORIDE 0.9% 180 ML IV SCH ×2 (09:28→22:20)
--- NOTE | 2021-03-15 09:58 | P.PN ---
Subjective Progress Note Date: 03/15/21 Principal diagnosis: Acute hypoxemic respiratory failure. Progress note dated 03/04/2021. 45-year-old male who was admitted with a diagnosis of acute hypoxemic respiratory failure secondary to COVID 19 pneumonitis/pneumonia. When I saw the patient initially, he was on a nonrebreather, as well as 15 L high flow nasal O2. He was getting saline at 75 mL an hour. His d-dimer had increased, and so we increase his Lovenox up to 60 mg twice a day. He did receive TOCI on March 02. He got up to use the bedside commode, and his saturations dropped into the mid 70 range. I did ask respiratory to place him on BiPAP with settings of IPAP 15, EPAP 5, and 100% FiO2. We will evaluate him again in a few hours or so. Lab data today includes a d-dimer of greater than 34.10, sodium 145, potassium 4.1, chlorides 109, CO2 29, anion gap 7, BUN 25, and creatinine 0.69. LDH is 1471. C-reactive protein is 2.6. Chest x-ray from today, shows diffuse bilateral infiltrates. Progress note dated 03/11/2021. 45-year-old male, that I saw last on March 04. We see the note above. Unfortunately, the patient developed worsening respiratory failure, requiring intubation on March 06, secondary to worsening hypoxemia and COVID 19 pneumonia. The patient was initially admitted on March 01. The patient is seen in the intensive care unit today in room 256. He remains on the ventilator, volume assist control mode, rate 38, tidal volume 450, FiO2 85%, PEEP of 18. Blood gases show a PaO2 of 70, PaCO2 of 66, and a pH is 7.34. The patient's currently on Nimbex at 2 mcg/kg/m, fall at 30 mcg/kg/m, fentanyl at 1 mcg/kg/h, and D5 W, with 3 A of sodium bicarbonate 50 mL an hour. The patient's also getting vital high protein at 53 mL an hour, which is goal. Finally, the patient's also on D5W at 100 mL an hour. White count 20.5, hemoglobin 12.4, hematocrit 37.5, and platelet count 174,000. D-dimer is 14.81. Sodium 142, potassium 4.1, chlorides 100, CO2 37, anion gap 5, BUN 64, and creatinine 1.51. LDH is 1732 and C- reactive protein is 0.8. Chest x-ray is essentially unchanged, and consistent with acute respiratory distress syndrome, and diffuse bilateral infiltrates. Progress note dated 03/12/2021. 45-year-old male, who is again seen, in room 256. The patient required intubation for acute respiratory failure on March 06. The patient was admitted with a diagnosis of acute hypoxemic respiratory failure secondary to COVID 19 pneumonia. Currently, the patient remains on the volume assist control mode, rate 38, tidal volume 450, FiO2 100%, and PEEP of 20. The patients blood gas shows a PaO2 of 71, pCO2 of 71, and pH is 7.32. The patient's currently on Nimb ex at 1.25 mcg/kg/m, propofol at 40 mics per kilogram per minute, and fentanyl 1 mcg/kg/h. He is on D5W with 3 ampules of sodium bicarbonate at 50 mL an hour, and D5 W1 100 mL an hour. The patient's also getting vital high protein at 53 mL an hour, which is goal. The patient's weight ahead on fluids, and will get Lasix 40 mg IVP, every 8 hours. White count 22, hemoglobin 13.3, hematocrit 39.7, platelet count 195,000. D-dimer is 8.03. Sodium 135, potassium 4.5, chlorides 98, CO2 34, anion gap 3, BUN 68, creatinine 1.42. LDH is 2169. C- reactive protein is 0.8. Chest x-ray shows stable diffuse bilateral infiltrates. Progress note dated 03/13/2021. 45-year-old male, again seen in room 256. The patient was intubated for acute respiratory failure on March 06. He really has made no significant headway towards weaning and extubation. Currently, he's on the volume assist control mode, rate 38, tidal volume 450, FiO2 100%, and PEEP of 20. The patient's blood gases show pO2 of 98, pCO2 66, pH 7.38. We will drop the FiO2 from 100-90%. Currently, the patient's on Nimbex at 2 mcg/kg/m, we'll follow at 40 mcg/kg/m, fentanyl at 1.5 mcg/kg/h, and vital high protein at 47 mL an hour, which is goal. Chest x-ray continues to show extensive bilateral infiltrates. White count 20.9, hemoglobin 11.8, hematocrit 34.8, platelet count 191,000. D-dimer is 5.15. Sodium 137, potassium 4.5, chlorides 96, CO2 36, anion gap 5, BUN 75, and creatinine 1.53. LDH is 1660. C-reactive protein 1.1. Progress note dated 03/14/2021. 45-year-old male, seen again in room 256. The patient was intubated for respiratory failure on March 06. The patient has been in the hospital now for 13 days. The patient underwent a tracheostomy and PEG tube placement on March 13. Currently, he is on the volume assist control mode, rate 38, tidal volume 450, FiO2 90%, and PEEP of 20. Blood gases show a PaO2 of 68, P CO2 of 65, and pH is 7.39. The patient remains on propofol at 50 g kilogram per minute, fentanyl at 2.5 mcg/kg/h, and Nimbex at 2 mcg/kg/m. The patient's also getting saline at 10 mL an hour. At the 24-hour ruthann, the patient will resume tube feeds. Chest x-ray shows bilateral infiltrates, which are stable, and removal of the endotracheal tube, and insertion of a tracheostomy tube. White count 22.8, hemoglobin 11.9, hematocrit 36.9, platelet count 255,000. D-dimer 5.09. Sodium 141, potassium 4.4, chlorides 97, CO2 37, anion gap 7, BUN 83, creatinine 1.73. C-reactive protein 2.7. Microbiology is positive for methicillin sensitive staph aureus, from a sputum, on March 06. Progress note dated 03/15/2021. 45-year-old male, again seen in room 256. He remains on the ventilator. He is on the volume assist control mode, rate 38, tidal volume 450, FiO2 90%, PEEP at 20. Arterial blood gases show pO2 of 75, pCO2 74, and a pH is 7.36. The patient's on Nimbex at 2 mcg/kg/m, the Brovana 50 mcg/kg/m, fentanyl 2.5 migraines per kilogram per hour, saline at 10 mL an hour, and vital high protein at 47 mL an hour, which is goal. The plan today is to try to wean the FiO2 on this patient. White count 20.6, hemoglobin 11.9, hematocrit 36.2, platelet count normal. D-dimer 3.55 fibrinogen 522. Sodium 143, potassium 4.2, chlorides 99, CO2 39, anion gap 5, BUN 88, creatinine 1.76. C-reactive protein 6.2. Chest x-ray shows bilateral infiltrates. Tracheostomy tube is in good position. Objective - Vital Signs Vital signs: Vital Signs Temp 98.8 F 03/15/21 08:00 Pulse 85 03/15/21 09:00 Resp 38 H 03/15/21 09:00 BP 131/78 03/15/21 09:00 Pulse Ox 95 03/15/21 09:00 Intake & Output 03/14/21 03/15/21 03/15/21 18:59 06:59 18:59 Intake Total 4569.166 3525.363 583.347 Output Total 1680 1355 325 Balance -336.839 379.363 258.347 Weight 142.5 kg Intake: IV 180 113 30 .9 KVO 80 113 30 Piperacillin-Tazobactam 3 100 .375 gm In Sodium Chloride 0.9% 100 ml @ 25 mls/hr IVPB Q8HR [facility] Rx# :[id number] Intake, IV Titration 898.161 967.363 382.347 Amount Cisatracurium 200 mg In 200 191.93 182.347 Sodium Chloride 0.9% 180 ml @ 1 MCG/KG/MIN 7.986 mls/hr IV .Q24H [facility] Rx#: [id number] fentaNYL (PF). 1,000 mcg 398.161 377.642 100 In Sodium Chloride 0.9% 80 ml @ Per Protocol IV . Q0M [facility] Rx#:[id number] propofoL 1,000 mg In 300 397.791 100 Empty Bag 1 bag @ Titrate IV .Q0M [facility] Rx#: [id number] Tube Feeding 235 564 141 Other 30 90 30 Output: Urine 1680 1355 325 Other: Voiding Method Indwelling Catheter Indwelling Catheter Indwelling Catheter ABP, PAP, CO, CI - Last Documented Arterial Blood Pressure 147/74 - Exam Currently sedated and paralyzed, with a midline tracheostomy tube. Saturations are 95%. HEENT examination is grossly unremarkable. Neck supple. Full range of motion. No adenopathy thyromegaly or neck vein distention. Midline tracheostomy is noted. Cardiovascular examination reveals regular rhythm rate. S1-S2 normal. No S3 or S4. No discernible murmur noted. Heart sounds are distant. Heart rate 85 bpm. Lungs reveal bilateral coarse rhonchi and crackles. Breath sounds equal bilaterally but diminished throughout. No wheezes. Abdomen soft bowel sounds are heard. No masses or tenderness. PEG tube noted. Extremities are intact. No cyanosis clubbing or edema. Skin is without rash or lesion. Neurologic examination cannot be properly assessed, as the patient is sedated and paralyzed. - Labs CBC & Chem 7: 03/15/21 04:35 03/15/21 04:35 Labs: Abnormal Lab Results - Last 24 Hours (Table) 03/14/21 03/14/21 03/14/21 Range/Units 11:58 18:02 23:50 WBC (3.8-10.6) k/uL RBC (4.30-5.90) m/uL Hgb (13.0-17.5) gm/dL Hct (39.0-53.0) % Neutrophils # (1.3-7.7) k/uL Lymphocytes # (1.0-4.8) k/uL Fibrinogen (200-500) mg/dL D-Dimer (<0.60) mg/L FEU ABG pH (7.35-7.45) ABG pCO2 (35-45) mmHg ABG pO2 (83-108) mmHg ABG HCO3 (21-25) mmol/L ABG Total CO2 (19-24) mmol/L ABG O2 Saturation (94-97) % Carbon Dioxide (22-30) mmol/L BUN (9-20) mg/dL Creatinine (0.66-1.25) mg/dL Glucose (74-99) mg/dL POC Glucose (mg/dL) 140 H 136 H 168 H (75-99) mg/dL ALT (4-49) U/L C-Reactive Protein (<1.0) mg/dL Total Protein (6.3-8.2) g/dL Albumin (3.5-5.0) g/dL 03/15/21 03/15/21 03/15/21 Range/Units 04:35 04:35 04:35 WBC 20.6 H (3.8-10.6) k/uL RBC 3.78 L (4.30-5.90) m/uL Hgb 11.9 L (13.0-17.5) gm/dL Hct 36.2 L (39.0-53.0) % Neutrophils # 19.1 H (1.3-7.7) k/uL Lymphocytes # 0.4 L (1.0-4.8) k/uL Fibrinogen 522 H (200-500) mg/dL D-Dimer 3.55 H (<0.60) mg/L FEU ABG pH (7.35-7.45) ABG pCO2 (35-45) mmHg ABG pO2 (83-108) mmHg ABG HCO3 (21-25) mmol/L ABG Total CO2 (19-24) mmol/L ABG O2 Saturation (94-97) % Carbon Dioxide 39 H (22-30) mmol/L BUN 88 H (9-20) mg/dL Creatinine 1.76 H (0.66-1.25) mg/dL Glucose 163 H (74-99) mg/dL POC Glucose (mg/dL) (75-99) mg/dL ALT 108 H (4-49) U/L C-Reactive Protein 6.2 H (<1.0) mg/dL Total Protein 5.8 L (6.3-8.2) g/dL Albumin 3.2 L (3.5-5.0) g/dL 03/15/21 03/15/21 Range/Units 05:52 05:58 WBC (3.8-10.6) k/uL RBC (4.30-5.90) m/uL Hgb (13.0-17.5) gm/dL Hct (39.0-53.0) % Neutrophils # (1.3-7.7) k/uL Lymphocytes # (1.0-4.8) k/uL Fibrinogen (200-500) mg/dL D-Dimer (<0.60) mg/L FEU ABG pH 7.34 L (7.35-7.45) ABG pCO2 74 H* (35-45) mmHg ABG pO2 75 L (83-108) mmHg ABG HCO3 39 H (21-25) mmol/L ABG Total CO2 41 H (19-24) mmol/L ABG O2 Saturation 93.9 L (94-97) % Carbon Dioxide (22-30) mmol/L BUN (9-20) mg/dL Creatinine (0.66-1.25) mg/dL Glucose (74-99) mg/dL POC Glucose (mg/dL) 149 H (75-99) mg/dL ALT (4-49) U/L C-Reactive Protein (<1.0) mg/dL Total Protein (6.3-8.2) g/dL Albumin (3.5-5.0) g/dL Assessment and Plan Assessment: Acute hypoxemic respiratory failure secondary to COVID 19 pneumonia/pneumonitis, with worsening oxygenation, which required intubation and mechanical ventilation on March 06, 2021. Status post tracheostomy, and PEG tube insertion, on March 13, for failure to wean from mechanical ventilation. Morbid obesity, with a BMI of 43.8. Rule out obstructive sleep apnea syndrome. Elevated inflammatory markers secondary to coronavirus infection. Methicillin sensitive staph aureus tracheobronchitis/bronchopneumonia, treated with Zosyn, and discontinued on March 14. Prerenal azotemia. Plan: Plan dated 03/04/2021. The patient did receive TOCI on March 02. Because of the worsening oxygenation, the patient we placed on BiPAP with settings of IPAP 15, EPAP 5, and 100%. In addition, because of the increase acutely of the d-dimer, the Lovenox dose was increased to 60 mg subcu twice a day. Additional recommendations and suggestions are forthcoming. We'll have to watch the patient closely. He may need transfer to the intensive care unit if he does not improve. We will continue to follow closely. The patient will continue on the typical vitamins, Decadron, and Lovenox. Plan dated 03/11/2021. Currently, the patient is not making much progress. He remains on FiO2 of 85% PEEP of 18. We will attempt a daily interruption of sedation although, he will not be able to tolerate a spontaneous breathing trial at this point. Additional recommendations and suggestions are forthcoming. The patient did receive TOCI on March 02. Additional recommendations and suggestions are forthcoming. Prognosis is guarded. We'll continue to follow make recommendations where appropriate. Plan dated 03/12/2021. The patient's D5 W IV with 3 ampules of sodium bicarbonate, running at 50 mL an hour, will be discontinued. In addition, the patient's D5W IV, running at 100 mL an hour will also be discontinued. The patient will remain on Nimbex, propofol, and fentanyl. Looking at the patient's I's and O's, the patient is way ahead on fluids, and we will initiate Lasix at 40 mg IV push every 8 hours. Additional recommendations and suggestions are forthcoming. Prognosis is guarded. It appears that he's up by about 14-15 kg in weight. We will continue to follow and make recommendations where necessary. Plan dated 03/13/2021. Currently, the patient's doing about the same as he was yesterday. We might be able to add to the FiO2 down a bit. I forcefully, and my opinion, the patient will end up requiring tracheostomy tube insertion and PEG tube placement. The patient remains on Nimbex, propofol, fentanyl. He is receiving nutrition at goal. Blood gases show a PaO2 of 98, pCO2 66, and a pH of 7.38. Additional recommendations and suggestions are forthcoming. All medications are reviewed. Plan dated 03/14/2021. The patient underwent tracheostomy, PEG tube placement on March 13. The patient remains on propofol, fentanyl, and Nimbex. Tube feedings will be resumed today. The patient was treated for 9 days with Zosyn for oxacillin sensitive staph aureus. That will be discontinued today. Additional recommendations and suggestions are forthcoming. Prognosis is guarded. Follow the patient and make recommendations where appropriate. The patient remains on all appropriate med ications. Diagnosis is guarded. Plan dated 03/15/2021. The patient underwent tracheostomy and PEG tube placement on March 13. The patient remains on Nimbex, propofol, and fentanyl. The patient is receiving nutrition at goal. We will attempt to wean the FiO2 today. Overall prognosis remains guarded. The patient did receive adequate antibiotics for his oxacillin sensitive staph aureus infection. Additional recommendations and suggestions are forthcoming. We will continue to follow this patient and give recommendations along the way. Time with Patient: Greater than 30
--- NOTE | 2021-03-15 10:43 | XR ---
EXAMINATION TYPE: XR chest 1V portable DATE OF EXAM: 03/15/2021 COMPARISON: Chest x-ray 03/14/2021 HISTORY: Abnormal chest, tracheostomy tube TECHNIQUE: Single frontal view of the chest is obtained. FINDINGS: Tracheostomy tube is overlying appropriate position. There is no evident pneumothorax or p leural effusion. Bilateral airspace disease is again noted. Cardiac style silhouette is stable accoun ting for differences in technique. There are overlying artifacts. Left-sided PICC line shows the dist al tip overlying superior vena cava. IMPRESSION: Findings are essentially stable, correlate for pneumonia.
[2021-03-15 12:19] LABS: Glucose,Whole Blood 177 mg/dL (75-99)
[2021-03-15 13:42] LABS: Ferritin 534.2 ng/mL (22.0-322.0)
--- NOTE | 2021-03-15 15:30 | P.PN ---
Subjective Progress Note Date: 03/15/21 CHIEF COMPLAINT: COVID-19 pneumonia HISTORY OF PRESENT ILLNESS: Patient is in the ICU intubated and sedated. Patient is status post tracheostomy and PEG tube placement. Patient is tolerating tube feeds. A tiny leak at patient's tracheostomy site remains.. Afebrile. WBC 20.6 Patient seen and examined with Dr. swanson PHYSICAL EXAM: VITAL SIGNS: Reviewed. GENERAL: Well-developed in no acute distress. HEENT: Head is atraumatic, normocephalic. Trach site clean dry and intact ABDOMEN: Soft. Nondistended. Nontender. PEG tube site clean dry and intact NEUROLOGIC: Intubated and sedated ASSESSMENT: 1. Acute hypoxic respiratory failure secondary to COVID-19 pneumonia with prolonged mechanical ventilation status post tracheostomy placement 2. Moderate protein calorie malnutrition status post PEG tube placement PLAN: -Continue tube feedings -Continue to monitor small leak from tracheostomy -Continue ICU management -Continue supportive care Physician Supervisor [employer] note has been reviewed by physician. Signing provider agrees with the documented findings, assessment, and plan of care. Objective - Vital Signs Vital signs: Vital Signs Temp 98.9 F 03/15/21 12:00 Pulse 81 03/15/21 15:00 Resp 38 H 03/15/21 15:00 BP 129/76 03/15/21 15:00 Pulse Ox 93 L 03/15/21 15:00 Intake & Output 03/14/21 03/15/21 03/15/21 18:59 06:59 18:59 Intake Total 9263.489 3865.363 1032.347 Output Total 1680 1355 1375 Balance -336.839 379.363 -342.653 Weight 142.5 kg 142.5 kg Intake: IV 180 113 80 .9 KVO 80 113 80 Piperacillin-Tazobactam 3 100 .375 gm In Sodium Chloride 0.9% 100 ml @ 25 mls/hr IVPB Q8HR [facility] Rx# :[id number] Intake, IV Titration 898.161 967.363 582.347 Amount Cisatracurium 200 mg In 200 191.93 182.347 Sodium Chloride 0.9% 180 ml @ 1 MCG/KG/MIN 7.986 mls/hr IV .Q24H [facility] Rx#: [id number] fentaNYL (PF). 1,000 mcg 398.161 377.642 200 In Sodium Chloride 0.9% 80 ml @ Per Protocol IV . Q0M [facility] Rx#:[id number] propofoL 1,000 mg In 300 397.791 200 Empty Bag 1 bag @ Titrate IV .Q0M [facility] Rx#: [id number] Tube Feeding 235 564 310 Other 30 90 60 Output: Urine 1680 1355 1375 Other: Voiding Method Indwelling Catheter Indwelling Catheter Indwelling Catheter ABP, PAP, CO, CI - Last Documented Arterial Blood Pressure 147/74 - Labs CBC & Chem 7: 03/15/21 04:35 03/15/21 04:35 Labs: Abnormal Lab Results - Last 24 Hours (Table) 03/14/21 03/14/21 03/15/21 Range/Units 18:02 23:50 04:35 WBC 20.6 H (3.8-10.6) k/uL RBC 3.78 L (4.30-5.90) m/uL Hgb 11.9 L (13.0-17.5) gm/dL Hct 36.2 L (39.0-53.0) % Neutrophils # 19.1 H (1.3-7.7) k/uL Lymphocytes # 0.4 L (1.0-4.8) k/uL Fibrinogen (200-500) mg/dL D-Dimer (<0.60) mg/L FEU ABG pH (7.35-7.45) ABG pCO2 (35-45) mmHg ABG pO2 (83-108) mmHg ABG HCO3 (21-25) mmol/L ABG Total CO2 (19-24) mmol/L ABG O2 Saturation (94-97) % Carbon Dioxide (22-30) mmol/L BUN (9-20) mg/dL Creatinine (0.66-1.25) mg/dL Glucose (74-99) mg/dL POC Glucose (mg/dL) 136 H 168 H (75-99) mg/dL Ferritin (22.0-322.0) ng/mL ALT (4-49) U/L C-Reactive Protein (<1.0) mg/dL Total Protein (6.3-8.2) g/dL Albumin (3.5-5.0) g/dL 03/15/21 03/15/21 03/15/21 Range/Units 04:35 04:35 05:52 WBC (3.8-10.6) k/uL RBC (4.30-5.90) m/uL Hgb (13.0-17.5) gm/dL Hct (39.0-53.0) % Neutrophils # (1.3-7.7) k/uL Lymphocytes # (1.0-4.8) k/uL Fibrinogen 522 H (200-500) mg/dL D-Dimer 3.55 H (<0.60) mg/L FEU ABG pH 7.34 L (7.35-7.45) ABG pCO2 74 H* (35-45) mmHg ABG pO2 75 L (83-108) mmHg ABG HCO3 39 H (21-25) mmol/L ABG Total CO2 41 H (19-24) mmol/L ABG O2 Saturation 93.9 L (94-97) % Carbon Dioxide 39 H (22-30) mmol/L BUN 88 H (9-20) mg/dL Creatinine 1.76 H (0.66-1.25) mg/dL Glucose 163 H (74-99) mg/dL POC Glucose (mg/dL) (75-99) mg/dL Ferritin 534.2 H (22.0-322.0) ng/mL ALT 108 H (4-49) U/L C-Reactive Protein 6.2 H (<1.0) mg/dL Total Protein 5.8 L (6.3-8.2) g/dL Albumin 3.2 L (3.5-5.0) g/dL 03/15/21 03/15/21 Range/Units 05:58 12:17 WBC (3.8-10.6) k/uL RBC (4.30-5.90) m/uL Hgb (13.0-17.5) gm/dL Hct (39.0-53.0) % Neutrophils # (1.3-7.7) k/uL Lymphocytes # (1.0-4.8) k/uL Fibrinogen (200-500) mg/dL D-Dimer (<0.60) mg/L FEU ABG pH (7.35-7.45) ABG pCO2 (35-45) mmHg ABG pO2 (83-108) mmHg ABG HCO3 (21-25) mmol/L ABG Total CO2 (19-24) mmol/L ABG O2 Saturation (94-97) % Carbon Dioxide (22-30) mmol/L BUN (9-20) mg/dL Creatinine (0.66-1.25) mg/dL Glucose (74-99) mg/dL POC Glucose (mg/dL) 149 H 177 H (75-99) mg/dL Ferritin (22.0-322.0) ng/mL ALT (4-49) U/L C-Reactive Protein (<1.0) mg/dL Total Protein (6.3-8.2) g/dL Albumin (3.5-5.0) g/dL
--- NOTE | 2021-03-15 17:33 | P.PN ---
Progress Note - Text Progress Note Date: 03/15/21 Chief Complaint: Shortness of breath History of presenting complaint: This is a pleasant 45-year-old patient of Dr. Dejesus. Patient was diagnosed with COVID 3 days ago. Symptoms started about 6 days ago. Patient had fever or chills some diarrhea. Some shortness of breath some cough. No loss of smell or taste. Decreased appetite tired rundown. Patient pulse ox on presentation was 70% and patient subsequently was put on 15 L high flow oxygen. Admitted with bilateral COVID 19 pneumonia. Acute hypoxic respiratory failure. Put on IV Decadron Lovenox, 15 L of high flow oxygen. Pulmonary status deteriorated. Transferred to the ICU. Intubated March 07. Tracheostomy and PEG tube placed on March 13. Today: ICU: Ventilator: FiO2 of 18 and a PEEP of 20. Telemetry: Sinus rhythm. Drips included propofol, fentanyl, Nimbex. 2 feeding at 47 mL an hour. She has a trach and a PEG. Review of systems: Patient intubated Active Medications Acetaminophen (Acetaminophen Tab 325 Mg Tab) 650 mg PO Q6HR PRN PRN Reason: Mild Pain or Fever > 100.5 Last Admin: 03/02/21 09:01 Dose: 650 mg Documented by: Albuterol Sulfate (Albuterol Hfa Inhaler) 2 puff INHALATION RT-QID [facility] [place] Last Admin: 03/15/21 15:19 Dose: 2 puff Documented by: Artificial Tears (Artificial Tears-Hypromellose Drops 15 Ml Btl) 2 drops BOTH EYES QID PRN PRN Reason: Dry Eye(s) Last Admin: 03/05/21 16:29 Dose: 2 drops Documented by: Ascorbic Acid (Ascorbic Acid 500 Mg Tab) 500 mg PO BID [facility] [place] Last Admin: 03/15/21 08:40 Dose: 500 mg Documented by: Budesonide/Formoterol Fumarate (Symbicort 160-4.5 Mcg Inhaler) 2 puff INHALATION RT-BID [facility] [place] Last Admin: 03/15/21 07:52 Dose: 2 puff Documented by: Chlorhexidine Gluconate (Chlorhexidine Gluconate 15 Ml Cup) 15 ml MUCOUS MEM BID [facility] [place] Last Admin: 03/15/21 08:41 Dose: 15 ml Documented by: Cholecalciferol (Cholecalciferol 25 Mcg (1000 Iu) Tablet) 125 mcg PO DAILY [facility] [place] Last Admin: 03/15/21 08:40 Dose: 125 mcg Documented by: Dexamethasone Sodium Phosphate (Dexamethasone Sod Phosphate 10 Mg/Ml 1 Ml Vial) 6 mg IV BID [facility] [place] Last Admin: 03/15/21 08:40 Dose: 6 mg Documented by: Enoxaparin Sodium (Enoxaparin 80 Mg/0.8 Ml Syringe) 70 mg SQ Q12HR [facility] [place] Last Admin: 03/15/21 08:41 Dose: 70 mg Documented by: Famotidine (Famotidine 20 Mg Tab) 40 mg PO DAILY [facility] [place] Last Admin: 03/15/21 08:40 Dose: 40 mg Documented by: Furosemide (Furosemide 10 Mg/Ml 4 Ml Vial) 40 mg IV DAILY [facility] [place] Last Admin: 03/15/21 08:41 Dose: 40 mg Documented by: Cisatracurium Besylate 200 mg/ (Sodium Chloride) 200 mls @ 7.986 mls/hr IV .Q24H [facility] [place]; Protocol Last Admin: 03/15/21 09:28 Dose: 2 mcg/kg/min, 15.972 mls/hr Documented by: Propofol 1,000 mg/ IV Solution 100 mls @ 0 mls/hr IV .Q0M [facility] [place]; Protocol Last Admin: 03/15/21 16:26 Dose: 50 mcg/kg/min, 42.75 mls/hr Documented by: Fentanyl Citrate 1,000 mcg/ (Sodium Chloride) 100 mls @ 0 mls/hr IV .Q0M [facility] [place]; Protocol Last Admin: 03/15/21 16:27 Dose: 2.5 mcg/kg/hr, 33.275 mls/hr Documented by: Insulin Aspart (Insulin Aspart (Novolog) 100 Unit/Ml Vial) 0 unit SQ Q6HR [facility] [place]; Protocol Last Admin: 03/15/21 12:29 Dose: 4 unit Documented by: Miscellaneous Information (Potassium Replacement Protocol 1 Each Misc) 1 each MISCELLANE DAILY PRN; Protocol PRN Reason: Per Protocol Morphine Sulfate (Morphine Sulfate 4 Mg/Ml Syringe) 4 mg IVP Q4HR PRN PRN Reason: Pain Last Admin: 03/06/21 12:08 Dose: 4 mg Documented by: Naloxone HCl (Naloxone 0.4 Mg/Ml 1 Ml Vial) 0.2 mg IV Q2M PRN PRN Reason: Opioid Reversal Ondansetron HCl (Ondansetron 4 Mg/2 Ml Vial) 4 mg IVP Q8HR PRN PRN Reason: Nausea And Vomiting Sodium Chloride (Sodium Chloride 0.9% Flush 10 Ml Syringe) 10 ml IV Q4HR PRN PRN Reason: PICC Line Sodium Chloride (Sodium Chloride 0.9% Flush 10 Ml Syringe) 10 ml IV WEEKLY [facility] [place] Last Admin: 03/14/21 09:12 Dose: 10 ml Documented by: Sodium Chloride (Sodium Chloride 0.9% Flush 10 Ml Syringe) 20 ml IV Q4HR PRN PRN Reason: PICC Line Zinc Sulfate (Zinc Sulfate 220 Mg Cap) 220 mg PO DAILY [facility] [place] Last Admin: 03/15/21 08:40 Dose: 220 mg Documented by: Past medical history: Unremarkable 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 History 63 d-dimer 3.55 potassium 4.2 bun 88 creatinine 1.76 CRP 6.2 March 14: WBC 22.8 hemoglobin 11.9 platelets 255 d-dimer 5.09 potassium 4.4 creatinine 1.73 CRP 2.7 March 13: WBC 20.9 hemoglobin 11.8 platelets 198 potassium 4.5 creatinine 1.53 CRP 1.1 LDH 1660 d-dimer 5.15 March 04: D-dimer greater than 34 potassium 4.1 creatinine 0.69 LDH 1471 CRP 2.6 March 03: D-dimer 2.06 potassium 4.3 creatinine 0.84 2147 LDH 1419 CRP 5.2 D-dimer 0.82 potassium 4.5 creatinine 0.79 AST 65 ALT 51 LDH 1377 CRP 14.6 Admission labs: WBC 10.3 hemoglobin 16.3 platelets 234 lymphocytes 0.9 d-dimer 0.69 potassium 3.8 creatinine 0.74 LDH 1156 CRP 16 EKG tracing personally reviewed by me-normal sinus rhythm Chest x-ray film personally reviewed by me-/portable: Bilateral infiltrates Assessment and plan: -Acute bilateral: COVID 19 pneumonia. Symptoms started about 6 days prior to admission.-Not improving vitamin C vitamin D zinc IV Decadron and subcu Lovenox. -MSSA tracheal bronchitis/bronchopneumonia On Zosyn-discontinued March 14 -Acute hypoxic respiratory failure from COVID 19 pneumonia-slow to respond Initially on high flow oxygen. Intubated March 07. On 18 % FiO2 -Morbid obesity BMI 43.8 Weight loss measures and follow with PCP for the same -Mild hepatitis likely due to COVID 19 Follow clinically -Hypernatremia from free water deficit from decreased oral intake-corrected IV fluids Continue current medication treatment plan. Prognosis guarded.
[2021-03-15 17:40] LABS: Glucose,Whole Blood 135 mg/dL (75-99)
[2021-03-15 23:25] LABS: Glucose,Whole Blood 154 mg/dL (75-99)
[2021-03-16] MEDS: fentaNYL (PF). 1,000 MCG in SODIUM CHLORIDE 0.9% 80 ML IV SCH ×7 (02:33→23:22)
[2021-03-16 05:13] LABS: HCT 35.2 % (39.0-53.0); HGB 11.4 gm/dL (13.0-17.5); MCH 31.2 pg (25.0-35.0); MCHC 32.3 g/dL (31.0-37.0); MCV 96.6 fL (80.0-100.0); Mean Platelet Volume 9.2; Platelet Count 276 k/uL (150-450); RBC 3.64 m/uL (4.30-5.90); RDW 14.4 % (11.5-15.5); WBC 16.3 k/uL (3.8-10.6)
[2021-03-16 05:28] LABS: ABG Base Excess 15.2 mmol/L; ABG Oxygen Saturation 92.4 % (94-97); ABG PCO2 69 mmHg (35-45); ABG PH 7.38 (7.35-7.45); ABG PO2 67 mmHg (83-108); ABG TCO2 43 mmol/L (19-24); Allen Test Performed? Yes
[2021-03-16 05:30] LABS: Albumin 3.1 g/dL (3.5-5.0); C Reactive Protein 5.4 mg/dL (<1.0); Calcium 9.1 mg/dL (8.4-10.2); Potassium 4.4 mmol/L (3.5-5.1); Total Bilirubin 0.6 mg/dL (0.2-1.3); Total Protein 5.7 g/dL (6.3-8.2)
[2021-03-16 05:31] LABS: ABG HCO3 40 mmol/L (21-25)
[2021-03-16] MEDS: INSULIN ASPART (NovoLOG) 100 UNIT/ML VIAL SQ SCH ×4 (05:59→23:49)
--- NOTE | 2021-03-16 07:01 | XR ---
EXAMINATION TYPE: XR chest 1V portable DATE OF EXAM: 03/16/2021 COMPARISON: 03/15/2021 HISTORY: Tube placement TECHNIQUE: Single frontal view of the chest is obtained. FINDINGS: There has been interval development of a small to moderate right pleural effusion. There i s diffuse interstitial opacity and partial airspace opacities in the left mid and lower lung zone ess entially unchanged. There is no pneumothorax. There is a PICC line in the SVC. There is a tracheostom y tube. The heart size is normal for the technique. IMPRESSION: No change in the bilateral lung infiltrates. Interval development of a [id number] right pleural effusion.
[2021-03-16] MEDS: SYMBICORT 160-4.5 MCG INHALER INHALATION SCH ×2 (08:00→20:56)
[2021-03-16] MEDS: ALBUTEROL HFA INHALER INHALATION SCH ×4 (08:00→20:56)
[2021-03-16] MEDS: CHOLECALCIFEROL 25 MCG (1000 IU) TABLET PO SCH (08:32)
[2021-03-16] MEDS: ASCORBIC ACID 500 MG TAB PO SCH ×2 (08:32→20:03)
[2021-03-16] MEDS: ZINC SULFATE 220 MG CAP PO SCH (08:32)
[2021-03-16] MEDS: ENOXAPARIN 80 MG/0.8 ML SYRINGE SQ SCH ×2 (08:33→20:03)
[2021-03-16] MEDS: FAMOTIDINE 20 MG TAB PO SCH (08:33)
[2021-03-16] MEDS: DEXAMETHASONE SOD PHOSPHATE 10 MG/ML 1 ML VIAL IV SCH ×2 (08:34→20:04)
[2021-03-16] MEDS: FUROSEMIDE 10 MG/ML 4 ML VIAL IV SCH (08:34)
[2021-03-16] MEDS: CHLORHEXIDINE GLUCONATE 15 ML CUP MUCOUS MEM SCH ×2 (08:34→20:03)
--- NOTE | 2021-03-16 11:19 | P.PN ---
Subjective Progress Note Date: 03/16/21 Principal diagnosis: Acute hypoxemic respiratory failure. Progress note dated 03/04/2021. 45-year-old male who was admitted with a diagnosis of acute hypoxemic respiratory failure secondary to COVID 19 pneumonitis/pneumonia. When I saw the patient initially, he was on a nonrebreather, as well as 15 L high flow nasal O2. He was getting saline at 75 mL an hour. His d-dimer had increased, and so we increase his Lovenox up to 60 mg twice a day. He did receive TOCI on March 02. He got up to use the bedside commode, and his saturations dropped into the mid 70 range. I did ask respiratory to place him on BiPAP with settings of IPAP 15, EPAP 5, and 100% FiO2. We will evaluate him again in a few hours or so. Lab data today includes a d-dimer of greater than 34.10, sodium 145, potassium 4.1, chlorides 109, CO2 29, anion gap 7, BUN 25, and creatinine 0.69. LDH is 1471. C-reactive protein is 2.6. Chest x-ray from today, shows diffuse bilateral infiltrates. Progress note dated 03/11/2021. 45-year-old male, that I saw last on March 04. We see the note above. Unfortunately, the patient developed worsening respiratory failure, requiring intubation on March 06, secondary to worsening hypoxemia and COVID 19 pneumonia. The patient was initially admitted on March 01. The patient is seen in the intensive care unit today in room 256. He remains on the ventilator, volume assist control mode, rate 38, tidal volume 450, FiO2 85%, PEEP of 18. Blood gases show a PaO2 of 70, PaCO2 of 66, and a pH is 7.34. The patient's currently on Nimbex at 2 mcg/kg/m, fall at 30 mcg/kg/m, fentanyl at 1 mcg/kg/h, and D5 W, with 3 A of sodium bicarbonate 50 mL an hour. The patient's also getting vital high protein at 53 mL an hour, which is goal. Finally, the patient's also on D5W at 100 mL an hour. White count 20.5, hemoglobin 12.4, hematocrit 37.5, and platelet count 174,000. D-dimer is 14.81. Sodium 142, potassium 4.1, chlorides 100, CO2 37, anion gap 5, BUN 64, and creatinine 1.51. LDH is 1732 and C- reactive protein is 0.8. Chest x-ray is essentially unchanged, and consistent with acute respiratory distress syndrome, and diffuse bilateral infiltrates. Progress note dated 03/12/2021. 45-year-old male, who is again seen, in room 256. The patient required intubation for acute respiratory failure on March 06. The patient was admitted with a diagnosis of acute hypoxemic respiratory failure secondary to COVID 19 pneumonia. Currently, the patient remains on the volume assist control mode, rate 38, tidal volume 450, FiO2 100%, and PEEP of 20. The patients blood gas shows a PaO2 of 71, pCO2 of 71, and pH is 7.32. The patient's currently on Nimb ex at 1.25 mcg/kg/m, propofol at 40 mics per kilogram per minute, and fentanyl 1 mcg/kg/h. He is on D5W with 3 ampules of sodium bicarbonate at 50 mL an hour, and D5 W1 100 mL an hour. The patient's also getting vital high protein at 53 mL an hour, which is goal. The patient's weight ahead on fluids, and will get Lasix 40 mg IVP, every 8 hours. White count 22, hemoglobin 13.3, hematocrit 39.7, platelet count 195,000. D-dimer is 8.03. Sodium 135, potassium 4.5, chlorides 98, CO2 34, anion gap 3, BUN 68, creatinine 1.42. LDH is 2169. C- reactive protein is 0.8. Chest x-ray shows stable diffuse bilateral infiltrates. Progress note dated 03/13/2021. 45-year-old male, again seen in room 256. The patient was intubated for acute respiratory failure on March 06. He really has made no significant headway towards weaning and extubation. Currently, he's on the volume assist control mode, rate 38, tidal volume 450, FiO2 100%, and PEEP of 20. The patient's blood gases show pO2 of 98, pCO2 66, pH 7.38. We will drop the FiO2 from 100-90%. Currently, the patient's on Nimbex at 2 mcg/kg/m, we'll follow at 40 mcg/kg/m, fentanyl at 1.5 mcg/kg/h, and vital high protein at 47 mL an hour, which is goal. Chest x-ray continues to show extensive bilateral infiltrates. White count 20.9, hemoglobin 11.8, hematocrit 34.8, platelet count 191,000. D-dimer is 5.15. Sodium 137, potassium 4.5, chlorides 96, CO2 36, anion gap 5, BUN 75, and creatinine 1.53. LDH is 1660. C-reactive protein 1.1. Progress note dated 03/14/2021. 45-year-old male, seen again in room 256. The patient was intubated for respiratory failure on March 06. The patient has been in the hospital now for 13 days. The patient underwent a tracheostomy and PEG tube placement on March 13. Currently, he is on the volume assist control mode, rate 38, tidal volume 450, FiO2 90%, and PEEP of 20. Blood gases show a PaO2 of 68, P CO2 of 65, and pH is 7.39. The patient remains on propofol at 50 g kilogram per minute, fentanyl at 2.5 mcg/kg/h, and Nimbex at 2 mcg/kg/m. The patient's also getting saline at 10 mL an hour. At the 24-hour ruthann, the patient will resume tube feeds. Chest x-ray shows bilateral infiltrates, which are stable, and removal of the endotracheal tube, and insertion of a tracheostomy tube. White count 22.8, hemoglobin 11.9, hematocrit 36.9, platelet count 255,000. D-dimer 5.09. Sodium 141, potassium 4.4, chlorides 97, CO2 37, anion gap 7, BUN 83, creatinine 1.73. C-reactive protein 2.7. Microbiology is positive for methicillin sensitive staph aureus, from a sputum, on March 06. Progress note dated 03/15/2021. 45-year-old male, again seen in room 256. He remains on the ventilator. He is on the volume assist control mode, rate 38, tidal volume 450, FiO2 90%, PEEP at 20. Arterial blood gases show pO2 of 75, pCO2 74, and a pH is 7.36. The patient's on Nimbex at 2 mcg/kg/m, the Brovana 50 mcg/kg/m, fentanyl 2.5 migraines per kilogram per hour, saline at 10 mL an hour, and vital high protein at 47 mL an hour, which is goal. The plan today is to try to wean the FiO2 on this patient. White count 20.6, hemoglobin 11.9, hematocrit 36.2, platelet count normal. D-dimer 3.55 fibrinogen 522. Sodium 143, potassium 4.2, chlorides 99, CO2 39, anion gap 5, BUN 88, creatinine 1.76. C-reactive protein 6.2. Chest x-ray shows bilateral infiltrates. Tracheostomy tube is in good position. Progress note dated 03/16/2021. 45-year-old male, again seen in room 255. The patient remains on the mechanical ventilator. The patient is on the volume assist control mode, rate 38, tidal volume 450, FiO2 80%, PEEP of 20. Arterial blood gases show pO2 of 67, pCO2 69, pH 7.37. The patient's currently on Nimbex at 1.5 mcg/kg/m, fentanyl at 2.5 mcg/kg/h, propofol at 50 g kilogram per minute, saline at 10 mL an hour, and nutrition with vital high protein, at 20 mL an hour, which is goal. White count 16.3, hemoglobin 11.4, hematocrit 35.2, platelet count 276,000. Sodium 145, potassium 4.4, chlorides 100, CO2 38, BUN 96, and creatinine 1.59. C-reactive protein 5.4. Chest x-ray shows diffuse bilateral infiltrates, which are unchanged. Objective - Vital Signs Vital signs: Vital Signs Temp 98.5 F 03/16/21 08:00 Pulse 67 03/16/21 11:00 Resp 38 H 03/16/21 11:00 BP 132/78 03/16/21 11:00 Pulse Ox 93 L 03/16/21 11:00 Intake & Output 03/15/21 03/16/21 03/16/21 18:59 06:59 18:59 Intake Total 4364.191 6464.324 574.772 Output Total 1999 4075 765 Balance -467.178 -144.676 -190.228 Weight 142.5 kg 143.5 kg Intake: IV 130 110 50 .9 KVO 130 110 50 Intake, IV Titration 877.822 805.324 329.772 Amount Cisatracurium 200 mg In 182.347 205.324 129.772 Sodium Chloride 0.9% 180 ml @ 1 MCG/KG/MIN 7.986 mls/hr IV .Q24H [facility] Rx#: [id number] fentaNYL (PF). 1,000 mcg 300 400 100 In Sodium Chloride 0.9% 80 ml @ Per Protocol IV . Q0M [facility] Rx#:[id number] propofoL 1,000 mg In 395.475 200 100 Empty Bag 1 bag @ Titrate IV .Q0M [facility] Rx#: [id number] Tube Feeding 435 275 105 Other 90 90 90 Output: Urine 1999 1425 765 Other: Voiding Method Indwelling Catheter Indwelling Catheter Indwelling Catheter ABP, PAP, CO, CI - Last Documented Arterial Blood Pressure 147/74 - Exam Currently sedated and paralyzed, with a midline tracheostomy tube. Saturations are 93%. HEENT examination is grossly unremarkable. Neck supple. Full range of motion. No adenopathy thyromegaly or neck vein distention. Midline tracheostomy is noted. Cardiovascular examination reveals regular rhythm rate. S1-S2 normal. No S3 or S4. No discernible murmur noted. Heart sounds are distant. Heart rate 67 bpm. Lungs reveal bilateral coarse rhonchi and crackles. Breath sounds equal bilaterally but diminished throughout. No wheezes. Abdomen soft bowel sounds are heard. No masses or tenderness. PEG tube noted. Extremities are intact. No cyanosis clubbing or edema. Skin is without rash or lesion. Neurologic examination cannot be properly assessed, as the patient is sedated and paralyzed. - Labs CBC & Chem 7: 03/16/21 04:27 03/16/21 04:26 Labs: Abnormal Lab Results - Last 24 Hours (Table) 03/15/21 03/15/21 03/15/21 Range/Units 04:35 12:17 17:38 WBC (3.8-10.6) k/uL RBC (4.30-5.90) m/uL Hgb (13.0-17.5) gm/dL Hct (39.0-53.0) % ABG pCO2 (35-45) mmHg ABG pO2 (83-108) mmHg ABG HCO3 (21-25) mmol/L ABG Total CO2 (19-24) mmol/L ABG O2 Saturation (94-97) % Carbon Dioxide (22-30) mmol/L BUN (9-20) mg/dL Creatinine (0.66-1.25) mg/dL Glucose (74-99) mg/dL POC Glucose (mg/dL) 177 H 135 H (75-99) mg/dL Ferritin 534.2 H (22.0-322.0) ng/mL ALT (4-49) U/L C-Reactive Protein (<1.0) mg/dL Total Protein (6.3-8.2) g/dL Albumin (3.5-5.0) g/dL 03/15/21 03/16/21 03/16/21 Range/Units 23:24 04:26 04:27 WBC (3.8-10.6) k/uL RBC (4.30-5.90) m/uL Hgb (13.0-17.5) gm/dL Hct (39.0-53.0) % ABG pCO2 (35-45) mmHg ABG pO2 (83-108) mmHg ABG HCO3 (21-25) mmol/L ABG Total CO2 (19-24) mmol/L ABG O2 Saturation (94-97) % Carbon Dioxide 38 H (22-30) mmol/L BUN 96 H (9-20) mg/dL Creatinine 1.59 H (0.66-1.25) mg/dL Glucose 136 H (74-99) mg/dL POC Glucose (mg/dL) 154 H (75-99) mg/dL Ferritin 483.8 H (22.0-322.0) ng/mL ALT 90 H (4-49) U/L C-Reactive Protein 5.4 H (<1.0) mg/dL Total Protein 5.7 L (6.3-8.2) g/dL Albumin 3.1 L (3.5-5.0) g/dL 03/16/21 03/16/21 Range/Units 04:27 05:20 WBC 16.3 H (3.8-10.6) k/uL RBC 3.64 L (4.30-5.90) m/uL Hgb 11.4 L (13.0-17.5) gm/dL Hct 35.2 L (39.0-53.0) % ABG pCO2 69 H (35-45) mmHg ABG pO2 67 L (83-108) mmHg ABG HCO3 40 H* (21-25) mmol/L ABG Total CO2 43 H (19-24) mmol/L ABG O2 Saturation 92.4 L (94-97) % Carbon Dioxide (22-30) mmol/L BUN (9-20) mg/dL Creatinine (0.66-1.25) mg/dL Glucose (74-99) mg/dL POC Glucose (mg/dL) (75-99) mg/dL Ferritin (22.0-322.0) ng/mL ALT (4-49) U/L C-Reactive Protein (<1.0) mg/dL Total Protein (6.3-8.2) g/dL Albumin (3.5-5.0) g/dL Assessment and Plan Assessment: Acute hypoxemic respiratory failure secondary to COVID 19 pneumonia/pneumonitis, with worsening oxygenation, which required intubation and mechanical ventilation on March 06, 2021. Status post tracheostomy, and PEG tube insertion, on March 13, for failure to wean from mechanical ventilation. Morbid obesity, with a BMI of 43.8. Rule out obstructive sleep apnea syndrome. Elevated inflammatory markers secondary to coronavirus infection. Methicillin sensitive staph aureus tracheobronchitis/bronchopneumonia, treated with Zosyn, and discontinued on March 14. Prerenal azotemia. Plan: Plan dated 03/04/2021. The patient did receive TOCI on March 02. Because of the worsening oxygenation, the patient we placed on BiPAP with settings of IPAP 15, EPAP 5, and 100%. In addition, because of the increase acutely of the d-dimer, the Lovenox dose was increased to 60 mg subcu twice a day. Additional recommendations and suggestions are forthcoming. We'll have to watch the patient closely. He may need transfer to the intensive care unit if he does not improve. We will continue to follow closely. The patient will continue on the typical vitamins, Decadron, and Lovenox. Plan dated 03/11/2021. Currently, the patient is not making much progress. He remains on FiO2 of 85% PEEP of 18. We will attempt a daily interruption of sedation although, he will not be able to tolerate a spontaneous breathing trial at this point. Additional recommendations and suggestions are forthcoming. The patient did receive TOCI on March 02. Additional recommendations and suggestions are forthcoming. Prognosis is guarded. We'll continue to follow make recommendations where appropriate. Plan dated 03/12/2021. The patient's D5 W IV with 3 ampules of sodium bicarbonate, running at 50 mL an hour, will be discontinued. In addition, the patient's D5W IV, running at 100 mL an hour will also be discontinued. The patient will remain on Nimbex, propofol, and fentanyl. Looking at the patient's I's and O's, the patient is way ahead on fluids, and we will initiate Lasix at 40 mg IV push every 8 hours. Additional recommendations and suggestions are forthcoming. Prognosis is guarded. It appears that he's up by about 14-15 kg in weight. We will continue to follow and make recommendations where necessary. Plan dated 03/13/2021. Currently, the patient's doing about the same as he was yesterday. We might be able to add to the FiO2 down a bit. I forcefully, and my opinion, the patient will end up requiring tracheostomy tube insertion and PEG tube placement. The patient remains on Nimbex, propofol, fentanyl. He is receiving nutrition at goal. Blood gases show a PaO2 of 98, pCO2 66, and a pH of 7.38. Additional recommendations and suggestions are forthcoming. All medications are reviewed. Plan dated 03/14/2021. The patient underwent tracheostomy, PEG tube placement on March 13. The patient remains on propofol, fentanyl, and Nimbex. Tube feedings will be resumed today. The patient was treated for 9 days with Zosyn for oxacillin sensitive staph aureus. That will be discontinued today. Additional recommendations and suggestions are forthcoming. Prognosis is guarded. Follow the patient and make recommendations where appropriate. The patient remains on all appropriate medi cations. Diagnosis is guarded. Plan dated 03/15/2021. The patient underwent tracheostomy and PEG tube placement on March 13. The patient remains on Nimbex, propofol, and fentanyl. The patient is receiving nutrition at goal. We will attempt to wean the FiO2 today. Overall prognosis remains guarded. The patient did receive adequate antibiotics for his oxacillin sensitive staph aureus infection. Additional recommendations and suggestions are forthcoming. We will continue to follow this patient and give recommendations along the way. Plan dated 03/16/2021. We did do some cultures of the drainage from the nostrils. Apparently has quite a bit of purulent drainage from the nose area. The patient's currently on Nimbex, fentanyl and propofol. We'll attempt to wean down the FiO2 if possible. The patient's on PEEP of 20. The patient is receiving nutrition at goal. The patient's overall prognosis is guarded. His oxacillin sensitive staph aureus infection was treated adequately with Zosyn. That was discontinued on the . Additional recommendations and suggestions are forthcoming. The patient did have a tracheostomy and PEG tube placement on March 13. Follow and make re commendations where appropriate. Time with Patient: Greater than 30
[2021-03-16 11:41] LABS: Glucose,Whole Blood 162 mg/dL (75-99)
[2021-03-16] MEDS: CISATRACURIUM 200 MG in SODIUM CHLORIDE 0.9% 180 ML IV SCH (12:54)
--- NOTE | 2021-03-16 14:20 | P.PN ---
Progress Note - Text Progress Note Date: 03/16/21 Chief Complaint: Shortness of breath History of presenting complaint: This is a pleasant 45-year-old patient of Dr. Dejesus. Patient was diagnosed with COVID 3 days ago. Symptoms started about 6 days ago. Patient had fever or chills some diarrhea. Some shortness of breath some cough. No loss of smell or taste. Decreased appetite tired rundown. Patient pulse ox on presentation was 70% and patient subsequently was put on 15 L high flow oxygen. Admitted with bilateral COVID 19 pneumonia. Acute hypoxic respiratory failure. Put on IV Decadron Lovenox, 15 L of high flow oxygen. Pulmonary status deteriorated. Transferred to the ICU. Intubated March 07. Tracheostomy and PEG tube placed on March 13. Today: ICU: Ventilator: FiO2 80 and a PEEP of 20. Drips include Nimbex, fentanyl, propofol. Sinus rhythm Review of systems: Patient intubated Active Medications Acetaminophen (Acetaminophen Tab 325 Mg Tab) 650 mg PO Q6HR PRN PRN Reason: Mild Pain or Fever > 100.5 Last Admin: 03/02/21 09:01 Dose: 650 mg Documented by: Albuterol Sulfate (Albuterol Hfa Inhaler) 2 puff INHALATION RT-QID [facility] Last Admin: 03/16/21 10:57 Dose: 2 puff Documented by: Artificial Tears (Artificial Tears-Hypromellose Drops 15 Ml Btl) 2 drops BOTH EYES QID PRN PRN Reason: Dry Eye(s) Last Admin: 03/05/21 16:29 Dose: 2 drops Documented by: Ascorbic Acid (Ascorbic Acid 500 Mg Tab) 500 mg PO BID [facility] Last Admin: 03/16/21 08:32 Dose: 500 mg Documented by: Budesonide/Formoterol Fumarate (Symbicort 160-4.5 Mcg Inhaler) 2 puff INHALATION RT-BID [facility] Last Admin: 03/16/21 08:00 Dose: 2 puff Documented by: Chlorhexidine Gluconate (Chlorhexidine Gluconate 15 Ml Cup) 15 ml MUCOUS MEM BID [facility] Last Admin: 03/16/21 08:34 Dose: 15 ml Documented by: Cholecalciferol (Cholecalciferol 25 Mcg (1000 Iu) Tablet) 125 mcg PO DAILY [facility] Last Admin: 03/16/21 08:32 Dose: 125 mcg Documented by: Dexamethasone Sodium Phosphate (Dexamethasone Sod Phosphate 10 Mg/Ml 1 Ml Vial) 6 mg IV BID [facility] Last Admin: 03/16/21 08:34 Dose: 6 mg Documented by: Enoxaparin Sodium (Enoxaparin 80 Mg/0.8 Ml Syringe) 70 mg SQ Q12HR [facility] Last Admin: 03/16/21 08:33 Dose: 70 mg Documented by: Famotidine (Famotidine 20 Mg Tab) 40 mg PO DAILY [facility] Last Admin: 03/16/21 08:33 Dose: 40 mg Documented by: Furosemide (Furosemide 10 Mg/Ml 4 Ml Vial) 40 mg IV DAILY [facility] Last Admin: 03/16/21 08:34 Dose: 40 mg Documented by: Cisatracurium Besylate 200 mg/ (Sodium Chloride) 200 mls @ 7.986 mls/hr IV .Q24H [facility]; Protocol Last Admin: 03/16/21 12:54 Dose: 2 mcg/kg/min, 15.972 mls/hr Documented by: Propofol 1,000 mg/ IV Solution 100 mls @ 0 mls/hr IV .Q0M [facility]; Protocol Last Admin: 03/16/21 14:08 Dose: 50 mcg/kg/min, 42.75 mls/hr Documented by: Fentanyl Citrate 1,000 mcg/ (Sodium Chloride) 100 mls @ 0 mls/hr IV .Q0M [facility]; Protocol Last Admin: 03/16/21 13:10 Dose: 2.5 mcg/kg/hr, 33.275 mls/hr Documented by: Insulin Aspart (Insulin Aspart (Novolog) 100 Unit/Ml Vial) 0 unit SQ Q6HR [facility]; Protocol Last Admin: 03/16/21 11:54 Dose: 3 unit Documented by: Miscellaneous Information (Potassium Replacement Protocol 1 Each Misc) 1 each MISCELLANE DAILY PRN; Protocol PRN Reason: Per Protocol Morphine Sulfate (Morphine Sulfate 4 Mg/Ml Syringe) 4 mg IVP Q4HR PRN PRN Reason: Pain Last Admin: 03/06/21 12:08 Dose: 4 mg Documented by: Naloxone HCl (Naloxone 0.4 Mg/Ml 1 Ml Vial) 0.2 mg IV Q2M PRN PRN Reason: Opioid Reversal Ondansetron HCl (Ondansetron 4 Mg/2 Ml Vial) 4 mg IVP Q8HR PRN PRN Reason: Nausea And Vomiting Sodium Chloride (Sodium Chloride 0.9% Flush 10 Ml Syringe) 10 ml IV Q4HR PRN PRN Reason: PICC Line Sodium Chloride (Sodium Chloride 0.9% Flush 10 Ml Syringe) 10 ml IV WEEKLY [facility] Last Admin: 03/14/21 09:12 Dose: 10 ml Documented by: Sodium Chloride (Sodium Chloride 0.9% Flush 10 Ml Syringe) 20 ml IV Q4HR PRN PRN Reason: PICC Line Zinc Sulfate (Zinc Sulfate 220 Mg Cap) 220 mg PO DAILY [facility] Last Admin: 03/16/21 08:32 Dose: 220 mg Documented by: Past medical history: Unremarkable 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 No history of smoking or alcohol Family history: Reviewed, noncontributory to presentation Physical examination: 136/78 136 bun 78, and 3% on the ventilator GENERAL: , laying in bed, intubated LUNGS: Respiratory rate increased, PSYCH: Patient sedated NEUROLOGICAL: Cranial nerves grossly intact; no facial asymmetry, Rest of the exam per pulmonary nursing INVESTIGATIONS, reviewed in the clinical context: March 15: WBC 20.6 hemoglobin 11.9. History 63 d-dimer 3.55 potassium 4.2 bun 88 creatinine 1.76 CRP 6.2 March 14: WBC 22.8 hemoglobin 11.9 platelets 255 d-dimer 5.09 potassium 4.4 creatinine 1.73 CRP 2.7 March 13: WBC 20.9 hemoglobin 11.8 platelets 198 potassium 4.5 creatinine 1.53 CRP 1.1 LDH 1660 d-dimer 5.15 March 04: D-dimer greater than 34 potassium 4.1 creatinine 0.69 LDH 1471 CRP 2.6 March 03: D-dimer 2.06 potassium 4.3 creatinine 0.84 2147 LDH 1419 CRP 5.2 D-dimer 0.82 potassium 4.5 creatinine 0.79 AST 65 ALT 51 LDH 1377 CRP 14.6 Admission labs: WBC 10.3 hemoglobin 16.3 platelets 234 lymphocytes 0.9 d-dimer 0.69 potassium 3.8 creatinine 0.74 LDH 1156 CRP 16 EKG tracing personally reviewed by me-normal sinus rhythm Chest x-ray film personally reviewed by me-/portable: Bilateral infiltrates Assessment and plan: -Acute bilateral: COVID 19 pneumonia. Symptoms started about 6 days prior to admission.-Not improving vitamin C vitamin D zinc IV Decadron and subcu Lovenox. -MSSA tracheal bronchitis/bronchopneumonia On Zosyn-discontinued March 14 -Acute hypoxic respiratory failure from COVID 19 pneumonia-slow to respond Initially on high flow oxygen. Intubated March 07. On 80 % FiO2 -Morbid obesity BMI 43.8 Weight loss measures and follow with PCP for the same -Mild hepatitis likely due to COVID 19 Follow clinically -Hypernatremia from free water deficit from decreased oral intake-corrected IV fluids -Acute kidney injury, likely ATN multifactorial Follow lites closely -Anemia of chronic disease including hospital-acquired anemia from blood draws Follow H&H Continue current medication treatment plan. Prognosis guarded.
--- NOTE | 2021-03-16 16:39 | P.PN ---
Subjective Progress Note Date: 03/16/21 CHIEF COMPLAINT: COVID pneumonia HISTORY OF PRESENT ILLNESS: The patient is a 45 year old male with Covid pneumonia status post trach and PEG. Still requiring moderate ventilation. The patient remains in the ICU ventilated and sedated. REVIEW OF ORGAN SYSTEMS: On mechanical ventilation. Otherwise unable to answer with vent. PHYSICAL EXAM: VITALS: Reviewed CONSTITUTIONAL: Well developed and in no acute distress. EYES: Conjuctivae without sclera icterus. HEAD, EARS, NOSE, THROAT: Head is atraumatic, normocephalic. RESPIRATORY: Non-labored respirations and equal bilateral excursions. No gross wheezes. Mechanical ventilation CARDIOVASCULAR: Palpable 2+ radial pulses. ABDOMEN: No peritonitis. NEUROLOGIC: No focal or lateralizing signs PSYCH: Sedated SKIN: Well perfused. Good skin turgor. CLINCAL LABS: Reviewed. WBC elevated over 16,000 ASSESSMENT: 1. COVID pneumonia 2. Status post trach and PEG 3. Sepsis PLAN: 1. Continue supportive care 2. Continue IV antibiotics Objective - Vital Signs Vital signs: Vital Signs Temp 99.3 F 03/16/21 16:00 Pulse 77 03/16/21 16:00 Resp 38 H 03/16/21 16:00 BP 135/70 03/16/21 16:00 Pulse Ox 93 L 03/16/21 16:00 Intake & Output 03/15/21 03/16/21 03/16/21 18:59 06:59 18:59 Intake Total 1901.209 3353.324 1170.326 Output Total 1999 1425 1715 Balance -467.178 -144.676 -544.674 Weight 142.5 kg 143.5 kg 143.5 kg Intake: IV 130 110 100 .9 KVO 130 110 100 Intake, IV Titration 877.822 805.324 694.326 Amount Cisatracurium 200 mg In 182.347 205.324 194.326 Sodium Chloride 0.9% 180 ml @ 1 MCG/KG/MIN 7.986 mls/hr IV .Q24H [facility] Rx#: [id number] fentaNYL (PF). 1,000 mcg 300 400 300 In Sodium Chloride 0.9% 80 ml @ Per Protocol IV . Q0M [facility] Rx#:[id number] propofoL 1,000 mg In 395.475 200 200 Empty Bag 1 bag @ Titrate IV .Q0M [facility] Rx#: [id number] Tube Feeding 435 275 256 Other 90 90 120 Output: Urine 1999 8471 2983 Other: Voiding Method Indwelling Catheter Indwelling Catheter Indwelling Catheter ABP, PAP, CO, CI - Last Documented Arterial Blood Pressure 147/74 - Labs CBC & Chem 7: 03/17/21 13:04 03/17/21 03:35 Labs: Abnormal Lab Results - Last 24 Hours (Table) 03/15/21 03/15/21 03/16/21 Range/Units 17:38 23:24 04:26 WBC (3.8-10.6) k/uL RBC (4.30-5.90) m/uL Hgb (13.0-17.5) gm/dL Hct (39.0-53.0) % ABG pCO2 (35-45) mmHg ABG pO2 (83-108) mmHg ABG HCO3 (21-25) mmol/L ABG Total CO2 (19-24) mmol/L ABG O2 Saturation (94-97) % Carbon Dioxide 38 H (22-30) mmol/L BUN 96 H (9-20) mg/dL Creatinine 1.59 H (0.66-1.25) mg/dL Glucose 136 H (74-99) mg/dL POC Glucose (mg/dL) 135 H 154 H (75-99) mg/dL Ferritin (22.0-322.0) ng/mL ALT 90 H (4-49) U/L C-Reactive Protein 5.4 H (<1.0) mg/dL Total Protein 5.7 L (6.3-8.2) g/dL Albumin 3.1 L (3.5-5.0) g/dL 03/16/21 03/16/21 03/16/21 Range/Units 04:27 04:27 05:20 WBC 16.3 H (3.8-10.6) k/uL RBC 3.64 L (4.30-5.90) m/uL Hgb 11.4 L (13.0-17.5) gm/dL Hct 35.2 L (39.0-53.0) % ABG pCO2 69 H (35-45) mmHg ABG pO2 67 L (83-108) mmHg ABG HCO3 40 H* (21-25) mmol/L ABG Total CO2 43 H (19-24) mmol/L ABG O2 Saturation 92.4 L (94-97) % Carbon Dioxide (22-30) mmol/L BUN (9-20) mg/dL Creatinine (0.66-1.25) mg/dL Glucose (74-99) mg/dL POC Glucose (mg/dL) (75-99) mg/dL Ferritin 483.8 H (22.0-322.0) ng/mL ALT (4-49) U/L C-Reactive Protein (<1.0) mg/dL Total Protein (6.3-8.2) g/dL Albumin (3.5-5.0) g/dL 03/16/21 Range/Units 11:39 WBC (3.8-10.6) k/uL RBC (4.30-5.90) m/uL Hgb (13.0-17.5) gm/dL Hct (39.0-53.0) % ABG pCO2 (35-45) mmHg ABG pO2 (83-108) mmHg ABG HCO3 (21-25) mmol/L ABG Total CO2 (19-24) mmol/L ABG O2 Saturation (94-97) % Carbon Dioxide (22-30) mmol/L BUN (9-20) mg/dL Creatinine (0.66-1.25) mg/dL Glucose (74-99) mg/dL POC Glucose (mg/dL) 162 H (75-99) mg/dL Ferritin (22.0-322.0) ng/mL ALT (4-49) U/L C-Reactive Protein (<1.0) mg/dL Total Protein (6.3-8.2) g/dL Albumin (3.5-5.0) g/dL Microbiology - Last 24 Hours (Table) 03/16/21 09:30 Nasal Culture - Preliminary Nasal Swab
[2021-03-16 17:58] LABS: Glucose,Whole Blood 136 mg/dL (75-99)
[2021-03-16 19:42] LABS: LD Isoenzymes 1 16 % (19-38); LD Isoenzymes 2 27 % (30-43); LD Isoenzymes 3 20 % (16-26); LD Isoenzymes 4 14 % (3-12); LD Isoenzymes 5 23 % (3-14); Lactacte Dehydrogenase(LD) ISO 660 U/L (100-220)
[2021-03-16 23:46] LABS: Glucose,Whole Blood 132 mg/dL (75-99)
[2021-03-17] MEDS: fentaNYL (PF). 1,000 MCG in SODIUM CHLORIDE 0.9% 80 ML IV SCH ×7 (03:01→23:33)
[2021-03-17 04:10] LABS: HGB 11.3 gm/dL (13.0-17.5); MCH 32.4 pg (25.0-35.0); MCHC 33.4 g/dL (31.0-37.0); Mean Platelet Volume 8.8; Platelet Count 261 k/uL (150-450); RDW 13.9 % (11.5-15.5); WBC 14.6 k/uL (3.8-10.6)
[2021-03-17 04:34] LABS: C Reactive Protein 5.5 mg/dL (<1.0); Calcium 9.1 mg/dL (8.4-10.2); Potassium 4.6 mmol/L (3.5-5.1)
[2021-03-17] MEDS: CISATRACURIUM 200 MG in SODIUM CHLORIDE 0.9% 180 ML IV SCH ×3 (05:03→21:06)
[2021-03-17 05:48] LABS: ABG Base Excess 15.4 mmol/L; ABG Oxygen Saturation 93.1 % (94-97); ABG PH 7.35 (7.35-7.45); ABG PO2 71 mmHg (83-108); ABG TCO2 43 mmol/L (19-24); Allen Test Performed? Yes
[2021-03-17 05:50] LABS: ABG HCO3 41 mmol/L (21-25); ABG PCO2 74 mmHg (35-45)
[2021-03-17 05:53] LABS: Glucose,Whole Blood 134 mg/dL (75-99)
[2021-03-17] MEDS: INSULIN ASPART (NovoLOG) 100 UNIT/ML VIAL SQ SCH ×4 (06:20→23:48)
--- NOTE | 2021-03-17 07:08 | XR ---
EXAMINATION TYPE: XR chest 1V portable DATE OF EXAM: 03/17/2021 COMPARISON: 03/16/2021 HISTORY: Tube placement TECHNIQUE: Single frontal view of the chest is obtained. FINDINGS: Tracheostomy tube noted Left-sided PICC line. Diffuse interstitial pattern bilateral consolidation and pleural effusion. Hear t is enlarged. IMPRESSION: 1. Diffuse bilateral interstitial pattern with pleural effusion correlate for CHF versus interstitial
[2021-03-17] MEDS: SYMBICORT 160-4.5 MCG INHALER INHALATION SCH ×2 (07:48→20:37)
[2021-03-17] MEDS: ALBUTEROL HFA INHALER INHALATION SCH ×4 (07:48→20:37)
[2021-03-17] MEDS: CHOLECALCIFEROL 25 MCG (1000 IU) TABLET PO SCH (08:40)
[2021-03-17] MEDS: ENOXAPARIN 80 MG/0.8 ML SYRINGE SQ SCH (08:40)
[2021-03-17] MEDS: ASCORBIC ACID 500 MG TAB PO SCH ×2 (08:40→20:10)
[2021-03-17] MEDS: FAMOTIDINE 20 MG TAB PO SCH (08:40)
[2021-03-17] MEDS: CHLORHEXIDINE GLUCONATE 15 ML CUP MUCOUS MEM SCH ×2 (08:40→20:10)
[2021-03-17] MEDS: FUROSEMIDE 10 MG/ML 4 ML VIAL IV SCH (08:41)
[2021-03-17] MEDS: DEXAMETHASONE SOD PHOSPHATE 10 MG/ML 1 ML VIAL IV SCH ×2 (08:41→20:10)
[2021-03-17] MEDS: ZINC SULFATE 220 MG CAP PO SCH (08:41)
--- NOTE | 2021-03-17 10:21 | P.PN ---
Subjective Progress Note Date: 03/17/21 Principal diagnosis: 1 Acute hypoxemic respiratory failure secondary to COVID-19 pneumonia Progress note dated 03/15/2021. 45-year-old male, again seen in room 256. He remains on the ventilator. He is on the volume assist control mode, rate 38, tidal volume 450, FiO2 90%, PEEP at 20. Arterial blood gases show pO2 of 75, pCO2 74, and a pH is 7.36. The patient's on Nimbex at 2 mcg/kg/m, the Brovana 50 mcg/kg/m, fentanyl 2.5 migraines per kilogram per hour, saline at 10 mL an hour, and vital high protein at 47 mL an hour, which is goal. The plan today is to try to wean the FiO2 on this patient. White count 20.6, hemoglobin 11.9, hematocrit 36.2, platelet count normal. D-dimer 3.55 fibrinogen 522. Sodium 143, potassium 4.2, chlorides 99, CO2 39, anion gap 5, BUN 88, creatinine 1.76. C-reactive protein 6.2. Chest x-ray shows bilateral infiltrates. Tracheostomy tube is in good position. Progress note dated 03/16/2021. 45-year-old male, again seen in room 255. The patient remains on the mechanical ventilator. The patient is on the volume assist control mode, rate 38, tidal volume 450, FiO2 80%, PEEP of 20. Arterial blood gases show pO2 of 67, pCO2 69, pH 7.37. The patient's currently on Nimbex at 1.5 mcg/kg/m, fentanyl at 2.5 mcg/kg/h, propofol at 50 g kilogram per minute, saline at 10 mL an hour, and nutrition with vital high protein, at 20 mL an hour, which is goal. White count 16.3, hemoglobin 11.4, hematocrit 35.2, platelet count 276,000. Sodium 145, potassium 4.4, chlorides 100, CO2 38, BUN 96, and creatinine 1.59. C-reactive protein 5.4. Chest x-ray shows diffuse bilateral infiltrates, which are unchanged. The patient is seen today 03/17/2021 and follow-up in the intensive care unit. He is status post tracheostomy tube and PEG tube placements on 03/13/2021. He remains on mechanical ventilator with settings at assist control with a rate of 38, tidal volume 450, FiO2 80% and a PEEP of 20. Morning blood gases reveal a P O2 of 71, pCO2 74, pH 7.35. He remains on propofol at 50 mcg/kg/m, fentanyl at 2.5 mcg/kg/h. Nimbex at 3 mcg/kg/m. 0.9 normal saline at KVO. He is being nourished with vital HP at 37 ML's per hour which is goal. He did receive convalescent plasma and Tocilizumab on 03/02/2021. Chest x-ray continues to show diffuse bilateral interstitial pattern with pleural effusions. He is continued on Lasix 40 mg IV daily. Sputum cultures positive for MSSA on 03/06/2021. Nasal culture is pending. White count 14.6. Hemoglobin 11.3. D- dimer 2.07. Sodium 135. Potassium 4.6. Creatinine 1.28. C-reactive protein 5.5. He remains on Decadron 6 g IV twice a day, Lovenox 70 mg subcu every 12 hours, bronchodilators, vitamin supplements. Objective - Vital Signs Vital signs: Vital Signs Temp 99.6 F 03/17/21 08:00 Pulse 73 03/17/21 09:00 Resp 38 H 03/17/21 09:00 BP 128/73 03/17/21 09:00 Pulse Ox 88 L 03/17/21 09:00 Intake & Output 03/16/21 03/17/21 03/17/21 18:59 06:59 18:59 Intake Total 6827.412 6360 600.090 Output Total 2024 1230 200 Balance -630.674 294 400.090 Weight 143.5 kg 142.3 kg Intake: IV 120 120 30 .9 KVO 120 120 30 Intake, IV Titration 794.326 900 339.090 Amount Cisatracurium 200 mg In 194.326 200 42.592 Sodium Chloride 0.9% 180 ml @ 1 MCG/KG/MIN 7.986 mls/hr IV .Q24H [facility] Rx#: [id number] fentaNYL (PF). 1,000 mcg 300 300 196.498 In Sodium Chloride 0.9% 80 ml @ Per Protocol IV . Q0M [facility] Rx#:[id number] propofoL 1,000 mg In 300 400 100 Empty Bag 1 bag @ Titrate IV .Q0M [facility] Rx#: [id number] Tube Feeding 330 444 111 Other 150 60 120 Output: Urine 2024 1230 200 Other: Voiding Method Indwelling Catheter Indwelling Catheter Indwelling Catheter ABP, PAP, CO, CI - Last Documented Arterial Blood Pressure 147/74 - Exam 45-year-old gentleman, currently sedated and paralyzed, with a midline tracheo stomy tube. Saturations are 88%. HEENT examination is grossly unremarkable. Neck supple. Full range of motion. No adenopathy thyromegaly or neck vein distention. Midline tracheostomy is noted. Cardiovascular examination reveals regular rhythm rate. S1-S2 normal. No S3 or S4. No discernible murmur noted. Heart sounds are distant. Heart rate 76 bpm. Lungs reveal bilateral coarse rhonchi and crackles. Breath sounds equal bilaterally but diminished throughout. No wheezes. Abdomen soft bowel sounds are heard. No masses or tenderness. PEG tube noted. Extremities are intact. No cyanosis clubbing or edema. Skin is without rash or lesion. Neurologic examination cannot be properly assessed, as the patient is sedated and paralyzed. - Labs CBC & Chem 7: 03/17/21 03:30 03/17/21 03:35 Labs: Abnormal Lab Results - Last 24 Hours (Table) 03/14/21 03/16/21 03/16/21 Range/Units 05:02 04:27 11:39 WBC (3.8-10.6) k/uL RBC (4.30-5.90) m/uL Hgb (13.0-17.5) gm/dL Hct (39.0-53.0) % D-Dimer (<0.60) mg/L FEU ABG pCO2 (35-45) mmHg ABG pO2 (83-108) mmHg ABG HCO3 (21-25) mmol/L ABG Total CO2 (19-24) mmol/L ABG O2 Saturation (94-97) % Carbon Dioxide (22-30) mmol/L BUN (9-20) mg/dL Creatinine (0.66-1.25) mg/dL Glucose (74-99) mg/dL POC Glucose (mg/dL) 162 H (75-99) mg/dL Ferritin 483.8 H (22.0-322.0) ng/mL LD Isoenzymes 660 H (100-220) U/L LD 1 16 L (19-38) % LD 2 27 L (30-43) % LD 4 14 H (3-12) % LD 5 23 H (3-14) % C-Reactive Protein (<1.0) mg/dL 03/16/21 03/16/21 03/17/21 Range/Units 17:56 23:43 03:30 WBC 14.6 H (3.8-10.6) k/uL RBC 3.50 L (4.30-5.90) m/uL Hgb 11.3 L (13.0-17.5) gm/dL Hct 34.0 L (39.0-53.0) % D-Dimer (<0.60) mg/L FEU ABG pCO2 (35-45) mmHg ABG pO2 (83-108) mmHg ABG HCO3 (21-25) mmol/L ABG Total CO2 (19-24) mmol/L ABG O2 Saturation (94-97) % Carbon Dioxide (22-30) mmol/L BUN (9-20) mg/dL Creatinine (0.66-1.25) mg/dL Glucose (74-99) mg/dL POC Glucose (mg/dL) 136 H 132 H (75-99) mg/dL Ferritin (22.0-322.0) ng/mL LD Isoenzymes (100-220) U/L LD 1 (19-38) % LD 2 (30-43) % LD 4 (3-12) % LD 5 (3-14) % C-Reactive Protein (<1.0) mg/dL 03/17/21 03/17/21 03/17/21 Range/Units 03:30 03:35 05:45 WBC (3.8-10.6) k/uL RBC (4.30-5.90) m/uL Hgb (13.0-17.5) gm/dL Hct (39.0-53.0) % D-Dimer 2.07 H (<0.60) mg/L FEU ABG pCO2 74 H* (35-45) mmHg ABG pO2 71 L (83-108) mmHg ABG HCO3 41 H* (21-25) mmol/L ABG Total CO2 43 H (19-24) mmol/L ABG O2 Saturation 93.1 L (94-97) % Carbon Dioxide 39 H (22-30) mmol/L BUN 96 H (9-20) mg/dL Creatinine 1.28 H (0.66-1.25) mg/dL Glucose 149 H (74-99) mg/dL POC Glucose (mg/dL) (75-99) mg/dL Ferritin (22.0-322.0) ng/mL LD Isoenzymes (100-220) U/L LD 1 (19-38) % LD 2 (30-43) % LD 4 (3-12) % LD 5 (3-14) % C-Reactive Protein 5.5 H (<1.0) mg/dL 03/17/21 Range/Units 05:51 WBC (3.8-10.6) k/uL RBC (4.30-5.90) m/uL Hgb (13.0-17.5) gm/dL Hct (39.0-53.0) % D-Dimer (<0.60) mg/L FEU ABG pCO2 (35-45) mmHg ABG pO2 (83-108) mmHg ABG HCO3 (21-25) mmol/L ABG Total CO2 (19-24) mmol/L ABG O2 Saturation (94-97) % Carbon Dioxide (22-30) mmol/L BUN (9-20) mg/dL Creatinine (0.66-1.25) mg/dL Glucose (74-99) mg/dL POC Glucose (mg/dL) 134 H (75-99) mg/dL Ferritin (22.0-322.0) ng/mL LD Isoenzymes (100-220) U/L LD 1 (19-38) % LD 2 (30-43) % LD 4 (3-12) % LD 5 (3-14) % C-Reactive Protein (<1.0) mg/dL Microbiology - Last 24 Hours (Table) 03/16/21 09:30 Nasal Culture - Preliminary Nasal Swab Assessment and Plan Assessment: 1 Acute hypoxemic respiratory failure secondary to COVID 19 pneumonia/pneumonitis, with worsening oxygenation, which required intubation and mechanical ventilation on March 06, 2021. 2 Status post tracheostomy, and PEG tube insertion, on March 13, for failure to wean from mechanical ventilation. 3 Morbid obesity, with a BMI of 43.8. 4 Rule out obstructive sleep apnea syndrome. 5 Elevated inflammatory markers secondary to coronavirus infection. 6 Methicillin sensitive staph aureus tracheobronchitis/bronchopneumonia, treated with Zosyn, and discontinued on March 14. 7 Prerenal azotemia. Plan: The patient was seen and evaluated by Dr. Romero Chest x-ray, ABGs and labs reviewed D-dimer improved back down to 2.07 We'll decrease Lovenox back to prophylaxis dose We'll continue with the current treatment plan for now Titrate down the FiO2 as tolerated Overall prognosis remains quite guarded We will continue to follow and make further recommendations based on his clinical status. Critical care time 36 minutes I, the cosigning physician, performed a history & physical examination of the patient. Lungs sounds bilateral scattered rhonchi and coarse crackles in the bases,. Maintaining O2 saturations in the high 80s low 90s on 80% FiO2 and 20 of PEEP I discussed the assessment and plan of care with my nurse practitioner, Mary Jane Mendieta. I attest to the above note as dictated by her.
[2021-03-17] MEDS ORDERED: CISATRACURIUM 2 MG/ML 5 ML VIAL IV ONE (10:44)
[2021-03-17 11:58] LABS: Glucose,Whole Blood 181 mg/dL (75-99)
[2021-03-17 13:12] LABS: HCT 38.4 % (39.0-53.0); HGB 11.9 gm/dL (13.0-17.5); MCH 30.2 pg (25.0-35.0); MCV 97.5 fL (80.0-100.0); Mean Platelet Volume 8.6; Platelet Count 323 k/uL (150-450); RBC 3.94 m/uL (4.30-5.90); RDW 14.1 % (11.5-15.5); WBC 20.7 k/uL (3.8-10.6)
--- NOTE | 2021-03-17 13:21 | P.PN ---
Progress Note - Text Progress Note Date: 03/17/21 Chief Complaint: Shortness of breath History of presenting complaint: This is a pleasant 45-year-old patient of Dr. Dejesus. Patient was diagnosed with COVID 3 days ago. Symptoms started about 6 days ago. Patient had fever or chills some diarrhea. Some shortness of breath some cough. No loss of smell or taste. Decreased appetite tired rundown. Patient pulse ox on presentation was 70% and patient subsequently was put on 15 L high flow oxygen. Admitted with bilateral COVID 19 pneumonia. Acute hypoxic respiratory failure. Put on IV Decadron Lovenox, 15 L of high flow oxygen. Pulmonary status deteriorated. Transferred to the ICU. Intubated March 07. Tracheostomy and PEG tube placed on March 13. Today: ICU: Ventilator: FiO2 89 people 20. 2 feeding at 37 mL an hour. Drips include Nimbex, fentanyl, propofol. Patient has significant bleeding from the tracheostomy site. Around the same. Starting on suction. towel was drenched. Review of systems: Patient intubated Active Medications Acetaminophen (Acetaminophen Tab 325 Mg Tab) 650 mg PO Q6HR PRN PRN Reason: Mild Pain or Fever > 100.5 Last Admin: 03/02/21 09:01 Dose: 650 mg Documented by: Albuterol Sulfate (Albuterol Hfa Inhaler) 2 puff INHALATION RT-QID [facility] Last Admin: 03/17/21 12:16 Dose: 2 puff Documented by: Artificial Tears (Artificial Tears-Hypromellose Drops 15 Ml Btl) 2 drops BOTH EYES QID PRN PRN Reason: Dry Eye(s) Last Admin: 03/05/21 16:29 Dose: 2 drops Documented by: Ascorbic Acid (Ascorbic Acid 500 Mg Tab) 500 mg PO BID [facility] Last Admin: 03/17/21 08:40 Dose: 500 mg Documented by: Budesonide/Formoterol Fumarate (Symbicort 160-4.5 Mcg Inhaler) 2 puff INHALATION RT-BID [facility] Last Admin: 03/17/21 07:48 Dose: 2 puff Documented by: Chlorhexidine Gluconate (Chlorhexidine Gluconate 15 Ml Cup) 15 ml MUCOUS MEM BID [facility] Last Admin: 03/17/21 08:40 Dose: 15 ml Documented by: Cholecalciferol (Cholecalciferol 25 Mcg (1000 Iu) Tablet) 125 mcg PO DAILY [facility] Last Admin: 03/17/21 08:40 Dose: 125 mcg Documented by: Dexamethasone Sodium Phosphate (Dexamethasone Sod Phosphate 10 Mg/Ml 1 Ml Vial) 6 mg IV BID [facility] Last Admin: 03/17/21 08:41 Dose: 6 mg Documented by: Enoxaparin Sodium (Enoxaparin 80 Mg/0.8 Ml Syringe) 70 mg SQ Q12HR [facility] Last Admin: 03/17/21 08:40 Dose: 70 mg Documented by: Famotidine (Famotidine 20 Mg Tab) 40 mg PO DAILY [facility] Last Admin: 03/17/21 08:40 Dose: 40 mg Documented by: Furosemide (Furosemide 10 Mg/Ml 4 Ml Vial) 40 mg IV DAILY [facility] Last Admin: 03/17/21 08:41 Dose: 40 mg Documented by: Cisatracurium Besylate 200 mg/ (Sodium Chloride) 200 mls @ 7.986 mls/hr IV .Q24H [facility]; Protocol Last Titration: 03/17/21 10:39 Dose: 4 mcg/kg/min, 31.944 mls/hr Documented by: Propofol 1,000 mg/ IV Solution 100 mls @ 0 mls/hr IV .Q0M [facility]; Protocol Last Admin: 03/17/21 13:11 Dose: 50 mcg/kg/min, 42.75 mls/hr Documented by: Fentanyl Citrate 1,000 mcg/ (Sodium Chloride) 100 mls @ 0 mls/hr IV .Q0M [facility]; Protocol Last Admin: 03/17/21 13:10 Dose: 2.5 mcg/kg/hr, 33.275 mls/hr Documented by: Insulin Aspart (Insulin Aspart (Novolog) 100 Unit/Ml Vial) 0 unit SQ Q6HR [facility]; Protocol Last Admin: 03/17/21 12:29 Dose: 4 unit Documented by: Miscellaneous Information (Potassium Replacement Protocol 1 Each Misc) 1 each MISCELLANE DAILY PRN; Protocol PRN Reason: Per Protocol Morphine Sulfate (Morphine Sulfate 4 Mg/Ml Syringe) 4 mg IVP Q4HR PRN PRN Reason: Pain Last Admin: 03/06/21 12:08 Dose: 4 mg Documented by: Naloxone HCl (Naloxone 0.4 Mg/Ml 1 Ml Vial) 0.2 mg IV Q2M PRN PRN Reason: Opioid Reversal Ondansetron HCl (Ondansetron 4 Mg/2 Ml Vial) 4 mg IVP Q8HR PRN PRN Reason: Nausea And Vomiting Sodium Chloride (Sodium Chloride 0.9% Flush 10 Ml Syringe) 10 ml IV Q4HR PRN PRN Reason: PICC Line Sodium Chloride (Sodium Chloride 0.9% Flush 10 Ml Syringe) 10 ml IV WEEKLY [facility] Last Admin: 03/14/21 09:12 Dose: 10 ml Documented by: Sodium Chloride (Sodium Chloride 0.9% Flush 10 Ml Syringe) 20 ml IV Q4HR PRN PRN Reason: PICC Line Zinc Sulfate (Zinc Sulfate 220 Mg Cap) 220 mg PO DAILY [facility] Last Admin: 03/17/21 08:41 Dose: 220 mg Documented by: Past medical history: Unremarkable 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 History 63 d-dimer 3.55 potassium 4.2 bun 88 creatinine 1.76 CRP 6.2 March 14: WBC 22.8 hemoglobin 11.9 platelets 255 d-dimer 5.09 potassium 4.4 creatinine 1.73 CRP 2.7 March 13: WBC 20.9 hemoglobin 11.8 platelets 198 potassium 4.5 creatinine 1.53 CRP 1.1 LDH 1660 d-dimer 5.15 March 04: D-dimer greater than 34 potassium 4.1 creatinine 0.69 LDH 1471 CRP 2.6 March 03: D-dimer 2.06 potassium 4.3 creatinine 0.84 2147 LDH 1419 CRP 5.2 D-dimer 0.82 potassium 4.5 creatinine 0.79 AST 65 ALT 51 LDH 1377 CRP 14.6 Admission labs: WBC 10.3 hemoglobin 16.3 platelets 234 lymphocytes 0.9 d-dimer 0.69 potassium 3.8 creatinine 0.74 LDH 1156 CRP 16 EKG tracing personally reviewed by me-normal sinus rhythm Chest x-ray film personally reviewed by me-/portable: Bilateral infiltrates Assessment and plan: -Acute bilateral: COVID 19 pneumonia. Symptoms started about 6 days prior to ad mission.-Not improving vitamin C vitamin D zinc IV Decadron and subcu Lovenox. -MSSA tracheal bronchitis/bronchopneumonia On Zosyn-discontinued March 14 -Acute hypoxic respiratory failure from COVID 19 pneumonia-slow to respond Initially on high flow oxygen. Intubated March 07. On 80 % FiO2 -Morbid obesity BMI 43.8 Weight loss measures and follow with PCP for the same -Mild hepatitis likely due to COVID 19 Follow clinically -Hypernatremia from free water deficit from decreased oral intake-corrected IV fluids -Acute kidney injury, likely ATN multifactorial Follow lites closely -Anemia of chronic disease including hospital-acquired anemia from blood draws Follow H&H -Acute bleeding at the tracheostomy site. Patient is on Lovenox 70 mg twice daily. Hold the same. Check patient's PT PTT, fibrogenic level. Check clotting profile. Hold Lovenox. Dr. Almonte to review tracheostomy site. Patient may need a larger sized tracheostomy tube versus maybe some extra stitches
[2021-03-17 13:32] LABS: INR 0.9 (<1.2)
--- NOTE | 2021-03-17 16:14 | P.PN ---
Subjective Progress Note Date: 03/17/21 CHIEF COMPLAINT: COVID pneumonia HISTORY OF PRESENT ILLNESS: The patient is a 45 year old male with Covid pneumonia status post trach and PEG. Still requiring moderate ventilation. The patient remains in the ICU ventilated and sedated. Today, I was notified that patient had diffuse bleeding from his trach. Incidentally, he was getting Lovenox 70 mg subcu twice daily for Covid protocol. He also started bleeding from the nose. His Lovenox is now been discontinued. He did receive his morning dose. REVIEW OF ORGAN SYSTEMS: On mechanical ventilation. Otherwise unable to answer with vent. Has new bleeding along those and trach. PHYSICAL EXAM: VITALS: Reviewed CONSTITUTIONAL: Well developed and in no acute distress. EYES: Conjuctivae without sclera icterus. HEAD, EARS, NOSE, THROAT: Head is atraumatic, normocephalic. Tracheostomy site clean. No active bright red blood identified. Name Hector clean by me. RESPIRATORY: Non-labored respirations and equal bilateral excursions. No gross wheezes. Mechanical ventilation CARDIOVASCULAR: Palpable 2+ radial pulses. ABDOMEN: No peritonitis. Gastrostomy tube intact. NEUROLOGIC: No focal or lateralizing signs PSYCH: Sedated SKIN: Well perfused. Good skin turgor. CLINCAL LABS: Reviewed. WBC elevated over 16,000 now over 20,000. Hemoglobin 11.9 improved from yesterday. ASSESSMENT: 1. COVID pneumonia 2. Status post trach and PEG 3. Sepsis 4. Spontaneous bleeding nares, trach 5. Adverse reaction Lovenox bleeding PLAN: 1. Continue supportive care 2. Continue IV antibiotics 3. At bedside, have silver nitrate sticks available. Otherwise, bleeding should resolve as Lovenox passes its half-life. Objective - Vital Signs Vital signs: Vital Signs Temp 99.6 F 03/17/21 08:00 Pulse 106 H 03/17/21 15:00 Resp 38 H 03/17/21 15:00 BP 139/85 03/17/21 15:00 Pulse Ox 88 L 03/17/21 15:00 Intake & Output 03/16/21 03/17/21 03/17/21 18:59 06:59 18:59 Intake Total 7827.883 4402 1329.498 Output Total 2024 1230 1360 Balance -630.674 294 -30.502 Weight 143.5 kg 142.3 kg Intake: IV 120 120 90 .9 KVO 120 120 90 Intake, IV Titration 794.326 900 696.498 Amount Cisatracurium 200 mg In 194.326 200 200.000 Sodium Chloride 0.9% 180 ml @ 1 MCG/KG/MIN 7.986 mls/hr IV .Q24H [facility] Rx#: [id number] fentaNYL (PF). 1,000 mcg 300 300 296.498 In Sodium Chloride 0.9% 80 ml @ Per Protocol IV . Q0M [facility] Rx#:[id number] propofoL 1,000 mg In 300 400 200 Empty Bag 1 bag @ Titrate IV .Q0M [facility] Rx#: [id number] Tube Feeding 330 444 333 Other 150 60 210 Output: Urine 2025 1230 1360 Other: Voiding Method Indwelling Catheter Indwelling Catheter Indwelling Catheter ABP, PAP, CO, CI - Last Documented Arterial Blood Pressure 147/74 - Labs CBC & Chem 7: 03/17/21 13:04 03/17/21 03:35 Labs: Abnormal Lab Results - Last 24 Hours (Table) 03/14/21 03/16/21 03/16/21 Range/Units 05:02 17:56 23:43 WBC (3.8-10.6) k/uL RBC (4.30-5.90) m/uL Hgb (13.0-17.5) gm/dL Hct (39.0-53.0) % Fibrinogen (200-500) mg/dL D-Dimer (<0.60) mg/L FEU ABG pCO2 (35-45) mmHg ABG pO2 (83-108) mmHg ABG HCO3 (21-25) mmol/L ABG Total CO2 (19-24) mmol/L ABG O2 Saturation (94-97) % Carbon Dioxide (22-30) mmol/L BUN (9-20) mg/dL Creatinine (0.66-1.25) mg/dL Glucose (74-99) mg/dL POC Glucose (mg/dL) 136 H 132 H (75-99) mg/dL LD Isoenzymes 660 H (100-220) U/L LD 1 16 L (19-38) % LD 2 27 L (30-43) % LD 4 14 H (3-12) % LD 5 23 H (3-14) % C-Reactive Protein (<1.0) mg/dL 03/17/21 03/17/21 03/17/21 Range/Units 03:30 03:30 03:35 WBC 14.6 H (3.8-10.6) k/uL RBC 3.50 L (4.30-5.90) m/uL Hgb 11.3 L (13.0-17.5) gm/dL Hct 34.0 L (39.0-53.0) % Fibrinogen (200-500) mg/dL D-Dimer 2.07 H (<0.60) mg/L FEU ABG pCO2 (35-45) mmHg ABG pO2 (83-108) mmHg ABG HCO3 (21-25) mmol/L ABG Total CO2 (19-24) mmol/L ABG O2 Saturation (94-97) % Carbon Dioxide 39 H (22-30) mmol/L BUN 96 H (9-20) mg/dL Creatinine 1.28 H (0.66-1.25) mg/dL Glucose 149 H (74-99) mg/dL POC Glucose (mg/dL) (75-99) mg/dL LD Isoenzymes (100-220) U/L LD 1 (19-38) % LD 2 (30-43) % LD 4 (3-12) % LD 5 (3-14) % C-Reactive Protein 5.5 H (<1.0) mg/dL 03/17/21 03/17/21 03/17/21 Range/Units 05:45 05:51 11:57 WBC (3.8-10.6) k/uL RBC (4.30-5.90) m/uL Hgb (13.0-17.5) gm/dL Hct (39.0-53.0) % Fibrinogen (200-500) mg/dL D-Dimer (<0.60) mg/L FEU ABG pCO2 74 H* (35-45) mmHg ABG pO2 71 L (83-108) mmHg ABG HCO3 41 H* (21-25) mmol/L ABG Total CO2 43 H (19-24) mmol/L ABG O2 Saturation 93.1 L (94-97) % Carbon Dioxide (22-30) mmol/L BUN (9-20) mg/dL Creatinine (0.66-1.25) mg/dL Glucose (74-99) mg/dL POC Glucose (mg/dL) 134 H 181 H (75-99) mg/dL LD Isoenzymes (100-220) U/L LD 1 (19-38) % LD 2 (30-43) % LD 4 (3-12) % LD 5 (3-14) % C-Reactive Protein (<1.0) mg/dL 03/17/21 03/17/21 Range/Units 12:53 13:04 WBC 20.7 H (3.8-10.6) k/uL RBC 3.94 L (4.30-5.90) m/uL Hgb 11.9 L (13.0-17.5) gm/dL Hct 38.4 L (39.0-53.0) % Fibrinogen 620 H (200-500) mg/dL D-Dimer (<0.60) mg/L FEU ABG pCO2 (35-45) mmHg ABG pO2 (83-108) mmHg ABG HCO3 (21-25) mmol/L ABG Total CO2 (19-24) mmol/L ABG O2 Saturation (94-97) % Carbon Dioxide (22-30) mmol/L BUN (9-20) mg/dL Creatinine (0.66-1.25) mg/dL Glucose (74-99) mg/dL POC Glucose (mg/dL) (75-99) mg/dL LD Isoenzymes (100-220) U/L LD 1 (19-38) % LD 2 (30-43) % LD 4 (3-12) % LD 5 (3-14) % C-Reactive Protein (<1.0) mg/dL Microbiology - Last 24 Hours (Table) 03/16/21 09:30 Nasal Culture - Preliminary Nasal Swab
[2021-03-17 18:03] LABS: Glucose,Whole Blood 149 mg/dL (75-99)
[2021-03-17 23:43] LABS: Glucose,Whole Blood 127 mg/dL (75-99)
[2021-03-18] MEDS: fentaNYL (PF). 1,000 MCG in SODIUM CHLORIDE 0.9% 80 ML IV SCH ×9 (01:52→21:56)
[2021-03-18] MEDS: CISATRACURIUM 200 MG in SODIUM CHLORIDE 0.9% 180 ML IV SCH (04:19)
[2021-03-18] MEDS: ACETAMINOPHEN TAB 325 MG TAB PO PRN ×2 (04:19→16:36)
[2021-03-18 04:29] LABS: Hypochromasia Slight; MCH 30.3 pg (25.0-35.0); MCHC 30.4 g/dL (31.0-37.0); MCV 99.6 fL (80.0-100.0); Mean Platelet Volume 8.5; Platelet Count 298 k/uL (150-450); RBC 3.62 m/uL (4.30-5.90); WBC 21.5 k/uL (3.8-10.6)
[2021-03-18 04:49] LABS: Albumin 2.9 g/dL (3.5-5.0); Calcium 8.9 mg/dL (8.4-10.2); Potassium 4.7 mmol/L (3.5-5.1); Total Bilirubin 0.9 mg/dL (0.2-1.3); Total Protein 5.6 g/dL (6.3-8.2)
[2021-03-18 05:03] LABS: C Reactive Protein 19.3 mg/dL (<1.0)
[2021-03-18] MEDS: INSULIN ASPART (NovoLOG) 100 UNIT/ML VIAL SQ SCH ×3 (05:30→18:57)
[2021-03-18 05:34] LABS: ABG Oxygen Saturation 90.2 % (94-97); ABG PH 7.35 (7.35-7.45); ABG PO2 60 mmHg (83-108); ABG TCO2 43 mmol/L (19-24); Allen Test Performed? Yes
[2021-03-18 05:36] LABS: ABG PCO2 73 mmHg (35-45)
[2021-03-18 05:37] LABS: ABG HCO3 41 mmol/L (21-25)
--- NOTE | 2021-03-18 06:39 | P.PN ---
Subjective Progress Note Date: 03/17/21 This is a 45-year-old male patient who is currently being seen in the intensive care unit on 03/18/2021 for complications of COVID 19 related pneumonia respiratory failure. The patient has been in intensive care unit and due to prolonged respiratory failure, the patient required insertion of a tracheostomy tube insertion and a PEG tube insertion on 03/13/2021. For now, the patient is sedated with propofol running at 50 mcg/kg per minute and fentanyl at 4 mcg per kilogram per hour. The patient is also paralyzed with Nimbex at the 3.5 mcg per kilogram per minute. He remains on a mechanical ventilator assist control mode with a tidal volume of 38, FiO2 of 80%, PEEP of 20 with a tidal volume of 450. The blood gases from this morning shows a pH of 7.36 with a pCO2 of 73 and pO2 of 60. The chest x-ray from this morning the chest x-ray still showing diffuse bilateral pulmonary infiltrates with interstitial patterns bilaterally. Sputum was positive for MSSA on 03/06/2021. Patient remains on Decadron 6 because IV every 12 hours. During the course of treatment, the patient receives also, less than plasma and Tocilizumab. Most recent inflammatory markers revealed an LDH level of 1660 and a CRP of 1.1 and this was obtained on 03/13/2021. The follow-up CRP level today is 19.3.. . The patient is receiving Lasix 40 mg IV every 24 hours. The patient also developed an acute kidney injury in the creatinine is currently at 1.3 and a sodium level is at 148. The white cell count is 21 with a hemoglobin of 11.0. His net fluid balance is -336 mL over the past 24 hours. He was having some issues with bleeding from his tracheostomy stoma and nose and based on that the Lovenox was discontinued. Note that his most recent d-dimer was at 1.82 from this morning and the patient was receiving Lovenox for DVT prophylaxis. General surgeries on the case. The patient has a Bivona #8 tracheostomy tube. Hemodynamically stable. The peak airway pressures today's at 37. Objective - Vital Signs Vital signs: Vital Signs Temp 100.3 F H 03/17/21 16:00 Pulse 96 03/17/21 19:00 Resp 38 H 05/02/21 19:00 BP 145/82 03/17/21 19:00 Pulse Ox 89 L 03/17/21 19:00 Intake & Output 03/17/21 03/17/21 03/18/21 06:59 18:59 06:59 Intake Total 1524 1700.498 47 Output Total 1230 1760 100 Balance 294 -59.502 -53 Weight 142.3 kg Intake: IV 120 120 10 .9 KVO 120 120 10 Intake, IV Titration 900 896.498 Amount Cisatracurium 200 mg In 200 200.000 Sodium Chloride 0.9% 180 ml @ 1 MCG/KG/MIN 7.986 mls/hr IV .Q24H [facility] Rx#: [id number] fentaNYL (PF). 1,000 mcg 300 396.498 In Sodium Chloride 0.9% 80 ml @ Per Protocol IV . Q0M [facility] Rx#:[id number] propofoL 1,000 mg In 400 300 Empty Bag 1 bag @ Titrate IV .Q0M [facility] Rx#: [id number] Tube Feeding 444 444 37 Other 60 240 Output: Urine 1230 1760 100 Other: Voiding Method Indwelling Catheter Indwelling Catheter ABP, PAP, CO, CI - Last Documented Arterial Blood Pressure 147/74 - Exam 45-year-old gentleman, currently sedated and paralyzed, with a midline tracheo stomy tube. The patient is sedated and paralyzed and the patient has a #8 on a tracheostomy tube in place. Head exam was generally normal. There was no scleral icterus or corneal arcus. Mucous membranes were moist. Neck supple. Full range of motion. No adenopathy thyromegaly or neck vein distention. Midline tracheostomy is noted. Cardiovascular examination reveals regular rhythm rate. S1-S2 normal. No S3 or S4. No discernible murmur noted. Heart sounds are distant. Heart rate 76 bpm. Lungs reveal bilateral coarse rhonchi and crackles. Breath sounds equal bilaterally but diminished throughout. No wheezes. Abdomen soft bowel sounds are heard. No masses or tenderness. PEG tube noted. Extremities are intact. No cyanosis clubbing or edema. Skin is without rash or lesion. Neurologic examination cannot be properly assessed, as the patient is sedated and paralyzed. - Labs CBC & Chem 7: 03/18/21 04:14 03/18/21 04:14 Labs: Abnormal Lab Results - Last 24 Hours (Table) 04/29/21 05/01/21 05/02/21 Range/Units 05:02 23:43 03:30 WBC 14.6 H (3.8-10.6) k/uL RBC 3.50 L (4.30-5.90) m/uL Hgb 11.3 L (13.0-17.5) gm/dL Hct 34.0 L (39.0-53.0) % Fibrinogen (200-500) mg/dL D-Dimer (<0.60) mg/L FEU ABG pCO2 (35-45) mmHg ABG pO2 (83-108) mmHg ABG HCO3 (21-25) mmol/L ABG Total CO2 (19-24) mmol/L ABG O2 Saturation (94-97) % Carbon Dioxide (22-30) mmol/L BUN (9-20) mg/dL Creatinine (0.66-1.25) mg/dL Glucose (74-99) mg/dL POC Glucose (mg/dL) 132 H (75-99) mg/dL LD Isoenzymes 660 H (100-220) U/L LD 1 16 L (19-38) % LD 2 27 L (30-43) % LD 4 14 H (3-12) % LD 5 23 H (3-14) % C-Reactive Protein (<1.0) mg/dL 03/17/21 03/17/21 03/17/21 Range/Units 03:30 03:35 05:45 WBC (3.8-10.6) k/uL RBC (4.30-5.90) m/uL Hgb (13.0-17.5) gm/dL Hct (39.0-53.0) % Fibrinogen (200-500) mg/dL D-Dimer 2.07 H (<0.60) mg/L FEU ABG pCO2 74 H* (35-45) mmHg ABG pO2 71 L (83-108) mmHg ABG HCO3 41 H* (21-25) mmol/L ABG Total CO2 43 H (19-24) mmol/L ABG O2 Saturation 93.1 L (94-97) % Carbon Dioxide 39 H (22-30) mmol/L BUN 96 H (9-20) mg/dL Creatinine 1.28 H (0.66-1.25) mg/dL Glucose 149 H (74-99) mg/dL POC Glucose (mg/dL) (75-99) mg/dL LD Isoenzymes (100-220) U/L LD 1 (19-38) % LD 2 (30-43) % LD 4 (3-12) % LD 5 (3-14) % C-Reactive Protein 5.5 H (<1.0) mg/dL 03/17/21 03/17/21 03/17/21 Range/Units 05:51 11:57 12:53 WBC (3.8-10.6) k/uL RBC (4.30-5.90) m/uL Hgb (13.0-17.5) gm/dL Hct (39.0-53.0) % Fibrinogen 620 H (200-500) mg/dL D-Dimer (<0.60) mg/L FEU ABG pCO2 (35-45) mmHg ABG pO2 (83-108) mmHg ABG HCO3 (21-25) mmol/L ABG Total CO2 (19-24) mmol/L ABG O2 Saturation (94-97) % Carbon Dioxide (22-30) mmol/L BUN (9-20) mg/dL Creatinine (0.66-1.25) mg/dL Glucose (74-99) mg/dL POC Glucose (mg/dL) 134 H 181 H (75-99) mg/dL LD Isoenzymes (100-220) U/L LD 1 (19-38) % LD 2 (30-43) % LD 4 (3-12) % LD 5 (3-14) % C-Reactive Protein (<1.0) mg/dL 03/17/21 03/17/21 Range/Units 13:04 17:59 WBC 20.7 H (3.8-10.6) k/uL RBC 3.94 L (4.30-5.90) m/uL Hgb 11.9 L (13.0-17.5) gm/dL Hct 38.4 L (39.0-53.0) % Fibrinogen (200-500) mg/dL D-Dimer (<0.60) mg/L FEU ABG pCO2 (35-45) mmHg ABG pO2 (83-108) mmHg ABG HCO3 (21-25) mmol/L ABG Total CO2 (19-24) mmol/L ABG O2 Saturation (94-97) % Carbon Dioxide (22-30) mmol/L BUN (9-20) mg/dL Creatinine (0.66-1.25) mg/dL Glucose (74-99) mg/dL POC Glucose (mg/dL) 149 H (75-99) mg/dL LD Isoenzymes (100-220) U/L LD 1 (19-38) % LD 2 (30-43) % LD 4 (3-12) % LD 5 (3-14) % C-Reactive Protein (<1.0) mg/dL Microbiology - Last 24 Hours (Table) 03/16/21 09:30 Nasal Culture - Preliminary Nasal Swab Assessment and Plan Plan: 1 Acute hypoxemic respiratory failure secondary to COVID 19 pneumonia/pneumonitis, with worsening oxygenation, which required intubation and mechanical ventilation on March 06, 2021. Currently on Decadron 6 mg IV every 12 hours. The patient also received convalescent plasma and Tocilizumab during the course of the treatment. Since then, the patient continues to be vent dependent and the patient currently has a tracheostomy tube in place. Chest x- ray showing bilateral pulmonary infiltrates, with interval worsening in the left-sided consolidation and there is also worsening in the right lower lobe pulmonary infiltration. Consideration should be given for a superinfection. The patient has grown MSSA earlier and currently is on no antibiotics and this MSSA cultures from 03/06/2021. Repeat sputum cultures needed and the patient will be restarted back on IV cefepime for now as an empiric antibiotic coverage pending cultures. 2 Status post tracheostomy, and PEG tube insertion, on March 13, for failure to wean from mechanical ventilation. 3 Morbid obesity, with a BMI of 43.8. 4 Rule out obstructive sleep apnea syndrome. 5 Elevated inflammatory markers secondary to coronavirus infection. 6 Methicillin sensitive staph aureus tracheobronchitis/bronchopneumonia, treated with Zosyn, and discontinued on March 14. Currently the patient is off antibiotics, there is suspicion for any infection based on the chest x-ray findings. We'll restart antibiotics and IV cefepime. 7 acute kidney injury, recovering , the creatinine is stable. Plan: Check pro calcitonin level Started patient IV cefepime 2 g every 12 hours Recheck sputum Gram stain and culture Paralytic holiday Chest x-ray, ABGs and labs reviewed D-dimer improved back down to 1.8, and we'll keep the Lovenox off for another 24 hours and monitor the patient for any bleeding complications and restarted at a dose of 40 mg every 24 hours if he remains stable We'll continue with the current treatment plan for now Titrate down the FiO2 as tolerated Overall prognosis remains quite guarded We will continue to follow and make further recommendations based on his clinical status. Critically care evaluation, more than 30 minutes
[2021-03-18] MEDS: ALBUTEROL HFA INHALER INHALATION SCH ×5 (07:30→19:38)
[2021-03-18] MEDS: SYMBICORT 160-4.5 MCG INHALER INHALATION SCH ×2 (07:30→19:28)
--- NOTE | 2021-03-18 07:36 | P.PN ---
Subjective Progress Note Date: 03/18/21 This is a 45-year-old male patient who is currently being seen in the intensive care unit on 03/18/2021 for complications of COVID 19 related pneumonia respiratory failure. The patient has been in intensive care unit and due to prolonged respiratory failure, the patient required insertion of a tracheostomy tube insertion and a PEG tube insertion on 03/13/2021. For now, the patient is sedated with propofol running at 50 mcg/kg per minute and fentanyl at 4 mcg per kilogram per hour. The patient is also paralyzed with Nimbex at the 3.5 mcg per kilogram per minute. He remains on a mechanical ventilator assist control mode with a tidal volume of 38, FiO2 of 80%, PEEP of 20 with a tidal volume of 450. The blood gases from this morning shows a pH of 7.36 with a pCO2 of 73 and pO2 of 60. The chest x-ray from this morning the chest x-ray still showing diffuse bilateral pulmonary infiltrates with interstitial patterns bilaterally. Sputum was positive for MSSA on 03/06/2021. Patient remains on Decadron 6 because IV every 12 hours. During the course of treatment, the patient receives also, less than plasma and Tocilizumab. Most recent inflammatory markers revealed an LDH level of 1660 and a CRP of 1.1 and this was obtained on 03/13/2021. The follow-up CRP level today is 19.3.. . The patient is receiving Lasix 40 mg IV every 24 hours. The patient also developed an acute kidney injury in the creatinine is currently at 1.3 and a sodium level is at 148. The white cell count is 21 with a hemoglobin of 11.0. His net fluid balance is -336 mL over the past 24 hours. He was having some issues with bleeding from his tracheostomy stoma and nose and based on that the Lovenox was discontinued. Note that his most recent d-dimer was at 1.82 from this morning and the patient was receiving Lovenox for DVT prophylaxis. General surgeries on the case. The patient has a Bivona #8 tracheostomy tube. Hemodynamically stable. The peak airway pressures today's at 37. Objective - Vital Signs Vital signs: Vital Signs Temp 100.5 F H 03/18/21 04:00 Pulse 106 H 03/18/21 07:00 Resp 38 H 03/18/21 07:00 BP 129/76 05/03/21 07:00 Pulse Ox 88 L 03/18/21 07:00 Intake & Output 03/17/21 03/18/21 03/18/21 18:59 06:59 18:59 Intake Total 9136.953 8643.226 147 Output Total 1760 1570 125 Balance -59.502 372.226 22 Weight 143.5 kg Intake: IV 120 120 10 .9 KVO 120 120 10 Intake, IV Titration 580.186 2024.226 100 Amount Cisatracurium 200 mg In 200.000 400.000 Sodium Chloride 0.9% 180 ml @ 1 MCG/KG/MIN 7.986 mls/hr IV .Q24H [facility] Rx#: [id number] fentaNYL (PF). 1,000 mcg 396.498 500.000 100 In Sodium Chloride 0.9% 80 ml @ Per Protocol IV . Q0M [facility] Rx#:[id number] propofoL 1,000 mg In 300 388.226 Empty Bag 1 bag @ Titrate IV .Q0M [facility] Rx#: [id number] Tube Feeding 444 444 37 Other 240 90 Output: Urine 1760 1570 125 Other: Voiding Method Indwelling Catheter Indwelling Catheter ABP, PAP, CO, CI - Last Documented Arterial Blood Pressure 147/74 - Exam 45-year-old gentleman, currently sedated and paralyzed, with a midline tracheostomy tube. The patient is sedated and paralyzed and the patient has a #8 on a tracheostomy tube in place. Head exam was generally normal. There was no scleral icterus or corneal arcus. Mucous membranes were moist. Neck supple. Full range of motion. No adenopathy thyromegaly or neck vein distention. Midline tracheostomy is noted. Cardiovascular examination reveals regular rhythm rate. S1-S2 normal. No S3 or S4. No discernible murmur noted. Heart sounds are distant. Heart rate 76 bpm. Lungs reveal bilateral coarse rhonchi and crackles. Breath sounds equal bilaterally but diminished throughout. No wheezes. Abdomen soft bowel sounds are heard. No masses or tenderness. PEG tube noted. Extremities are intact. No cyanosis clubbing or edema. Skin is without rash or lesion. Neurologic examination cannot be properly assessed, as the patient is sedated and paralyzed. - Labs CBC & Chem 7: 03/18/21 04:14 03/18/21 04:14 Labs: Abnormal Lab Results - Last 24 Hours (Table) 03/17/21 03/17/21 03/17/21 Range/Units 11:57 12:53 13:04 WBC 20.7 H (3.8-10.6) k/uL RBC 3.94 L (4.30-5.90) m/uL Hgb 11.9 L (13.0-17.5) gm/dL Hct 38.4 L (39.0-53.0) % MCHC (31.0-37.0) g/dL Fibrinogen 620 H (200-500) mg/dL D-Dimer (<0.60) mg/L FEU ABG pCO2 (35-45) mmHg ABG pO2 (83-108) mmHg ABG HCO3 (21-25) mmol/L ABG Total CO2 (19-24) mmol/L ABG O2 Saturation (94-97) % Sodium (137-145) mmol/L Carbon Dioxide (22-30) mmol/L BUN (9-20) mg/dL Creatinine (0.66-1.25) mg/dL Glucose (74-99) mg/dL POC Glucose (mg/dL) 181 H (75-99) mg/dL ALT (4-49) U/L C-Reactive Protein (<1.0) mg/dL Total Protein (6.3-8.2) g/dL Albumin (3.5-5.0) g/dL 03/17/21 03/17/21 03/18/21 Range/Units 17:59 23:41 04:14 WBC 21.5 H (3.8-10.6) k/uL RBC 3.62 L (4.30-5.90) m/uL Hgb 11.0 L (13.0-17.5) gm/dL Hct 36.0 L (39.0-53.0) % MCHC 30.4 L (31.0-37.0) g/dL Fibrinogen (200-500) mg/dL D-Dimer (<0.60) mg/L FEU ABG pCO2 (35-45) mmHg ABG pO2 (83-108) mmHg ABG HCO3 (21-25) mmol/L ABG Total CO2 (19-24) mmol/L ABG O2 Saturation (94-97) % Sodium (137-145) mmol/L Carbon Dioxide (22-30) mmol/L BUN (9-20) mg/dL Creatinine (0.66-1.25) mg/dL Glucose (74-99) mg/dL POC Glucose (mg/dL) 149 H 127 H (75-99) mg/dL ALT (4-49) U/L C-Reactive Protein (<1.0) mg/dL Total Protein (6.3-8.2) g/dL Albumin (3.5-5.0) g/dL 03/18/21 03/18/21 03/18/21 Range/Units 04:14 04:14 05:30 WBC (3.8-10.6) k/uL RBC (4.30-5.90) m/uL Hgb (13.0-17.5) gm/dL Hct (39.0-53.0) % MCHC (31.0-37.0) g/dL Fibrinogen (200-500) mg/dL D-Dimer 1.82 H (<0.60) mg/L FEU ABG pCO2 73 H* (35-45) mmHg ABG pO2 60 L (83-108) mmHg ABG HCO3 41 H* (21-25) mmol/L ABG Total CO2 43 H (19-24) mmol/L ABG O2 Saturation 90.2 L (94-97) % Sodium 148 H (137-145) mmol/L Carbon Dioxide 37 H (22-30) mmol/L BUN 90 H (9-20) mg/dL Creatinine 1.30 H (0.66-1.25) mg/dL Glucose 135 H (74-99) mg/dL POC Glucose (mg/dL) (75-99) mg/dL ALT 59 H (4-49) U/L C-Reactive Protein 19.3 H (<1.0) mg/dL Total Protein 5.6 L (6.3-8.2) g/dL Albumin 2.9 L (3.5-5.0) g/dL Microbiology - Last 24 Hours (Table) 03/16/21 09:30 Nasal Culture - Preliminary Nasal Swab Assessment and Plan Plan: 1 Acute hypoxemic respiratory failure secondary to COVID 19 pneumonia/pneumonitis, with worsening oxygenation, which required intubation and mechanical ventilation on March 06, 2021. Currently on Decadron 6 mg IV every 12 hours. The patient also received convalescent plasma and Tocilizumab during the course of the treatment. Since then, the patient continues to be vent dependent and the patient currently has a tracheostomy tube in place. Chest x- ray showing bilateral pulmonary infiltrates, with interval worsening in the left-sided consolidation and there is also worsening in the right lower lobe pulmonary infiltration. Consideration should be given for a superinfection. The patient has grown MSSA earlier and currently is on no antibiotics and this MSSA cultures from 03/06/2021. Repeat sputum cultures needed and the patient will be restarted back on IV cefepime for now as an empiric antibiotic coverage pending cultures. 2 Status post tracheostomy, and PEG tube insertion, on March 13, for failure to wean from mechanical ventilation. 3 Morbid obesity, with a BMI of 43.8. 4 Rule out obstructive sleep apnea syndrome. 5 Elevated inflammatory markers secondary to coronavirus infection. 6 Methicillin sensitive staph aureus tracheobronchitis/bronchopneumonia, treated with Zosyn, and discontinued on March 14. Currently the patient is off antibiotics, there is suspicion for any infection based on the chest x-ray findings. We'll restart antibiotics and IV cefepime. 7 acute kidney injury, recovering , the creatinine is stable. Plan: Check pro calcitonin level Started patient IV cefepime 2 g every 12 hours Recheck sputum Gram stain and culture Paralytic holiday Chest x-ray, ABGs and labs reviewed D-dimer improved back down to 1.8, and we'll keep the Lovenox off for another 24 hours and monitor the patient for any bleeding complications and restarted at a dose of 40 mg every 24 hours if he remains stable We'll continue with the current treatment plan for now Titrate down the FiO2 as tolerated Overall prognosis remains quite guarded We will continue to follow and make further recommendations based on his clinical status. Critically care evaluation, more than 30 minutes
[2021-03-18] MEDS: ASCORBIC ACID 500 MG TAB PO SCH ×2 (08:50→20:46)
[2021-03-18] MEDS: DEXAMETHASONE SOD PHOSPHATE 10 MG/ML 1 ML VIAL IV SCH ×2 (08:50→20:46)
[2021-03-18] MEDS: ZINC SULFATE 220 MG CAP PO SCH (08:50)
[2021-03-18] MEDS: FAMOTIDINE 20 MG TAB PO SCH (08:50)
[2021-03-18] MEDS: CHOLECALCIFEROL 25 MCG (1000 IU) TABLET PO SCH (08:50)
[2021-03-18] MEDS: FUROSEMIDE 10 MG/ML 4 ML VIAL IV SCH (08:51)
[2021-03-18] MEDS: CHLORHEXIDINE GLUCONATE 15 ML CUP MUCOUS MEM SCH ×2 (08:51→20:46)
[2021-03-18] MEDS: CEFEPIME 2 GM in SODIUM CHLORIDE 0.9% 100 ML IVPB SCH ×2 (08:51→20:46)
[2021-03-18] MEDS ORDERED: ENOXAPARIN 40 MG/0.4 ML SYRINGE SQ SCH (09:00)
[2021-03-18 09:27] LABS: Ferritin 429.1 ng/mL (22.0-322.0)
--- NOTE | 2021-03-18 10:07 | XR ---
EXAMINATION TYPE: XR chest 1V portable DATE OF EXAM: 03/18/2021 CLINICAL HISTORY: mech. vent. Covid 19. TECHNIQUE: Portable semiupright view of the chest. COMPARISON: 03/17/2021 FINDINGS: Tracheostomy tube overlies the tracheal air column. Left PIC redemonstrated. The cardiomed iastinal silhouette is enlarged. Diffuse bilateral interstitial opacities and left basilar airspace o pacities redemonstrated. There is increased confluent opacity over the right lung base. No pleural e ffusion. No pneumothorax seen. IMPRESSION: Diffuse interstitial and airspace opacities, with increased moderate focal opacity over the right ksenia g base versus 03/17/2021.
--- NOTE | 2021-03-18 14:31 | P.PN ---
Subjective Progress Note Date: 03/18/21 CHIEF COMPLAINT: COVID-19 pneumonia HISTORY OF PRESENT ILLNESS: Patient is in the ICU intubated and sedated. Patient is status post tracheostomy and PEG tube placement. Patient is tolerating tube feeds. Patient had bleeding from his nose and tracheostomy site over the weekend. Lovenox was discontinued. Since then he has had no further bleeding. Patient did have a temp of 100.5. WBC is 21.5 hemoglobin 11 Patient seen and examined with Dr. swanson PHYSICAL EXAM: VITAL SIGNS: Reviewed. GENERAL: Well-developed in no acute distress. HEENT: Head is atraumatic, normocephalic. Trach site clean dry and intact ABDOMEN: Soft. Nondistended. Nontender. PEG tube site clean dry and intact NEUROLOGIC: Intubated and sedated ASSESSMENT: 1. Acute hypoxic respiratory failure secondary to COVID-19 pneumonia with prolonged mechanical ventilation status post tracheostomy placement 2. Moderate protein calorie malnutrition status post PEG tube placement PLAN: -Continue tube feedings -Continue ICU management -Continue supportive care Physician Fence Erector Supervisor note has been reviewed by physician. Signing provider agrees with the documented findings, assessment, and plan of care. Objective - Vital Signs Vital signs: Vital Signs Temp 99.3 F 03/18/21 14:19 Pulse 133 H 03/18/21 14:19 Resp 38 H 03/18/21 14:19 BP 140/79 03/18/21 14:19 Pulse Ox 81 L 03/18/21 14:19 Intake & Output 03/17/21 03/18/21 03/18/21 18:59 06:59 18:59 Intake Total 4592.245 3045.226 417 Output Total 1760 1570 1550 Balance -59.502 372.226 -1133 Weight 143.5 kg Intake: IV 120 120 80 .9 KVO 120 120 80 Intake, IV Titration 765.007 0202.226 300 Amount Cisatracurium 200 mg In 200.000 400.000 Sodium Chloride 0.9% 180 ml @ 1 MCG/KG/MIN 7.986 mls/hr IV .Q24H [facility] Rx#: [id number] fentaNYL (PF). 1,000 mcg 396.498 500.000 200 In Sodium Chloride 0.9% 80 ml @ Per Protocol IV . Q0M [facility] Rx#:[id number] propofoL 1,000 mg In 300 388.226 100 Empty Bag 1 bag @ Titrate IV .Q0M [facility] Rx#: [id number] Tube Feeding 444 444 37 Other 240 90 Output: Urine 1760 1570 1550 Other: Voiding Method Indwelling Catheter Indwelling Catheter ABP, PAP, CO, CI - Last Documented Arterial Blood Pressure 147/74 - Labs CBC & Chem 7: 03/18/21 04:14 03/18/21 04:14 Labs: Abnormal Lab Results - Last 24 Hours (Table) 03/17/21 03/17/21 03/18/21 Range/Units 17:59 23:41 04:14 WBC 21.5 H (3.8-10.6) k/uL RBC 3.62 L (4.30-5.90) m/uL Hgb 11.0 L (13.0-17.5) gm/dL Hct 36.0 L (39.0-53.0) % MCHC 30.4 L (31.0-37.0) g/dL D-Dimer (<0.60) mg/L FEU ABG pCO2 (35-45) mmHg ABG pO2 (83-108) mmHg ABG HCO3 (21-25) mmol/L ABG Total CO2 (19-24) mmol/L ABG O2 Saturation (94-97) % Sodium (137-145) mmol/L Carbon Dioxide (22-30) mmol/L BUN (9-20) mg/dL Creatinine (0.66-1.25) mg/dL Glucose (74-99) mg/dL POC Glucose (mg/dL) 149 H 127 H (75-99) mg/dL Ferritin (22.0-322.0) ng/mL ALT (4-49) U/L C-Reactive Protein (<1.0) mg/dL Total Protein (6.3-8.2) g/dL Albumin (3.5-5.0) g/dL 03/18/21 03/18/21 03/18/21 Range/Units 04:14 04:14 05:30 WBC (3.8-10.6) k/uL RBC (4.30-5.90) m/uL Hgb (13.0-17.5) gm/dL Hct (39.0-53.0) % MCHC (31.0-37.0) g/dL D-Dimer 1.82 H (<0.60) mg/L FEU ABG pCO2 73 H* (35-45) mmHg ABG pO2 60 L (83-108) mmHg ABG HCO3 41 H* (21-25) mmol/L ABG Total CO2 43 H (19-24) mmol/L ABG O2 Saturation 90.2 L (94-97) % Sodium 148 H (137-145) mmol/L Carbon Dioxide 37 H (22-30) mmol/L BUN 90 H (9-20) mg/dL Creatinine 1.30 H (0.66-1.25) mg/dL Glucose 135 H (74-99) mg/dL POC Glucose (mg/dL) (75-99) mg/dL Ferritin 429.1 H (22.0-322.0) ng/mL ALT 59 H (4-49) U/L C-Reactive Protein 19.3 H (<1.0) mg/dL Total Protein 5.6 L (6.3-8.2) g/dL Albumin 2.9 L (3.5-5.0) g/dL Microbiology - Last 24 Hours (Table) 03/16/21 09:30 Nasal Culture - Final Nasal Swab
[2021-03-18 15:26] LABS: ABG Base Excess 12.9 mmol/L; ABG Oxygen Saturation 85.2 % (94-97); ABG PH 7.26 (7.35-7.45); ABG TCO2 43 mmol/L (19-24); Allen Test Performed? Yes
[2021-03-18 15:30] LABS: ABG PCO2 90 mmHg (35-45)
[2021-03-18 15:31] LABS: ABG HCO3 40 mmol/L (21-25); ABG PO2 56 mmHg (83-108)
--- NOTE | 2021-03-18 16:22 | P.PN ---
Progress Note - Text Progress Note Date: 03/18/21 Chief Complaint: Shortness of breath History of presenting complaint: This is a pleasant 45-year-old patient of Dr. Dejesus. Patient was diagnosed with COVID 3 days ago. Symptoms started about 6 days ago. Patient had fever or chills some diarrhea. Some shortness of breath some cough. No loss of smell or taste. Decreased appetite tired rundown. Patient pulse ox on presentation was 70% and patient subsequently was put on 15 L high flow oxygen. Admitted with bilateral COVID 19 pneumonia. Acute hypoxic respiratory failure. Put on IV Decadron Lovenox, 15 L of high flow oxygen. Pulmonary status deteriorated. Transferred to the ICU. Intubated March 07. Tracheostomy and PEG tube placed on March 13. Today: ICU: On the ventilator. Drips include Nimbex, fentanyl, propofol. Heart rate about 120s. 2 feeding at 37 mL an hour. Has a trach and a PEG. Patient had bleeding around the trach site seen by general surgery yesterday. Also spoke around the same. Decreased Review of systems: Patient intubated Active Medications Acetaminophen (Acetaminophen Tab 325 Mg Tab) 650 mg PO Q6HR PRN PRN Reason: Mild Pain or Fever > 100.5 Last Admin: 03/18/21 04:19 Dose: 650 mg Documented by: Albuterol Sulfate (Albuterol Hfa Inhaler) 2 puff INHALATION RT-QID [facility] Last Admin: 03/18/21 15:58 Dose: 2 puff Documented by: Artificial Tears (Artificial Tears-Hypromellose Drops 15 Ml Btl) 2 drops BOTH EYES QID PRN PRN Reason: Dry Eye(s) Last Admin: 03/05/21 16:29 Dose: 2 drops Documented by: Ascorbic Acid (Ascorbic Acid 500 Mg Tab) 500 mg PO BID [facility] Last Admin: 03/18/21 08:50 Dose: 500 mg Documented by: Budesonide/Formoterol Fumarate (Symbicort 160-4.5 Mcg Inhaler) 2 puff INHALATION RT-BID [facility] Last Admin: 03/18/21 07:30 Dose: 2 puff Documented by: Chlorhexidine Gluconate (Chlorhexidine Gluconate 15 Ml Cup) 15 ml MUCOUS MEM BID [facility] Last Admin: 03/18/21 08:51 Dose: 15 ml Documented by: Cholecalciferol (Cholecalciferol 25 Mcg (1000 Iu) Tablet) 125 mcg PO DAILY [facility] Last Admin: 03/18/21 08:50 Dose: 125 mcg Documented by: Dexamethasone Sodium Phosphate (Dexamethasone Sod Phosphate 10 Mg/Ml 1 Ml Vial) 6 mg IV BID [facility] Last Admin: 03/18/21 08:50 Dose: 6 mg Documented by: Famotidine (Famotidine 20 Mg Tab) 40 mg PO DAILY [facility] Last Admin: 03/18/21 08:50 Dose: 40 mg Documented by: Furosemide (Furosemide 10 Mg/Ml 4 Ml Vial) 40 mg IV DAILY [facility] Last Admin: 03/18/21 08:51 Dose: 40 mg Documented by: Cisatracurium Besylate 200 mg/ (Sodium Chloride) 200 mls @ 7.986 mls/hr IV .Q24H [facility]; Protocol Last Admin: 03/18/21 04:19 Dose: 3.5 mcg/kg/min, 27.951 mls/hr Documented by: Propofol 1,000 mg/ IV Solution 100 mls @ 0 mls/hr IV .Q0M [facility]; Protocol Last Admin: 03/18/21 08:51 Dose: 50 mcg/kg/min, 42.69 mls/hr Documented by: Fentanyl Citrate 1,000 mcg/ (Sodium Chloride) 100 mls @ 0 mls/hr IV .Q0M [facility]; Protocol Last Admin: 03/18/21 10:00 Dose: 4 mcg/kg/hr, 53.24 mls/hr Documented by: Cefepime HCl 2 gm/ Sodium (Chloride) 100 mls @ 25 mls/hr IVPB Q12HR [facility] Last Admin: 03/18/21 08:51 Dose: 25 mls/hr Documented by: Insulin Aspart (Insulin Aspart (Novolog) 100 Unit/Ml Vial) 0 unit SQ Q6HR [facility]; Protocol Last Admin: 03/18/21 13:53 Dose: Not Given Documented by: Miscellaneous Information (Potassium Replacement Protocol 1 Each Misc) 1 each MISCELLANE DAILY PRN; Protocol PRN Reason: Per Protocol Morphine Sulfate (Morphine Sulfate 4 Mg/Ml Syringe) 4 mg IVP Q4HR PRN PRN Reason: Pain Last Admin: 03/06/21 12:08 Dose: 4 mg Documented by: Naloxone HCl (Naloxone 0.4 Mg/Ml 1 Ml Vial) 0.2 mg IV Q2M PRN PRN Reason: Opioid Reversal Ondansetron HCl (Ondansetron 4 Mg/2 Ml Vial) 4 mg IVP Q8HR PRN PRN Reason: Nausea And Vomiting Sodium Chloride (Sodium Chloride 0.9% Flush 10 Ml Syringe) 10 ml IV Q4HR PRN PRN Reason: PICC Line Sodium Chloride (Sodium Chloride 0.9% Flush 10 Ml Syringe) 10 ml IV WEEKLY [facility] Last Admin: 03/14/21 09:12 Dose: 10 ml Documented by: Sodium Chloride (Sodium Chloride 0.9% Flush 10 Ml Syringe) 20 ml IV Q4HR PRN PRN Reason: PICC Line Zinc Sulfate (Zinc Sulfate 220 Mg Cap) 220 mg PO DAILY [facility] Last Admin: 03/18/21 08:50 Dose: 220 mg Documented by: Past medical history: Unremarkable 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 No history of smoking or alcohol Family history: Reviewed, noncontributory to presentation Physical examination: Vitals: 99.3, 1:30, 38, 140/79, 81% on ventilator GENERAL: , laying in bed, intubated LUNGS: Respiratory rate increased, PSYCH: Patient sedated NEUROLOGICAL: Cranial nerves grossly intact; no facial asymmetry, Rest of the exam per pulmonary nursing INVESTIGATIONS, reviewed in the clinical context: March 18: WBC 21.5 hemoglobin 11 platelets 298 potassium 4.7 creatinine 1.3 March 17: WBC 20.6 hemoglobin 11.3 platelets 261 potassium 4.6 creatinine 1.28 March 15: WBC 20.6 hemoglobin 11.9. History 63 d-dimer 3.55 potassium 4.2 bun 88 creatinine 1.76 CRP 6.2 March 14: WBC 22.8 hemoglobin 11.9 platelets 255 d-dimer 5.09 potassium 4.4 creatinine 1.73 CRP 2.7 March 13: WBC 20.9 hemoglobin 11.8 platelets 198 potassium 4.5 creatinine 1.53 CRP 1.1 LDH 1660 d-dimer 5.15 March 04: D-dimer greater than 34 potassium 4.1 creatinine 0.69 LDH 1471 CRP 2.6 March 03: D-dimer 2.06 potassium 4.3 creatinine 0.84 2147 LDH 1419 CRP 5.2 D-dimer 0.82 potassium 4.5 creatinine 0.79 AST 65 ALT 51 LDH 1377 CRP 14.6 Admission labs: WBC 10.3 hemoglobin 16.3 platelets 234 lymphocytes 0.9 d-dimer 0.69 potassium 3.8 creatinine 0.74 LDH 1156 CRP 16 EKG tracing personally reviewed by me-normal sinus rhythm Chest x-ray film personally reviewed by me-/portable: Bilateral infiltrates Assessment and plan: -Acute bilateral: COVID 19 pneumonia. Symptoms started about 6 days prior to admission.-Not improving vitamin C vitamin D zinc IV Decadron and subcu Lovenox. -MSSA tracheal bronchitis/bronchopneumonia On Zosyn-discontinued March 14 -Acute hypoxic respiratory failure from COVID 19 worsening Initially on high flow oxygen. Intubated March 07. On 90 % FiO2 -Morbid obesity BMI 43.8 Weight loss measures and follow with PCP for the same -Mild hepatitis likely due to COVID 19 Follow clinically -Hypernatremia from free water deficit from decreased oral intake-corrected IV fluids -Acute kidney injury, likely ATN multifactorial-slow to respond Follow lites closely -Anemia of chronic disease including hospital-acquired anemia from blood draws Follow H&H -Acute bleeding at the tracheostomy site. Patient is on Lovenox 70 mg twice daily. Hold the same. Check patient's PT PTT, fibrogenic level. Patient oxygen saturation is not doing good. Gauze was placed on the tracheostomy site for bleeding, by Dr. Almonte. Decreased bleeding. Prognosis guarded.
[2021-03-18] MEDS: MORPHINE SULFATE 4 MG/ML SYRINGE IVP PRN (16:37)
[2021-03-18 17:47] LABS: Glucose,Whole Blood 178 mg/dL (75-99)
[2021-03-18] MEDS: ACETAMINOPHEN IV (For NPO) 1,000 MG in EMPTY BAG 1 BAG IVPB PRN (22:26)
[2021-03-19] MEDS: fentaNYL (PF). 1,000 MCG in SODIUM CHLORIDE 0.9% 80 ML IV SCH ×6 (00:03→10:49)
[2021-03-19 00:54] LABS: Glucose,Whole Blood 176 mg/dL (75-99)
[2021-03-19] MEDS: INSULIN ASPART (NovoLOG) 100 UNIT/ML VIAL SQ SCH ×2 (01:07→05:37)
[2021-03-19] MEDS: CISATRACURIUM 200 MG in SODIUM CHLORIDE 0.9% 180 ML IV SCH (01:20)
[2021-03-19 04:47] LABS: Albumin 2.8 g/dL (3.5-5.0); Calcium 8.9 mg/dL (8.4-10.2); Potassium 4.8 mmol/L (3.5-5.1); Total Bilirubin 1.6 mg/dL (0.2-1.3); Total Protein 5.6 g/dL (6.3-8.2)
[2021-03-19 04:48] LABS: ABG Base Excess 12.9 mmol/L; ABG HCO3 38 mmol/L (21-25); ABG Oxygen Saturation 89.9 % (94-97); ABG PCO2 68 mmHg (35-45); ABG PH 7.36 (7.35-7.45); ABG TCO2 40 mmol/L (19-24); Allen Test Performed? Yes
[2021-03-19 04:50] LABS: ABG PO2 59 mmHg (83-108)
[2021-03-19] MEDS: ACETAMINOPHEN IV (For NPO) 1,000 MG in EMPTY BAG 1 BAG IVPB PRN (05:03)
[2021-03-19 05:06] LABS: HCT 33.1 % (39.0-53.0); HGB 10.9 gm/dL (13.0-17.5); Hypochromasia Slight; MCH 32.6 pg (25.0-35.0); MCHC 32.9 g/dL (31.0-37.0); MCV 99.2 fL (80.0-100.0); Mean Platelet Volume 8.4; Platelet Count 237 k/uL (150-450); RBC 3.34 m/uL (4.30-5.90); RDW 13.8 % (11.5-15.5); WBC 22.3 k/uL (3.8-10.6)
[2021-03-19 05:37] LABS: Glucose,Whole Blood 130 mg/dL (75-99)
[2021-03-19] MEDS ORDERED: VANCOMYCIN IV PER PHARMACY 1 EACH MISC MISCELLANE PRN (06:54)
[2021-03-19] MEDS ORDERED: SODIUM CHLORIDE 0.9% 1,000 ML IV ONE (06:55)
[2021-03-19] MEDS: ALBUTEROL HFA INHALER INHALATION SCH ×2 (07:00→11:10)
[2021-03-19] MEDS ORDERED: SODIUM CHLORIDE 0.45% 1,000 ML IV SCH (07:00)
--- NOTE | 2021-03-19 07:01 | P.PN ---
Subjective Progress Note Date: 03/19/21 This is a 45-year-old male patient who is currently being seen in the intensive care unit on 03/18/2021 for complications of COVID 19 related pneumonia respiratory failure. The patient has been in intensive care unit and due to prolonged respiratory failure, the patient required insertion of a tracheostomy tube insertion and a PEG tube insertion on 03/13/2021. For now, the patient is sedated with propofol running at 50 mcg/kg per minute and fentanyl at 4 mcg per kilogram per hour. The patient is also paralyzed with Nimbex at the 3.5 mcg per kilogram per minute. He remains on a mechanical ventilator assist control mode with a tidal volume of 38, FiO2 of 80%, PEEP of 20 with a tidal volume of 450. The blood gases from this morning shows a pH of 7.36 with a pCO2 of 73 and pO2 of 60. The chest x-ray from this morning the chest x-ray still showing diffuse bilateral pulmonary infiltrates with interstitial patterns bilaterally. Sputum was positive for MSSA on 03/06/2021. Patient remains on Decadron 6 because IV every 12 hours. During the course of treatment, the patient receives also, less than plasma and Tocilizumab. Most recent inflammatory markers revealed an LDH level of 1660 and a CRP of 1.1 and this was obtained on 03/13/2021. The follow-up CRP level today is 19.3.. . The patient is receiving Lasix 40 mg IV every 24 hours. The patient also developed an acute kidney injury in the creatinine is currently at 1.3 and a sodium level is at 148. The white cell count is 21 with a hemoglobin of 11.0. His net fluid balance is -336 mL over the past 24 hours. He was having some issues with bleeding from his tracheostomy stoma and nose and based on that the Lovenox was discontinued. Note that his most recent d-dimer was at 1.82 from this morning and the patient was receiving Lovenox for DVT prophylaxis. General surgeries on the case. The patient has a Bivona #8 tracheostomy tube. Hemodynamically stable. The peak airway pressures today's at 37. On today's evaluation of 03/19/2021, I'm seeing the patient for a follow-up. The patient remains intubated on mechanical ventilator. This morning, the patient is still paralyzed with Nimbex which is running at 1 mcg/kg per minute. The patient is also on propofol and fentanyl combination. Propofol is running at 50 mcg/kg per minute and fentanyl is running at 4 mcg/kg/h. In terms of the vent support, the patient remains on assist control mode of ventilation at the rate of 38 with a tidal volume of 450 and FiO2 of 100% and a PEEP of 20. The blood gases from today shows a pH of 7.36 with a pCO2 of 68 and pO2 of 59. The patient has a #[address] tube in place. The inflammatory markers show an LDH of 1952 and the CRP level is at pending for now. His chest x-ray from today showing bilateral lower lobe infiltrates more extensive on the right. Comparing the chest x-ray with the one that was done yesterday, there is obvious worsening the right-sided pulmonary infiltrates. Tracheostomy tube remains in a good location in the upper trachea. There is extensive bilateral pulmonary infiltrates and interval worsening of the right-sided pulmonary infiltration. Meanwhile, the patient's white cell count is currently at 22.3 which is essentially compared to yesterday. The patient started spiking fever with a T-max of 1.4 and he was started on IV cefepime 2 g every 12 hours as of yesterday. He remains on Decadron 6 g IV every 12 hours. Cultures were sent yesterday on the results are still pending for now. He is receiving daily Lasix 40 mg IV every 24 hours. The net fluid balance for yesterday was +312 mL. The patient is currently on no pressors. BUN is up to 104. Creatinine is up to 1.6. Rest of the electrolytes show a sodium level of 150 with a potassium of 4.8 and a chloride of 109 with a bicarb of 35. The patient is on vital high protein at the rate of 37 mL an hour. The patient is also receiving free water flushes through his PEG tube at a rate of 30 mL every 4 hours. As noted, the sodium level is on the rise. He is still tachycardic and he was tachycardic throughout the night. He is in sinus tachycardia. Heart rate has slowed down to 110. Current pulse ox and order of mid 80s. Objective - Vital Signs Vital signs: Vital Signs Temp 101.2 F H 03/19/21 06:00 Pulse 110 H 03/19/21 06:00 Resp 17 03/19/21 06:00 BP 117/70 03/19/21 06:00 Pulse Ox 83 L 03/19/21 06:00 Intake & Output 03/18/21 03/18/21 03/19/21 06:59 18:59 06:59 Intake Total 1942.226 996.93 1695.529 Output Total 1570 1765 790 Balance 372.226 -768.07 905.529 Weight 143.5 kg 145 kg Intake: IV 120 120 320 .9 KVO 120 120 120 ACETAMINOPHEN IV (For NPO 200 ) 1,000 mg In Empty Bag 1 bag @ 400 mls/hr IVPB Q6HR [facility] Rx#:[id number] Intake, IV Titration 1288.226 839.93 878.529 Amount Cefepime 2 gm In Sodium 100 Chloride 0.9% 100 ml @ 25 mls/hr IVPB Q12HR [facility] Rx #:[id number] Cisatracurium 200 mg In 400.000 200 78.529 Sodium Chloride 0.9% 180 ml @ 1 MCG/KG/MIN 7.986 mls/hr IV .Q24H [facility] Rx#: [id number] fentaNYL (PF). 1,000 mcg 500.000 439.93 500 In Sodium Chloride 0.9% 80 ml @ Per Protocol IV . Q0M [facility] Rx#:[id number] propofoL 1,000 mg In 388.226 200 200 Empty Bag 1 bag @ Titrate IV .Q0M [facility] Rx#: [id number] Tube Feeding 444 37 407 Other 90 90 Output: Urine 1570 1765 790 Other: Voiding Method Indwelling Catheter Indwelling Catheter Indwelling Catheter ABP, PAP, CO, CI - Last Documented Arterial Blood Pressure 147/74 - Exam 45-year-old gentleman, currently sedated and paralyzed, with a midline tracheostomy tube. The patient is sedated and paralyzed and the patient has a #8 on a tracheostomy tube in place. Head exam was generally normal. There was no scleral icterus or corneal arcus. Mucous membranes were moist. Neck supple. Full range of motion. No adenopathy thyromegaly or neck vein distention. Midline tracheostomy is noted. Cardiovascular examination reveals regular rhythm rate. S1-S2 normal. No S3 or S4. No discernible murmur noted. Heart sounds are distant. Heart rate 76 bpm. Lungs reveal bilateral coarse rhonchi and crackles. Breath sounds equal bilaterally but diminished throughout. No wheezes. Abdomen soft bowel sounds are heard. No masses or tenderness. PEG tube noted. Extremities are intact. No cyanosis clubbing or edema. Skin is without rash or lesion. Neurologic examination cannot be properly assessed, as the patient is sedated and paralyzed. - Labs CBC & Chem 7: 03/19/21 03:51 03/19/21 03:51 Labs: Abnormal Lab Results - Last 24 Hours (Table) 03/18/21 03/18/21 03/18/21 Range/Units 04:14 15:23 17:45 WBC (3.8-10.6) k/uL RBC (4.30-5.90) m/uL Hgb (13.0-17.5) gm/dL Hct (39.0-53.0) % D-Dimer (<0.60) mg/L FEU ABG pH 7.26 L (7.35-7.45) ABG pCO2 90 H* (35-45) mmHg ABG pO2 56 L* (83-108) mmHg ABG HCO3 40 H* (21-25) mmol/L ABG Total CO2 43 H (19-24) mmol/L ABG O2 Saturation 85.2 L (94-97) % Sodium (137-145) mmol/L Chloride (98-107) mmol/L Carbon Dioxide (22-30) mmol/L BUN (9-20) mg/dL Creatinine (0.66-1.25) mg/dL Glucose (74-99) mg/dL POC Glucose (mg/dL) 178 H (75-99) mg/dL Ferritin 429.1 H (22.0-322.0) ng/mL Total Bilirubin (0.2-1.3) mg/dL Lactate Dehydrogenase (313-618) U/L Total Protein (6.3-8.2) g/dL Albumin (3.5-5.0) g/dL 03/19/21 03/19/21 03/19/21 Range/Units 00:52 03:51 03:51 WBC 22.3 H (3.8-10.6) k/uL RBC 3.34 L (4.30-5.90) m/uL Hgb 10.9 L (13.0-17.5) gm/dL Hct 33.1 L (39.0-53.0) % D-Dimer (<0.60) mg/L FEU ABG pH (7.35-7.45) ABG pCO2 (35-45) mmHg ABG pO2 (83-108) mmHg ABG HCO3 (21-25) mmol/L ABG Total CO2 (19-24) mmol/L ABG O2 Saturation (94-97) % Sodium 150 H (137-145) mmol/L Chloride 109 H (98-107) mmol/L Carbon Dioxide 35 H (22-30) mmol/L BUN 104 H* (9-20) mg/dL Creatinine 1.69 H (0.66-1.25) mg/dL Glucose 134 H (74-99) mg/dL POC Glucose (mg/dL) 176 H (75-99) mg/dL Ferritin (22.0-322.0) ng/mL Total Bilirubin 1.6 H (0.2-1.3) mg/dL Lactate Dehydrogenase 1952 H (313-618) U/L Total Protein 5.6 L (6.3-8.2) g/dL Albumin 2.8 L (3.5-5.0) g/dL 03/19/21 03/19/21 03/19/21 Range/Units 03:51 04:45 05:36 WBC (3.8-10.6) k/uL RBC (4.30-5.90) m/uL Hgb (13.0-17.5) gm/dL Hct (39.0-53.0) % D-Dimer 1.95 H (<0.60) mg/L FEU ABG pH (7.35-7.45) ABG pCO2 68 H (35-45) mmHg ABG pO2 59 L* (83-108) mmHg ABG HCO3 38 H (21-25) mmol/L ABG Total CO2 40 H (19-24) mmol/L ABG O2 Saturation 89.9 L (94-97) % Sodium (137-145) mmol/L Chloride (98-107) mmol/L Carbon Dioxide (22-30) mmol/L BUN (9-20) mg/dL Creatinine (0.66-1.25) mg/dL Glucose (74-99) mg/dL POC Glucose (mg/dL) 130 H (75-99) mg/dL Ferritin (22.0-322.0) ng/mL Total Bilirubin (0.2-1.3) mg/dL Lactate Dehydrogenase (313-618) U/L Total Protein (6.3-8.2) g/dL Albumin (3.5-5.0) g/dL Microbiology - Last 24 Hours (Table) 03/18/21 09:16 Gram Stain - Preliminary Sputum Sputum Culture - Preliminary 03/16/21 09:30 Nasal Culture - Final Nasal Swab Assessment and Plan Plan: 1 ARDS with secondary acute hypoxemic respiratory failure secondary to COVID 19 pneumonia/pneumonitis, with worsening oxygenation, which required intubation and mechanical ventilation on March 06, 2021. Currently on Decadron 6 mg IV every 12 hours. The patient also received convalescent plasma and Tocilizumab during the course of the treatment. Since then, the patient continues to be vent dependent and the patient currently has a tracheostomy tube in place. Chest x-ray showing bilateral pulmonary infiltrates, with interval worsening in the left-sided consolidation as of yesterday and there is interval worsening of the right-sided consolidation on today's chest x-ray. Tracheostomy tube is in a good location. Cultures have been sent. The patient was started on IV antibiotics. He is currently febrile and tachycardic. At this point in time, possibility of a superinfection is highly likely especially with worsening in bilateral pulmonary infiltrates and consolidations especially the one on the right. 3 Morbid obesity, with a BMI of 43.8. 4 Rule out obstructive sleep apnea syndrome. 5 Elevated inflammatory markers secondary to coronavirus infection. 6 Methicillin sensitive staph aureus tracheobronchitis/bronchopneumonia, treated with Zosyn, and discontinued on March 14. Currently the patient is off antibiotics, there is suspicion for any infection based on the chest x-ray findings. We'll restart antibiotics and IV cefepime. 7 acute kidney injury, recovering , the creatinine is on the rise in the creatinine is up to 1.6 with a BUN of 104 8 hyperchloremic hypernatremia 9 fever and tachycardia, could be underlying septic event. Currently on IV cefepime. Plan: The tidal volume down to 400 and increase the PEEP up to 22 and repeated blood gases and 1 hour Unable to prolonged the patient will try left lateral positioning and monitor hi s oxygenation. pro calcitonin level Start the patient IV fluids. Stop the Lasix for now and give the patient a bolus of 1 L of normal saline. Following that we'll put the patient on 0.45NSS water at the rate of 75 mL an hour and monitor the sodium level. He is on no pressors for now. Increase the free water flushes through the PEG tube to 200 mL every 4 hours Start the patient on vancomycin Continue IV cefepime 2 g every 12 hours sputum Gram stain and culture pending for now Paralytic holiday Chest x-ray was reviewed D-dimer improved back down to 1.95 and we'll keep the Lovenox off for another 24 hours and monitor the patient for any bleeding complications and restarted at a dose of 40 mg every 24 hours if he remains stable We'll continue with the current treatment plan for now Overall prognosis remains quite guarded We will continue to follow and make further recommendations based on his clinical status. Critically care evaluation, more than 30 minutes Time with Patient: Greater than 30
[2021-03-19] MEDS: SYMBICORT 160-4.5 MCG INHALER INHALATION SCH (07:03)
[2021-03-19 07:08] LABS: C Reactive Protein 50.5 mg/dL (<1.0)
[2021-03-19 07:56] LABS: ABG Base Excess 9.2 mmol/L; ABG HCO3 37 mmol/L (21-25); ABG Oxygen Saturation 83.1 % (94-97); ABG PH 7.24 (7.35-7.45); ABG TCO2 39 mmol/L (19-24); Allen Test Performed? Yes
[2021-03-19 08:00] LABS: ABG PCO2 85 mmHg (35-45)
[2021-03-19] MEDS ORDERED: VANCOMYCIN 2,500 MG in SODIUM CHLORIDE 0.9% 500 ML 500 ML IVPB ONE (08:00)
[2021-03-19 08:01] LABS: ABG PO2 55 mmHg (83-108)
--- NOTE | 2021-03-19 08:09 | XR ---
EXAMINATION TYPE: XR chest 1V portable DATE OF EXAM: 03/19/2021 COMPARISON: 03/18/2021 INDICATION: Mechanical ventilation TECHNIQUE: Single frontal view of the chest is obtained. FINDINGS: The heart size is normal. The pulmonary vasculature is normal. There is a right lower lobe consolidation. Diffuse infiltrate is present to the remaining portions of the lungs. Findings appear to be worsening. Tracheostomy tube is in the midline. IMPRESSION: 1. Worsening bilateral lung infiltrates greater at the right lung base
[2021-03-19] MEDS: CEFEPIME 2 GM in SODIUM CHLORIDE 0.9% 100 ML IVPB SCH (08:38)
[2021-03-19] MEDS: CHLORHEXIDINE GLUCONATE 15 ML CUP MUCOUS MEM SCH (08:38)
[2021-03-19] MEDS: CHOLECALCIFEROL 25 MCG (1000 IU) TABLET PO SCH (08:39)
[2021-03-19] MEDS: ZINC SULFATE 220 MG CAP PO SCH (08:39)
[2021-03-19] MEDS: ASCORBIC ACID 500 MG TAB PO SCH (08:39)
[2021-03-19] MEDS: FAMOTIDINE 20 MG TAB PO SCH (08:39)
[2021-03-19] MEDS: DEXAMETHASONE SOD PHOSPHATE 10 MG/ML 1 ML VIAL IV SCH (08:39)
[2021-03-19 09:52] VITALS: RESP 38; TEMP 100.6
[2021-03-19 10:16] VITALS: BMI 45.8
[2021-03-19 10:28] VITALS: PULSE 133
[2021-03-19 11:03] VITALS: BP 112/77
--- NOTE | 2021-03-19 20:19 | P.DS ---
Providers Date of admission: 03/01/21 12:30 Expected date of discharge: 03/19/21 (Patient ) Attending physician: Forest Galeano Consults: 03/01/21 13:42 Consult Physician Urgent Consulting Provider: Sherine Mccoy Consult Reason/Comments: severe Covid pneumonia, hypoxia Do you want consulting provider notified?: Yes 03/13/21 08:37 Consult Physician Routine Consulting Provider: Celso Rico Consult Reason/Comments: covid pneumonia Do you want consulting provider notified?: Yes Primary care physician: [facility] Course: Chief Complaint: Shortness of breath History of presenting complaint: This is a pleasant 45-year-old patient of Dr. Dejesus. Patient was diagnosed with COVID 3 days ago. Symptoms started about 6 days ago. Patient had fever or chills some diarrhea. Some shortness of breath some cough. No loss of smell or taste. Decreased appetite tired rundown. Patient pulse ox on presentation was 70% and patient subsequently was put on 15 L high flow oxygen. Admitted with bilateral COVID 19 pneumonia. Acute hypoxic respiratory failure. Put on IV Decadron Lovenox, 15 L of high flow oxygen. Pulmonary status deteriorated. Transferred to the ICU. Intubated March 07. Tracheostomy and PEG tube placed on March 13. Patient had continued to deteriorate. Was on Nimbex, fentanyl, propofol. Prognosis not good. Today: Earlier today. at common. At the bedside. I spoke at length to her. Prognosis poor. Earlier had discussed with Dr. Mccoy. Chances the patient making it was very grim. Patient was 100% oxygen and still saturating low. Later the patient Consultation: Dr. Mccoy partners from critical care Dr. 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 No history of smoking or alcohol Family history: Reviewed, noncontributory to presentation Physical examination: Earlier today patient was minimally responsive. On the ventilator INVESTIGATIONS, reviewed in the clinical context: March 18: WBC 21.5 hemoglobin 11 platelets 298 potassium 4.7 creatinine 1.3 March 17: WBC 20.6 hemoglobin 11.3 platelets 261 potassium 4.6 creatinine 1.28 March 15: WBC 20.6 hemoglobin 11.9. History 63 d-dimer 3.55 potassium 4.2 bun 88 creatinine 1.76 CRP 6.2 March 14: WBC 22.8 hemoglobin 11.9 platelets 255 d-dimer 5.09 potassium 4.4 creatinine 1.73 CRP 2.7 March 13: WBC 20.9 hemoglobin 11.8 platelets 198 potassium 4.5 creatinine 1.53 CRP 1.1 LDH 1660 d-dimer 5.15 March 04: D-dimer greater than 34 potassium 4.1 creatinine 0.69 LDH 1471 CRP 2.6 March 03: D-dimer 2.06 potassium 4.3 creatinine 0.84 2147 LDH 1419 CRP 5.2 D-dimer 0.82 potassium 4.5 creatinine 0.79 AST 65 ALT 51 LDH 1377 CRP 14.6 Admission labs: WBC 10.3 hemoglobin 16.3 platelets 234 lymphocytes 0.9 d-dimer 0.69 potassium 3.8 creatinine 0.74 LDH 1156 CRP 16 EKG tracing personally reviewed by me-normal sinus rhythm Chest x-ray film personally reviewed by me-/portable: Bilateral infiltrates Cause of : COVID 19 Assessment and plan: -Acute bilateral: COVID 19 pneumonia. Symptoms started about 6 days prior to admission.-Not improving vitamin C vitamin D zinc IV Decadron and subcu Lovenox. -MSSA tracheal bronchitis/bronchopneumonia On Zosyn-discontinued March 14 -Acute hypoxic respiratory failure from COVID 19 worsening Initially on high flow oxygen. Intubated March 07. On 90 % FiO2 -Morbid obesity BMI 43.8 Weight loss measures and follow with PCP for the same -Mild hepatitis likely due to COVID 19 Follow clinically -Hypernatremia from free water deficit from decreased oral intake-corrected IV fluids -Acute kidney injury, likely ATN multifactorial-slow to respond Follow lites closely -Anemia of chronic disease including hospital-acquired anemia from blood draws Follow H&H -Acute bleeding at the tracheostomy site.-Improved with pressure dressing Patient is on Lovenox 70 mg twice daily. Hold the same. Check patient's PT PTT, fibrogenic level. Disposition: Patient Plan - Discharge Summary Discharge Rx Participant: No New Discharge Prescriptions: Discontinued Multivitamins, Thera [Multivitamin (formulary)] 1 tab PO DAILY Ibuprofen [Advil] 600 mg PO Q8HR PRN PRN Reason: Pain Or Fever > 100.5 guaiFENesin [Mucinex] 1,200 mg PO Q12H PRN PRN Reason: Cold Symptoms Follow up Appointment(s)/Referral(s): Amado Dejesus MD [Primary Care Provider] - 1-2 days Discharge Disposition: - Preliminary Cause of Preliminary Cause of : COVID 19
[2021-03-19 22:38] LABS: LD Isoenzymes 1 18 % (19-38); LD Isoenzymes 2 28 % (30-43); LD Isoenzymes 3 20 % (16-26); LD Isoenzymes 4 13 % (3-12); LD Isoenzymes 5 21 % (3-14); Lactacte Dehydrogenase(LD) ISO 559 U/L (100-220)
[2021-03-20] MEDS ORDERED: VANCOMYCIN 2,250 MG in SODIUM CHLORIDE 0.9% 500 ML 500 ML IVPB SCH (06:00)
== END 2021-03-19 13:00 | disposition expired | DRG 4 ==
LOC: EC 10:25 → 4SSUR 12:30 → 1SOBS 18:26 → 2SICU 03-05 09:38
PROVIDERS: ADMIT Hospitalist; ATTEND Hospitalist
PROC: XW033H5 Introduction of Tocilizumab into Peripheral Vein, Percutaneous Approach, New Technology Group 5 (ICD-10-PCS; 2021-03-01)
PROC: 5A0945A Assistance with Respiratory Ventilation, 24-96 Consecutive Hours, High Flow/Velocity Cannula (ICD-10-PCS; 2021-03-02)
PROC: XW13325 Transfusion of Convalescent Plasma (Nonautologous) into Peripheral Vein, Percutaneous Approach, New Technology Group 5 (ICD-10-PCS; 2021-03-03)
PROC: 5A09457 Assistance with Respiratory Ventilation, 24-96 Consecutive Hours, Continuous Positive Airway Pressure (ICD-10-PCS; 2021-03-04)
PROC: 0D9670Z Drainage of Stomach with Drainage Device, Via Natural or Artificial Opening (ICD-10-PCS; 2021-03-06)
PROC: 5A1955Z Respiratory Ventilation, Greater than 96 Consecutive Hours (ICD-10-PCS; 2021-03-06)
PROC: 0BH17EZ Insertion of Endotracheal Airway into Trachea, Via Natural or Artificial Opening (ICD-10-PCS; 2021-03-06)
PROC: 3E033XZ Introduction of Vasopressor into Peripheral Vein, Percutaneous Approach (ICD-10-PCS; 2021-03-07)
PROC: 02HV33Z Insertion of Infusion Device into Superior Vena Cava, Percutaneous Approach (ICD-10-PCS; 2021-03-07)
PROC: 3E0G76Z Introduction of Nutritional Substance into Upper GI, Via Natural or Artificial Opening (ICD-10-PCS; 2021-03-07)
PROC: 0B110F4 Bypass Trachea to Cutaneous with Tracheostomy Device, Open Approach (ICD-10-PCS; principal; 2021-03-13 11:15)
PROC: 3E0G76Z Introduction of Nutritional Substance into Upper GI, Via Natural or Artificial Opening (ICD-10-PCS; principal; 2021-03-13 11:15)
PROC: 0DH63UZ Insertion of Feeding Device into Stomach, Percutaneous Approach (ICD-10-PCS; principal; 2021-03-13 11:15)
DX: U07.1 COVID-19 (principal); J12.82 Pneumonia due to coronavirus disease 2019; N17.0 Acute kidney failure with tubular necrosis; R65.21 Severe sepsis with septic shock; K72.00 Acute and subacute hepatic failure without coma; A41.9 Sepsis, unspecified organism; J15.211 Pneumonia due to Methicillin susceptible Staphylococcus aureus; J80 Acute respiratory distress syndrome; E44.0 Moderate protein-calorie malnutrition; A08.39 Other viral enteritis; E87.0 Hyperosmolality and hypernatremia; J95.01 Hemorrhage from tracheostomy stoma; D68.32 Hemorrhagic disorder due to extrinsic circulating anticoagulants; J90 Pleural effusion, not elsewhere classified; Z68.42 Body mass index [BMI] 45.0-49.9, adult; B17.8 Other specified acute viral hepatitis; E66.01 Morbid (severe) obesity due to excess calories; Z66 Do not resuscitate; D63.8 Anemia in other chronic diseases classified elsewhere; E87.8 Other disorders of electrolyte and fluid balance, not elsewhere classified; R04.0 Epistaxis; D50.0 Iron deficiency anemia secondary to blood loss (chronic); T45.515A Adverse effect of anticoagulants, initial encounter; D72.810 Lymphocytopenia; G47.33 Obstructive sleep apnea (adult) (pediatric); Z79.899 Other long term (current) drug therapy; Z90.89 Acquired absence of other organs; Z87.81 Personal history of (healed) traumatic fracture; Z98.890 Other specified postprocedural states; Z71.3 Dietary counseling and surveillance
CPT/HCPCS: 36415; 36573; 36600; 71045; 80048; 80053; 81001; 82550; 82553; 82728; 82805; 83605; 83615; 83625; 83735; 84145; 85025; 85027; 85379; 85384; 85610; 85730; 86140; 86850; 86900; 86901; 87040; 87070; 87077; 87186; 87205; 93005; 93970; 94002; 94003; 94640; 94660; 94760; 99285